=== PATIENT | male | born 1935 | race Caucasian/White ===

== ENCOUNTER 2017-06-02 09:39 | Day surgery (SDC) | payer MEDICARE, OTHER, SELFPAY ==
[2017-05-26 14:18] VITALS: BP 107/67; PULSE 54; RESP 16; TEMP 36.6; O2SAT 97; BMI 25.7
--- NOTE | 2017-05-26 14:25 | SDCEKG_ITS ---
Test Reason : Blood Pressure : / mmHG Vent. Rate : 051 BPM Atrial Rate : 051 BPM P-R Int : 192 ms QRS Dur : 106 ms QT Int : 448 ms P-R-T Axes : 042 -07 -01 degrees QTc Int : 412 ms Sinus bradycardia Low voltage QRS Inferior infarct , age undetermined Cannot rule out Anterior infarct , age undetermined Abnormal ECG Confirmed by RONNIE ROYAL, SULLY ([id number]), design editor JELLY LOZANO ([id number]) on 05/29/2017 2:22:52 PM Referred By: Sergio Lott Confirmed By:SULLY TRUJILLO MD
[2017-05-26 15:05] LABS: Anion Gap 3 (5-15); BUN 19 mg/dL (7-18); Calcium,Total 8.4 mg/dL (8.5-10.1); Chloride 106 mmol/L (98-107); Creatinine, Serum 0.91 mg/dL (0.70-1.30); EST Glomerular Filtration Rate 85 mL/min (>60); Est Glom Filt Rate - Afr Amer 103 mL/min (>60); Glucose 89 mg/dL (74-106); Potassium 4.3 mmol/L (3.5-5.1); Sodium Level 140 mmol/L (136-145)
[2017-06-02 10:00] VITALS: BP 140/86; PULSE 51; RESP 16; TEMP 36.1; O2SAT 100; BMI 25.7
--- NOTE | 2017-06-02 10:57 | MISC_PTH ---
PATIENT: RADHA CUELLAR LOC: [facility] [place] U#:[id number] AGE/SX: 82/M ROOM: RE06/02/[address]: Dr. Cedric Lott MD : [id number] BED: DIS: 06/02/2017 SPEC #: [id number] RECD: 06/02/17 13:39 STATUS: BELEN BRANDEN #: [id number] HA: 06/02/17 10:[address]: Cedric Lott DEPT: SURGICAL PATHOLOGY RECD BY: Nael Lock ENTERED: 06/02/17 13:51 SP TYPE: MISC OTHR DR: Dr. Cedric Donis MD Tissues: Supraglottic space Procedures: Surgery Specimen Level IV HEADER OPERATION: Direct laryngoscopy with biopsy PRE-OP DIAGNOSIS: Supraglottic mass TISSUE SUBMITTED: Supraglottic mass MICROSCOPIC DIAGNOSIS Supraglottic mass, biopsy: Changes suggestive of squamous papilloma. AM:nette 06/03/17 MICROSCOPIC DESCRIPTION Slides are reviewed. GROSS DESCRIPTION Received in fixative is one container labeled with the patient's name and designated supraglottic mass. The specimen consists of one irregular fragment of light srinivasan soft tissue that measures 1 cm in greatest dimension. The specimen is totally submitted in one cassette. / SJ:nette 06/02/17 TC:5 CPT: 69109
[2017-06-02] MEDS: Oxymetazoline 0.05% 1 SPRAY SPRAY.BTL 15 SPRAY (12:21)
[2017-06-02 12:41] VITALS: BP 140/86; BP 148/89; PULSE 62; RESP 16; TEMP 36; O2SAT 95
[2017-06-02 13:00] VITALS: BP 119/83; BP 140/86; PULSE 58; RESP 16; O2SAT 95
--- NOTE | 2017-06-02 13:04 | PCM.DC ---
You will use the following diet at home:: No restrictions Discharge Activity: Return to Normal Activity Call your doctor if your incision/area has: Increased Pain/ Swelling Allergies/Adverse Reactions: Allergies No Known Allergies Allergy (Verified 05/28/17 08:19) Medications to take at Discharge Atorvastatin Calcium [Lipitor] 80 mg PO QHS 03/07/15 Glucosamine/MSM/Chondroitin A [Glucosamine Chondroit MSM Tab] 1 each PO DAILY 03/07/15 Metoprolol Tartrate [Lopressor (beta phong)] 25 mg PO BID 03/07/15 proCHLORPERazine tablet [Compazine tablet] 10 mg PO Q6H PRN PRN 03/07/15 Aspirin E.C. [Ecotrin] 81 mg PO DAILY@0800 07/03/15 Phenylephrine HCl/Wilson Butter [Preparation H Suppository] 1 each RC UD PRN 07/03/15 Halaven 2 mg IV QMONTH 07/24/15 Multivit-Min/FA/Lycopen/Lutein [Centrum Silver Men Tablet] 1 each PO BID 07/29/16 tamsulosin 0.4 mg capsule 0.4 mg PO DAILY 60 Days #60 02/27/17 Naproxen Sodium [Aleve] 220 mg PO QODAY 04/15/17 Ondansetron [Zofran Odt] 4 mg PO Q8H PRN PRN #60 tab 04/15/17 Pantoprazole Sodium [Protonix] 40 mg PO DAILY #60 tablet 04/15/17 lisinopril 2.5 mg tablet 2.5 mg PO QDAY #30 tab 04/16/17 Primary Care Physician: Sergio Donis MD [Primary Care Provider] - Please Follow Up With: Sergio Lott MD When: 1 week
--- NOTE | 2017-06-02 13:05 | PCM.OPRPT ---
Problem List (1) Supraglottic mass Status: Acute Report of Operation Date of Procedure: 06/02/17 Pre-Operative Diagnosis: left supraglottic mass Post-Operative Diagnosis: left supraglottic mass Surgery/Procedure Performed:: diagnostic laryngoscopy with biopsy and use of operative telescope Type of Anesthesia:: General Estimated Blood Loss (mL): 0cc Description of Procedure: on the day of the procedure, after appropriate informed consent was obtained, the patient was brought to the operating room and placed in supine position on the operating table. he was placed under general endotracheal anesthesia by the anesthesiologist. the endotracheal tube was secured, the eyes were taped. the table was rotated 90 degrees toward the surgeon. a tooth guard was placed. a gretchen laryngoscope was inserted into the oral cavity with care not to damage the lips teeth or gums. once a glottic view was obtained, it was suspended from the thapa. a zero degree endoscope was inserted and the larynx was examined. a small left mid-false cord nodule was biopsied. the remainder of the glottis, supraglottis, oropharynx and hypopharynx was clear of masses or mucosal irregularities. hemostasis was achieved. the patient was transferred to the PACU in stable condition. - Admit VTE Documentation VTE Present on Admission: No VTE Mechan Device Prophylaxis: None VTE Pharm Prophylaxis ordered?: No Reason prophylaxis not ordered:: Treatment Not Indicated
[2017-06-02 13:10] VITALS: BP 113/76; BP 140/86; PULSE 55; RESP 16; TEMP 36.1; O2SAT 94
[2017-06-02 13:32] VITALS: BP 140/86
== END 2017-06-02 13:33 | disposition home or self-care (01) ==
LOC: SDC 09:39 → AC 09:41
PROVIDERS: Family Provider Family Medicine; PCP Family Medicine; Visit Provider Otolaryngology
PROC: 0CJS8ZZ Inspection of Larynx, Via Natural or Artificial Opening Endoscopic (ICD-10-PCS; CPT 31575; principal; 2017-06-02 11:25)
DX: D14.1 Benign neoplasm of larynx (principal); C48.0 Malignant neoplasm of retroperitoneum; I25.10 Atherosclerotic heart disease of native coronary artery without angina pectoris; I25.2 Old myocardial infarction; I42.9 Cardiomyopathy, unspecified; I35.0 Nonrheumatic aortic (valve) stenosis; E78.00 Pure hypercholesterolemia, unspecified; K21.9 Gastro-esophageal reflux disease without esophagitis; Z95.1 Presence of aortocoronary bypass graft; Z95.5 Presence of coronary angioplasty implant and graft; Z79.82 Long term (current) use of aspirin; Z79.899 Other long term (current) drug therapy
CPT/HCPCS: 31536; 80048; 88305; J7120; A4216; J2405

== ENCOUNTER → 2017-06-18 07:32 | Outpatient (CLI) | payer MEDICARE, BC, OTHER, SELFPAY ==
[2017-06-18 10:22] LABS: LDH 172 U/L (87-241); Magnesium 2.2 mg/dL (1.6-2.6)
[2017-06-18 10:26] LABS: Hemoglobin 11.7 g/dl (13.0-16.5); Mean Corpuscular Volume 94.3 fL (80-94); Red Blood Count 3.71 M/mm3 (4.6-6.2); White Blood Count 1.3 K/mm3 (4.4-11.0)
[2017-06-18 10:27] LABS: Absolute Lymphocyte Count 0.62 X10^3/ul (0.83-4.51); Absolute Neutrophil Count 0.4 X10^3/uL (2.0-7.7); Basophil# 0.07 X10^3/uL; Basophil% 5.5 % (0-1); Eosinophil# 0.05 X10^3/uL; Eosinophils% 3.9 % (0-5); Lymphocyte # 0.62 X10^3/ul (4.0); Lymphocyte % 48.4 % (19-41); Mean Corp Hgb Conc 33.4 g/gl (32-36); Mean Corpuscular Hgb 31.5 pg (27.0-32.0); Mean Platelet Vol. 9.3 fl (6.2-12.0); Monocyte# 0.14 X10^3/uL; Monocyte% 10.9 % (0-10); Neutrophil # 0.39 X10^3/uL (2.7-7.7); Neutrophil % 30.5 % (47-70); Platelet Count 241 K/mm3 (150-450); RBC Distribution Width SD 45.7 fl (35.1-43.9)
[2017-06-18 10:31] LABS: Differential Indicated SCAN CRITERIA MET; POSITIVE COUNT YES; POSITIVE DIFFERENTIAL YES; POSITIVE MORPHOLOGY NO
[2017-06-18 10:32] LABS: ALB/GLOB Ratio 1.3 RATIO (0.9-2.4); AST(SGOT) 21 U/L (15-37); Alanine Aminotransfer ALT/SGPT 23 U/L (16-61); Albumin, Serum 3.6 g/dL (3.2-5.0); Alkaline Phosphatase 91 U/L (45-117); Anion Gap 7 (5-15); BUN 17 mg/dL (7-18); Bilirubin, Direct 0.18 mg/dL (0.00-0.30); Calcium,Total 8.5 mg/dL (8.5-10.1); Chloride 104 mmol/L (98-107); Cholesterol 143 mg/dL (200); Creatinine, Serum 0.85 mg/dL (0.70-1.30); EST Glomerular Filtration Rate 91 mL/min (>60); Est Glom Filt Rate - Afr Amer 111 mL/min (>60); Globulin 2.8 g/dL (2.2-4.2); Glucose 89 mg/dL (74-106); High Density Lipoprotein 38 mg/dL; Potassium 3.9 mmol/L (3.5-5.1); Protein, Total 6.4 g/dL (6.4-8.2); Sodium Level 140 mmol/L (136-145); Triglycerides 86 mg/dL; Very Low Density Lipoprotein 17 mg/dL (5-40)
[2017-06-18 11:19] LABS: Platelet Estimate ADEQUATE (ADEQ)
[2017-06-18 11:20] LABS: Red Cell Morphology NORM C+C NORMAL (NORM C&C)
[2017-06-22 09:57] LABS: Pathologist Review Reviewed
== END ==
PROVIDERS: Internal Medicine Medical Oncology; Family Provider Family Medicine; PCP Family Medicine
DX: E78.5 Hyperlipidemia, unspecified (principal); C49.5 Malignant neoplasm of connective and soft tissue of pelvis; I25.10 Atherosclerotic heart disease of native coronary artery without angina pectoris; Z79.899 Other long term (current) drug therapy
CPT/HCPCS: 36415; 80053; 80061; 82248; 83615; 83735; 85025

== ENCOUNTER → 2018-03-24 07:42 | Outpatient (CLI) | payer MEDICARE, OTHER, SELFPAY ==
[2018-03-17 08:41] VITALS: BMI 25.4
--- NOTE | 2018-03-24 07:48 | EKG12_ITS ---
Test Reason : MED Blood Pressure : / mmHG Vent. Rate : 056 BPM Atrial Rate : 056 BPM P-R Int : 196 ms QRS Dur : 106 ms QT Int : 454 ms P-R-T Axes : 068 084 -11 degrees QTc Int : 438 ms Sinus bradycardia Possible Inferior infarct , age undetermined Cannot rule out Anterior infarct , age undetermined Abnormal ECG Confirmed by LON ROYAL, MCKAY ([id number]), editorial specialist JELLY LOZANO ([id number]) on 03/25/2018 4:01:20 PM Referred By: Сергей Medina Confirmed By:MCKAY FORREST MD
--- OUTSIDE RECORDS SUMMARY | 2018-05-28 22:33 | XMS RPT_ITS ---
:1935 Author Organization [place] Support Name Relationship Address Phone ALISAMARTIEN Unavailable [address] + [place] [address] JENN ESQUIVELE Unavailable [address] + [place] [address] S Unavailable Unavailable Unavailable BRADFORD ESQUIVEL Unavailable [address] + [place] [address] JENN ESQUIVELE Unavailable [address] + [place] [address] S Unavailable Unavailable Unavailable BRADFORD ESQUIVEL Unavailable [address] + [place] [address] JENN ESQUIVELE Unavailable [address] + [place] [address] S Unavailable Unavailable Unavailable BRADFORD ESQUIVEL Unavailable [address] + [place] [address] JENNIFER ESQUIVEL Unavailable [address] + [place] [address] S Unavailable Unavailable Unavailable BRADFORD ESQUIVEL Unavailable [address] + [place] [address] MARTI ESQUIVELEN Unavailable [address] + [place] [address] CAMILO ESQUIVEL Unavailable Unavailable Unavailable BRADFORD ESQUIVEL Unavailable [address] + [place] [address] BRADFORD ESQUIVEL Unavailable [address] + [place] [address] CAMILO ESQUIVEL Unavailable Unavailable Unavailable BRADFORD ESQUIVEL Unavailable [address] + [place] [address] BRADFORD ESQUIVEL Unavailable [address] + [place] [address] ESQUIVELCAMILO Anderson Unavailable Unavailable Unavailable ESQUIVEL, BRADFORD Unavailable [address] + [place] [address] ESQUIVEL BRADFORD Unavailable [address] + [place] [address] ESQUIVEL, CAMILO Unavailable Unavailable Unavailable ESQUIVEL BRADFORD Unavailable [address] + [place] [address] ESQUIVEL, JENNIFER Unavailable [address] + [place] [address] S Unavailable Unavailable Unavailable ESQUIVEL BRADFORD Unavailable [address] + [place] [address] ESQUIVEL, JENNIFER Unavailable [address] + [place] [address] S Unavailable Unavailable Unavailable ESQUIVEL BRADFORD Unavailable [address] + [place] [address] ESQUIVEL JENNIFER Unavailable [address] + [place] [address] S Unavailable Unavailable Unavailable ESQUIVELMARTIEN Unavailable [address] + [place] [address] ESQUIVEL JENNIFER Unavailable [address] + [place] [address] S Unavailable Unavailable Unavailable ESQUIVEL BRADFORD Unavailable [address] + [place] [address] ESQUIVEL JENNIFER Unavailable [address] + [place] [address] S Unavailable Unavailable Unavailable ESQUIVEL BRADFORD Unavailable [address] + [place] [address] ESQUIVEL BRADFORD Unavailable [address] + [place] [address] ALISA CAMILO Unavailable Unavailable Unavailable ESQUIVEL, BRADFORD Unavailable [address] + [place] [address] ESQUIVEL BRADFORD Unavailable [address] + [place] [address] CAMILO ESQUIVEL Unavailable Unavailable Unavailable ESQUIVEL, BRADFORD Unavailable [address] + [place] [address] ESQUIVEL, BRADFORD Unavailable [address] + [place] [address] ALISA CAMILO Unavailable Unavailable Unavailable ESQUIVEL, BRADFORD Unavailable [address] + [place] [address] ESQUIVEL, JENNIFER Unavailable [address] + [place] [address] S Unavailable Unavailable Unavailable ESQUIVEL, BRADFORD Unavailable [address] + [place] [address] ESQUIVEL, JENNIFER Unavailable [address] + [place] [address] S Unavailable Unavailable Unavailable ESQUIVEL, BRADFORD Unavailable [address] + [place] [address] ESQUIVEL JENNIFER Unavailable [address] + [place] [address] S Unavailable Unavailable Unavailable ESQUIVEL, BRADFORD Unavailable [address] + [place] [address] ESQUIVEL JENNIFER Unavailable [address] + [place] [address] S Unavailable Unavailable Unavailable ESQUIVEL, BRADFORD Unavailable [address] + [place] [address] ESQUIVEL, JENNIFER Unavailable [address] + [place] [address] S Unavailable Unavailable Unavailable ESQUIVEL, BRADFORD Unavailable [address] + [place] [address] ESQUIVEL, BRADFORD Unavailable [address] + [place] [address] ESQUIVEL, CAMILO Unavailable Unavailable Unavailable ESQUIVEL, BRADFORD Unavailable [address] + [place] [address] ESQUIVEL, BRADFORD Unavailable [address] + [place] [address] ESQUIVEL CAMILO Unavailable Unavailable Unavailable ESQUIVEL, BRADFORD Unavailable [address] + [place] [address] ALISA BRADFORD Unavailable [address] + [place] [address] ALISA CAMILO Unavailable Unavailable Unavailable ESQUIVEL, BRADFORD Unavailable [address] + [place] [address] ESQUIVELJENNE Un[address] + [facility] [place] [address] S Unavailable Unavailable Unavailable ESQUIVEL, BRADFORD Unavailable [address] + [place] [address] JENN ESQUIVELE Unavailable [address] + [place] [address] S Unavailable Unavailable Unavailable ESQUIVEL, BRADFORD Unavailable [address] + [place] [address] JENN ESQUIVELE Unavailable [address] + [place] [address] S Unavailable Unavailable Unavailable ESQUIVEL BRADFORD Unavailable [address] + [place] [address] ALISA BRADFORD Unavailable [address] + [place] [address] ALISA CAMILO Unavailable Unavailable Unavailable ESQUIVEL, BRADFORD Unavailable [address] + [place] [address] ALISA BRADFORD Unavailable [address] + [place] [address] ALISA CAMILO Unavailable Unavailable Unavailable ESQUIVEL BRADFORD Unavailable [address] + [place] [address] ESQUIVEL BRADFORD Unavailable [address] + [place] [address] ALISA CAMILO Unavailable Unavailable Unavailable ESQUIVEL, BRADFORD Unavailable [address] + [place] [address] ESQUIVEL JENNIFER Unavailable [address] + [place] [address] S Unavailable Unavailable Unavailable ESQUIVEL, BRADFORD Unavailable [address] + [place] [address] ESQUIVEL, JENNIFER Unavailable [address] + [place] [address] S Unavailable Unavailable Unavailable ESQUIVEL, BRADFORD Unavailable [address] + [place] [address] ESQUIVEL, JENNIFER Unavailable [address] + [place] [address] S Unavailable Unavailable Unavailable ESQUIVEL, BRADFORD Unavailable [address] + [place] [address] ESQUIVEL, JENNIFER Unavailable [address] + [place] [address] S Unavailable Unavailable Unavailable ESQUIVEL, BRADFORD Unavailable [address] + [place] [address] ESQUIVEL, JENNIFER Unavailable [address] + [place] [address] S Unavailable Unavailable Unavailable ESQUIVEL, BRADFORD Unavailable [address] + [place] [address] ESQUIVEL, JENNIFER Unavailable [address] + [place] [address] S Unavailable Unavailable Unavailable ESQUIVEL, BRADFORD Unavailable [address] + [place] [address] ESQUIVEL, JENNIFER Unavailable [address] + [place] [address] S Unavailable Unavailable Unavailable ESQUIVEL, BRADFORD Unavailable [address] + [place] [address] ESQUIVEL, JENNIFER Unavailable [address] + [place] [address] S Unavailable Unavailable Unavailable ESQUIVEL, BRADFORD Unavailable [address] + [place] [address] ESQUIVEL, JENNIFER Unavailable [address] + [place] [address] S Unavailable Unavailable Unavailable ESQUIVEL, BRADFORD Unavailable [address] + [place] [address] JENN ESQUIVELE Unavailable [address] + [place] [address] S Unavailable Unavailable Unavailable ESQUIVEL BRADFORD Unavailable [address] + [place] [address] JENN ESQUIVELE Unavailable [address] + [place] [address] S Unavailable Unavailable Unavailable ESQUIVEL BRADFORD Unavailable [address] + [place] [address] ESQUIVEL JENNIFER Unavailable [address] + [place] [address] S Unavailable Unavailable Unavailable ALISA BRADFORD Unavailable [address] + [place] [address] ALISA BRADFORD Unavailable [address] + [place] [address] CAMILO ESQUIVEL Unavailable Unavailable Unavailable ESQUIVEL BRADFORD Unavailable [address] + [place] [address] ESQUIVEL BRADFORD Unavailable [address] + [place] [address] CAMILO ESQUIVEL Unavailable Unavailable Unavailable ESQUIVEL BRADFORD Unavailable [address] + [place] [address] ALISA BRADFORD Unavailable [address] + [place] [address] CAMILO ESQUIVEL Unavailable Unavailable Unavailable Care Team Providers Name Role Phone AWILDA BURNS Attending Unavailable AWILDA BURNS Referring Unavailable NATHALIE DONIS Primary Care Unavailable AWILDA BURNS Attending Unavailable NATHALIE DONIS Referring Unavailable NATHALIE DONIS Primary Care Unavailable AWILDA BURNS Attending Unavailable AWILDA BURNS Referring Unavailable NATHALIE DONIS Primary Care Unavailable AWILDA BURNS Attending Unavailable AWILDA BURNS Referring Unavailable NATHALIE DONIS Primary Care Unavailable AWILDA BURNS Attending Unavailable NATHALIE DONIS Referring Unavailable NATHALIE DONIS Primary Care Unavailable AWILDA BURNS Attending Unavailable AWILDA BURNS Referring Unavailable RANNEY, CHRISTOPHER B Primary Care Unavailable AWILDA BURNS Attending Unavailable AWILDA BURNS Referring Unavailable RANNEY, CHRISTOPHER B Primary Care Unavailable AWILDA BURNS Attending Unavailable RANNEY, CHRISTOPHER B Referring Unavailable RANNEY, CHRISTOPHER B Primary Care Unavailable AWILDA BURNS Attending Unavailable AWILDA BURNS Referring Unavailable RANNEY, CHRISTOPHER B Primary Care Unavailable SUNNI SORTO Attending Unavailable AWILDA BURNS Referring Unavailable RANNEY, CHRISTOPHER B Primary Care Unavailable AWILDA BURNS Attending Unavailable RANNEY, CHRISTOPHER B Referring Unavailable RANNEY, CHRISTOPHER B Primary Care Unavailable AWILDA BURNS Attending Unavailable AWILDA BURNS Referring Unavailable RANNEY, CHRISTOPHER B Primary Care Unavailable AWILDA BURNS Attending Unavailable AWILDA BURNS Referring Unavailable RANNEY, CHRISTOPHER B Primary Care Unavailable AWILDA BURNS Attending Unavailable AWILDA BURNS Referring Unavailable RANNEY, CHRISTOPHER B Primary Care Unavailable AWILDA BURNS Attending Unavailable AWILDA BURNS Referring Unavailable RANNEY, CHRISTOPHER B Primary Care Unavailable AWILDA BURNS Attending Unavailable RANNEY, CHRISTOPHER B Referring Unavailable RANNEY, CHRISTOPHER B Primary Care Unavailable Сергей Medina Attending Unavailable Keith, Rodger Referring Unavailable Ranney, Christopher Primary Care Unavailable Сергей Medina Consulting Unavailable Leti Alexander Attending Unavailable Sagar, Rodger Referring Unavailable Ranney, Christopher Primary Care Unavailable Сергей Medina Consulting Unavailable Сергей Medina Attending Unavailable Ranney, Christopher Primary Care Unavailable Sagar, Rodger Referring Unavailable PraСергей valles Attending Unavailable Сергей Medina Referring Unavailable Ranney, Christopher Primary Care Unavailable Сергей Medina Attending Unavailable Sagar, Rodger Referring Unavailable Ranney, Christopher Primary Care Unavailable Сергей Medina Consulting Unavailable Garrett Kimball Attending Unavailable Ranney, Christopher Referring Unavailable Сергей Medina Attending Unavailable Сергей Medina Referring Unavailable Ranney, Christopher Primary Care Unavailable Сергей Medina Consulting Unavailable Сергей Medina Attending Unavailable Сергей Medina Referring Unavailable Ranney, Christopher Primary Care Unavailable Сергей Medina Consulting Unavailable Сергей Medina Attending Unavailable Ranney, Christopher Primary Care Unavailable Сергей Medina Consulting Unavailable Sergio Lott Attending Unavailable Warmuluann, Sergio Referring Unavailable Ranney, Christopher Primary Care Unavailable Сергей Medina Attending Unavailable Keith, Rodger Referring Unavailable Ranney, Christopher Primary Care Unavailable Сергей Medina Consulting Unavailable Prah, Сергей Attending Unavailable Keith, Rodger Referring Unavailable [facility] Primary Care Unavailable Prah, Сергей Consulting Unavailable Estuardo Santos Attending Unavailable [facility] Primary Care Unavailable Prah, Сергей Consulting Unavailable Benita Dove Attending Unavailable Prah, Сергей Attending Unavailable Keith, Rodger Referring Unavailable [facility] Unavailable Prah, Сергей Consulting Unavailable Suzanna Santos Attending Unavailable [facility] Referring Unavailable [facility] Primary Care Unavailable Prah, Сергей Attending Unavailable Keith, Rodger Referring Unavailable [facility] Unavailable Prah, Сергей Consulting Unavailable Jigar, Garrett Attending Unavailable [facility] Referring Unavailable Catherine, Leti Attending Unavailable Keith, Rodger Referring Unavailable [facility] Unavailable Prah, Сергей Consulting Unavailable Prah, Сергей Attending Unavailable Prah, Сергей Attending Unavailable Keith, Rodger Referring Unavailable [facility] Unavailable Prah, Сергей Consulting Unavailable Prah, Сергей Attending Unavailable Keith, Rodger Referring Unavailable [facility] Primary Care Unavailable Prah, Сергей Consulting Unavailable Prah, Сергей Attending Unavailable Keith, Rodger Referring Unavailable [facility] Primary Care Unavailable Prah, Сергей Consulting Unavailable Catherine, Leti Attending Unavailable [facility] Primary Care Unavailable Prah, Сергей Consulting Unavailable [facility] Referring Unavailable Prah, Сергей Attending Unavailable [facility] Unavailable Prah, Сергей Consulting Unavailable Ranney, Christopher Referring Unavailable Prah, Сергей Attending Unavailable Keith, Rodger Referring Unavailable [facility] Unavailable Prah, Сергей Consulting Unavailable Prah, Сергей Attending Unavailable Keith, Rodger Referring Unavailable [facility] Primary Care Unavailable Prah, Сергей Consulting Unavailable Prah, Сергей Attending Unavailable Keith, Rodger Referring Unavailable [facility] Unavailable Prah, Сергей Consulting Unavailable Prah, Сергей Attending Unavailable Keith, Rodger Referring Unavailable [facility] Primary Care Unavailable Prah, Сергей Consulting Unavailable PROBLEMS PROBLEMS DATE TYPE CONDITION / CODE ATTENDING STATUS SOURCE Unknown R42 - Dizziness and Jigar, [place] Active [place] [facility] giddiness / R42(ICD-10) [facility] Repository Unknown Z95.1 - Presence of Jigar, Garrett Active [facility] 9 aortocoronary bypass Community graft / Z95.1(ICD-10) Hospital Repository Unknown I42.0 - Dilated Jiagr, Garrett Active [facility] 9 cardiomyopathy / Community I42.0(ICD-10) Hospital Repository Unknown E78.00 - Pure Jigar, [place] Active [facility] 9 hypercholesterolemia, Community unspecified / Hospital E78.00(ICD-10) Repository Unknown Z51.11 - Encounter for Сергей Medina Active [place] 9 antineoplastic Community chemotherapy / Hospital Z51.11(ICD-10) Repository Unknown 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, Hospital unspecified / Repository C49.9(ICD-10) Admitting Follow-up / 145() AWILDA BURNS Active [facility] 9 diagnosis [facility] Repository Unknown Z79.899 - Other technician terminal and repeater Сергей Medina Active [facility] 8 (current) drug therapy / Community Z79.899(ICD-10) Hospital Repository Unknown C49.5 - 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 Hospital / C49.5(ICD-10) Repository Admitting Malignant neoplasm of AWILDA BURNS Active [facility] 8 diagnosis other specified University ill-defined sites / [facility] C76.8(ICD-10) Center Repository Admitting 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 soft University tissue, [facility] Center Repository 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 / University C48.0(ICD-10) [facility] Repository Unknown E78.0 - Pure Danielle, Active [facility] 8 hypercholesterolemia / Suzanna [facility] E78.0(ICD-10) Hospital Repository Unknown E78.5 - Hyperlipidemia, Danielle, Active [place] 8 unspecified / Estuardo [facility] E78.5(ICD-10) Hospital Repository Unknown I25.10 - Atherosclerotic Jigar, Garrett Active [place] 8 heart disease of campo Community coronary artery without Hospital angina pectoris / Repository I25.10(ICD-10) Unknown 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 / Community I25.2(ICD-10) Hospital Repository Unknown R94.31 - Abnormal Garrett Kimball Active [facility] 8 electrocardiogram [ECG] Community [EKG] / R94.31(ICD-10) Hospital Repository Admitting 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 soft University tissue, unspecified (HCC) [facility] / C49.9(ICD-10) Center Repository 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 [address] [place] [address] OFFICE VISIT Date of Service: 03/30/18 MR#: [id number] Acct: [id number] Name: CAMILO ESQUIVEL Rep #: [id number] : 1935 Provider: Garrett Kimball MD Age/Sex: 83/M Location: [facility] Status: Signed HPI HPI Chief Complaint: Follow up Details: CAMILO ESQUIVEL, is a 83 M who presents to the office today for a cardiovascular follow-up. 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 His posterior descending artery was not amenable to intervention. He had angioplasty and stenting of his LAD. He does have a history of cardiomyopathy,, hypertension and hyperlipidemia. From a cardiac standpoint, patient is doing well. He does not have any chest discomfort/heaviness/tightness. His exercise tolerance is stable for his age. He does not have any worsening symptoms of shortness of breath. He denies any PND. He does not have any orthopnea. He does not have any symptoms of congestive heart failure. He does not have any palpitations that he is aware of. He has been having occasional lightheadedness and he is not sure whether this is always positional. He thinks it may be related to his cancer care. he does not have any lower extremity edema. He does not have any symptoms of claudication. 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 [Ecotrin] 81 mg PO DAILY@0800 07/03/15 [History Confirmed 03/30/18] Halaven 2 mg IV QMONTH 07/24/15 [History Confirmed 03/30/18] Multivit-Min/FA/Lycopen/Lutein [Centrum Silver Men Tablet] 1 ea PO BID 07/29/16 [History Confirmed 03/30/18] tamsulosin 0.4 mg capsule 0.4 mg PO DAILY 60 Days #60 02/27/17 [History Confirmed 03/30/18] Naproxen Sodium [Aleve] 220 mg PO QODAY 04/15/17 [History Confirmed 03/30/18] Ondansetron [Zofran Odt] 4 mg PO Q8H PRN PRN #60 tab 04/15/17 [Rx Confirmed 03/30/18] Pantoprazole Sodium [Protonix] 40 mg PO DAILY #60 tab 04/15/17 [Rx Confirmed 03/30/18] metoprolol tartrate 25 mg tablet 25 mg PO BID #180 tab 09/07/17 [Rx Confirmed 03/30/18] lisinopril 2.5 mg tablet 2.5 mg PO QDAY #30 tab 11/04/17 [Rx Confirmed 03/30/18] atorvastatin 40 mg tablet 40 mg PO QHS #90 tab 11/13/17 [Rx Confirmed 03/30/18] [facility] Medical History GERD (gastroesophageal reflux disease) (Chronic) HLD (hyperlipidemia) (Chronic) Coronary artery disease (Chronic) Benign prostatic hypertrophy (Chronic) [place] of multiple sites (Acute) HLD (hyperlipidemia) (Chronic) Dizziness and giddiness (Chronic) BIOPSY OF THROAT (Acute) Chest congestion (Acute) Hernia (Acute) Arthritis (Chronic) Hypertension (Chronic) Surgical History Status post coronary artery bypass graft (Chronic) History of biopsy (Acute) Hx of tonsillectomy (Acute) History of PTCA (Chronic 2008) S/P CABG x 1 (Chronic 06/16/05) Family History Father Heart disease Myocardial infarction, Onset Age: 43 Mother COPD (chronic obstructive pulmonary disease) Sister Cancer Social History Smoking Status: Never smoker alcohol intake: never substance use type: does not use caffeine: Yes Type: coffee Number of servings: 3 what type of physical activity do you participate in: none seatbelt use: always do you feel safe at home: Yes ROS Const Const: Negative for fatigue, weakness, body ache, fever(s), headache(s), chills, frequent falls, night sweats, daytime sleepiness, difficulty sleeping, excessive sweating, weight gain, weight loss, increased appetite, poor appetite, anorexia or other Eyes Eyes: Negative for blind spots, loss of peripheral vision, transient loss of vision, blurry vision, change in vision, double vision, floaters, tunnel vision or other ENT ENT: Positive for dizziness; negative for headache(s) or balance problems Cardio Chest Pain: No Resp Respiratory: Negative for SOB with activity, SOB at rest, SOB orthopnea\SOB lying down, Cough, Coughing up blood/hemoptysis, chest congestion, pain on inspiration, snoring, stridor, wheezing, crackles, paroxysmal nocturnal dyspnea or other GI GI: Negative nausea, vomiting, heartburn, constipation, belching, bloating, cramping, vomiting blood/hematemesis, bright, red blood in stools, black,tarry stools, loose stools, Difficulty Swallowing or other : Negative for hematuria, frequent nighttime urination/ nocturia, erectile dysfunction or abnormal vaginal bleeding Musc Musc: Negative for muscle aches/ myalgia, muscle weakness, joint pain or balance problems Skin Skin: Negative redness, non-healing lesions, rash, unusual bruising, skin ulcer, wounds, jaundice or other Neuro Neuro: Positive for dizziness; negative for weakness, headache(s), frequent falls, blurry vision or double vision Endo Endo: Negative for fatigue or excessive sweating Allergy Allergy/Immunology: Negative for rash Cardiology Exam Const Appearance: cooperative, healthy appearing, well developed, well groomed and no acute distress Nutritional Appearance: well nourished and average body habitus Orientation: alert, awake and oriented x3 Head Head: normal to inspection, normocephalic and atraumatic Ears: hearing grossly normal bilaterally and external ears normal Nose: external nose normal, nasal mucous membranes and turbinates normal, nares normal, septum normal, no nasal discharge Face and Sinus: face symmetric Mouth: oral mucosae normal, tongue normal, oropharynx normal and moist mucous membranes Teeth and gingiva: dentition normal Throat: posterior oropharynx normal, tonsils normal and uvula midline Eyes General: appearance normal, both eyes and all related structures Eyelids: eyelids normal Conjunctivae: conjunctivae normal Pupils: PERRL, normal by confrontation and accommodation normal EOM: EOM intact bilaterally Neck Neck: normal visual inspection, trachea midline and no JVD JVD: +5 Carotids: normal carotid upstroke and bounding pulses Chest Chest inspection: normal inspection of the chest, symmetric chest movement and normal respiratory effort Auscultation: Bilateral: Clear to Auscultation Cardio Palpation: normal PMI Rate: regular rate Rhythm: regular rhythm Heart sounds: S1 normal, S2 normal and normal, physiologic split S2; negative rub, gallop or murmur GI GI: normal to inspection, soft, no hepatosplenomegaly and bowel sounds present Neuro General: alert, awake, oriented x3, no focal sensory deficit, gait normal and moves all extremities Skin Skin: no rashes or lesions noted Extremities Pulses: Normal: Right Femoral Pulse, Left Femoral Pulse, Right Dorsalis Pedis Pulse, Left Dorsalis Pedis Pulse, Right Posterior Tibial Pulse, Left Posterior Tibial Pulse, Right Radial Pulse, Left Radial Pulse Lower Extremity Edema: None: Bilateral Musculoskel Musculoskeletal: No joint tenderness Psych Psychological: normal affect Assessment AND Plan 1. Dizziness and giddiness R42 Plan He does have mild dizziness. The etiology of the above is not entirely clear however he has been running borderline low blood pressures and I would recommend that we discontinue his lisinopril at this time and see how he progresses. 2. Status post coronary artery bypass graft Z95.1 06/16/05, - ELIAS side to side to 2nd to Diagonal branch AND end to side to mid anterior descending as a patch angioplasty across the circumferential lesion in Mid LAD, SVG to CX AND SVG to PDA of RCA Plan He is status post coronary artery bypass graft surgery. He has not had any evidence of angina. His last stress test 2-1/2 years ago demonstrated evidence of previous extensive inferior septal, inferior apical, and inferior lateral infarct with minimal val-infarct ischemia with an excellent functional capacity. We will continue to follow him clinically. 3. Dilated cardiomyopathy I42.0 Plan His last ejection fraction was estimated at 45%. At this time there is no evidence of heart failure and I do not think there is a reason to repeat this. 4. Pure hypercholesterolemia E78.00 Plan He does have a history of hyperlipidemia with no recent lipid profiles. We will however continue to follow him closely. He is on high intensity statin. Thank you for allowing me to participate in the care of your patient. 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 Dilated cardiomyopathy I42.0 Pure hypercholesterolemia E78.00 Hyperlipidemia type: pure hypercholesterolemia Supplemental Info Supplemental Information Diagnostics Electrocardiogram 03/24/18 03/30/18 0921 <Electronically signed by Garrett Kimball MD> Date Garrett Kimball MD Cosigner Signature: Date (if applicable) CC: Nathalie Donis MD 12 LEAD ELECTROCARDIOGRAM Observed: 03/25/2018 Status: F Source: [place] 4:01 PM [facility] REPOSITORY [facility] Cardiovascular Services [address] [place] [address] 12 Lead EKG 03/24/18 0759 MR#: [id number] Acct: [id number] Name: CAMILO ESQUIVEL Rep #: [id number] : 1935 83 From: Justen Forrest MD Attending Dr: Сергей Medina MD Status: REG CLI Ordering Dr: Сергей Medina MD Date: 03/24/18 Location: [facility] Sex: M C Admitted: Test Reason : MED Blood Pressure : / mmHG Vent. Rate : 056 BPM Atrial Rate : 056 BPM P-R Int : 196 ms QRS Dur : 106 ms QT Int : 454 ms P-R-T Axes : 068 084 -11 degrees QTc Int : 438 ms Sinus bradycardia Possible Inferior infarct , age undetermined Cannot rule out Anterior infarct , age undetermined Abnormal ECG Confirmed by LON ROYAL, JUSTEN ([id number]), staff editor JELLY LOZANO ([id number]) on 03/25/2018 4:01:20 PM Referred By: Сергей Medina Confirmed By:JUSTEN FORREST MD 03/25/18 1601 Date Justen Forrest MD CC: Nathalie Donis MD; Сергей Medina MD Signed CT ABDOMEN/PELVIS WITH Observed: 03/24/2018 Status: F Source: [facility] [facility] 4:37 PM [facility] REPOSITORY EXAM: CT ABDOMEN/PELVIS WITH CONTRAST, 03/23/2018 10:24 AM COMPARISON: Prior CT dated August 26, 2016. 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 Coronal 2 mm reconstructions were also made. iohexol (OMNIPAQUE) 300 MG/ML vial 50 mL; Route of Administration: Oral; Dose: 50 mL.iohexol (OMNIPAQUE) 350 MG/ML injection 1-171 mL; Route of Administration: Intravenous; Dose: 90 mL. FINDINGS: Lung bases: Please see dedicated chest CT scan of the same date for full description of the intra-thoracic contents. Liver: Liver is smooth in contour and homogeneous in enhancement. Stable left hepatic dome lesion on image 11. Additional punctate hypodensity on image 39 is also unchanged. The portal vein is patent. Biliary/Gallbladder: The gallbladder is physiologically distended without evidence of stones. The biliary tree is nondilated. Spleen: Tiny hypodensity in the spleen on image 34 is nonspecific. Pancreas: There is no evidence of pancreatic mass or peripancreatic fluid. No ductal dilatation. Adrenals: Adrenal glands are unremarkable. Kidneys: The kidneys enhance symmetrically. Multiple low-attenuation lesions in the kidneys bilaterally likely cysts. Some are difficult to characterize accurately. No hydronephrosis. Gastrointestinal: The stomach is partially distended with enteric contrast and appears grossly unremarkable. The bowel loops are non-dilated. Soft tissue thickening adjacent the cecum is also unchanged on image 76- 75, and haziness of the fat overlying the right iliopsoas. Lymph nodes: No adenopathy is identified. Small right pelvic sidewall lymph node measuring 7 mm in the short axis unchanged. Vasculature: The aorta is normal in course and caliber. Few scattered atherosclerotic calcifications throughout the aorta and its branches. Peritoneum/retroperitoneum: No free air or free fluid. Bladder: Bladder base indentation by the median prostate hypertrophy with bladder wall thickening likely related to chronic outlet obstruction.. Pelvic structures: Prostamegaly. Soft tissues: Small left inguinal hernia containing a small short segment of small bowel. Postsurgical changes of the right inguinal ring with some stable soft tissue thickening deep.. Bony Structures: There is a remote compression deformity of L3 and some wedging of L2. This is unchanged IMPRESSION: Postsurgical changes in the right inguinal region, with stable soft tissue thickening and right lower quadrant haziness. No progressive adenopathy. LOGY VISIT REPORT Observed: 03/24/2018 Status: F Source: [place] 2[facility]07 PM [facility] [address] [place] [address] OFFICE VISIT Date of Service: 03/24/18 0958 MR#: [id number] Acct: [id number] Name: CAMILO ESQUIVEL Rep #: [id number] : 1935 From: Сергей Medina MD Age/Sex: 83/M Location: ONC Status: Signed Subjective - Date of Service Date of Service:: 03/24/18 - Chief Complaint F/u for pleomorphic sarcoma and chemotherapy - History of Present Illness Mr. Camilo Esquivel is a very pleasant 83-year-old man who presented with a right groin mass in November 2014. Cytology showed pleomorphic sarcoma. MRI of the pelvis on 01/03/2015 showed an enhancing mass in the right inguinal area measuring 2.9 cm. The patient was referred to [facility]. PET CT scan on 01/11/2015 showed a right inguinal soft tissue mass with right retroperitoneal mass. Biopsy of the right inguinal mass on 01/15/2015 positive for sarcoma. Biopsy of the retroperitoneal mass on 01/21/2015 also showed sarcoma. He was started on Gemzar/Taxotere every 21 days on 02/05/2015. He had progressive disease on PET CT scan done on 05/01/2015. Treatment was changed to Halaven every 21 days in May 2015. Halaven was then changed to every 28 days with cycle 16 and subsequent cycles. Evaluated by Dr. Burns 11/25/16 and underwent PET/CT scan which showed stable disease. He continues Halaven. Bx of L posterior neck node was negative on 11/25/2016. He feels well. Still has R shoulder pain from arthritis but better. He was seen by Dr. Burns at [facility], PET/CT showed mixed response on 04/14/2017 with new activity in supraglottic area so since he has tolerated chemotherapy without adverse effects, after discussion, therapy should be changed to every 21 days. 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 C32D1 Halaven delayed by one week d/t neutropenia. He was started on Neulasta after the C32 but refused it after C34. He was seen at [facility] on 11/30/17, imaging revealed no evidence of progressive disease. Comes in for C44D8 N[place]. Reports that review at [facility] shows stable disease. 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 Family History Paternal Past Medical History: Heart disease Maternal Past Medical History: COPD Social History Social History: No changes Smoking Status Never smoker Review of Systems Constitutional:: Denies: Fever, Sweats, Weight loss, Appetite change, Chills Cardiovascular:: Denies: Chest pain, Palpitations, Dyspnea on exertion, Orthopnea, PND, Shortness of breath Respiratory: Denies: Cough, Hemoptysis, Shortness of Breath, Wheezing Gastrointestinal:: Denies: Abdominal pain, Nausea, Vomiting, Diarrhea, Constipation, Hematochezia Genitourinary: Denies: Dysuria, Hematuria, 15, Flank pain Musculoskeletal:: Denies: Back pain, Myalgia, Arthralgia Skin: Denies: Rash, Skin Changes, Wounds Neurological:: Denies: Headache, Dizziness, Visual changes, Tinnitus, Hearing loss Psychiatric: Denies: Anxiety, Depression, Homicidal Ideations, Suicidal Ideations Vital Signs Height 5 ft 6 in Weight: 70.76 kg Weight in Pounds 156.0 lbs Pulse Ox 96 - Physical Exam General: Alert, Oriented x3, No apparent distress, - - Port R IC area. HEENT: Atraumatic, PERRLA, EOMI, Normocephalic Oropharynx:: Dry mucosa Neck:: Supple, Trachea midline. Negative for: JVD, bilateral Cardiac:: Regular rate, Regular rhythm, Normal S1, Normal S2. Negative for: Murmur Lungs: Clear to auscultation, Excusion symmetrical. Negative for: Rhonchi, Wheezes Abdomen:: Bowel sounds x 4, Soft, Non-tender, Non-distended. 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 Stable disease. Tolerating therapy. 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 Plan is to proceed with chemotherapy Halaven cycle 44 D8 the following week without Neulasta. Pt does not want Neulasta. Return to clinic 2 weeks with CBC, CMP, magnesium for Halaven cycle 45. Medications: Prescriptions This Visit Medication Instructions Recorded Primary Care Provider: Nathalie Donis Referring Provider: - Problem List (1) Sarcoma Status: Chronic (2) Chemotherapy management, encounter for Status: Acute Code Visit Office Visits / Consults: [id number] OV L5 Est 03/24/18 1407 <Electronically signed by Сергей Medina MD> Date Сергей Medina MD Cosigner Signature: Date (if applicable) CC: CBC W/DIFF, AUTOMATED Collected: 03/24/2018 Status: C Source: [place] 8:52 AM [facility] REPOSITORY TYPE CODE TESTS RESULT OUT OF RANGE REFERENCE UNITS LAB L100.1000 4.4-11.0 K/mm3 Normal WBC 4.5 LAB L100.1200 4.6-6.2 M/mm3 Low RBC 3.94 LAB L100.1300 13.0-16.5 g/dl Low HGB 12.4 LAB L100.1400 40-54 % Low HCT 37.8 LAB L100.1500 80-94 fL High MCV 95.9 LAB L100.1600 27.0-32.0 pg Normal MCH 31.5 LAB L100.1700 32-36 g/gl Normal MCHC 32.8 LAB L100.1810 11.6-14.6 % Normal RDW CV 13.7 LAB L100.1820 35.1-43.9 fl High RDW SD 47.9 LAB L100.1900 150-450 K/mm3 Low PLT 145 LAB L100.2000 6.2-12.0 fl Normal MPV 9.3 LAB L100.2100 47-70 % Normal NEUT% 70.0 LAB L100.2200 19-41 % Low LY% 17.5 LAB L100.2300 0-10 % Normal MONO% 4.5 LAB L100.2400 0-5 % Normal EO% 3.1 LAB L100.2500 0-1 % High BASO% 2.2 LAB L100.2550 0.0-0.9 % High IM GRAN % 2.700 Result Comment: IG% - Immature Granulocytes (promyelocytes, myelocytes and metamyelocytes) > 1% indicates that a LEFT SHIFT is Present. LAB L100.2620 2.0-7.7 X10 3/uL Normal Absolute Neut 3.1 LAB L100.2720 0.83-4.51 X10 3/ul Low Absolute Lymph 0.78 LAB L100.9900 Normal PATH REV Reviewed Result Comment: AMENDED REPORT 03/25/18 0920 PATH REV previously reported as: Torri mata Performed By: #### L100.0100 #### [facility] [address] [place], [address] COMPREHENSIVE METABOLIC Collected: 03/24/2018 Status: F Source: [facility] 8:52 AM [facility] REPOSITORY Order Comment: Reason for Laboratory Test Chemotherapy TYPE CODE TESTS RESULT OUT OF RANGE REFERENCE UNITS LAB L501.0100 74-106 mg/dL High GLU 127 Result Comment: Fasting Glucose result greater than or equal to 126 mg/dL suggests DIABETES MELLITUS per A.D.A. criteria. Please note revised GLUCOSE reference range effective 2017. LAB L501.1000 7-18 mg/dL High BUN 19 LAB L501.1100 0.70-1.30 mg/dL Normal CREAT,SERUM 0.94 Result Comment: The validity of the calculated GFR AND GFRAA in patients over 70 years has not been determined. Clinical correlation is essential. LAB L501.1110 >60 mL/min Normal EST GFR 81 Result Comment: Non- GFR Calc LAB L501.1115 >60 mL/min Normal EST GFR - AA 98 Result Comment: GFR Calc LAB L501.1255 ml/min Normal Estimated CRCL 52.79 LAB L501.1300 10-20 RATIO High BUN/CRE 20.1 LAB L501.1500 6.4-8. g/dL Normal 2 T PROT 6.6 LAB L501.1800 3.2-5. g/dL Normal 0 ALB 3.5 LAB L501.1950 2.2-4. g/dL Normal 2 GLOB 3.1 LAB L501.2000 0.9-2. RATIO Normal 4 A/G 1.1 LAB L501.2200 8.5-10 mg/dL Normal .1 CA 8.5 LAB L501.4100 15-37 U/L Normal AST 15 LAB L501.4305 45-117 U/L Normal ALK P 98 LAB L501.4405 16-61 U/L Normal ALT 19 LAB L501.4600 0.20-1 mg/dL High .00 T BILI 1.10 LAB L501.5300 136-14 mmol/L Normal 5 NA 137 LAB L501.5600 3.5-5. mmol/L Normal 1 K 3.9 LAB L501.5900 98-107 mmol/L Normal CL 103 LAB L501.6100 21.0-3 mmol/L Normal 2.0 CO2 28.0 LAB L501.6200 5-15 Normal GAP 6 Performed By: #### L500.4050, L501.5200 #### [facility] [address] [place], [address] MAGNESIUM Collected: 03/24/2018 Status: F Source: [place] 8:52 AM [facility] REPOSITORY Order Comment: Reason for Laboratory Test Chemotherapy TYPE CODE TESTS RESULT OUT OF RANGE REFERENCE UNITS LAB L501.5200 1.6-2.6 mg/dL Normal MG 2.1 Performed By: #### L500.4050, L501.5200 #### [facility] [address] [place], [address] CT CHEST WITH Observed: 03/23/2018 Status: F Source: [facility] 1:44 PM [facility] REPOSITORY EXAM: CT CHEST WITH CONTRAST, 03/23/2018 10:24 AM COMPARISON: August 26, 2016 CLINICAL INDICATIONS: Treatment response for patient receiving 2 additional cycles of treatment; RELEVANT CLINICAL HISTORY: 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 Coronal MIP images were also reconstructed. CONTRAST: iohexol (OMNIPAQUE) 300 MG/ML vial 50 mL; Route of Administration: Oral; Dose: 50 mL. iohexol (OMNIPAQUE) 350 MG/ML injection 1-171 mL; Route of Administration: Intravenous; Dose: 90 mL. FINDINGS: Lungs and Pleura: Mild bilateral apical scarring. Couple of stable subpleural nodular densities. Evidence of previous granulomatous disease. Some patchy multifocal groundglass density, peripheral, probably inflammatory. Couple of scattered small parenchymal nodules are stable. No pleural fluid. Tracheobronchial tree: No abnormality. Mediastinum/Vasyl: No mediastinal or hilar lymphadenopathy. Axilla and Supraclavicular Region: No axillary or supraclavicular adenopathy. Cardiovascular: The cardiac chambers and pericardium are within normal limits. Atherosclerosis including coronary calcification. Upper Abdomen: Please see the abdominal CT scan report from the same date for description of findings related to the upper abdomen. Bones and Soft Tissue: Status post sternotomy. No suspicious lesion. IMPRESSION: 1. No evidence for intrathoracic metastatic disease. 2. Atherosclerosis including coronary calcification. WITH DIFF AWILDA Collected: 03/23/2018 Status: F Source: [facility] 11:19 AM [facility] REPOSITORY TYPE CODE TESTS RESULT OUT OF REFERENCE UNITS RANGE LAB WBC 3.73-10.10 K/uL WBC Count 5.10 LAB RBC 4.38-5.83 M/uL RBC Count 4.00 Low LAB HGB 13.4-16.8 g/dL Hemoglobin 12.4 Low LAB HCT 39.6-48.8 % Hematocrit 38.1 Low LAB MCV 79.0-94.5 fL Mean Cell 95.3 High Volume LAB MCH 26.1-33.3 pg Mean Cell 31.0 Hgb LAB MCHC 31.9-36.5 g/dL Mean Cell 32.5 Hgb Conc LAB RDW 10.9-14.3 % RBC 13.3 Distribution LAB PLT 146-337 K/uL Platelet 162 Count LAB MPV 8.7-12.3 fL Mean 9.6 Platelet Volume LAB NRBC 0.0-0.2 /100 WBC NUCLEATED 0.6 High RBC LAB DTYPE Electronic DIFFERENTIAL TYPE Differential LAB IGRE % IMMATURE 0.6 GRANS % LAB SEGS % NEUTROPHIL 70.0 SEGMENTED LAB LYM % LYMPHOCYTE 20.0 % LAB MON % MONOCYTE % 5.7 LAB EOS % *EOSINOPHIL 2.5 % LAB BASO % BASOPHIL % 1.2 LAB IGABS 0.00-0.07 K/uL IMMATURE <0.04 GRANS ABSOLUTE LAB SBANS 1.57-6.19 K/uL SEGS + 3.57 Bands,Absolute LAB ALYM 0.83-3.57 K/uL Abs Lymph 1.02 LAB AMONO 0.24-0.93 K/uL Abs [place] 0.29 LAB AEOS 0.00-0.48 K/uL Abs Eos 0.13 LAB ABASO 0.00-0.09 K/uL Abs Baso 0.06 Performed By: #### CBCDFJ #### [facility], [facility] [address] [place], [place] [address] METABOLIC PANEL - CHRI Collected: 03/23/2018 Status: F Source: [facility] 11:19 AM [facility] REPOSITORY TYPE CODE TESTS RESULT OUT OF REFERENCE UNITS RANGE LAB NA 133-143 mmol/L Sodium 134 LAB K 3.5-5.0 mmol/L Potassium 4.0 LAB CL 98-108 mmol/L Chloride 98 LAB BUN 7-22 mg/dL BUN 18 LAB CREA 0.70-1.30 mg/dL Creatinine 0.82 LAB GLUC 70-99 mg/dL Glucose 99 LAB CA 8.6-10.5 mg/dL Calcium 8.9 LAB ALP 32-126 U/L Alkaline Phosphatase 81 LAB AST 14-40 U/L AST 17 LAB TP 6.4-8.3 g/dL Total Protein 6.5 LAB ALB 3.5-5.0 g/dL Albumin 3.8 LAB BILT <1.5 mg/dL Bilirubin Total 1.0 LAB CO2 22-30 mmol/L Carbon High Dioxide 31 LAB GAP 7-17 mmol/L Anion Gap 9 LAB ALT 10-52 U/L ALT 12 LAB GFR >60 mL/min/1.7 3sqM Est GFR,non >60 LAB GFRA >60 mL/min/1.7 3sqM Est GFR, >60 LAB OSMC 278-305 mOsm/kg Osmolality (Calc) 283 Performed By: #### CBCDFJ #### [facility], [facility] [address] [place], [place] [address] *CRE/GFR POC DEVICE Collected: 03/23/2018 Status: F Source: [facility] 9:27 AM [facility] REPOSITORY TYPE CODE TESTS RESULT OUT OF REFERENCE UNITS RANGE LAB CREPC 0.70-1.30 mg/dL Creatinine (poc 1.12 device) LAB GFRPC >60 mL/min/1.7 3 sq m est GFR, (poc device) >60 LAB PCSTYP *POC SAMPLE TYPE Venous ONCOLOGY VISIT REPORT Observed: 03/17/2018 Status: F Source: [place] 9:10 AM [facility] REPOSITORY [facility] [address] [place] [address] OFFICE VISIT Date of Service: 03/17/18 0820 MR#: [id number] Acct: [id number] Name: CAMILO ESQUIVEL Rep #: [id number] : 1935 From: Leti LEDESMA Age/Sex: 83/M Location: OMD Status: Signed Subjective - Date of Service Date of Service:: 03/17/18 - Chief Complaint F/u for pleomorphic sarcoma and chemotherapy - History of Present Illness Mr. Camilo Esquivel is a very pleasant 83-year-old man who presented with a right groin mass in November 2014. Cytology showed pleomorphic sarcoma. MRI of the pelvis on 01/03/2015 showed an enhancing mass in the right inguinal area measuring 2.9 cm. The patient was referred to [facility]. PET CT scan on 01/11/2015 showed a right inguinal soft tissue mass with right retroperitoneal mass. Biopsy of the right inguinal mass on 01/15/2015 positive for sarcoma. Biopsy of the retroperitoneal mass on 01/21/2015 also showed sarcoma. He was started on Gemzar/Taxotere every 21 days on 02/05/2015. He had progressive disease on PET CT scan done on 05/01/2015. Treatment was changed to Halaven every 21 days in May 2015. Halaven was then changed to every 28 days with cycle 16 and subsequent cycles. Evaluated by Dr. Burns 11/25/16 and underwent PET/CT scan which showed stable disease. He continues Halaven. Bx of L posterior neck node was negative on 11/25/2016. Comes in for C29D1 AND 8 Halaven. He feels well. Still has R shoulder pain from arthritis but better. He was seen by Dr. Burns at [facility], PET/CT showed mixed response on 04/14/2017 with new activity in supraglottic area so since he has tolerated chemotherapy without adverse effects, after discussion, therapy should be changed to every 21 days. 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 C32D1 Halaven delayed by one week d/t neutropenia. He was started on Neulasta after the C32 but refused it after C34. He was seen at [facility] on 11/30/17, imaging revealed no evidence of progressive disease. - Interval History The patient is presenting to clinic for an evaluation anticipating he will receive cycle 44 Halaven. Plans restaging studies by way of CT C/A/P and follow up with Dr. Burns on 03/23/18. Numbness involving feet bilat unchanged. Has tripped occasion but not experienced any falls. Numbness otherwise is not interfering with his ADLs or causing pain or sleep disturbance. Denies weight loss, CP, SOB, palpitations, N/V and swelling pain of his extremities. Appetite good, PO fluid intake likely adequate. 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 Family History Paternal Past Medical History: Heart disease Maternal Past Medical History: COPD Social History Social History: No changes Smoking Status Never smoker Review of Systems Constitutional:: Reports: Fatigue - mild not interferring with ADLS. Denies: Fever, Sweats, Weight loss, Appetite change, Chills Cardiovascular:: Denies: Chest pain, Palpitations, Dyspnea on exertion, Orthopnea, PND, Shortness of breath Respiratory: Denies: Cough, Hemoptysis, Shortness of Breath, Wheezing Gastrointestinal:: Denies: Abdominal pain, Nausea, Vomiting, Diarrhea, Constipation, Hematochezia Genitourinary: Denies: Dysuria, Hematuria, 15, Flank pain Musculoskeletal:: Denies: Back pain, Myalgia, Arthralgia Skin: Denies: Rash, Skin Changes, Wounds Neurological:: Reports: Numbness - see HPI. Denies: Headache, Dizziness, Tingling, Visual changes, Tinnitus, Hearing loss Psychiatric: Denies: Anxiety, Depression, Homicidal Ideations, Suicidal Ideations Vital Signs Height 5 ft 6 in Weight: 154 lb Weight in Pounds 154.0 lbs Pulse Ox 98 - Physical Exam General: Alert, Oriented x3, No apparent distress HEENT: Atraumatic, Normocephalic Oropharynx:: Negative for: Dry mucosa, Ulcerated lesions Neck:: Supple, Trachea midline. Negative for: JVD, bilateral Cardiac:: Regular rate, Regular rhythm, Normal S1, Normal S2. Negative for: Murmur Lungs: Clear to auscultation, Excusion symmetrical. Negative for: Rhonchi, Wheezes Abdomen:: Bowel sounds x 4, Soft, Non-tender, Non-distended. Negative for: Hepatosplenomegaly Extremities:: Negative for: Cyanosis, Edema Neurological: Neuro grossly intact Skin:: - - Port right upper chest access with gripper covered with DSD. Negative for: Lesions, Rash, Petechiae, Ecchymosis Psychiatric:: Appropriate affect, Euthymic Lymphatics:: Negative for: Cervical lymphadenopathy, Supraclavicular lymphadenopathy, Axillary lymphadenopathy Assessment and Plan 1. 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 Burns at [facility] on 03/23/2018.. CBC within acceptable parameters for treatment. He will not receive Neulasta day 9 per his request. Electrolytes within normal limits with the exception of calcium (although corrected calcium 8.7). Otherwise the patient is not endorsing any signs or symptoms contraindicating chemotherapy today and will proceed with planned cycle 44-day 1 Halaven Return to clinic 1 weeks with EKG, CBC, CMP, magnesium for Halaven cycle 44-day 8 therapy and to discuss the results of imaging at [facility] and Dr. Cole's recommendations. Patient was in agreement with aforementioned plan. 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 Status: Acute 03/17/18 0910 <Electronically signed by Leti Alexander SUPERINTENDENT GENERAL-C> Date Leti Alexander NP-C Cosigner Signature: Date (if applicable) CC: CBC W/DIFF, AUTOMATED Collected: 03/17/2018 Status: F Source: [place] 8:20 AM [facility] [place] REPOSITORY TYPE CODE TESTS RESULT OUT OF RANGE REFERENCE UNITS LAB L100.1000 4.4-11.0 K/mm3 Normal WBC 6.3 LAB L100.1200 4.6-6.2 M/mm3 Low RBC 4.00 LAB L100.1300 13.0-16.5 g/dl Low HGB 12.6 LAB L100.1400 40-54 % Low HCT 38.8 LAB L100.1500 80-94 fL High MCV 97.0 LAB L100.1600 27.0-32.0 pg Normal MCH 31.5 LAB L100.1700 32-36 g/gl Normal MCHC 32.5 LAB L100.1810 11.6-14.6 % Normal RDW CV 14.1 LAB L100.1820 35.1-43.9 fl High RDW SD 50.2 LAB L100.1900 150-450 K/mm3 Normal PLT 238 LAB L100.2000 6.2-12.0 fl Normal MPV 9.2 LAB L100.2100 47-70 % Normal NEUT% 68.6 LAB L100.2200 19-41 % Low LY% 15.7 LAB L100.2300 0-10 % High MONO% 12.8 LAB L100.2400 0-5 % Normal EO% 1.6 LAB L100.2500 0-1 % High BASO% 1.1 LAB L100.2550 0.0-0.9 % Normal IM GRAN % 0.200 Result Comment: IG% - Immature Granulocytes (promyelocytes, myelocytes and metamyelocytes) > 1% indicates that a LEFT SHIFT is Present. LAB L100.2620 2.0-7.7 X10 3/uL Normal Absolute Neut 4.3 LAB L100.2720 0.83-4.51 X10 3/ul Normal Absolute Lymph 0.98 Performed By: #### L100.0100 #### [facility] [address] [place], [address] COMPREHENSIVE METABOLIC Collected: 03/17/2018 Status: F Source: [facility] 8:20 AM [facility] REPOSITORY Order Comment: Reason for Laboratory Test Chemotherapy TYPE CODE TESTS RESULT OUT OF RANGE REFERENCE UNITS LAB L501.0100 74-106 mg/dL High GLU 111 Result Comment: Fasting Glucose result from 100 to 125 mg/dL suggests IMPAIRED HOMEOSTASIS per A.D.A. criteria. Please note revised GLUCOSE reference range effective 2017. LAB L501.1000 7-18 mg/dL High BUN 22 LAB L501.1100 0.70-1.30 mg/dL Normal CREAT,SERUM 1.01 Result Comment: The validity of the calculated GFR AND GFRAA in patients over 70 years has not been determined. Clinical correlation is essential. LAB L501.1110 >60 mL/min Normal EST GFR 75 Result Comment: Non- GFR Calc LAB L501.1115 >60 mL/min Normal EST GFR - AA 91 Result Comment: GFR Calc LAB L501.1255 ml/min Normal Estimated CRCL 49.13 LAB L501.1300 10-20 RATIO High BUN/CRE 21.8 LAB L501.1500 6.4-8. g/dL Low 2 T PROT 6.3 LAB L501.1800 3.2-5. g/dL Normal 0 ALB 3.5 LAB L501.1950 2.2-4. g/dL Normal 2 GLOB 2.8 LAB L501.2000 0.9-2. RATIO Normal 4 A/G 1.2 LAB L501.2200 8.5-10 mg/dL Low .1 CA 8.3 LAB L501.4100 15-37 U/L Normal AST 15 LAB L501.4305 45-117 U/L Normal ALK P 104 LAB L501.4405 16-61 U/L Normal ALT 19 LAB L501.4600 0.20-1 mg/dL Normal .00 T BILI 0.70 LAB L501.5300 136-14 mmol/L Normal 5 NA 140 LAB L501.5600 3.5-5. mmol/L Normal 1 K 3.9 LAB L501.5900 98-107 mmol/L Normal CL 106 LAB L501.6100 21.0-3 mmol/L Normal 2.0 CO2 26.0 LAB L501.6200 5-15 Normal GAP 8 Performed By: #### L500.4050, L501.5200 #### [facility] [address] [place], [address] MAGNESIUM Collected: 03/17/2018 Status: F Source: [place] 8:20 AM [facility] [place] REPOSITORY Order Comment: Reason for Laboratory Test Chemotherapy TYPE CODE TESTS RESULT OUT OF RANGE REFERENCE UNITS LAB L501.5200 1.6-2.6 mg/dL Normal MG 1.9 Performed By: #### L500.4050, L501.5200 #### [facility] [address] [place], [address] CBC W/DIFF, AUTOMATED Collected: 02/24/2018 Status: F Source: [place] 8:18 AM [facility] REPOSITORY TYPE CODE TESTS RESULT OUT OF RANGE REFERENCE UNITS LAB L100.1000 4.4-11.0 K/mm3 Normal WBC 6.1 LAB L100.1200 4.6-6.2 M/mm3 Low RBC 3.78 LAB L100.1300 13.0-16.5 g/dl Low HGB 11.9 LAB L100.1400 40-54 % Low HCT 36.3 LAB L100.1500 80-94 fL High MCV 96.0 LAB L100.1600 27.0-32.0 pg Normal MCH 31.5 LAB L100.1700 32-36 g/gl Normal MCHC 32.8 LAB L100.1810 11.6-14.6 % Normal RDW CV 14.6 LAB L100.1820 35.1-43.9 fl High RDW SD 51.8 LAB L100.1900 150-450 K/mm3 Normal PLT 222 LAB L100.2000 6.2-12.0 fl Normal MPV 9.1 LAB L100.2100 47-70 % Normal NEUT% 69.6 LAB L100.2200 19-41 % Low LY% 17.0 LAB L100.2300 0-10 % High MONO% 10.6 LAB L100.2400 0-5 % Normal EO% 1.8 LAB L100.2500 0-1 % Normal BASO% 0.8 LAB L100.2550 0.0-0.9 % Normal IM GRAN % 0.200 Result Comment: IG% - Immature Granulocytes (promyelocytes, myelocytes and metamyelocytes) > 1% indicates that a LEFT SHIFT is Present. LAB L100.2620 2.0-7.7 X10 3/uL Normal Absolute Neut 4.3 LAB L100.2720 0.83-4.51 X10 3/ul Normal Absolute Lymph 1.04 Performed By: #### L100.0100 #### [facility] [address] [place], [address] COMPREHENSIVE METABOLIC Collected: 02/24/2018 Status: F Source: [facility] 8:18 AM [facility] REPOSITORY Order Comment: Reason for Laboratory Test Chemotherapy TYPE CODE TESTS RESULT OUT OF RANGE REFERENCE UNITS LAB L501.0100 74-106 mg/dL Low GLU 67 Result Comment: Please note revised GLUCOSE reference range effective 2017. LAB L501.1000 7-18 mg/dL High BUN 25 LAB L501.1100 0.70-1.30 mg/dL Normal CREAT,SERUM 0.98 Result Comment: The validity of the calculated GFR AND GFRAA in patients over 70 years has not been determined. Clinical correlation is essential. LAB L501.1110 >60 mL/min Normal EST GFR 77 Result Comment: Non- GFR Calc LAB L501.1115 >60 mL/min Normal EST GFR - AA 93 Result Comment: GFR Calc LAB L501.1255 ml/min Normal Estimated CRCL 50.63 LAB L501.1300 10-20 RATIO High BUN/CRE 25.4 LAB L501.1500 6.4-8. g/dL Low 2 T PROT 6.2 LAB L501.1800 3.2-5. g/dL Normal 0 ALB 3.4 LAB L501.1950 2.2-4. g/dL Normal 2 GLOB 2.8 LAB L501.2000 0.9-2. RATIO Normal 4 A/G 1.2 LAB L501.2200 8.5-10 mg/dL Low .1 CA 8.2 LAB L501.4100 15-37 U/L Low AST 14 LAB L501.4305 45-117 U/L Normal ALK P 100 LAB L501.4405 16-61 U/L Normal ALT 18 LAB L501.4600 0.20-1 mg/dL Normal .00 T BILI 0.60 LAB L501.5300 136-14 mmol/L Normal 5 NA 140 LAB L501.5600 3.5-5. mmol/L Normal 1 K 4.4 LAB L501.5900 98-107 mmol/L Normal CL 105 LAB L501.6100 21.0-3 mmol/L Normal 2.0 CO2 26.0 LAB L501.6200 5-15 Normal GAP 9 Performed By: #### L500.4050, L501.5200 #### [facility] [address] [facility] [place], [address] MAGNESIUM Collected: 02/24/2018 Status: F Source: [place] 8:18 AM [facility] REPOSITORY Order Comment: Reason for Laboratory Test Chemotherapy TYPE CODE TESTS RESULT OUT OF RANGE REFERENCE UNITS LAB L501.5200 1.6-2.6 mg/dL Normal MG 1.9 Performed By: #### L500.4050, L501.5200 #### [facility] [address] [facility] [place], [address] ONCOLOGY VISIT REPORT Observed: 02/17/2018 Status: F Source: [place] 9:01 AM [facility] [place] REPOSITORY [facility] [address] [place] [id number] OFFICE VISIT Date of Service: 02/17/18 0855 MR#: [id number] Acct: [id number] Name: CAMILO ESQUIVEL Rep #: [id number] : 1935 From: Сергей Medina MD Age/Sex: 83/M Location: D Status: Signed Subjective - Date of Service Date of Service:: 02/17/18 - Chief Complaint F/u for pleomorphic sarcoma and chemotherapy - History of Present Illness Mr. Camilo Esquivel is a very pleasant 83-year-old man who presented with a right groin mass in November 2014. Cytology showed pleomorphic sarcoma. MRI of the pelvis on 01/03/2015 showed an enhancing mass in the right inguinal area measuring 2.9 cm. The patient was referred to [facility]. PET CT scan on 01/11/2015 showed a right inguinal soft tissue mass with right retroperitoneal mass. Biopsy of the right inguinal mass on 01/15/2015 positive for sarcoma. Biopsy of the retroperitoneal mass on 01/21/2015 also showed sarcoma. He was started on Gemzar/Taxotere every 21 days on 02/05/2015. He had progressive disease on PET CT scan done on 05/01/2015. Treatment was changed to Halaven every 21 days in May 2015. Halaven was then changed to every 28 days with cycle 16 and subsequent cycles. Evaluated by Dr. Burns 11/25/16 and underwent PET/CT scan which showed stable disease. He continues Halaven. Bx of L posterior neck node was negative on 11/25/2016. Comes in for C29D1 AND 8 Halaven. He feels well. Still has R shoulder pain from arthritis but better. He was seen by Dr. Burns at [facility], PET/CT showed mixed response on 04/14/2017 with new activity in supraglottic area so since he has tolerated chemotherapy without adverse effects, after discussion, therapy should be changed to every 21 days. 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 C32D1 Halaven delayed by one week d/t neutropenia. He was started on Neulasta after the C32 but refused it after C34. He was seen at [facility], had no evidence of progressive disease. He comes for C43 today. Feels well. Has Dental caries that need extraction. 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 Family History Paternal Past Medical History: Heart disease Maternal Past Medical History: COPD Social History Social History: No changes Smoking Status Never smoker Review of Systems Constitutional:: Denies: Fever, Sweats, Weight loss, Appetite change, Chills Cardiovascular:: Denies: Chest pain, Palpitations, Dyspnea on exertion, Orthopnea, PND, Shortness of breath Respiratory: Denies: Cough, Hemoptysis, Shortness of Breath, Wheezing Gastrointestinal:: Denies: Abdominal pain, Nausea, Vomiting, Diarrhea, Constipation, Hematochezia Genitourinary: Denies: Dysuria, Hematuria, 15, Flank pain Musculoskeletal:: Denies: Back pain, Myalgia, Arthralgia Skin: Denies: Rash, Skin Changes, Wounds Neurological:: Denies: Headache, Dizziness, Visual changes, Tinnitus, Hearing loss Psychiatric: Denies: Anxiety, Depression, Homicidal Ideations, Suicidal Ideations Vital Signs Height 5 ft 6 in Weight: 69.853 kg Weight in Pounds 154.0 lbs Pulse Ox 98 - Physical Exam General: Alert, Oriented x3, No apparent distress HEENT: Atraumatic, PERRLA, EOMI, Normocephalic Oropharynx:: Dry mucosa, - - + caries. Neck:: Supple, Trachea midline. Negative for: JVD, bilateral Cardiac:: Regular rate, Regular rhythm, Normal S1, Normal S2. Negative for: Murmur Lungs: Clear to auscultation, Excusion symmetrical. Negative for: Rhonchi, Wheezes Abdomen:: Bowel sounds x 4, Soft, Non-tender, Non-distended. 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 Stable disease. Tolerating therapy. 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 Needs Dental extractions tomorrow. Plan is to hold chemotherapy this week and proceed with chemotherapy Halaven cycle 43 D1 and D8 the following week without Neulasta. Pt does not want Neulasta. Return to clinic 4 weeks with CBC, CMP, magnesium for Halaven cycle 44 D1. Medications: Prescriptions This Visit Medication Instructions Recorded Primary Care Provider: Nathalie Donis Referring Provider: - Problem List (1) Sarcoma Status: Chronic (2) Chemotherapy management, encounter for Status: Acute Code Visit Office Visits / Consults: [id number] OV L5 Est 02/17/18 09 <Electronically signed by Сергей Medina MD> Date Сергей Medina MD Cosigner Signature: Date (if applicable) CC: CBC W/DIFF, AUTOMATED Collected: 02/17/2018 Status: F Source: [place] 8:00 AM [facility] REPOSITORY TYPE CODE TESTS RESULT OUT OF RANGE REFERENCE UNITS LAB L100.1000 4.4-11.0 K/mm3 Low WBC 3.3 LAB L100.1200 4.6-6.2 M/mm3 Low RBC 3.90 LAB L100.1300 13.0-16.5 g/dl Low HGB 12.3 LAB L100.1400 40-54 % Low HCT 37.6 LAB L100.1500 80-94 fL High MCV 96.4 LAB L100.1600 27.0-32.0 pg Normal MCH 31.5 LAB L100.1700 32-36 g/gl Normal MCHC 32.7 LAB L100.1810 11.6-14.6 % High RDW CV 14.8 LAB L100.1820 35.1-43.9 fl High RDW SD 51.5 LAB L100.1900 150-450 K/mm3 Normal PLT 250 LAB L100.2000 6.2-12.0 fl Normal MPV 8.9 LAB L100.2100 47-70 % Normal NEUT% 50.3 LAB L100.2200 19-41 % Normal LY% 28.2 LAB L100.2300 0-10 % High MONO% 17.9 LAB L100.2400 0-5 % Normal EO% 0.9 LAB L100.2500 0-1 % High BASO% 2.4 LAB L100.2550 0.0-0.9 % Normal IM GRAN % 0.300 Result Comment: IG% - Immature Granulocytes (promyelocytes, myelocytes and metamyelocytes) > 1% indicates that a LEFT SHIFT is Present. LAB L100.2620 2.0-7.7 X10 3/uL Low Absolute Neut 1.7 LAB L100.2720 0.83-4.51 X10 3/ul Normal Absolute Lymph 0.93 Performed By: #### L100.0100 #### [facility] [address] [place], [address] COMPREHENSIVE METABOLIC Collected: 02/17/2018 Status: F Source: [facility] 8:00 AM [facility] REPOSITORY Order Comment: Reason for Laboratory Test Chemotherapy TYPE CODE TESTS RESULT OUT OF RANGE REFERENCE UNITS LAB L501.0100 74-106 mg/dL High GLU 128 Result Comment: Fasting Glucose result greater than or equal to 126 mg/dL suggests DIABETES MELLITUS per A.D.A. criteria. Please note revised GLUCOSE reference range effective 2017. LAB L501.1000 7-18 mg/dL High BUN 21 LAB L501.1100 0.70-1.30 mg/dL Normal CREAT,SERUM 0.96 Result Comment: The validity of the calculated GFR AND GFRAA in patients over 70 years has not been determined. Clinical correlation is essential. LAB L501.1110 >60 mL/min Normal EST GFR 79 Result Comment: Non- GFR Calc LAB L501.1115 >60 mL/min Normal EST GFR - AA 96 Result Comment: GFR Calc LAB L501.1255 ml/min Normal Estimated CRCL 51.69 LAB L501.1300 10-20 RATIO High BUN/CRE 21.8 LAB L501.1500 6.4-8. g/dL Normal 2 T PROT 6.5 LAB L501.1800 3.2-5. g/dL Normal 0 ALB 3.5 LAB L501.1950 2.2-4. g/dL Normal 2 GLOB 3.0 LAB L501.2000 0.9-2. RATIO Normal 4 A/G 1.2 LAB L501.2200 8.5-10 mg/dL Normal .1 CA 8.5 LAB L501.4100 15-37 U/L Normal AST 16 LAB L501.4305 45-117 U/L Normal ALK P 95 LAB L501.4405 16-61 U/L Normal ALT 23 LAB L501.4600 0.20-1 mg/dL Normal .00 T BILI 0.60 LAB L501.5300 136-14 mmol/L Normal 5 NA 142 LAB L501.5600 3.5-5. mmol/L Normal 1 K 4.1 LAB L501.5900 98-107 mmol/L Normal CL 104 LAB L501.6100 21.0-3 mmol/L Normal 2.0 CO2 29.0 LAB L501.6200 5-15 Normal GAP 9 Performed By: #### L500.4050, L501.5200 #### [facility] [address] [facility] [place], [place], [address] MAGNESIUM Collected: 02/17/2018 Status: F Source: [place] 8:00 AM [facility] REPOSITORY Order Comment: Reason for Laboratory Test Chemotherapy TYPE CODE TESTS RESULT OUT OF RANGE REFERENCE UNITS LAB L501.5200 1.6-2.6 mg/dL Normal MG 2.1 Performed By: #### L500.4050, L501.5200 #### [facility] [address] [facility] [place], [address] CBC W/DIFF, AUTOMATED Collected: 02/03/2018 Status: C Source: [place] 8:07 AM [facility] REPOSITORY TYPE CODE TESTS RESULT OUT OF RANGE REFERENCE UNITS LAB L100.1000 4.4-11.0 K/mm3 Normal WBC 5.2 LAB L100.1200 4.6-6.2 M/mm3 Low RBC 3.77 LAB L100.1300 13.0-16.5 g/dl Low HGB 12.2 LAB L100.1400 40-54 % Low HCT 36.5 LAB L100.1500 80-94 fL High MCV 96.8 LAB L100.1600 27.0-32.0 pg High MCH 32.4 LAB L100.1700 32-36 g/gl Normal MCHC 33.4 LAB L100.1810 11.6-14.6 % Normal RDW CV 14.2 LAB L100.1820 35.1-43.9 fl High RDW SD 47.9 LAB L100.1900 150-450 K/mm3 Normal PLT 209 LAB L100.2000 6.2-12.0 fl Normal MPV 9.1 LAB L100.2100 47-70 % High NEUT% 73.0 LAB L100.2200 19-41 % Low LY% 16.5 LAB L100.2300 0-10 % Normal MONO% 4.5 LAB L100.2400 0-5 % Normal EO% 1.0 LAB L100.2500 0-1 % High BASO% 2.5 LAB L100.2550 0.0-0.9 % High IM GRAN % 2.500 Result Comment: IG% - Immature Granulocytes (promyelocytes, myelocytes and metamyelocytes) > 1% indicates that a LEFT SHIFT is Present. LAB L100.2620 2.0-7.7 X10 3/uL Normal Absolute Neut 3.8 LAB L100.2720 0.83-4.51 X10 3/ul Normal Absolute Lymph 0.85 LAB L100.9900 Normal PATH REV Reviewed Result Comment: AMENDED REPORT 02/03/18 1339 PATH REV previously reported as: July adolfo Performed By: #### L100.0100 #### [facility] [address] [place], [address] COMPREHENSIVE METABOLIC Collected: 02/03/2018 Status: F Source: [facility] 8:07 AM [facility] REPOSITORY Order Comment: Reason for Laboratory Test Chemotherapy TYPE CODE TESTS RESULT OUT OF RANGE REFERENCE UNITS LAB L501.0100 74-106 mg/dL High GLU 139 Result Comment: Fasting Glucose result greater than or equal to 126 mg/dL suggests DIABETES MELLITUS per A.D.A. criteria. Please note revised GLUCOSE reference range effective 2017. LAB L501.1000 7-18 mg/dL Normal BUN 18 LAB L501.1100 0.70-1.30 mg/dL Normal CREAT,SERUM 0.96 Result Comment: The validity of the calculated GFR AND GFRAA in patients over 70 years has not been determined. Clinical correlation is essential. LAB L501.1110 >60 mL/min Normal EST GFR 79 Result Comment: Non- GFR Calc LAB L501.1115 >60 mL/min Normal EST GFR - AA 96 Result Comment: GFR Calc LAB L501.1255 ml/min Normal Estimated CRCL 52.61 LAB L501.1300 10-20 RATIO Normal BUN/CRE 18.7 LAB L501.1500 6.4-8. g/dL Normal 2 T PROT 6.5 LAB L501.1800 3.2-5. g/dL Normal 0 ALB 3.5 LAB L501.1950 2.2-4. g/dL Normal 2 GLOB 3.0 LAB L501.2000 0.9-2. RATIO Normal 4 A/G 1.2 LAB L501.2200 8.5-10 mg/dL Normal .1 CA 8.6 LAB L501.4100 15-37 U/L Normal AST 21 LAB L501.4305 45-117 U/L Normal ALK P 95 LAB L501.4405 16-61 U/L Normal ALT 24 LAB L501.4600 0.20-1 mg/dL Normal .00 T BILI 0.90 LAB L501.5300 136-14 mmol/L Normal 5 NA 138 LAB L501.5600 3.5-5. mmol/L Normal 1 K 4.0 LAB L501.5900 98-107 mmol/L Normal CL 104 LAB L501.6100 21.0-3 mmol/L Normal 2.0 CO2 28.0 LAB L501.6200 5-15 Normal GAP 6 Performed By: #### L500.4050, L501.5200 #### [facility] [address] [place], [place], [address] MAGNESIUM Collected: 02/03/2018 Status: F Source: [place] 8:07 AM [facility] REPOSITORY Order Comment: Reason for Laboratory Test Chemotherapy TYPE CODE TESTS RESULT OUT OF RANGE REFERENCE UNITS LAB L501.5200 1.6-2.6 mg/dL Normal MG 2.1 Performed By: #### L500.4050, L501.5200 #### [facility] [address] [place], [address] ONCOLOGY VISIT REPORT Observed: 01/27/2018 Status: F Source: [place] 9:02 AM [facility] REPOSITORY [facility] [address] [place] [address] OFFICE VISIT Date of Service: 01/27/18 0859 MR#: [id number] Acct: [id number] Name: CAMILO ESQUIVEL Rep #: [id number] : 1935 From: Сергей Medina MD Age/Sex: 82/M Location: [facility] Status: Signed Subjective - Date of Service Date of Service:: 01/27/18 - Chief Complaint F/u for pleomorphic sarcoma and chemotherapy - History of Present Illness Mr. Camilo Esquivel is a very pleasant 82-year-old man who presented with a right groin mass in November 2014. Cytology showed pleomorphic sarcoma. MRI of the pelvis on 01/03/2015 showed an enhancing mass in the right inguinal area measuring 2.9 cm. The patient was referred to [facility]. PET CT scan on 01/11/2015 showed a right inguinal soft tissue mass with right retroperitoneal mass. Biopsy of the right inguinal mass on 01/15/2015 positive for sarcoma. Biopsy of the retroperitoneal mass on 01/21/2015 also showed sarcoma. He was started on Gemzar/Taxotere every 21 days on 02/05/2015. He had progressive disease on PET CT scan done on 05/01/2015. Treatment was changed to Halaven every 21 days in May 2015. Halaven was then changed to every 28 days with cycle 16 and subsequent cycles. Evaluated by Dr. Burns 11/25/16 and underwent PET/CT scan which showed stable disease. He continues Halaven. Bx of L posterior neck node was negative on 11/25/2016. Comes in for C29D1 AND 8 Halaven. He feels well. Still has R shoulder pain from arthritis but better. He was seen by Dr. Burns at [facility], PET/CT showed mixed response on 04/14/2017 with new activity in supraglottic area so since he has tolerated chemotherapy without adverse effects, after discussion, therapy should be changed to every 21 days. 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 C32D1 Halaven delayed by one week d/t neutropenia. He was started on Neulasta after the C32 but refused it after C34. He was seen at [facility], had no evidence of progressive disease. He comes for C42 today. Feels well. 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 Family History Paternal Past Medical History: Heart disease Maternal Past Medical History: COPD Social History Social History: No changes Smoking Status Never smoker Review of Systems Constitutional:: Denies: Fever, Sweats, Weight loss, Appetite change, Chills Cardiovascular:: Denies: Chest pain, Palpitations, Dyspnea on exertion, Orthopnea, PND, Shortness of breath Respiratory: Denies: Cough, Hemoptysis, Shortness of Breath, Wheezing Gastrointestinal:: Denies: Abdominal pain, Nausea, Vomiting, Diarrhea, Constipation, Hematochezia Genitourinary: Denies: Dysuria, Hematuria, 15, Flank pain Musculoskeletal:: Denies: Back pain, Myalgia, Arthralgia Skin: Denies: Rash, Skin Changes, Wounds Neurological:: Denies: Headache, Dizziness, Visual changes, Tinnitus, Hearing loss Psychiatric: Denies: Anxiety, Depression, Homicidal Ideations, Suicidal Ideations Vital Signs Height 5 ft 6 in Weight: 70.76 kg Weight in Pounds 156.0 lbs Pulse Ox 98 - Physical Exam General: Alert, Oriented x3, No apparent distress, - - Port R IC area. HEENT: Atraumatic, PERRLA, EOMI, Normocephalic Oropharynx:: Dry mucosa Neck:: Supple, Trachea midline. Negative for: JVD, bilateral Cardiac:: Regular rate, Regular rhythm, Normal S1, Normal S2. Negative for: Murmur Lungs: Clear to auscultation, Excusion symmetrical. Negative for: Rhonchi, Wheezes Abdomen:: Bowel sounds x 4, Soft, Non-tender, Non-distended. 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 Stable disease. Tolerating therapy. 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 Plan is to proceed with chemotherapy Halaven cycle 42 D1 today and D8 next week without Neulasta. Pt does not want Neulasta. Return to clinic 3 weeks with CBC, CMP, magnesium for Halaven cycle 43 D1. Medications: Prescriptions This Visit Medication Instructions Recorded Medications Added to Medication List This Visit Primary Care Provider: Nathalie Donis Referring Provider: - Problem List (1) Sarcoma Status: Chronic (2) Chemotherapy management, encounter for Status: Acute Code Visit Office Visits / Consults: 09005 OV L5 Est 01/27/18 09 <Electronically signed by Сергей Medina MD> Date Сергей Medina MD Cosigner Signature: Date (if applicable) CC: CBC W/DIFF, AUTOMATED Collected: 01/27/2018 Status: F Source: [place] 8:02 AM [facility] [place] REPOSITORY TYPE CODE TESTS RESULT OUT OF RANGE REFERENCE UNITS LAB L100.1000 4.4-11.0 K/mm3 Low WBC 3.4 LAB L100.1200 4.6-6.2 M/mm3 Low RBC 3.86 LAB L100.1300 13.0-16.5 g/dl Low HGB 12.3 LAB L100.1400 40-54 % Low HCT 37.8 LAB L100.1500 80-94 fL High MCV 97.9 LAB L100.1600 27.0-32.0 pg Normal MCH 31.9 LAB L100.1700 32-36 g/gl Normal MCHC 32.5 LAB L100.1810 11.6-14.6 % Normal RDW CV 14.6 LAB L100.1820 35.1-43.9 fl High RDW SD 50.2 LAB L100.1900 150-450 K/mm3 Normal PLT 283 LAB L100.2000 6.2-12.0 fl Normal MPV 9.2 LAB L100.2100 47-70 % Normal NEUT% 51.9 LAB L100.2200 19-41 % Normal LY% 23.7 LAB L100.2300 0-10 % High MONO% 20.2 LAB L100.2400 0-5 % Normal EO% 0.9 LAB L100.2500 0-1 % High BASO% 2.4 LAB L100.2550 0.0-0.9 % Normal IM GRAN % 0.900 Result Comment: IG% - Immature Granulocytes (promyelocytes, myelocytes and metamyelocytes) > 1% indicates that a LEFT SHIFT is Present. LAB L100.2620 2.0-7.7 X10 3/uL Low Absolute Neut 1.8 LAB L100.2720 0.83-4.51 X10 3/ul Low Absolute Lymph 0.80 Performed By: #### L100.0100 #### [facility] [address] [place], [place] [address]all justin. [place], [place], [address] COMPREHENSIVE METABOLIC Collected: 01/27/2018 Status: F Source: [facility] 8:02 AM [facility] REPOSITORY Order Comment: Reason for Laboratory Test Chemotherapy TYPE CODE TESTS RESULT OUT OF RANGE REFERENCE UNITS LAB L501.0100 74-106 mg/dL High GLU 109 Result Comment: Fasting Glucose result from 100 to 125 mg/dL suggests IMPAIRED HOMEOSTASIS per A.D.A. criteria. Please note revised GLUCOSE reference range effective 2017. LAB L501.1000 7-18 mg/dL Normal BUN 16 LAB L501.1100 0.70-1.30 mg/dL Normal CREAT,SERUM 0.95 Result Comment: The validity of the calculated GFR AND GFRAA in patients over 70 years has not been determined. Clinical correlation is essential. LAB L501.1110 >60 mL/min Normal EST GFR 80 Result Comment: Non- GFR Calc LAB L501.1115 >60 mL/min Normal EST GFR - AA 97 Result Comment: GFR Calc LAB L501.1255 ml/min Normal Estimated CRCL 53.17 LAB L501.1300 10-20 RATIO Normal BUN/CRE 16.8 LAB L501.1500 6.4-8. g/dL Normal 2 T PROT 6.4 LAB L501.1800 3.2-5. g/dL Normal 0 ALB 3.3 LAB L501.1950 2.2-4. g/dL Normal 2 GLOB 3.1 LAB L501.2000 0.9-2. RATIO Normal 4 A/G 1.1 LAB L501.2200 8.5-10 mg/dL Low .1 CA 8.3 LAB L501.4100 15-37 U/L Normal AST 15 LAB L501.4305 45-117 U/L Normal ALK P 107 LAB L501.4405 16-61 U/L Normal ALT 22 LAB L501.4600 0.20-1 mg/dL Normal .00 T BILI 0.70 LAB L501.5300 136-14 mmol/L Normal 5 NA 141 LAB L501.5600 3.5-5. mmol/L Normal 1 K 3.7 LAB L501.5900 98-107 mmol/L Normal CL 105 LAB L501.6100 21.0-3 mmol/L Normal 2.0 CO2 26.0 LAB L501.6200 5-15 Normal GAP 10 Performed By: #### L500.4050, L501.5200 #### [facility] [address] [facility] [address] [place], [place], [id number] MAGNESIUM Collected: 01/27/2018 Status: F Source: [place] 8:02 AM [facility] [place] REPOSITORY Order Comment: Reason for Laboratory Test Chemotherapy TYPE CODE TESTS RESULT OUT OF RANGE REFERENCE UNITS LAB L501.5200 1.6-2.6 mg/dL Normal MG 2.0 Performed By: #### L500.4050, L501.5200 #### [facility] [address] [place], [place], [address] CBC W/DIFF, AUTOMATED Collected: 01/13/2018 Status: F Source: [place] 8:03 AM [facility] REPOSITORY TYPE CODE TESTS RESULT OUT OF RANGE REFERENCE UNITS LAB L100.1000 4.4-11.0 K/mm3 Normal WBC 5.6 LAB L100.1200 4.6-6.2 M/mm3 Low RBC 3.85 LAB L100.1300 13.0-16.5 g/dl Low HGB 12.2 LAB L100.1400 40-54 % Low HCT 36.8 LAB L100.1500 80-94 fL High MCV 95.6 LAB L100.1600 27.0-32.0 pg Normal MCH 31.7 LAB L100.1700 32-36 g/gl Normal MCHC 33.2 LAB L100.1810 11.6-14.6 % Normal RDW CV 14.2 LAB L100.1820 35.1-43.9 fl High RDW SD 48.7 LAB L100.1900 150-450 K/mm3 Normal PLT 189 LAB L100.2000 6.2-12.0 fl Normal MPV 9.0 LAB L100.2100 47-70 % High NEUT% 74.6 LAB L100.2200 19-41 % Low LY% 15.8 LAB L100.2300 0-10 % Normal MONO% 4.3 LAB L100.2400 0-5 % Normal EO% 2.1 LAB L100.2500 0-1 % High BASO% 2.0 LAB L100.2550 0.0-0.9 % High IM GRAN % 1.200 Result Comment: IG% - Immature Granulocytes (promyelocytes, myelocytes and metamyelocytes) > 1% indicates that a LEFT SHIFT is Present. LAB L100.2620 2.0-7.7 X10 3/uL Normal Absolute Neut 4.2 LAB L100.2720 0.83-4.51 X10 3/ul Normal Absolute Lymph 0.89 Performed By: #### L100.0100 #### [facility] [address] [place], [address] COMPREHENSIVE METABOLIC Collected: 01/13/2018 Status: F Source: [facility] 8:03 AM [facility] [place] REPOSITORY Order Comment: Reason for Laboratory Test Chemotherapy TYPE CODE TESTS RESULT OUT OF RANGE REFERENCE UNITS LAB L501.0100 74-106 mg/dL High GLU 115 Result Comment: Fasting Glucose result from 100 to 125 mg/dL suggests IMPAIRED HOMEOSTASIS per A.D.A. criteria. Please note revised GLUCOSE reference range effective 2017. LAB L501.1000 7-18 mg/dL High BUN 20 LAB L501.1100 0.70-1.30 mg/dL Normal CREAT,SERUM 0.87 Result Comment: The validity of the calculated GFR AND GFRAA in patients over 70 years has not been determined. Clinical correlation is essential. LAB L501.1110 >60 mL/min Normal EST GFR 89 Result Comment: Non- GFR Calc LAB L501.1115 >60 mL/min Normal EST GFR - AA 107 Result Comment: GFR Calc LAB L501.1255 ml/min Normal Estimated CRCL 58.06 LAB L501.1300 10-20 RATIO High BUN/CRE 23.0 LAB L501.1500 6.4-8. g/dL Normal 2 T PROT 6.8 LAB L501.1800 3.2-5. g/dL Normal 0 ALB 3.4 LAB L501.1950 2.2-4. g/dL Normal 2 GLOB 3.4 LAB L501.2000 0.9-2. RATIO Normal 4 A/G 1.0 LAB L501.2200 8.5-10 mg/dL Normal .1 CA 8.5 LAB L501.4100 15-37 U/L Low AST 14 LAB L501.4305 45-117 U/L Normal ALK P 96 LAB L501.4405 16-61 U/L Normal ALT 20 LAB L501.4600 0.20-1 mg/dL Normal .00 T BILI 0.70 LAB L501.5300 136-14 mmol/L Normal 5 NA 140 LAB L501.5600 3.5-5. mmol/L Normal 1 K 4.1 LAB L501.5900 98-107 mmol/L Normal CL 102 LAB L501.6100 21.0-3 mmol/L Normal 2.0 CO2 30.0 LAB L501.6200 5-15 Normal GAP 8 Performed By: #### L500.4050, L501.5200 #### [facility] [address] [place], [address] MAGNESIUM Collected: 01/13/2018 Status: F Source: [place] 8:03 AM [facility] REPOSITORY Order Comment: Reason for Laboratory Test Chemotherapy TYPE CODE TESTS RESULT OUT OF RANGE REFERENCE UNITS LAB L501.5200 1.6-2.6 mg/dL Normal MG 2.1 Performed By: #### L500.4050, L501.5200 #### [facility] [address] [place], [address] ONCOLOGY VISIT REPORT Observed: 01/06/2018 Status: F Source: [place] 9:47 AM [facility] [place] REPOSITORY [facility] [address] [place] [address] OFFICE VISIT Date of Service: 01/06/18 0853 MR#: [id number] Acct: [id number] Name: CAMILO ESQUIVEL Rep #: [id number] : 1935 From: Сергей Medina MD Age/Sex: 82/M Location: ONC Status: Signed Subjective - Date of Service Date of Service:: 01/06/18 - Chief Complaint F/u for pleomorphic sarcoma and chemotherapy - History of Present Illness Mr. Camilo Esquivel is a very pleasant 82-year-old man who presented with a right groin mass in November 2014. Cytology showed pleomorphic sarcoma. MRI of the pelvis on 01/03/2015 showed an enhancing mass in the right inguinal area measuring 2.9 cm. The patient was referred to [facility]. PET CT scan on 01/11/2015 showed a right inguinal soft tissue mass with right retroperitoneal mass. Biopsy of the right inguinal mass on 01/15/2015 positive for sarcoma. Biopsy of the retroperitoneal mass on 01/21/2015 also showed sarcoma. He was started on Gemzar/Taxotere every 21 days on 02/05/2015. He had progressive disease on PET CT scan done on 05/01/2015. Treatment was changed to Halaven every 21 days in May 2015. Halaven was then changed to every 28 days with cycle 16 and subsequent cycles. Evaluated by Dr. Burns 11/25/16 and underwent PET/CT scan which showed stable disease. He continues Halaven. Bx of L posterior neck node was negative on 11/25/2016. Comes in for C29D1 AND 8 Halaven. He feels well. Still has R shoulder pain from arthritis but better. He was seen by Dr. Burns at [facility], PET/CT showed mixed response on 04/14/2017 with new activity in supraglottic area so since he has tolerated chemotherapy without adverse effects, after discussion, therapy should be changed to every 21 days. 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 C32D1 Halaven delayed by one week d/t neutropenia. He was started on Neulasta after the C32 but refused it after C34. He was seen at [facility], had no evidence of progressive disease. He comes for C41 today. Feels well. 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 Family History Paternal Past Medical History: Heart disease Maternal Past Medical History: COPD Social History Social History: No changes Smoking Status Never smoker Review of Systems Constitutional:: Denies: Fever, Sweats, Weight loss, Appetite change, Chills Cardiovascular:: Denies: Chest pain, Palpitations, Dyspnea on exertion, Orthopnea, PND, Shortness of breath Respiratory: Denies: Cough, Hemoptysis, Shortness of Breath, Wheezing Gastrointestinal:: Denies: Abdominal pain, Nausea, Vomiting, Diarrhea, Constipation, Hematochezia Genitourinary: Denies: Dysuria, Hematuria, 15, Flank pain Musculoskeletal:: Denies: Back pain, Myalgia, Arthralgia Skin: Denies: Rash, Skin Changes, Wounds Neurological:: Denies: Headache, Dizziness, Visual changes, Tinnitus, Hearing loss Psychiatric: Denies: Anxiety, Depression, Homicidal Ideations, Suicidal Ideations Vital Signs Height 5 ft 6 in Weight: 68.946 kg Weight in Pounds 152.0 lbs Pulse Ox 97 - Physical Exam General: - - Port R IC area. HEENT: Atraumatic, PERRLA, EOMI, Normocephalic Oropharynx:: Dry mucosa Neck:: Supple, Trachea midline. Negative for: JVD, bilateral Cardiac:: Regular rate, Regular rhythm, Normal S1, Normal S2. Negative for: Murmur Lungs: Clear to auscultation, Excusion symmetrical. Negative for: Rhonchi, Wheezes Abdomen:: Bowel sounds x 4, Soft, Non-tender, Non-distended. 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 Tolerating therapy. 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 Plan is to proceed with chemotherapy Halaven cycle 41 D1 today and D8 next week without Neulasta. Pt does not want Neulasta. Return to clinic 3 weeks with CBC, CMP, magnesium for Halaven cycle 42 D1. Medications: Prescriptions This Visit Medication Instructions Recorded Medications Added to Medication List This Visit Primary Care Provider: Nathalie Donis Referring Provider: - Problem List (1) Sarcoma Status: Chronic (2) Chemotherapy management, encounter for Status: Acute Code Visit Office Visits / Consults: 21329 OV L5 Est 01/06/18 0947 <Electronically signed by Сергей Medina MD> Date Сергей Medina MD Cosigner Signature: Date (if applicable) CC: CBC W/DIFF, AUTOMATED Collected: 01/06/2018 Status: F Source: [place] 8:04 AM [facility] [place] REPOSITORY TYPE CODE TESTS RESULT OUT OF RANGE REFERENCE UNITS LAB L100.1000 4.4-11.0 K/mm3 Low WBC 3.0 LAB L100.1200 4.6-6.2 M/mm3 Low RBC 3.72 LAB L100.1300 13.0-16.5 g/dl Low HGB 11.8 LAB L100.1400 40-54 % Low HCT 35.9 LAB L100.1500 80-94 fL High MCV 96.5 LAB L100.1600 27.0-32.0 pg Normal MCH 31.7 LAB L100.1700 32-36 g/gl Normal MCHC 32.9 LAB L100.1810 11.6-14.6 % Normal RDW CV 14.6 LAB L100.1820 35.1-43.9 fl High RDW SD 51.4 LAB L100.1900 150-450 K/mm3 Normal PLT 246 LAB L100.2000 6.2-12.0 fl Normal MPV 8.9 LAB L100.2100 47-70 % Low NEUT% 42.7 LAB L100.2200 19-41 % Normal LY% 29.5 LAB L100.2300 0-10 % High MONO% 24.8 LAB L100.2400 0-5 % Normal EO% 1.0 LAB L100.2500 0-1 % High BASO% 1.7 LAB L100.2550 0.0-0.9 % Normal IM GRAN % 0.300 Result Comment: IG% - Immature Granulocytes (promyelocytes, myelocytes and metamyelocytes) > 1% indicates that a LEFT SHIFT is Present. LAB L100.2620 2.0-7.7 X10 3/uL Low Absolute Neut 1.3 LAB L100.2720 0.83-4.51 X10 3/ul Normal Absolute Lymph 0.89 Performed By: #### L100.0100 #### [facility] [address] [place], [place], [id number] COMPREHENSIVE METABOLIC Collected: 01/06/2018 Status: F Source: [facility] 8:04 AM [facility] REPOSITORY Order Comment: Reason for Laboratory Test Chemotherapy TYPE CODE TESTS RESULT OUT OF RANGE REFERENCE UNITS LAB L501.0100 74-106 mg/dL Low GLU 69 Result Comment: Please note revised GLUCOSE reference range effective 2017. LAB L501.1000 7-18 mg/dL High BUN 22 LAB L501.1100 0.70-1.30 mg/dL Normal CREAT,SERUM 0.88 Result Comment: The validity of the calculated GFR AND GFRAA in patients over 70 years has not been determined. Clinical correlation is essential. LAB L501.1110 >60 mL/min Normal EST GFR 88 Result Comment: Non- GFR Calc LAB L501.1115 >60 mL/min Normal EST GFR - AA 106 Result Comment: GFR Calc LAB L501.1255 ml/min Normal Estimated CRCL 57.40 LAB L501.1300 10-20 RATIO High BUN/CRE 25.0 LAB L501.1500 6.4-8. g/dL Low 2 T PROT 6.2 LAB L501.1800 3.2-5. g/dL Normal 0 ALB 3.3 LAB L501.1950 2.2-4. g/dL Normal 2 GLOB 2.9 LAB L501.2000 0.9-2. RATIO Normal 4 A/G 1.1 LAB L501.2200 8.5-10 mg/dL Low .1 CA 8.4 LAB L501.4100 15-37 U/L Low AST 12 LAB L501.4305 45-117 U/L Normal ALK P 95 LAB L501.4405 16-61 U/L Normal ALT 16 LAB L501.4600 0.20-1 mg/dL Normal .00 T BILI 0.60 LAB L501.5300 136-14 mmol/L Normal 5 NA 141 LAB L501.5600 3.5-5. mmol/L Normal 1 K 4.3 LAB L501.5900 98-107 mmol/L Normal CL 106 LAB L501.6100 21.0-3 mmol/L Normal 2.0 CO2 29.0 LAB L501.6200 5-15 Normal GAP 6 Performed By: #### L500.4050, L501.5200 #### [facility] [address] [place], [address] MAGNESIUM Collected: 01/06/2018 Status: F Source: [place] 8:04 AM [facility] REPOSITORY Order Comment: Reason for Laboratory Test Chemotherapy TYPE CODE TESTS RESULT OUT OF RANGE REFERENCE UNITS LAB L501.5200 1.6-2.6 mg/dL Normal MG 2.0 Performed By: #### L500.4050, L501.5200 #### [facility] [address] [place], [address] CBC W/DIFF, AUTOMATED Collected: 12/23/2017 Status: C Source: [place] 8:21 AM [facility] REPOSITORY TYPE CODE TESTS RESULT OUT OF RANGE REFERENCE UNITS LAB L100.1000 4.4-11.0 K/mm3 Normal WBC 4.6 LAB L100.1200 4.6-6.2 M/mm3 Low RBC 3.71 LAB L100.1300 13.0-16.5 g/dl Low HGB 11.7 LAB L100.1400 40-54 % Low HCT 35.3 LAB L100.1500 80-94 fL High MCV 95.1 LAB L100.1600 27.0-32.0 pg Normal MCH 31.5 LAB L100.1700 32-36 g/gl Normal MCHC 33.1 LAB L100.1810 11.6-14.6 % Normal RDW CV 13.9 LAB L100.1820 35.1-43.9 fl High RDW SD 47.8 LAB L100.1900 150-450 K/mm3 Normal PLT 175 LAB L100.2000 6.2-12.0 fl Normal MPV 9.5 LAB L100.2100 47-70 % Normal NEUT% 69.4 LAB L100.2200 19-41 % Normal LY% 21.5 LAB L100.2300 0-10 % Normal MONO% 3.7 LAB L100.2400 0-5 % Normal EO% 1.1 LAB L100.2500 0-1 % High BASO% 1.5 LAB L100.2550 0.0-0.9 % High IM GRAN % 2.800 Result Comment: IG% - Immature Granulocytes (promyelocytes, myelocytes and metamyelocytes) > 1% indicates that a LEFT SHIFT is Present. LAB L100.2620 2.0-7.7 X10 3/uL Normal Absolute Neut 3.2 LAB L100.2720 0.83-4.51 X10 3/ul Normal Absolute Lymph 0.99 LAB L100.9900 Normal PATH REV Reviewed Result Comment: AMENDED REPORT 12/24/17 1340 PATH REV previously reported as: July adolfo Performed By: #### L100.0100 #### [facility] [place], [address] COMPREHENSIVE METABOLIC Collected: 12/23/2017 Status: F Source: [facility] 8:21 AM [facility] REPOSITORY Order Comment: Reason for Laboratory Test Chemotherapy TYPE CODE TESTS RESULT OUT OF RANGE REFERENCE UNITS LAB L501.0100 74-106 mg/dL High GLU 135 Result Comment: Fasting Glucose result greater than or equal to 126 mg/dL suggests DIABETES MELLITUS per A.D.A. criteria. Please note revised GLUCOSE reference range effective 2017. LAB L501.1000 7-18 mg/dL High BUN 21 LAB L501.1100 0.70-1.30 mg/dL Normal CREAT,SERUM 0.97 Result Comment: The validity of the calculated GFR AND GFRAA in patients over 70 years has not been determined. Clinical correlation is essential. LAB L501.1110 >60 mL/min Normal EST GFR 78 Result Comment: Non- GFR Calc LAB L501.1115 >60 mL/min Normal EST GFR - AA 95 Result Comment: GFR Calc LAB L501.1255 ml/min Normal Estimated CRCL 52.07 LAB L501.1300 10-20 RATIO High BUN/CRE 21.6 LAB L501.1500 6.4-8. g/dL Low 2 T PROT 6.2 LAB L501.1800 3.2-5. g/dL Normal 0 ALB 3.3 LAB L501.1950 2.2-4. g/dL Normal 2 GLOB 2.9 LAB L501.2000 0.9-2. RATIO Normal 4 A/G 1.1 LAB L501.2200 8.5-10 mg/dL Low .1 CA 8.4 LAB L501.4100 15-37 U/L Low AST 14 LAB L501.4305 45-117 U/L Normal ALK P 94 LAB L501.4405 16-61 U/L Normal ALT 16 LAB L501.4600 0.20-1 mg/dL Normal .00 T BILI 0.80 LAB L501.5300 136-14 mmol/L Normal 5 NA 139 LAB L501.5600 3.5-5. mmol/L Normal 1 K 3.9 LAB L501.5900 98-107 mmol/L Normal CL 103 LAB L501.6100 21.0-3 mmol/L Normal 2.0 CO2 29.0 LAB L501.6200 5-15 Normal GAP 7 Performed By: #### L500.4050, L501.5200 #### [facility] [address] [place], [address] MAGNESIUM Collected: 12/23/2017 Status: F Source: [place] 8:21 AM [facility] REPOSITORY Order Comment: Reason for Laboratory Test Chemotherapy TYPE CODE TESTS RESULT OUT OF RANGE REFERENCE UNITS LAB L501.5200 1.6-2.6 mg/dL Normal MG 1.8 Performed By: #### L500.4050, L501.5200 #### [facility] [address] [facility] [place], [address] ONCOLOGY VISIT REPORT Observed: 12/16/2017 Status: F Source: [place] 8:42 AM [facility] REPOSITORY [facility] [address] [facility] [facility] [place] [address] OFFICE VISIT Date of Service: 12/16/17 0838 MR#: [id number] Acct: [id number] Name: CAMILO ESQUIVEL Rep #: [id number] : 1935 From: Сергей Medina MD Age/Sex: 82/M Location: OMD Status: Signed Subjective - Date of Service Date of Service:: 12/16/17 - Chief Complaint F/u for pleomorphic sarcoma and chemotherapy - History of Present Illness Mr. Camilo Esquivel is a very pleasant 82-year-old man who presented with a right groin mass in November 2014. Cytology showed pleomorphic sarcoma. MRI of the pelvis on 01/03/2015 showed an enhancing mass in the right inguinal area measuring 2.9 cm. The patient was referred to [facility]. PET CT scan on 01/11/2015 showed a right inguinal soft tissue mass with right retroperitoneal mass. Biopsy of the right inguinal mass on 01/15/2015 positive for sarcoma. Biopsy of the retroperitoneal mass on 01/21/2015 also showed sarcoma. He was started on Gemzar/Taxotere every 21 days on 02/05/2015. He had progressive disease on PET CT scan done on 05/01/2015. Treatment was changed to Halaven every 21 days in May 2015. Halaven was then changed to every 28 days with cycle 16 and subsequent cycles. Evaluated by Dr. Burns 11/25/16 and underwent PET/CT scan which showed stable disease. He continues Halaven. Bx of L posterior neck node was negative on 11/25/2016. Comes in for C29D1 AND 8 Halaven. He feels well. Still has R shoulder pain from arthritis but better. He was seen by Dr. Burns at [facility], PET/CT showed mixed response on 04/14/2017 with new activity in supraglottic area so since he has tolerated chemotherapy without adverse effects, after discussion, therapy should be changed to every 21 days. 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 C32D1 Halaven delayed by one week d/t neutropenia. He was started on Neulasta after the C32 but refused it after C34. He comes for C40 today. Feels well, still has slight weakness in the thighs some times which makes it difficult for him to get up from sitting in a chair. 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 Denies: Fatigue, Fever, Sweats Cardiovascular:: Denies: Chest pain, Palpitations, Dyspnea on exertion, Orthopnea, PND, Shortness of breath Respiratory: Denies: Cough, Hemoptysis, Shortness of Breath, Wheezing Gastrointestinal:: Denies: Abdominal pain, Nausea, Vomiting, Diarrhea, Constipation, Hematochezia Genitourinary: Denies: Dysuria, Hematuria, 15, Flank pain Musculoskeletal:: Denies: Back pain, Myalgia, Arthralgia Skin: Denies: Rash, Skin Changes, Wounds Neurological:: Denies: Headache, Dizziness, Visual changes, Tinnitus, Hearing loss Psychiatric: Denies: Anxiety, Depression, Homicidal Ideations, Suicidal Ideations Vital Signs Height 5 ft 6 in Weight: 67.132 kg Weight in Pounds 148.0 lbs Pulse Ox 97 - Physical Exam General: - - Port R IC area. HEENT: Atraumatic, PERRLA, EOMI, Normocephalic Oropharynx:: Dry mucosa Neck:: Supple, Trachea midline. Negative for: JVD, bilateral Cardiac:: Regular rate, Regular rhythm, Normal S1, Normal S2. Negative for: Murmur Lungs: Clear to auscultation, Excusion symmetrical. Negative for: Rhonchi, Wheezes Abdomen:: Bowel sounds x 4, Soft, Non-tender, Non-distended. 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 Tolerating therapy. 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 Heaviness/weakness in legs is stable. Plan is to proceed with chemotherapy Halaven cycle 40 D1 today and D8 next week without Neulasta. Pt does not want Neulasta. Return to clinic 3 weeks with CBC, CMP, magnesium for Halaven cycle 41 D1. Medications: Prescriptions This Visit Medication Instructions Recorded Medications Added to Medication List This Visit Primary Care Provider: Nathalie Donis Referring Provider: - Problem List (1) Sarcoma Status: Chronic (2) Chemotherapy management, encounter for Status: Acute Code Visit Office Visits / Consults: [id number] OV L5 Est 12/16/17 0842 <Electronically signed by Сергей Prah MD> Date Сергей Medina MD Cosigner Signature: Date (if applicable) CC: CBC W/DIFF, AUTOMATED Collected: 12/16/2017 Status: F Source: [place] 8:00 AM [facility] REPOSITORY TYPE CODE TESTS RESULT OUT OF RANGE REFERENCE UNITS LAB L100.1000 4.4-11.0 K/mm3 Low WBC 2.7 LAB L100.1200 4.6-6.2 M/mm3 Low RBC 3.76 LAB L100.1300 13.0-16.5 g/dl Low HGB 11.8 LAB L100.1400 40-54 % Low HCT 35.9 LAB L100.1500 80-94 fL High MCV 95.5 LAB L100.1600 27.0-32.0 pg Normal MCH 31.4 LAB L100.1700 32-36 g/gl Normal MCHC 32.9 LAB L100.1810 11.6-14.6 % Normal RDW CV 14.3 LAB L100.1820 35.1-43.9 fl High RDW SD 48.8 LAB L100.1900 150-450 K/mm3 Normal PLT 231 LAB L100.2000 6.2-12.0 fl Normal MPV 8.8 LAB L100.2100 47-70 % Low NEUT% 44.8 LAB L100.2200 19-41 % Normal LY% 29.5 LAB L100.2300 0-10 % High MONO% 23.1 LAB L100.2400 0-5 % Normal EO% 0.4 LAB L100.2500 0-1 % High BASO% 2.2 LAB L100.2550 0.0-0.9 % Normal IM GRAN % 0.000 Result Comment: IG% - Immature Granulocytes (promyelocytes, myelocytes and metamyelocytes) > 1% indicates that a LEFT SHIFT is Present. LAB L100.2620 2.0-7.7 X10 3/uL Low Absolute Neut 1.2 LAB L100.2720 0.83-4.51 X10 3/ul Low Absolute Lymph 0.79 Performed By: #### L100.0100 #### [facility] [address] [place], [address] COMPREHENSIVE METABOLIC Collected: 12/16/2017 Status: F Source: [place] [facility] 8:00 AM [facility] REPOSITORY Order Comment: Reason for Laboratory Test Chemotherapy TYPE CODE TESTS RESULT OUT OF RANGE REFERENCE UNITS LAB L501.0100 74-106 mg/dL Normal GLU 82 Result Comment: Please note revised GLUCOSE reference range effective 2017. LAB L501.1000 7-18 mg/dL High BUN 19 LAB L501.1100 0.70-1.30 mg/dL Normal CREAT,SERUM 0.88 Result Comment: The validity of the calculated GFR AND GFRAA in patients over 70 years has not been determined. Clinical correlation is essential. LAB L501.1110 >60 mL/min Normal EST GFR 88 Result Comment: Non- GFR Calc LAB L501.1115 >60 mL/min Normal EST GFR - AA 106 Result Comment: GFR Calc LAB L501.1255 ml/min Normal Estimated CRCL 57.40 LAB L501.1300 10-20 RATIO High BUN/CRE 21.5 LAB L501.1500 6.4-8. g/dL Low 2 T PROT 6.2 LAB L501.1800 3.2-5. g/dL Normal 0 ALB 3.4 LAB L501.1950 2.2-4. g/dL Normal 2 GLOB 2.8 LAB L501.2000 0.9-2. RATIO Normal 4 A/G 1.2 LAB L501.2200 8.5-10 mg/dL Low .1 CA 8.2 LAB L501.4100 15-37 U/L Low AST 12 LAB L501.4305 45-117 U/L Normal ALK P 85 LAB L501.4405 16-61 U/L Normal ALT 17 LAB L501.4600 0.20-1 mg/dL Normal .00 T BILI 0.70 LAB L501.5300 136-14 mmol/L Normal 5 NA 139 LAB L501.5600 3.5-5. mmol/L Normal 1 K 4.2 LAB L501.5900 98-107 mmol/L Normal CL 104 LAB L501.6100 21.0-3 mmol/L Normal 2.0 CO2 29.0 LAB L501.6200 5-15 Normal GAP 6 Performed By: #### L500.4050, L501.5200 #### [facility] [address] [place], [address] MAGNESIUM Collected: 12/16/2017 Status: F Source: [place] 8:00 AM [facility] REPOSITORY Order Comment: Reason for Laboratory Test Chemotherapy TYPE CODE TESTS RESULT OUT OF RANGE REFERENCE UNITS LAB L501.5200 1.6-2.6 mg/dL Normal MG 2.0 Performed By: #### L500.4050, L501.5200 #### [facility] [address] [place], [address] CBC W/DIFF, AUTOMATED Collected: 12/02/2017 Status: C Source: [place] 8:01 [facility] REPOSITORY TYPE CODE TESTS RESULT OUT OF RANGE REFERENCE UNITS LAB L100.1000 4.4-11.0 K/mm3 Normal WBC 4.9 LAB L100.1200 4.6-6.2 M/mm3 Low RBC 3.85 LAB L100.1300 13.0-16.5 g/dl Low HGB 12.4 LAB L100.1400 40-54 % Low HCT 37.1 LAB L100.1500 80-94 fL High MCV 96.4 LAB L100.1600 27.0-32.0 pg High MCH 32.2 LAB L100.1700 32-36 g/gl Normal MCHC 33.4 LAB L100.1810 11.6-14.6 % Normal RDW CV 13.3 LAB L100.1820 35.1-43.9 fl High RDW SD 44.8 LAB L100.1900 150-450 K/mm3 Normal PLT 191 LAB L100.2000 6.2-12.0 fl Normal MPV 9.5 LAB L100.2620 2.0-7.7 X10 3/uL Normal Absolute Neut 3.9 Result Comment: AMENDED REPORT 12/02/17 0856 Absolute Neut previously reported as: 3.6 X10^3/uL LAB L100.2720 0.83-4.51 X10 3/ul Normal Absolute Lymph 0.94 Result Comment: AMENDED REPORT 12/02/17 0857 Absolute Lymph previously reported as: 0.86 X10^3/ul LAB L100.3100 MANUAL DIFF Normal CELLS COUNTED 100 LAB L100.3200 47-70 % High 77 SEGS LAB L100.3300 0-5 % 2 Normal BAND LAB L100.3400 0-1 % 1 Normal META LAB L100.3500 0-0 High 1 MYELO LAB L100.3800 19-41 % 19 Normal LYMPH LAB L100.5500 ADEQ Normal PLT EST ADEQUATE LAB L100.7000 NORM C AND NORMAL C Normal RED CELL NORM C+C MORPH Performed By: #### L100.0100 #### [facility] [address] [place], [address] COMPREHENSIVE METABOLIC Collected: 12/02/2017 Status: F Source: [facility] 8:01 AM [facility] REPOSITORY Order Comment: Reason for Laboratory Test Chemotherapy TYPE CODE TESTS RESULT OUT OF RANGE REFERENCE UNITS LAB L501.0100 74-106 mg/dL High GLU 143 Result Comment: Fasting Glucose result greater than or equal to 126 mg/dL suggests DIABETES MELLITUS per A.D.A. criteria. Please note revised GLUCOSE reference range effective 2017. LAB L501.1000 7-18 mg/dL High BUN 19 LAB L501.1100 0.70-1.30 mg/dL Normal CREAT,SERUM 0.96 Result Comment: The validity of the calculated GFR AND GFRAA in patients over 70 years has not been determined. Clinical correlation is essential. LAB L501.1110 >60 mL/min Normal EST GFR 79 Result Comment: Non- GFR Calc LAB L501.1115 >60 mL/min Normal EST GFR - AA 96 Result Comment: GFR Calc LAB L501.1255 ml/min Normal Estimated CRCL 52.61 LAB L501.1300 10-20 RATIO Normal BUN/CRE 19.8 LAB L501.1500 6.4-8. g/dL Normal 2 T PROT 6.6 LAB L501.1800 3.2-5. g/dL Normal 0 ALB 3.6 LAB L501.1950 2.2-4. g/dL Normal 2 GLOB 3.0 LAB L501.2000 0.9-2. RATIO Normal 4 A/G 1.2 LAB L501.2200 8.5-10 mg/dL Normal .1 CA 8.5 LAB L501.4100 15-37 U/L Normal AST 17 LAB L501.4305 45-117 U/L Normal ALK P 92 LAB L501.4405 16-61 U/L Normal ALT 21 LAB L501.4600 0.20-1 mg/dL Normal .00 T BILI 0.80 LAB L501.5300 136-14 mmol/L Normal 5 NA 140 LAB L501.5600 3.5-5. mmol/L Normal 1 K 3.9 LAB L501.5900 98-107 mmol/L Normal CL 102 LAB L501.6100 21.0-3 mmol/L Normal 2.0 CO2 31.0 LAB L501.6200 5-15 Normal GAP 7 Performed By: #### L500.4050, L501.5200 #### [facility] [address] [place], [address] MAGNESIUM Collected: 12/02/2017 Status: F Source: [place] 8:01 AM [facility] REPOSITORY Order Comment: Reason for Laboratory Test Chemotherapy TYPE CODE TESTS RESULT OUT OF RANGE REFERENCE UNITS LAB L501.5200 1.6-2.6 mg/dL Normal MG 2.1 Performed By: #### L500.4050, L501.5200 #### [facility] [address] [place], [address] NUC PET OTHER Observed: 11/30/2017 Status: F Source: [facility] 3:04 PM [facility] REPOSITORY EXAM: NUC PET OTHER, 11/30/2017 13:07 PM CLINICAL INDICATIONS: Malignant neoplasm of other connective and soft tissue; , COMPARISON: PET/CT dated 09/15/2017 CT DOSE: DLP: 624 mGy x cm kVp: 120 TECHNIQUE: The patient's fasting blood glucose was 81 mg/dl. Approximately 72 minutes following the injection of 10.825 mCi of F-18 FDG, the patient was positioned on the Siemens Stromedixgraph mCT TOF< PET/CT-64, [facility] imaging unit. A low resolution non-contrast CT was obtained from the top of the head through the toes for use in attenuation correction and anatomic correlation. PET emission scans of this anatomic region were acquired shortly thereafter. Axial, sagittal, coronal and maximal intensity projection reconstruction images were presented for interpretation. FINDINGS: Head/Neck: Physiologic FDG uptake is noted in the salivary glands and tonsillar tissue. There is no hypermetabolic cervical or supraclavicular lymphadenopathy. Normal, intense physiologic uptake is noted in the cerebral cortex sunshine matter and subcortical nuclei without gross hypermetabolic abnormality. Continued decrease in metabolic activity of soft tissue nodular thickening of the posterior left scalp at the level of the left mastoid tip, with a current maximum SUV of 2.6, previously 3.6. This was previously biopsied and shown to be a benign entity. Chest: There are no hypermetabolic pulmonary parenchymal lesions. Partially calcified lymph nodes within the mediastinum and bilateral vasyl appear similar to the prior exam. These demonstrate mild hypermetabolic activity, mildly decreased from the prior study. For example right hilar lymph nodes demonstrate a maximum SUV of 4.7, previously 5.8. There is no hypermetabolic axillary lymphadenopathy. Physiologic FDG uptake is seen in the myocardium. Right chest wall port. Abdomen/Pelvis: Physiologic FDG uptake is seen throughout the liver, spleen and bowel. Physiologic FDG excretion is seen in the kidneys, ureters, and bladder. There are no hypermetabolic lesions in the adrenal glands. There is no hypermetabolic retroperitoneal, paraaortic or portocaval lymphadenopathy. Hypermetabolic soft tissue thickening/nodularity at the right external iliac region, at site of prior surgery, with maximum SUV of 7.3, previously 7.5. No new hypermetabolic inguinal or pelvic lymphadenopathy. Prostate is severely enlarged with evidence of bladder outlet obstruction. Musculoskeletal: There is physiologic FDG uptake throughout the axial and proximal appendicular skeleton. No focal hypermetabolic osseous lesions are identified. IMPRESSION: No significant interval change from the prior PET/CT dated 09/15/2017, with no new suspicious foci of hypermetabolic activity. Redemonstration of hypermetabolic activity associated with of soft tissue thickening/nodularity at the right external iliac region, stable compared to prior study. Additional nonspecific sites of mild hypermetabolic activity at the mediastinum and bilateral vasyl are unchanged. I personally viewed and interpreted these images and I have reviewed and approved this report. WITH DIFF AWILDA Collected: 11/30/2017 Status: F Source: [facility] 1:08 PM [facility] REPOSITORY TYPE CODE TESTS RESULT OUT OF REFERENCE UNITS RANGE LAB WBC 4.23-9.07 K/uL WBC Count 4.58 LAB RBC 4.63-6.08 M/uL RBC Count 3.90 Low LAB HGB 13.7-17.5 g/dL Hemoglobin 12.6 Low LAB HCT 40.1-51.0 % Hematocrit 37.7 Low LAB MCV 79.0-92.2 fL Mean Cell 96.7 High Volume LAB MCH 25.7-32.2 pg Mean Cell 32.3 High Hgb LAB MCHC 32.3-36.5 g/dL Mean Cell 33.4 Hgb Conc LAB RDW 11.6-14.4 % RBC 13.5 Distribution LAB PLT 163-337 K/uL Platelet 162 Low Count LAB MPV 9.4-12.4 fL Mean 9.4 Platelet Volume LAB NRBC 0.0-0.2 /100 WBC NUCLEATED 0.0 RBC LAB DTYPE Electronic DIFFERENTIAL TYPE Differential LAB IGRE % IMMATURE 0.4 GRANS % LAB SEGS % NEUTROPHIL 68.9 SEGMENTED LAB LYM % LYMPHOCYTE 22.9 % LAB MON % MONOCYTE % 6.3 LAB EOS % EOSINOPHIL 0.2 % LAB BASO % BASOPHIL % 1.3 LAB IGABS <0.04 K/uL IMMATURE <0.04 GRANS ABSOLUTE LAB SBANS 1.78-5.38 K/uL SEGS + 3.15 Bands,Absolute LAB ALYM 1.32-3.57 K/uL Abs Lymph 1.05 Low LAB AMONO 0.30-0.82 K/uL Abs [place] 0.29 Low LAB AEOS <0.55 K/uL Abs Eos <0.04 LAB ABASO <0.09 K/uL Abs Baso 0.06 Performed By: #### CBCDFJ #### [facility], [facility] [address] [place], [place] [address] METABOLIC PANEL - CHRI Collected: 11/30/2017 Status: F Source: [facility] 1:08 PM [facility] REPOSITORY TYPE CODE TESTS RESULT OUT OF REFERENCE UNITS RANGE LAB NA 133-143 mmol/L Sodium 138 LAB K 3.5-5.0 mmol/L Potassium 3.9 LAB CL 98-108 mmol/L Chloride 102 LAB BUN 7-22 mg/dL BUN 18 LAB CREA 0.70-1.30 mg/dL Creatinine 0.75 LAB GLUC 70-99 mg/dL Glucose 93 LAB CA 8.6-10.5 mg/dL Calcium 9.1 LAB ALP 32-126 U/L Alkaline Phosphatase 70 LAB AST 14-40 U/L AST 18 LAB TP 6.4-8.3 g/dL Low Total Protein 5.9 LAB ALB 3.5-5.0 g/dL Albumin 3.7 LAB BILT <1.5 mg/dL Bilirubin Total 1.1 LAB CO2 22-30 mmol/L Carbon High Dioxide 32 LAB GAP 7-17 mmol/L Anion Gap 8 LAB ALT 10-52 U/L ALT 13 LAB GFR >60 mL/min/1.7 3sqM Est GFR,non >60 LAB GFRA >60 mL/min/1.7 3sqM Est GFR, >60 LAB OSMC 278-305 mOsm/kg Osmolality (Calc) 290 Performed By: #### CBCDFJ #### [facility], [facility] [address] [place] [address] *POC GLUCOSE BATTERY Collected: 11/30/2017 Status: F Source: [facility] 11:05 AM [facility] REPOSITORY TYPE CODE TESTS RESULT OUT OF REFERENCE UNITS RANGE LAB GLUP 70-99 mg/dL Glucose (poc 81 device) Result Comment: No BRAVE per RN: PATIENT TYPE LAB PCSTYP *POC Capillary SAMPLE TYPE Blood ONCOLOGY VISIT REPORT Observed: 11/25/2017 Status: F Source: [place] 9:05 AM [facility] REPOSITORY [facility] [address] [place] [address] OFFICE VISIT Date of Service: 11/25/17 0856 MR#: [id number] Acct: [id number] Name: CAMILO ESQUIVEL Rep #: [id number] : 1935 From: Сергей Medina MD Age/Sex: 82/M Location: [facility] Status: Signed Subjective - Date of Service Date of Service:: 11/25/17 - Chief Complaint F/u for pleomorphic sarcoma and chemotherapy - History of Present Illness Mr. Camilo Esquivel is a very pleasant 82-year-old man who presented with a right groin mass in November 2014. Cytology showed pleomorphic sarcoma. MRI of the pelvis on 01/03/2015 showed an enhancing mass in the right inguinal area measuring 2.9 cm. The patient was referred to [facility]. PET CT scan on 01/11/2015 showed a right inguinal soft tissue mass with right retroperitoneal mass. Biopsy of the right inguinal mass on 01/15/2015 positive for sarcoma. Biopsy of the retroperitoneal mass on 01/21/2015 also showed sarcoma. He was started on Gemzar/Taxotere every 21 days on 02/05/2015. He had progressive disease on PET CT scan done on 05/01/2015. Treatment was changed to Halaven every 21 days in May 2015. Halaven was then changed to every 28 days with cycle 16 and subsequent cycles. Evaluated by Dr. Burns 11/25/16 and underwent PET/CT scan which showed stable disease. He continues Halaven. Bx of L posterior neck node was negative on 11/25/2016. Comes in for C29D1 AND 8 Halaven. He feels well. Still has R shoulder pain from arthritis but better. He was seen by Dr. Burns at [facility], PET/CT showed mixed response on 04/14/2017 with new activity in supraglottic area so since he has tolerated chemotherapy without adverse effects, after discussion, therapy should be changed to every 21 days. 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 C32D1 Halaven delayed by one week d/t neutropenia. He was started on Neulasta after the C32 but refused it after C34. He comes for C39 today. Feels well, gets weakness in the thighs some times which makes it difficult for him to get up from sitting in a chair. 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 Denies: Fever, Sweats Cardiovascular:: Denies: Chest pain, Palpitations, Dyspnea on exertion, Orthopnea, PND, Shortness of breath Respiratory: Denies: Cough, Hemoptysis, Shortness of Breath, Wheezing Gastrointestinal:: Denies: Abdominal pain, Nausea, Vomiting, Diarrhea, Constipation, Hematochezia Genitourinary: Denies: Dysuria, Hematuria, 15, Flank pain Musculoskeletal:: Denies: Back pain, Myalgia, Arthralgia Skin: Denies: Rash, Skin Changes, Wounds Neurological:: Denies: Headache, Dizziness, Visual changes, Tinnitus, Hearing loss Psychiatric: Denies: Anxiety, Depression, Homicidal Ideations, Suicidal Ideations Vital Signs Height 5 ft 6 in Weight: 68.492 kg Weight in Pounds 151.0 lbs Pulse Ox 97 - Physical Exam General: Alert, Oriented x3, No apparent distress, - - Port R IC area. HEENT: Atraumatic, PERRLA, EOMI, Normocephalic Oropharynx:: Dry mucosa Neck:: Supple, Trachea midline. Negative for: JVD, bilateral Cardiac:: Regular rate, Regular rhythm, Normal S1, Normal S2. Negative for: Murmur Lungs: Clear to auscultation, Excusion symmetrical. Negative for: Rhonchi, Wheezes Abdomen:: Bowel sounds x 4, Soft, Non-tender, Non-distended. 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 Tolerating therapy with Mixed response on PET/CT done at [facility]. 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 Heaviness/weakness in legs, Pt does not want to stop chemotherapy for work up.. Plan is to proceed with chemotherapy Halaven cycle 39 D1 today and D8 next week without Neulasta. Pt does not want Neulasta. Return to clinic 3 weeks with CBC, CMP, magnesium for Halaven cycle 40D1. Medications: Prescriptions This Visit Medication Instructions Recorded Medications Added to Medication List This Visit Primary Care Provider: Nathalie Donis Referring Provider: - Problem List (1) Sarcoma Status: Chronic (2) Chemotherapy management, encounter for Status: Acute Code Visit Office Visits / Consults: 19659 OV L5 Est 11/25/17904 <Electronically signed by Сергей Medina MD> Date Сергей Medina MD Cosigner Signature: Date (if applicable) CC: CBC W/DIFF, AUTOMATED Collected: 11/25/2017 Status: F Source: [place] 7:58 AM [facility] REPOSITORY TYPE CODE TESTS RESULT OUT OF RANGE REFERENCE UNITS LAB L100.1000 4.4-11.0 K/mm3 Low WBC 2.8 LAB L100.1200 4.6-6.2 M/mm3 Low RBC 3.80 LAB L100.1300 13.0-16.5 g/dl Low HGB 12.3 LAB L100.1400 40-54 % Low HCT 36.9 LAB L100.1500 80-94 fL High MCV 97.1 LAB L100.1600 27.0-32.0 pg High MCH 32.4 LAB L100.1700 32-36 g/gl Normal MCHC 33.3 LAB L100.1810 11.6-14.6 % Normal RDW CV 13.8 LAB L100.1820 35.1-43.9 fl High RDW SD 47.2 LAB L100.1900 150-450 K/mm3 Normal PLT 253 LAB L100.2000 6.2-12.0 fl Normal MPV 9.0 LAB L100.2100 47-70 % Low NEUT% 38.9 LAB L100.2200 19-41 % Normal LY% 32.7 LAB L100.2300 0-10 % High MONO% 24.4 LAB L100.2400 0-5 % Normal EO% 0.7 LAB L100.2500 0-1 % High BASO% 2.9 LAB L100.2550 0.0-0.9 % Normal IM GRAN % 0.400 Result Comment: IG% - Immature Granulocytes (promyelocytes, myelocytes and metamyelocytes) > 1% indicates that a LEFT SHIFT is Present. LAB L100.2620 2.0-7.7 X10 3/uL Low Absolute Neut 1.1 LAB L100.2720 0.83-4.51 X10 3/ul Normal Absolute Lymph 0.90 Performed By: #### L100.0100 #### [facility] [address] [place], [address] COMPREHENSIVE METABOLIC Collected: 11/25/2017 Status: F Source: [facility] 7:57 AM [facility] REPOSITORY Order Comment: Reason for Laboratory Test Chemotherapy TYPE CODE TESTS RESULT OUT OF RANGE REFERENCE UNITS LAB L501.0100 74-106 mg/dL Normal GLU 96 Result Comment: Please note revised GLUCOSE reference range effective 2017. LAB L501.1000 7-18 mg/dL Normal BUN 18 LAB L501.1100 0.70-1.30 mg/dL Normal CREAT,SERUM 0.92 Result Comment: The validity of the calculated GFR AND GFRAA in patients over 70 years has not been determined. Clinical correlation is essential. LAB L501.1110 >60 mL/min Normal EST GFR 83 Result Comment: Non- GFR Calc LAB L501.1115 >60 mL/min Normal EST GFR - AA 101 Result Comment: GFR Calc LAB L501.1255 ml/min Normal Estimated CRCL 54.90 LAB L501.1300 10-20 RATIO Normal BUN/CRE 19.5 LAB L501.1500 6.4-8. g/dL Normal 2 T PROT 6.5 LAB L501.1800 3.2-5. g/dL Normal 0 ALB 3.5 LAB L501.1950 2.2-4. g/dL Normal 2 GLOB 3.0 LAB L501.2000 0.9-2. RATIO Normal 4 A/G 1.2 LAB L501.2200 8.5-10 mg/dL Normal .1 CA 8.5 LAB L501.4100 15-37 U/L Normal AST 15 LAB L501.4305 45-117 U/L Normal ALK P 87 LAB L501.4405 16-61 U/L Normal ALT 19 LAB L501.4600 0.20-1 mg/dL Normal .00 T BILI 0.60 LAB L501.5300 136-14 mmol/L Normal 5 NA 140 LAB L501.5600 3.5-5. mmol/L Normal 1 K 4.2 LAB L501.5900 98-107 mmol/L Normal CL 104 LAB L501.6100 21.0-3 mmol/L Normal 2.0 CO2 28.0 LAB L501.6200 5-15 Normal GAP 8 Performed By: #### L500.4050, L501.5200 #### [facility] [address] [place], [place], [id number] MAGNESIUM Collected: 11/25/2017 Status: F Source: [place] 7:57 AM [facility] REPOSITORY Order Comment: Reason for Laboratory Test Chemotherapy TYPE CODE TESTS RESULT OUT OF RANGE REFERENCE UNITS LAB L501.5200 1.6-2.6 mg/dL Normal MG 2.3 Performed By: #### L500.4050, L501.5200 #### [facility] [address] [place], [address] CPK TOTAL, CREATINE Collected: 11/25/2017 Status: F Source: [place] [facility] 7:57 AM [facility] REPOSITORY Order Comment: ADD ON BLOOD IN LAB Reason for Laboratory Test . TYPE CODE TESTS RESULT OUT OF RANGE REFERENCE UNITS LAB L501.3620 39-308 U/L Normal CPK TOTAL 94 Performed By: #### L501.3620, L504.2610 #### [facility] [address] [place], [place], [address] LDH Collected: 11/25/2017 Status: F Source: [place] 7:57 AM [facility] REPOSITORY Order Comment: ADD ON BLOOD IN LAB Reason for Laboratory Test . Serial Specimen #1, #2 or #3? 1 TYPE CODE TESTS RESULT OUT OF RANGE REFERENCE UNITS LAB L504.2610 87-241 U/L Normal LDH 185 Performed By: #### L501.3620, L504.2610 #### [facility] [address] [place], [address] CBC W/DIFF, AUTOMATED Collected: 11/11/2017 Status: F Source: [place] 7:55 AM [facility] REPOSITORY TYPE CODE TESTS RESULT OUT OF RANGE REFERENCE UNITS LAB L100.1000 4.4-11.0 K/mm3 Normal WBC 5.7 LAB L100.1200 4.6-6.2 M/mm3 Low RBC 3.78 LAB L100.1300 13.0-16.5 g/dl Low HGB 12.0 LAB L100.1400 40-54 % Low HCT 36.4 LAB L100.1500 80-94 fL High MCV 96.3 LAB L100.1600 27.0-32.0 pg Normal MCH 31.7 LAB L100.1700 32-36 g/gl Normal MCHC 33.0 LAB L100.1810 11.6-14.6 % Normal RDW CV 13.7 LAB L100.1820 35.1-43.9 fl High RDW SD 47.9 LAB L100.1900 150-450 K/mm3 Normal PLT 170 LAB L100.2000 6.2-12.0 fl Normal MPV 9.1 LAB L100.2100 47-70 % High NEUT% 74.7 LAB L100.2200 19-41 % Low LY% 18.3 LAB L100.2300 0-10 % Normal MONO% 2.8 LAB L100.2400 0-5 % Normal EO% 1.2 LAB L100.2500 0-1 % High BASO% 1.9 LAB L100.2550 0.0-0.9 % High IM GRAN % 1.100 Result Comment: IG% - Immature Granulocytes (promyelocytes, myelocytes and metamyelocytes) > 1% indicates that a LEFT SHIFT is Present. LAB L100.2620 2.0-7.7 X10 3/uL Normal Absolute Neut 4.2 LAB L100.2720 0.83-4.51 X10 3/ul Normal Absolute Lymph 1.04 Performed By: #### L100.0100 #### [facility] [address] [place], [address] COMPREHENSIVE METABOLIC Collected: 11/11/2017 Status: F Source: [place] 7:54 AM [facility] [place] REPOSITORY Order Comment: Reason for Laboratory Test Chemotherapy TYPE CODE TESTS RESULT OUT OF RANGE REFERENCE UNITS LAB L501.0100 74-106 mg/dL High GLU 118 Result Comment: Fasting Glucose result from 100 to 125 mg/dL suggests IMPAIRED HOMEOSTASIS per A.D.A. criteria. Please note revised GLUCOSE reference range effective 2017. LAB L501.1000 7-18 mg/dL High BUN 22 LAB L501.1100 0.70-1.30 mg/dL Normal CREAT,SERUM 0.93 Result Comment: The validity of the calculated GFR AND GFRAA in patients over 70 years has not been determined. Clinical correlation is essential. LAB L501.1110 >60 mL/min Normal EST GFR 82 Result Comment: Non- GFR Calc LAB L501.1115 >60 mL/min Normal EST GFR - AA 99 Result Comment: GFR Calc LAB L501.1255 ml/min Normal Estimated CRCL 54.31 LAB L501.1300 10-20 RATIO High BUN/CRE 23.6 LAB L501.1500 6.4-8. g/dL Normal 2 T PROT 6.4 LAB L501.1800 3.2-5. g/dL Normal 0 ALB 3.4 LAB L501.1950 2.2-4. g/dL Normal 2 GLOB 3.0 LAB L501.2000 0.9-2. RATIO Normal 4 A/G 1.1 LAB L501.2200 8.5-10 mg/dL Low .1 CA 8.2 LAB L501.4100 15-37 U/L Normal AST 17 LAB L501.4305 45-117 U/L Normal ALK P 97 LAB L501.4405 16-61 U/L Normal ALT 20 LAB L501.4600 0.20-1 mg/dL Normal .00 T BILI 0.80 LAB L501.5300 136-14 mmol/L Normal 5 NA 140 LAB L501.5600 3.5-5. mmol/L Normal 1 K 3.8 LAB L501.5900 98-107 mmol/L Normal CL 104 LAB L501.6100 21.0-3 mmol/L Normal 2.0 CO2 29.0 LAB L501.6200 5-15 Normal GAP 7 Performed By: #### L500.4050, L501.5200 #### [facility] [address] [place], [address] MAGNESIUM Collected: 11/11/2017 Status: F Source: [place] 7:54 AM [facility] [place] REPOSITORY Order Comment: Reason for Laboratory Test Chemotherapy TYPE CODE TESTS RESULT OUT OF RANGE REFERENCE UNITS LAB L501.5200 1.6-2.6 mg/dL Normal MG 2.0 Performed By: #### L500.4050, L501.5200 #### [facility] [address] [place], [address] ONCOLOGY VISIT REPORT Observed: 11/04/2017 Status: F Source: [place] 8:55 AM [facility] [place] REPOSITORY [facility] [address] [facility] [place] [address] OFFICE VISIT Date of Service: 11/04/17 0849 MR#: [id number] Acct: [id number] Name: CAMILO ESQUIVEL Rep #: [id number] : 1935 From: Сергей Medina MD Age/Sex: 82/M Location: OMD Status: Signed Subjective - Date of Service Date of Service:: 11/04/17 - Chief Complaint F/u for pleomorphic sarcoma and chemotherapy - History of Present Illness Mr. Camilo Esquivel is a very pleasant 82-year-old man who presented with a right groin mass in November 2014. Cytology showed pleomorphic sarcoma. MRI of the pelvis on 01/03/2015 showed an enhancing mass in the right inguinal area measuring 2.9 cm. The patient was referred to [facility]. PET CT scan on 01/11/2015 showed a right inguinal soft tissue mass with right retroperitoneal mass. Biopsy of the right inguinal mass on 01/15/2015 positive for sarcoma. Biopsy of the retroperitoneal mass on 01/21/2015 also showed sarcoma. He was started on Gemzar/Taxotere every 21 days on 02/05/2015. He had progressive disease on PET CT scan done on 05/01/2015. Treatment was changed to Halaven every 21 days in May 2015. Halaven was then changed to every 28 days with cycle 16 and subsequent cycles. Evaluated by Dr. Burns 11/25/16 and underwent PET/CT scan which showed stable disease. He continues Halaven. Bx of L posterior neck node was negative on 11/25/2016. Comes in for C29D1 AND 8 Halaven. He feels well. Still has R shoulder pain from arthritis but better. He was seen by Dr. Burns at [facility], PET/CT showed mixed response on 04/14/2017 with new activity in supraglottic area so since he has tolerated chemotherapy without adverse effects, after discussion, therapy should be changed to every 21 days. 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 C32D1 Halaven delayed by one week d/t neutropenia. He was started on Neulasta after the C32 but refused it after C34. He comes for C38 today. Feels well. 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 Family History Paternal Past Medical History: Heart disease Maternal Past Medical History: COPD Social History Social History: No changes Smoking Status Never smoker Review of Systems Constitutional:: Denies: Fever, Sweats, Weight loss, Appetite change, Chills Cardiovascular:: Denies: Chest pain, Palpitations, Dyspnea on exertion, Orthopnea, PND, Shortness of breath Respiratory: Denies: Cough, Hemoptysis, Shortness of Breath, Wheezing Gastrointestinal:: Denies: Abdominal pain, Nausea, Vomiting, Diarrhea, Constipation, Hematochezia Genitourinary: Denies: Dysuria, Hematuria, 15, Flank pain Musculoskeletal:: Denies: Back pain, Myalgia, Arthralgia Skin: Denies: Rash, Skin Changes, Wounds Neurological:: Denies: Headache, Dizziness, Visual changes, Tinnitus, Hearing loss Psychiatric: Denies: Anxiety, Depression, Homicidal Ideations, Suicidal Ideations Vital Signs Height 5 ft 6 in Weight: 67.676 kg Weight in Pounds 149.2 lbs Pulse Ox 96 - Physical Exam General: Alert, Oriented x3, No apparent distress, - - Port R IC area. HEENT: Atraumatic, PERRLA, EOMI, Normocephalic Oropharynx:: Dry mucosa Neck:: Supple, Trachea midline. Negative for: JVD, bilateral Cardiac:: Regular rate, Regular rhythm, Normal S1, Normal S2. Negative for: Murmur Lungs: Clear to auscultation, Excusion symmetrical. Negative for: Rhonchi, Wheezes Abdomen:: Bowel sounds x 4, Soft, Non-tender, Non-distended. 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 Tolerating therapy with Mixed response on PET/CT. Imaging studies done at [facility]. 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 Heaviness in legs resolved. Plan is to proceed with chemotherapy Halaven cycle 38 D1 today and D8 next week without Neulasta. Pt does not want Neulasta. Return to clinic 3 weeks with CBC, CMP, magnesium for Halaven cycle 39D1. Medications: Prescriptions This Visit Medication Instructions Recorded Multivit-Min/FA/Lycopen/Lutein 1 ea PO BID 07/29/16 [Centrum Silver Men Tablet] Naproxen Sodium [Aleve] 220 mg PO QODAY 04/15/17 Medications Added to Medication List This Visit Primary Care Provider: Nathalie Donis Referring Provider: - Problem List (1) Sarcoma Status: Chronic (2) Chemotherapy management, encounter for Status: Acute Code Visit Office Visits / Consults: [id number] OV L5 Est 11/04/17 0855 <Electronically signed by Сергей Medina MD> Date Сергей Medina MD Cosigner Signature: Date (if applicable) CC: CBC W/DIFF, AUTOMATED Collected: 11/04/2017 Status: F Source: [place] 7:55 AM [facility] [place] REPOSITORY TYPE CODE TESTS RESULT OUT OF RANGE REFERENCE UNITS LAB L100.1000 4.4-11.0 K/mm3 Low WBC 3.1 LAB L100.1200 4.6-6.2 M/mm3 Low RBC 3.85 LAB L100.1300 13.0-16.5 g/dl Low HGB 12.3 LAB L100.1400 40-54 % Low HCT 37.5 LAB L100.1500 80-94 fL High MCV 97.4 LAB L100.1600 27.0-32.0 pg Normal MCH 31.9 LAB L100.1700 32-36 g/gl Normal MCHC 32.8 LAB L100.1810 11.6-14.6 % Normal RDW CV 14.3 LAB L100.1820 35.1-43.9 fl High RDW SD 50.5 LAB L100.1900 150-450 K/mm3 Normal PLT 246 LAB L100.2000 6.2-12.0 fl Normal MPV 9.3 LAB L100.2100 47-70 % Low NEUT% 44.6 LAB L100.2200 19-41 % Normal LY% 27.6 LAB L100.2300 0-10 % High MONO% 24.0 LAB L100.2400 0-5 % Normal EO% 0.3 LAB L100.2500 0-1 % High BASO% 3.2 LAB L100.2550 0.0-0.9 % Normal IM GRAN % 0.300 Result Comment: IG% - Immature Granulocytes (promyelocytes, myelocytes and metamyelocytes) > 1% indicates that a LEFT SHIFT is Present. LAB L100.2620 2.0-7.7 X10 3/uL Low Absolute Neut 1.4 LAB L100.2720 0.83-4.51 X10 3/ul Normal Absolute Lymph 0.86 Performed By: #### L100.0100 #### [facility] [address] [place], [address] COMPREHENSIVE METABOLIC Collected: 11/04/2017 Status: F Source: [facility] 7:55 AM [facility] [place] REPOSITORY Order Comment: Reason for Laboratory Test Chemotherapy TYPE CODE TESTS RESULT OUT OF RANGE REFERENCE UNITS LAB L501.0100 74-106 mg/dL High GLU 107 Result Comment: Fasting Glucose result from 100 to 125 mg/dL suggests IMPAIRED HOMEOSTASIS per A.D.A. criteria. Please note revised GLUCOSE reference range effective 2017. LAB L501.1000 7-18 mg/dL Normal BUN 17 LAB L501.1100 0.70-1.30 mg/dL Normal CREAT,SERUM 0.88 Result Comment: The validity of the calculated GFR AND GFRAA in patients over 70 years has not been determined. Clinical correlation is essential. LAB L501.1110 >60 mL/min Normal EST GFR 88 Result Comment: Non- GFR Calc LAB L501.1115 >60 mL/min Normal EST GFR - AA 107 Result Comment: GFR Calc LAB L501.1255 ml/min Normal Estimated CRCL 57.40 LAB L501.1300 10-20 RATIO Normal BUN/CRE 19.4 LAB L501.1500 6.4-8. g/dL Normal 2 T PROT 6.4 LAB L501.1800 3.2-5. g/dL Normal 0 ALB 3.4 LAB L501.1950 2.2-4. g/dL Normal 2 GLOB 3.0 LAB L501.2000 0.9-2. RATIO Normal 4 A/G 1.1 LAB L501.2200 8.5-10 mg/dL Normal .1 CA 8.6 LAB L501.4100 15-37 U/L Normal AST 16 LAB L501.4305 45-117 U/L Normal ALK P 80 LAB L501.4405 16-61 U/L Normal ALT 23 LAB L501.4600 0.20-1 mg/dL Normal .00 T BILI 0.60 LAB L501.5300 136-14 mmol/L Normal 5 NA 142 LAB L501.5600 3.5-5. mmol/L Normal 1 K 4.0 LAB L501.5900 98-107 mmol/L Normal CL 105 LAB L501.6100 21.0-3 mmol/L Normal 2.0 CO2 29.0 LAB L501.6200 5-15 Normal GAP 8 Performed By: #### L500.4050, L501.5200 #### [facility] [address] [place], [address] MAGNESIUM Collected: 11/04/2017 Status: F Source: [place] 7:55 AM [facility] [place] REPOSITORY Order Comment: Reason for Laboratory Test Chemotherapy TYPE CODE TESTS RESULT OUT OF RANGE REFERENCE UNITS LAB L501.5200 1.6-2.6 mg/dL Normal MG 2.1 Performed By: #### L500.4050, L501.5200 #### [facility] [address] [place], [address] ONCOLOGY VISIT REPORT Observed: 10/22/2017 Status: F Source: [place] 4:20 PM [facility] [place] REPOSITORY [facility] [address] [place] [address]. [place] [address] OFFICE VISIT Date of Service: 10/21/17 0842 MR#: [id number] Acct: [id number] Name: CAMILO ESQUIVEL Rep #: [id number] : 1935 From: Leti LEDESMA Age/Sex: 82/M Location: ONC Status: Signed Subjective - Date of Service Date of Service:: 10/21/17 - Chief Complaint F/u for pleomorphic sarcoma and chemotherapy - History of Present Illness Mr. Camilo Esquivel is a very pleasant 82-year-old man who presented with a right groin mass in November 2014. Cytology showed pleomorphic sarcoma. MRI of the pelvis on 01/03/2015 showed an enhancing mass in the right inguinal area measuring 2.9 cm. The patient was referred to [facility]. PET CT scan on 01/11/2015 showed a right inguinal soft tissue mass with right retroperitoneal mass. Biopsy of the right inguinal mass on 01/15/2015 positive for sarcoma. Biopsy of the retroperitoneal mass on 01/21/2015 also showed sarcoma. He was started on Gemzar/Taxotere every 21 days on 02/05/2015. He had progressive disease on PET CT scan done on 05/01/2015. Treatment was changed to Halaven every 21 days in May 2015. Halaven was then changed to every 28 days with cycle 16 and subsequent cycles. Evaluated by Dr. Burns 11/25/16 and underwent PET/CT scan which showed stable disease. He continues Halaven. Bx of L posterior neck node was negative on 11/25/2016. Comes in for C29D1 AND 8 Halaven. He feels well. Still has R shoulder pain from arthritis but better. He was seen by Dr. Burns at [facility], PET/CT showed mixed response on 04/14/2017 with new activity in supraglottic area so since he has tolerated chemotherapy without adverse effects, after discussion, therapy should be changed to every 21 days. 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 C32D1 Halaven delayed by one week d/t neutropenia. He was started on Neulasta after the C32 but refused it after C34. - Interval History The patient is presenting to clinic for an evaluation anticipating he will receive cycle 37 day 8 Halaven. Last week shared concerns with Dr. Medina about worsening of heaviness in the lower legs and pain in the knees, bilaterally although he is still able to do all his ADL. He declined offer of MRI brain at that time. States knee pain has improved significantly, citing he was able [place] without pain. Taking glucosamine/chondroitin. Further denies weight loss, CP, palpitations, SOB, abd pain, swelling in his extremities. No nausea, has not required prn antiemetics for several weeks. 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 Denies: Fever, Sweats, Weight loss, Appetite change, Chills Cardiovascular:: Denies: Chest pain, Palpitations, Dyspnea on exertion, Orthopnea, PND, Shortness of breath Respiratory: Denies: Cough, Hemoptysis, Shortness of Breath, Wheezing Gastrointestinal:: Denies: Abdominal pain, Nausea, Vomiting, Diarrhea, Constipation, Hematochezia Genitourinary: Denies: Dysuria, Hematuria, 15, Flank pain Musculoskeletal:: Denies: Back pain, Myalgia, Arthralgia Skin: Denies: Rash, Skin Changes, Wounds Neurological:: Denies: Headache, Dizziness, Visual changes, Tinnitus, Hearing loss Psychiatric: Denies: Anxiety, Depression, Homicidal Ideations, Suicidal Ideations Vital Signs Height 5 ft 6 in Weight: 149 lb Weight in Pounds 149.0 lbs Pulse Ox 98 - Physical Exam General: Alert, Oriented x3, No apparent distress HEENT: Atraumatic, Normocephalic Oropharynx:: Negative for: Dry mucosa, Ulcerated lesions Neck:: Supple, Trachea midline. Negative for: JVD, bilateral Cardiac:: Regular rate, Regular rhythm, Normal S1, Normal S2. Negative for: Murmur Lungs: Clear to auscultation, Excusion symmetrical. Negative for: Rhonchi, Wheezes Abdomen:: Bowel sounds x 4, Soft, Non-tender, Non-distended. Negative for: Hepatosplenomegaly Extremities:: Negative for: Cyanosis, Edema Neurological: Neuro grossly intact Skin:: - - port right upper chest accessed with gripper covered with DSD. Negative for: Lesions, Rash, Petechiae, Ecchymosis Psychiatric:: Appropriate affect, Euthymic Lymphatics:: Negative for: Cervical lymphadenopathy, Supraclavicular lymphadenopathy, Axillary lymphadenopathy Laboratory Data: Laboratory Tests WBC 4.8 (4.4-11.0) K/mm3 RBC 3.66 L (4.6-6.2) M/mm3 Hgb 11.7 L (13.0-16.5) g/dl Assessment and Plan 1. 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 Mixed response on PET/CT. Patient has an appointment and PET/CT scheduled for with Dr. Burns at [facility]. CBC within acceptable parameters for treatment, ANC 3.7. We will not receive Neulasta day 9 (tomorrow). Electrolytes within normal limits with the exception of calcium discussed below. Notes bilateral knee and lower extremity pain improved significantly will hold on brain MRI per patient. Otherwise the patient is not endorsing any signs or symptoms contraindicating chemotherapy today and will proceed with planned cycle 37 day 8 Halaven. 2. Mild hypocalcemia-continues as evidenced by calcium level of 8.2. Patient is encouraged to continue calcium supplement, Tums twice daily Return to clinic 2 weeks with CBC, CMP, magnesium for Halaven cycle 38 day 1 therapy, sooner if issues arise. 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 Status: Acute (2) Chemotherapy management, encounter for Status: Acute (3) Hypocalcemia Status: Acute 10/22/17 1620 <Electronically signed by Leti Alexander NP-C> Date Leti LEDESMA Cosigner Signature: Date (if applicable) CC: CBC W/DIFF, AUTOMATED Collected: 10/21/2017 Status: F Source: [place] 8:06 AM [facility] REPOSITORY TYPE CODE TESTS RESULT OUT OF RANGE REFERENCE UNITS LAB L100.1000 4.4-11.0 K/mm3 Normal WBC 4.8 LAB L100.1200 4.6-6.2 M/mm3 Low RBC 3.66 LAB L100.1300 13.0-16.5 g/dl Low HGB 11.7 LAB L100.1400 40-54 % Low HCT 35.7 LAB L100.1500 80-94 fL High MCV 97.5 LAB L100.1600 27.0-32.0 pg Normal MCH 32.0 LAB L100.1700 32-36 g/gl Normal MCHC 32.8 LAB L100.1810 11.6-14.6 % Normal RDW CV 14.0 LAB L100.1820 35.1-43.9 fl High RDW SD 49.5 LAB L100.1900 150-450 K/mm3 Normal PLT 173 LAB L100.2000 6.2-12.0 fl Normal MPV 9.2 LAB L100.2100 47-70 % High NEUT% 77.8 LAB L100.2200 19-41 % Low LY% 17.4 LAB L100.2300 0-10 % Normal MONO% 1.0 LAB L100.2400 0-5 % Normal EO% 0.8 LAB L100.2500 0-1 % High BASO% 1.7 LAB L100.2550 0.0-0.9 % High IM GRAN % 1.300 Result Comment: IG% - Immature Granulocytes (promyelocytes, myelocytes and metamyelocytes) > 1% indicates that a LEFT SHIFT is Present. LAB L100.2620 2.0-7.7 X10 3/uL Normal Absolute Neut 3.7 LAB L100.2720 0.83-4.51 X10 3/ul Normal Absolute Lymph 0.83 Performed By: #### L100.0100 #### [facility] [address] [place], [place], [address] COMPREHENSIVE METABOLIC Collected: 10/21/2017 Status: F Source: [facility] 8:06 AM [facility] REPOSITORY Order Comment: Reason for Laboratory Test Chemotherapy TYPE CODE TESTS RESULT OUT OF RANGE REFERENCE UNITS LAB L501.0100 74-106 mg/dL Normal GLU 98 Result Comment: Please note revised GLUCOSE reference range effective 2017. LAB L501.1000 7-18 mg/dL High BUN 22 LAB L501.1100 0.70-1.30 mg/dL Normal CREAT,SERUM 0.94 Result Comment: The validity of the calculated GFR AND GFRAA in patients over 70 years has not been determined. Clinical correlation is essential. LAB L501.1110 >60 mL/min Normal EST GFR 81 Result Comment: Non- GFR Calc LAB L501.1115 >60 mL/min Normal EST GFR - AA 98 Result Comment: GFR Calc LAB L501.1255 ml/min Normal Estimated CRCL 53.73 LAB L501.1300 10-20 RATIO High BUN/CRE 23.3 LAB L501.1500 6.4-8. g/dL Low 2 T PROT 6.2 LAB L501.1800 3.2-5. g/dL Normal 0 ALB 3.3 LAB L501.1950 2.2-4. g/dL Normal 2 GLOB 2.9 LAB L501.2000 0.9-2. RATIO Normal 4 A/G 1.1 LAB L501.2200 8.5-10 mg/dL Low .1 CA 8.2 LAB L501.4100 15-37 U/L Normal AST 17 LAB L501.4305 45-117 U/L Normal ALK P 109 LAB L501.4405 16-61 U/L Normal ALT 21 LAB L501.4600 0.20-1 mg/dL Normal .00 T BILI 0.70 LAB L501.5300 136-14 mmol/L Normal 5 NA 139 LAB L501.5600 3.5-5. mmol/L Normal 1 K 3.9 LAB L501.5900 98-107 mmol/L Normal CL 106 LAB L501.6100 21.0-3 mmol/L Normal 2.0 CO2 27.0 LAB L501.6200 5-15 Normal GAP 6 Performed By: #### L500.4050, L501.5200 #### [facility] [address] [place], [place], [address] MAGNESIUM Collected: 10/21/2017 Status: F Source: [place] 8:06 AM [facility] REPOSITORY Order Comment: Reason for Laboratory Test Chemotherapy TYPE CODE TESTS RESULT OUT OF RANGE REFERENCE UNITS LAB L501.5200 1.6-2.6 mg/dL Normal MG 2.0 Performed By: #### L500.4050, L501.5200 #### [facility] [address] [place], [address] ONCOLOGY VISIT REPORT Observed: 10/14/2017 Status: F Source: [place] 9:40 AM [facility] REPOSITORY [facility] [place] [address] OFFICE VISIT Date of Service: 10/14/17927 MR#: [id number] Acct: [id number] Name: CAMILO ESQUIVEL Rep #: [id number] : 1935 From: Сергей Medina MD Age/Sex: 82/M Location: ONC Status: Signed Subjective - Date of Service Date of Service:: 10/14/17 - Chief Complaint F/u for pleomorphic sarcoma and chemotherapy - History of Present Illness Mr. Camilo Esquivel is a very pleasant 82-year-old man who presented with a right groin mass in November 2014. Cytology showed pleomorphic sarcoma. MRI of the pelvis on 01/03/2015 showed an enhancing mass in the right inguinal area measuring 2.9 cm. The patient was referred to [facility]. PET CT scan on 01/11/2015 showed a right inguinal soft tissue mass with right retroperitoneal mass. Biopsy of the right inguinal mass on 01/15/2015 positive for sarcoma. Biopsy of the retroperitoneal mass on 01/21/2015 also showed sarcoma. He was started on Gemzar/Taxotere every 21 days on 02/05/2015. He had progressive disease on PET CT scan done on 05/01/2015. Treatment was changed to Halaven every 21 days in May 2015. Halaven was then changed to every 28 days with cycle 16 and subsequent cycles. Evaluated by Dr. Burns 11/25/16 and underwent PET/CT scan which showed stable disease. He continues Halaven. Bx of L posterior neck node was negative on 11/25/2016. Comes in for C29D1 AND 8 Halaven. He feels well. Still has R shoulder pain from arthritis but better. He was seen by Dr. Burns at [facility], PET/CT showed mixed response on 04/14/2017 with new activity in supraglottic area so since he has tolerated chemotherapy without adverse effects, after discussion, therapy should be changed to every 21 days. 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 C32D1 Halaven delayed by one week d/t neutropenia. He was started on Neulasta after the C32 but refused it after C34. He comes in for C37 Halaven. Has heaviness in the lower legs, pain in the knees, still able to do all his ADL. 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 Cardiovascular:: Denies: Chest pain, Palpitations, Dyspnea on exertion, Orthopnea, PND, Shortness of breath Respiratory: Denies: Cough, Hemoptysis, Shortness of Breath, Wheezing Gastrointestinal:: Denies: Abdominal pain, Nausea, Vomiting, Diarrhea, Constipation, Hematochezia Genitourinary: Denies: Dysuria, Hematuria, 15, Flank pain Musculoskeletal:: Denies: Back pain, Myalgia, Arthralgia Skin: Denies: Rash, Skin Changes, Wounds Neurological:: Denies: Headache, Dizziness, Visual changes, Tinnitus, Hearing loss Psychiatric: Denies: Anxiety, Depression, Homicidal Ideations, Suicidal Ideations Vital Signs Height 5 ft 6 in Weight: 68.039 kg Weight in Pounds 150.0 lbs Pulse Ox 98 - Physical Exam General: Alert, Oriented x3, No apparent distress HEENT: Atraumatic, PERRLA, EOMI, Normocephalic Oropharynx:: Dry mucosa Neck:: Supple, Trachea midline. Negative for: JVD, bilateral Cardiac:: Regular rate, Regular rhythm, Normal S1, Normal S2. Negative for: Murmur Lungs: Clear to auscultation, Excusion symmetrical, - - sternal scar.. Negative for: Rhonchi, Wheezes Abdomen:: Bowel sounds x 4, Soft, Non-tender, Non-distended. 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 Tolerating therapy with Mixed response on PET/CT. Imaging studies done at [facility]. 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 Heaviness in legs, knee pain may be Halaven side effects-Peripheral neuropathy. Discussed holding therapy. Pt wants to continue and be reassess next week. Plan is to proceed with chemotherapy Halaven cycle 37 D1 today and D8 next week without Neulasta. Pt does not want Neulasta. Return to clinic 1 weeks with CBC, CMP, magnesium for Halaven cycle 37D8, reassess neuropathy. Medications: Prescriptions This Visit Medication Instructions Recorded Multivit-Min/FA/Lycopen/Lutein 1 ea PO BID 07/29/16 [Centrum Silver Men Tablet] Naproxen Sodium [Aleve] 220 mg PO QODAY 04/15/17 Primary Care Provider: Nathalie Donis Referring Provider: - Problem List (1) Sarcoma Status: Chronic (2) Chemotherapy management, encounter for Status: Acute (3) Peripheral neuropathy due to chemotherapy Status: Acute Code Visit Office Visits / Consults: 12832 OV L5 Est 10/14/17 0940 <Electronically signed by Сергей Medina MD> Date Сергей Hargrove Signature: Date (if applicable) CC: CBC W/DIFF, AUTOMATED Collected: 10/14/2017 Status: F Source: [place] 7:59 AM [facility] REPOSITORY TYPE CODE TESTS RESULT OUT OF RANGE REFERENCE UNITS LAB L100.1000 4.4-11.0 K/mm3 Low WBC 2.6 LAB L100.1200 4.6-6.2 M/mm3 Low RBC 3.73 LAB L100.1300 13.0-16.5 g/dl Low HGB 12.0 LAB L100.1400 40-54 % Low HCT 36.6 LAB L100.1500 80-94 fL High MCV 98.1 LAB L100.1600 27.0-32.0 pg High MCH 32.2 LAB L100.1700 32-36 g/gl Normal MCHC 32.8 LAB L100.1810 11.6-14.6 % High RDW CV 14.8 LAB L100.1820 35.1-43.9 fl High RDW SD 52.6 LAB L100.1900 150-450 K/mm3 Normal PLT 239 LAB L100.2000 6.2-12.0 fl Normal MPV 9.3 LAB L100.2100 47-70 % Normal NEUT% 49.3 LAB L100.2200 19-41 % Normal LY% 28.0 LAB L100.2300 0-10 % High MONO% 19.2 LAB L100.2400 0-5 % Normal EO% 0.4 LAB L100.2500 0-1 % High BASO% 2.3 LAB L100.2550 0.0-0.9 % Normal IM GRAN % 0.800 Result Comment: IG% - Immature Granulocytes (promyelocytes, myelocytes and metamyelocytes) > 1% indicates that a LEFT SHIFT is Present. LAB L100.2620 2.0-7.7 X10 3/uL Low Absolute Neut 1.3 LAB L100.2720 0.83-4.51 X10 3/ul Low Absolute Lymph 0.73 Performed By: #### L100.0100 #### [facility] [place], [address] COMPREHENSIVE METABOLIC Collected: 10/14/2017 Status: F Source: [place] 7:59 AM [facility] REPOSITORY Order Comment: Reason for Laboratory Test Chemotherapy TYPE CODE TESTS RESULT OUT OF RANGE REFERENCE UNITS LAB L501.0100 74-106 mg/dL High GLU 110 Result Comment: Fasting Glucose result from 100 to 125 mg/dL suggests IMPAIRED HOMEOSTASIS per A.D.A. criteria. Please note revised GLUCOSE reference range effective 2017. LAB L501.1000 7-18 mg/dL High BUN 21 LAB L501.1100 0.70-1.30 mg/dL Normal CREAT,SERUM 0.92 Result Comment: The validity of the calculated GFR AND GFRAA in patients over 70 years has not been determined. Clinical correlation is essential. LAB L501.1110 >60 mL/min Normal EST GFR 83 Result Comment: Non- GFR Calc LAB L501.1115 >60 mL/min Normal EST GFR - AA 100 Result Comment: GFR Calc LAB L501.1255 ml/min Normal Estimated CRCL 54.90 LAB L501.1300 10-20 RATIO High BUN/CRE 22.7 LAB L501.1500 6.4-8. g/dL Low 2 T PROT 6.3 LAB L501.1800 3.2-5. g/dL Normal 0 ALB 3.3 LAB L501.1950 2.2-4. g/dL Normal 2 GLOB 3.0 LAB L501.2000 0.9-2. RATIO Normal 4 A/G 1.1 LAB L501.2200 8.5-10 mg/dL Low .1 CA 8.2 LAB L501.4100 15-37 U/L Normal AST 15 LAB L501.4305 45-117 U/L Normal ALK P 95 LAB L501.4405 16-61 U/L Normal ALT 21 LAB L501.4600 0.20-1 mg/dL Normal .00 T BILI 0.50 LAB L501.5300 136-14 mmol/L Normal 5 NA 141 LAB L501.5600 3.5-5. mmol/L Normal 1 K 4.0 LAB L501.5900 98-107 mmol/L Normal CL 106 LAB L501.6100 21.0-3 mmol/L Normal 2.0 CO2 31.0 LAB L501.6200 5-15 Low GAP 4 Performed By: #### L500.4050, L501.5200 #### [facility] [address] [place], [address] MAGNESIUM Collected: 10/14/2017 Status: F Source: [place] 7:59 AM [facility] REPOSITORY Order Comment: Reason for Laboratory Test Chemotherapy TYPE CODE TESTS RESULT OUT OF RANGE REFERENCE UNITS LAB L501.5200 1.6-2.6 mg/dL Normal MG 2.0 Performed By: #### L500.4050, L501.5200 #### [facility] [address], [address] CBC W/DIFF, AUTOMATED Collected: 09/30/2017 Status: F Source: [place] 8:03 AM [facility] REPOSITORY TYPE CODE TESTS RESULT OUT OF RANGE REFERENCE UNITS LAB L100.1000 4.4-11.0 K/mm3 Low WBC 3.9 LAB L100.1200 4.6-6.2 M/mm3 Low RBC 3.64 LAB L100.1300 13.0-16.5 g/dl Low HGB 11.6 LAB L100.1400 40-54 % Low HCT 35.2 LAB L100.1500 80-94 fL High MCV 96.7 LAB L100.1600 27.0-32.0 pg Normal MCH 31.9 LAB L100.1700 32-36 g/gl Normal MCHC 33.0 LAB L100.1810 11.6-14.6 % Normal RDW CV 14.5 LAB L100.1820 35.1-43.9 fl High RDW SD 51.2 LAB L100.1900 150-450 K/mm3 Normal PLT 169 LAB L100.2000 6.2-12.0 fl Normal MPV 9.4 LAB L100.2100 47-70 % High NEUT% 71.5 LAB L100.2200 19-41 % Normal LY% 24.7 LAB L100.2300 0-10 % Normal MONO% 0.5 LAB L100.2400 0-5 % Normal EO% 0.5 LAB L100.2500 0-1 % High BASO% 1.5 LAB L100.2550 0.0-0.9 % High IM GRAN % 1.300 Result Comment: IG% - Immature Granulocytes (promyelocytes, myelocytes and metamyelocytes) > 1% indicates that a LEFT SHIFT is Present. LAB L100.2620 2.0-7.7 X10 3/uL Normal Absolute Neut 2.8 LAB L100.2720 0.83-4.51 X10 3/ul Normal Absolute Lymph 0.96 Performed By: #### L100.0100 #### [facility] [address] [place], [address] COMPREHENSIVE METABOLIC Collected: 09/30/2017 Status: F Source: [place] 8:03 AM [facility] REPOSITORY Order Comment: Reason for Laboratory Test Chemotherapy TYPE CODE TESTS RESULT OUT OF RANGE REFERENCE UNITS LAB L501.0100 74-106 mg/dL High GLU 148 Result Comment: Fasting Glucose result greater than or equal to 126 mg/dL suggests DIABETES MELLITUS per A.D.A. criteria. Please note revised GLUCOSE reference range effective 2017. LAB L501.1000 7-18 mg/dL High BUN 19 LAB L501.1100 0.70-1.30 mg/dL Normal CREAT,SERUM 1.02 Result Comment: The validity of the calculated GFR AND GFRAA in patients over 70 years has not been determined. Clinical correlation is essential. LAB L501.1110 >60 mL/min Normal EST GFR 74 Result Comment: Non- GFR Calc LAB L501.1115 >60 mL/min Normal EST GFR - AA 90 Result Comment: GFR Calc LAB L501.1255 ml/min Normal Estimated CRCL 49.52 LAB L501.1300 10-20 RATIO Normal BUN/CRE 18.6 LAB L501.1500 6.4-8. g/dL Low 2 T PROT 6.2 LAB L501.1800 3.2-5. g/dL Normal 0 ALB 3.4 LAB L501.1950 2.2-4. g/dL Normal 2 GLOB 2.8 LAB L501.2000 0.9-2. RATIO Normal 4 A/G 1.2 LAB L501.2200 8.5-10 mg/dL Low .1 CA 8.2 LAB L501.4100 15-37 U/L Normal AST 20 LAB L501.4305 45-117 U/L Normal ALK P 84 LAB L501.4405 16-61 U/L Normal ALT 24 LAB L501.4600 0.20-1 mg/dL Normal .00 T BILI 0.80 LAB L501.5300 136-14 mmol/L Normal 5 NA 141 LAB L501.5600 3.5-5. mmol/L Normal 1 K 3.7 LAB L501.5900 98-107 mmol/L Normal CL 105 LAB L501.6100 21.0-3 mmol/L Normal 2.0 CO2 28.0 LAB L501.6200 5-15 Normal GAP 8 Performed By: #### L500.4050, L501.5200 #### [facility] [address] [place], [address] MAGNESIUM Collected: 09/30/2017 Status: F Source: [place] 8:03 AM [facility] REPOSITORY Order Comment: Reason for Laboratory Test Chemotherapy TYPE CODE TESTS RESULT OUT OF RANGE REFERENCE UNITS LAB L501.5200 1.6-2.6 mg/dL Normal MG 2.0 Performed By: #### L500.4050, L501.5200 #### [facility] [address] [place], [address] ONCOLOGY VISIT REPORT Observed: 09/23/2017 Status: F Source: [place] 8:46 AM [facility] REPOSITORY [facility] [place] [address] OFFICE VISIT Date of Service: 09/23/17 0839 MR#: [id number] Acct: [id number] Name: CAMILO ESQUIVEL Rep #: [id number] : 1935 From: Сергей Medina MD Age/Sex: 82/M Location: [facility] Status: Signed Subjective - Date of Service Date of Service:: 09/23/17 - Chief Complaint F/u for pleomorphic sarcoma and chemotherapy - History of Present Illness Mr. Camilo Esquivel is a very pleasant 82-year-old man who presented with a right groin mass in November 2014. Cytology showed pleomorphic sarcoma. MRI of the pelvis on 01/03/2015 showed an enhancing mass in the right inguinal area measuring 2.9 cm. The patient was referred to [facility]. PET CT scan on 01/11/2015 showed a right inguinal soft tissue mass with right retroperitoneal mass. Biopsy of the right inguinal mass on 01/15/2015 positive for sarcoma. Biopsy of the retroperitoneal mass on 01/21/2015 also showed sarcoma. He was started on Gemzar/Taxotere every 21 days on 02/05/2015. He had progressive disease on PET CT scan done on 05/01/2015. Treatment was changed to Halaven every 21 days in May 2015. Halaven was then changed to every 28 days with cycle 16 and subsequent cycles. Evaluated by Dr. Burns 11/25/16 and underwent PET/CT scan which showed stable disease. He continues Halaven. Bx of L posterior neck node was negative on 11/25/2016. Comes in for C29D1 AND 8 Halaven. He feels well. Still has R shoulder pain from arthritis but better. He was seen by Dr. Burns at [facility], PET/CT showed mixed response on 04/14/2017 with new activity in supraglottic area so since he has tolerated chemotherapy without adverse effects, after discussion, therapy should be changed to every 21 days. 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 C32D1 Halaven delayed by one week d/t neutropenia. He was started on Neulasta after the C32 but refused it after C34. He comes in for C36 Halaven. Feels well. 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 Family History Paternal Past Medical History: Heart disease Maternal Past Medical History: COPD Social History Social History: No changes Smoking Status Never smoker Review of Systems Constitutional:: Denies: Fever, Sweats, Weight loss, Appetite change, Chills Cardiovascular:: Denies: Chest pain, Palpitations, Dyspnea on exertion, Orthopnea, PND, Shortness of breath Respiratory: Denies: Cough, Hemoptysis, Shortness of Breath, Wheezing Gastrointestinal:: Denies: Abdominal pain, Nausea, Vomiting, Diarrhea, Constipation, Hematochezia Genitourinary: Denies: Dysuria, Hematuria, 15, Flank pain Musculoskeletal:: Denies: Back pain, Myalgia, Arthralgia Skin: Denies: Rash, Skin Changes, Wounds Neurological:: Denies: Headache, Dizziness, Visual changes, Tinnitus, Hearing loss Psychiatric: Denies: Anxiety, Depression, Homicidal Ideations, Suicidal Ideations Vital Signs Height 5 ft 6 in Weight: 67.132 kg Weight in Pounds 148.0 lbs Pulse Ox 96 - Physical Exam General: Alert, Oriented x3, No apparent distress, - - [place] HEENT: Atraumatic, PERRLA, EOMI, Normocephalic Oropharynx:: Dry mucosa Neck:: Supple, Trachea midline. Negative for: JVD, bilateral Cardiac:: Regular rate, Regular rhythm, Normal S1, Normal S2. Negative for: Murmur Lungs: Clear to auscultation, Excusion symmetrical. Negative for: Rhonchi, Wheezes Abdomen:: Bowel sounds x 4, Soft, Non-tender, Non-distended. 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 Tolerating therapy with Mixed response on PET/CT. Imaging studies done at [facility]. 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 Plan is to proceed with chemotherapy Halaven cycle 36 D1 today and D8 next week without Neulasta. Return to clinic 3 weeks with CBC, CMP, magnesium for Halaven cycle 37 Medications: Prescriptions This Visit Medication Instructions Recorded Multivit-Min/FA/Lycopen/Lutein 1 ea PO BID 07/29/16 [Centrum Silver Men Tablet] Naproxen Sodium [Aleve] 220 mg PO QODAY 04/15/17 Medications Added to Medication List This Visit 0.9% Normal Saline 250 ml Med 09/23/17 00:00 Active IV 15 mls/hr 0.9% Saline Lock Med 09/23/17 00:00 Active Primary Care Provider: Nathalie Donis Referring Provider: - Problem List (1) Sarcoma Status: Chronic (2) Chemotherapy management, encounter for Status: Acute Code Visit Office Visits / Consults: [id number] OV L5 Est 09/23/17 0846 <Electronically signed by Сергей Medina MD> Date Сергей Medina MD Cosigner Signature: Date (if applicable) CC: CBC W/DIFF, AUTOMATED Collected: 09/23/2017 Status: F Source: [place] 7:58 AM [facility] REPOSITORY TYPE CODE TESTS RESULT OUT OF RANGE REFERENCE UNITS LAB L100.1000 4.4-11.0 K/mm3 Low WBC 2.7 LAB L100.1200 4.6-6.2 M/mm3 Low RBC 3.67 LAB L100.1300 13.0-16.5 g/dl Low HGB 11.7 LAB L100.1400 40-54 % Low HCT 35.6 LAB L100.1500 80-94 fL High MCV 97.0 LAB L100.1600 27.0-32.0 pg Normal MCH 31.9 LAB L100.1700 32-36 g/gl Normal MCHC 32.9 LAB L100.1810 11.6-14.6 % High RDW CV 15.1 LAB L100.1820 35.1-43.9 fl High RDW SD 53.5 LAB L100.1900 150-450 K/mm3 Normal PLT 224 LAB L100.2000 6.2-12.0 fl Normal MPV 8.7 LAB L100.2100 47-70 % Normal NEUT% 51.5 LAB L100.2200 19-41 % Normal LY% 25.7 LAB L100.2300 0-10 % High MONO% 19.1 LAB L100.2400 0-5 % Normal EO% 0.7 LAB L100.2500 0-1 % High BASO% 2.6 LAB L100.2550 0.0-0.9 % Normal IM GRAN % 0.400 Result Comment: IG% - Immature Granulocytes (promyelocytes, myelocytes and metamyelocytes) > 1% indicates that a LEFT SHIFT is Present. LAB L100.2620 2.0-7.7 X10 3/uL Low Absolute Neut 1.4 LAB L100.2720 0.83-4.51 X10 3/ul Low Absolute Lymph 0.70 Performed By: #### L100.0100 #### [facility] [address] [place], [address] COMPREHENSIVE METABOLIC Collected: 09/23/2017 Status: F Source: [place] 7:58 AM [facility] REPOSITORY Order Comment: Reason for Laboratory Test Chemotherapy TYPE CODE TESTS RESULT OUT OF RANGE REFERENCE UNITS LAB L501.0100 74-106 mg/dL Normal GLU 91 Result Comment: Please note revised GLUCOSE reference range effective 2017. LAB L501.1000 7-18 mg/dL High BUN 26 LAB L501.1100 0.70-1.30 mg/dL Normal CREAT,SERUM 0.91 Result Comment: The validity of the calculated GFR AND GFRAA in patients over 70 years has not been determined. Clinical correlation is essential. LAB L501.1110 >60 mL/min Normal EST GFR 84 Result Comment: Non- GFR Calc LAB L501.1115 >60 mL/min Normal EST GFR - AA 102 Result Comment: GFR Calc LAB L501.1255 ml/min Normal Estimated CRCL 55.50 LAB L501.1300 10-20 RATIO High BUN/CRE 28.5 LAB L501.1500 6.4-8. g/dL Low 2 T PROT 6.2 LAB L501.1800 3.2-5. g/dL Normal 0 ALB 3.5 LAB L501.1950 2.2-4. g/dL Normal 2 GLOB 2.7 LAB L501.2000 0.9-2. RATIO Normal 4 A/G 1.3 LAB L501.2200 8.5-10 mg/dL Normal .1 CA 8.6 LAB L501.4100 15-37 U/L Normal AST 18 LAB L501.4305 45-117 U/L Normal ALK P 98 LAB L501.4405 16-61 U/L Normal ALT 22 LAB L501.4600 0.20-1 mg/dL Normal .00 T BILI 0.60 LAB L501.5300 136-14 mmol/L Normal 5 NA 142 LAB L501.5600 3.5-5. mmol/L Normal 1 K 4.3 LAB L501.5900 98-107 mmol/L Normal CL 105 LAB L501.6100 21.0-3 mmol/L Normal 2.0 CO2 32.0 LAB L501.6200 5-15 Normal GAP 5 Performed By: #### L500.4050, L501.5200 #### [facility] [address] [place], [address] MAGNESIUM Collected: 09/23/2017 Status: F Source: [place] 7:58 AM [facility] REPOSITORY Order Comment: Reason for Laboratory Test Chemotherapy TYPE CODE TESTS RESULT OUT OF RANGE REFERENCE UNITS LAB L501.5200 1.6-2.6 mg/dL Normal MG 2.1 Performed By: #### L500.4050, L501.5200 #### [facility] [address] 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 Treatment response scan; , COMPARISON: Prior PET/CT 07/07/2017 CT DOSE: DLP: 623 mGy x cm kVp: 120 TECHNIQUE: The patient's fasting blood glucose was 88 mg/dl. Approximately 68 minutes following the injection of 13.99 mCi of F-18 FDG, the patient was positioned on the Siemens Biograph mCT TOF< PET/CT-64, [facility] imaging unit. A low resolution non-contrast CT was obtained from the top of the head through the toes for use in attenuation correction and anatomic correlation. PET emission scans of this anatomic region were acquired shortly thereafter. Axial, sagittal, coronal and maximal intensity projection reconstruction images were presented for interpretation. FINDINGS: Head/Neck: Physiologic FDG uptake is noted in the salivary glands and tonsillar tissue. There is no hypermetabolic cervical or supraclavicular lymphadenopathy. Normal, intense physiologic uptake is noted in the cerebral cortex sunshine matter and subcortical nuclei without gross hypermetabolic abnormality. Redemonstration of soft tissue nodule in the left posterior scalp with maximum SUV 3.6 (previously 5.2). Chest: There are no hypermetabolic pulmonary parenchymal lesions. Redemonstration of partially calcified lymph nodes in the mediastinal and the bilateral hilar regions with similar distribution and slightly reduced FDG avidity. For example right hilar lymph node has maximum SUV 5.8 (previously 7.9). Physiologic FDG uptake is seen in the myocardium. Abdomen/Pelvis: Physiologic FDG uptake is seen throughout the liver, spleen and bowel. Physiologic FDG excretion is seen in the kidneys, ureters, and bladder. There are no hypermetabolic lesions in the adrenal glands. Redemonstration of hypermetabolic soft tissue in the right external iliac region with maximum SUV 7.5 (previously 9.8). There is no new hypermetabolic inguinal, retroperitoneal, paraaortic or portocaval lymphadenopathy. Musculoskeletal: There is physiologic FDG uptake throughout the axial and proximal appendicular skeleton. No focal hypermetabolic osseous lesions are identified. IMPRESSION: Compared to prior study dated 07/07/2017, there are no new suspicious hypermetabolic foci or lymphadenopathy. Redemonstration of previously described left posterior scalp nodule, partially calcified lymph nodes in the mediastinal and bilateral hilar regions, and soft tissue in the right external iliac region, with interval reduced FDG avidity. WITH DIFF AWILDA Collected: 09/15/2017 Status: F Source: [facility] 9:35 AM [facility] REPOSITORY TYPE CODE TESTS RESULT OUT OF REFERENCE UNITS RANGE LAB WBC 4.23-9.07 K/uL WBC Count 2.25 Low LAB RBC 4.63-6.08 M/uL RBC Count 3.51 Low LAB HGB 13.7-17.5 g/dL Hemoglobin 11.5 Low LAB HCT 40.1-51.0 % Hematocrit 33.9 Low LAB MCV 79.0-92.2 fL Mean Cell 96.6 High Volume LAB MCH 25.7-32.2 pg Mean Cell 32.8 High Hgb LAB MCHC 32.3-36.5 g/dL Mean Cell 33.9 Hgb Conc LAB RDW 11.6-14.4 % RBC 14.6 High Distribution LAB PLT 163-337 K/uL Platelet 159 Low Count LAB MPV 9.4-12.4 fL Mean 9.4 Platelet Volume LAB NRBC 0.0-0.2 /100 WBC NUCLEATED 0.0 RBC LAB DTYPE Electronic DIFFERENTIAL TYPE Differential LAB IGRE % IMMATURE 0.0 GRANS % LAB SEGS % NEUTROPHIL 56.8 SEGMENTED LAB LYM % LYMPHOCYTE 31.1 % LAB MON % MONOCYTE % 7.6 LAB EOS % EOSINOPHIL 2.7 % LAB BASO % BASOPHIL % 1.8 LAB IGABS <0.04 K/uL IMMATURE <0.04 GRANS ABSOLUTE LAB SBANS 1.78-5.38 K/uL SEGS + 1.28 Low Bands,Absolute LAB ALYM 1.32-3.57 K/uL Abs Lymph 0.70 Low LAB AMONO 0.30-0.82 K/uL Abs [place] 0.17 Low LAB AEOS <0.55 K/uL Abs Eos 0.06 LAB ABASO <0.09 K/uL Abs Baso 0.04 Performed By: #### CBCDFJ #### [facility], [facility] [address] [place], [place] [address] METABOLIC PANEL - CHRI Collected: 09/15/2017 Status: F Source: [facility] 9:35 AM [facility] REPOSITORY TYPE CODE TESTS RESULT OUT OF REFERENCE UNITS RANGE LAB NA 133-143 mmol/L Sodium 136 LAB K 3.5-5.0 mmol/L Potassium 3.8 LAB CL 98-108 mmol/L Chloride 100 LAB BUN 7-22 mg/dL BUN 22 LAB CREA 0.70-1.30 mg/dL Creatinine 0.81 LAB GLUC 70-99 mg/dL Glucose 97 LAB CA 8.6-10.5 mg/dL Calcium 9.1 LAB ALP 32-126 U/L Alkaline Phosphatase 76 LAB AST 14-40 U/L AST 16 LAB TP 6.4-8.3 g/dL Low Total Protein 6.2 LAB ALB 3.5-5.0 g/dL Albumin 4.0 LAB BILT <1.5 mg/dL Bilirubin Total 1.2 LAB CO2 22-30 mmol/L Carbon High Dioxide 31 LAB GAP 7-17 mmol/L Anion Gap 9 LAB ALT 10-52 U/L ALT 13 LAB GFR >60 mL/min/1.7 3sqM Est GFR,non >60 LAB GFRA >60 mL/min/1.7 3sqM Est GFR, >60 LAB OSM[facility] 278-305 mOsm/kg Osmolality (Calc) 288 Performed By: #### CBCDFJ #### Awilda [facility], [facility] [address] [place], [place] [address] LD - CHRI Collected: 09/15/2017 Status: F Source: [facility] 9:35 AM [facility] REPOSITORY TYPE CODE TESTS RESULT OUT OF RANGE REFERENCE UNITS LAB LD 100-190 U/L LD Total 137 Performed By: #### CBCDFJ #### Awilda [facility], [facility] [address] [place], [place] [address] *POC GLUCOSE BATTERY Collected: 09/15/2017 Status: F Source: [facility] 7:49 AM [facility] REPOSITORY TYPE CODE TESTS RESULT OUT OF REFERENCE UNITS RANGE LAB GLUP 70-99 mg/dL Glucose (poc 88 device) Result Comment: No BRAVE per RN: PATIENT TYPE LAB PCSTYP *POC Capillary SAMPLE TYPE Blood CBC W/DIFF, AUTOMATED Collected: 09/10/2017 Status: C Source: [place] 8:03 AM [facility] REPOSITORY TYPE CODE TESTS RESULT OUT OF RANGE REFERENCE UNITS LAB L100.1000 4.4-11.0 K/mm3 Low WBC 4.0 LAB L100.1200 4.6-6.2 M/mm3 Low RBC 3.48 LAB L100.1300 13.0-16.5 g/dl Low HGB 11.4 LAB L100.1400 40-54 % Low HCT 33.9 LAB L100.1500 80-94 fL High MCV 97.4 LAB L100.1600 27.0-32.0 pg High MCH 32.8 LAB L100.1700 32-36 g/gl Normal MCHC 33.6 LAB L100.1810 11.6-14.6 % Normal RDW CV 14.5 LAB L100.1820 35.1-43.9 fl High RDW SD 49.0 LAB L100.1900 150-450 K/mm3 Normal PLT 166 LAB L100.2000 6.2-12.0 fl Normal MPV 8.8 LAB L100.3100 MANUAL DIFF Normal CELLS COUNTED 100 LAB L100.3200 47-70 % 70 Normal SEGS LAB L100.3800 19-41 % 26 Normal LYMPH LAB L100.3900 0-10 % 3 Normal MONOCYTE LAB L100.4100 0-1 % 1 Normal BASOPHIL LAB L100.5500 ADEQ Normal PLT EST ADEQUATE LAB L100.7000 NORM C AND C NORMAL Normal RED CELL MORPH NORM C+C LAB L100.2620 2.0-7.7 X10 3/uL Normal Absolute Neut 2.8 LAB L100.2720 0.83-4.51 X10 3/ul Normal Absolute Lymph 1.04 LAB L100.9900 Normal PATH REV Reviewed Result Comment: Macrocytic anemia. Clinical correlation suggested. Arnulfo Newman D.O. 09/11/17 AMENDED REPORT 09/11/17 1005 PATH REV previously reported as: July adolfo Performed By: #### L100.0100 #### [facility] [address] [place], [address] COMPREHENSIVE METABOLIC Collected: 09/10/2017 Status: F Source: [facility] 8:03 AM [facility] REPOSITORY Order Comment: Reason for Laboratory Test Chemotherapy TYPE CODE TESTS RESULT OUT OF RANGE REFERENCE UNITS LAB L501.0100 74-106 mg/dL Normal GLU 94 Result Comment: Please note revised GLUCOSE reference range effective 2017. LAB L501.1000 7-18 mg/dL High BUN 28 LAB L501.1100 0.70-1.30 mg/dL Normal CREAT,SERUM 0.95 Result Comment: The validity of the calculated GFR AND GFRAA in patients over 70 years has not been determined. Clinical correlation is essential. LAB L501.1110 >60 mL/min Normal EST GFR 80 Result Comment: Non- GFR Calc LAB L501.1115 >60 mL/min Normal EST GFR - AA 97 Result Comment: GFR Calc LAB L501.1255 ml/min Normal Estimated CRCL 53.17 LAB L501.1300 10-20 RATIO High BUN/CRE 29.4 LAB L501.1500 6.4-8. g/dL Low 2 T PROT 6.2 LAB L501.1800 3.2-5. g/dL Normal 0 ALB 3.4 LAB L501.1950 2.2-4. g/dL Normal 2 GLOB 2.8 LAB L501.2000 0.9-2. RATIO Normal 4 A/G 1.2 LAB L501.2200 8.5-10 mg/dL Low .1 CA 8.2 LAB L501.4100 15-37 U/L Normal AST 16 LAB L501.4305 45-117 U/L Normal ALK P 92 LAB L501.4405 16-61 U/L Normal ALT 21 LAB L501.4600 0.20-1 mg/dL Normal .00 T BILI 0.80 LAB L501.5300 136-14 mmol/L Normal 5 NA 138 LAB L501.5600 3.5-5. mmol/L Normal 1 K 4.2 LAB L501.5900 98-107 mmol/L Normal CL 105 LAB L501.6100 21.0-3 mmol/L Normal 2.0 CO2 29.0 LAB L501.6200 5-15 Low GAP 4 Performed By: #### L500.4050, L501.5200 #### [facility] [address] [facility] [place], [address] MAGNESIUM Collected: 09/10/2017 Status: F Source: [place] 8:03 AM [facility] REPOSITORY Order Comment: Reason for Laboratory Test Chemotherapy TYPE CODE TESTS RESULT OUT OF RANGE REFERENCE UNITS LAB L501.5200 1.6-2.6 mg/dL Normal MG 2.1 Performed By: #### L500.4050, L501.5200 #### [facility] [address] [facility] [place], [address] ONCOLOGY VISIT REPORT Observed: 09/02/2017 Status: F Source: [place] 12:54 PM [facility] REPOSITORY [facility] [address] [place] [id number] OFFICE VISIT Date of Service: 09/02/17 0854 MR#: [id number] Acct: [id number] Name: CAMILO ESQUIVEL Rep #: [id number] : 1935 From: Сергей Medina MD Age/Sex: 82/M Location: ONC Status: Signed Subjective - Date of Service Date of Service:: 09/02/17 - Chief Complaint F/u for pleomorphic sarcoma and chemotherapy - History of Present Illness Mr. Camilo Esquivel is a very pleasant 82-year-old man who presented with a right groin mass in November 2014. Cytology showed pleomorphic sarcoma. MRI of the pelvis on 01/03/2015 showed an enhancing mass in the right inguinal area measuring 2.9 cm. The patient was referred to [facility]. PET CT scan on 01/11/2015 showed a right inguinal soft tissue mass with right retroperitoneal mass. Biopsy of the right inguinal mass on 01/15/2015 positive for sarcoma. Biopsy of the retroperitoneal mass on 01/21/2015 also showed sarcoma. He was started on Gemzar/Taxotere every 21 days on 02/05/2015. He had progressive disease on PET CT scan done on 05/01/2015. Treatment was changed to Halaven every 21 days in May 2015. Halaven was then changed to every 28 days with cycle 16 and subsequent cycles. Evaluated by Dr. Burns 11/25/16 and underwent PET/CT scan which showed stable disease. He continues Halaven. Bx of L posterior neck node was negative on 11/25/2016. Comes in for C29D1 AND 8 Halaven. He feels well. Still has R shoulder pain from arthritis but better. He was seen by Dr. Burns at [facility], PET/CT showed mixed response on 04/14/2017 with new activity in supraglottic area so since he has tolerated chemotherapy without adverse effects, after discussion, therapy should be changed to every 21 days. 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 C32D1 Halaven delayed by one week d/t neutropenia. He was started on Neulasta after the C32 but refused it after C34. He comes in for C35 Halaven. Feels well. 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 Family History Paternal Past Medical History: Heart disease Maternal Past Medical History: COPD Social History Social History: No changes Smoking Status Never smoker Review of Systems Constitutional:: Denies: Fever, Sweats, Weight loss, Appetite change, Chills Cardiovascular:: Denies: Chest pain, Palpitations, Dyspnea on exertion, Orthopnea, PND, Shortness of breath Respiratory: Denies: Cough, Hemoptysis, Shortness of Breath, Wheezing Gastrointestinal:: Denies: Abdominal pain, Nausea, Vomiting, Diarrhea, Constipation, Hematochezia Genitourinary: Denies: Dysuria, Hematuria, 15, Flank pain Musculoskeletal:: Denies: Back pain, Myalgia, Arthralgia Skin: Denies: Rash, Skin Changes, Wounds Neurological:: Denies: Headache, Dizziness, Visual changes, Tinnitus, Hearing loss Psychiatric: Denies: Anxiety, Depression, Homicidal Ideations, Suicidal Ideations Vital Signs Height 5 ft 6 in Weight: 67.585 kg Weight in Pounds 149.0 lbs Pulse Ox 98 - Physical Exam General: Alert, Oriented x3, No apparent distress, - - Port [place]. HEENT: Atraumatic, PERRLA, EOMI, Normocephalic Oropharynx:: Dry mucosa Neck:: Supple, Trachea midline. Negative for: JVD, bilateral Cardiac:: Regular rate, Regular rhythm, Normal S1, Normal S2. Negative for: Murmur Lungs: Clear to auscultation, Excusion symmetrical. Negative for: Rhonchi, Wheezes Abdomen:: Bowel sounds x 4, Soft, Non-tender, Non-distended. 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 Tolerating therapy with Mixed response on PET/CT. Imaging studies done at [facility]. 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 Plan is to proceed with chemotherapy Halaven cycle 35 D1 today and D8 next week without Neulasta. Return to clinic 3 weeks with CBC, CMP, magnesium for Halaven cycle 36. Medications: Prescriptions This Visit Medication Instructions Recorded Multivit-Min/FA/Lycopen/Lutein 1 ea PO BID 07/29/16 [Centrum Silver Men Tablet] Naproxen Sodium [Aleve] 220 mg PO QODAY 04/15/17 Medications Added to Medication List This Visit 0.9% Normal Saline 250 ml Med 09/02/17 00:00 Active IV 15 mls/hr 0.9% Saline Lock Med 09/02/17 00:00 Active Primary Care Provider: Nathalie Donis Referring Provider: - Problem List (1) Sarcoma Status: Chronic (2) Chemotherapy management, encounter for Status: Acute Code Visit Office Visits / Consults: [id number] OV L5 Est 09/02/17 1254 <Electronically signed by Сергей Medina MD> Date Сергей Medina MD Cosigner Signature: Date (if applicable) CC: CBC W/DIFF, AUTOMATED Collected: 09/02/2017 Status: F Source: [place] 7:55 AM [facility] REPOSITORY TYPE CODE TESTS RESULT OUT OF RANGE REFERENCE UNITS LAB L100.1000 4.4-11.0 K/mm3 Low WBC 3.1 LAB L100.1200 4.6-6.2 M/mm3 Low RBC 3.72 LAB L100.1300 13.0-16.5 g/dl Low HGB 11.8 LAB L100.1400 40-54 % Low HCT 35.9 LAB L100.1500 80-94 fL High MCV 96.5 LAB L100.1600 27.0-32.0 pg Normal MCH 31.7 LAB L100.1700 32-36 g/gl Normal MCHC 32.9 LAB L100.1810 11.6-14.6 % High RDW CV 15.5 LAB L100.1820 35.1-43.9 fl High RDW SD 54.3 LAB L100.1900 150-450 K/mm3 Normal PLT 196 LAB L100.2000 6.2-12.0 fl Normal MPV 8.9 LAB L100.2100 47-70 % Normal NEUT% 51.9 LAB L100.2200 19-41 % Normal LY% 24.9 LAB L100.2300 0-10 % High MONO% 20.4 LAB L100.2400 0-5 % Normal EO% 0.3 LAB L100.2500 0-1 % High BASO% 2.2 LAB L100.2550 0.0-0.9 % Normal IM GRAN % 0.300 Result Comment: IG% - Immature Granulocytes (promyelocytes, myelocytes and metamyelocytes) > 1% indicates that a LEFT SHIFT is Present. LAB L100.2620 2.0-7.7 X10 3/uL Low Absolute Neut 1.6 LAB L100.2720 0.83-4.51 X10 3/ul Low Absolute Lymph 0.78 Performed By: #### L100.0100 #### [facility] [address] [place], [address] COMPREHENSIVE METABOLIC Collected: 09/02/2017 Status: F Source: [facility] 7:55 AM [facility] REPOSITORY Order Comment: Reason for Laboratory Test Chemotherapy TYPE CODE TESTS RESULT OUT OF RANGE REFERENCE UNITS LAB L501.0100 74-106 mg/dL Normal GLU 76 Result Comment: Please note revised GLUCOSE reference range effective 2017. LAB L501.1000 7-18 mg/dL High BUN 24 LAB L501.1100 0.70-1.30 mg/dL Normal CREAT,SERUM 0.94 Result Comment: The validity of the calculated GFR AND GFRAA in patients over 70 years has not been determined. Clinical correlation is essential. LAB L501.1110 >60 mL/min Normal EST GFR 81 Result Comment: Non- GFR Calc LAB L501.1115 >60 mL/min Normal EST GFR - AA 98 Result Comment: GFR Calc LAB L501.1255 ml/min Normal Estimated CRCL 53.73 LAB L501.1300 10-20 RATIO High BUN/CRE 25.4 LAB L501.1500 6.4-8. g/dL Low 2 T PROT 6.3 LAB L501.1800 3.2-5. g/dL Normal 0 ALB 3.5 LAB L501.1950 2.2-4. g/dL Normal 2 GLOB 2.8 LAB L501.2000 0.9-2. RATIO Normal 4 A/G 1.2 LAB L501.2200 8.5-10 mg/dL Low .1 CA 8.4 LAB L501.4100 15-37 U/L Normal AST 15 LAB L501.4305 45-117 U/L Normal ALK P 93 LAB L501.4405 16-61 U/L Normal ALT 18 LAB L501.4600 0.20-1 mg/dL Normal .00 T BILI 0.80 LAB L501.5300 136-14 mmol/L Normal 5 NA 139 LAB L501.5600 3.5-5. mmol/L Normal 1 K 4.2 LAB L501.5900 98-107 mmol/L Normal CL 104 LAB L501.6100 21.0-3 mmol/L Normal 2.0 CO2 29.0 LAB L501.6200 5-15 Normal GAP 6 Performed By: #### L500.4050, L501.5200 #### [facility] [address] [facility] [place], [address] MAGNESIUM Collected: 09/02/2017 Status: F Source: [place] 7:55 AM [facility] REPOSITORY Order Comment: Reason for Laboratory Test Chemotherapy TYPE CODE TESTS RESULT OUT OF RANGE REFERENCE UNITS LAB L501.5200 1.6-2.6 mg/dL Normal MG 2.0 Performed By: #### L500.4050, L501.5200 #### [facility] [address] [place], [address] COMPREHENSIVE METABOLIC Collected: 08/19/2017 Status: F Source: [facility] 7:52 AM [facility] REPOSITORY Order Comment: Reason for Laboratory Test Chemotherapy TYPE CODE TESTS RESULT OUT OF RANGE REFERENCE UNITS LAB L501.0100 74-106 mg/dL Normal GLU 77 Result Comment: Please note revised GLUCOSE reference range effective 2017. LAB L501.1000 7-18 mg/dL High BUN 19 LAB L501.1100 0.70-1.30 mg/dL Normal CREAT,SERUM 0.84 Result Comment: The validity of the calculated GFR AND GFRAA in patients over 70 years has not been determined. Clinical correlation is essential. LAB L501.1110 >60 mL/min Normal EST GFR 93 Result Comment: Non- GFR Calc LAB L501.1115 >60 mL/min Normal EST GFR - AA 112 Result Comment: GFR Calc LAB L501.1255 ml/min Normal Estimated CRCL 60.13 LAB L501.1300 10-20 RATIO High BUN/CRE 22.7 LAB L501.1500 6.4-8. g/dL Low 2 T PROT 6.0 LAB L501.1800 3.2-5. g/dL Normal 0 ALB 3.2 LAB L501.1950 2.2-4. g/dL Normal 2 GLOB 2.8 LAB L501.2000 0.9-2. RATIO Normal 4 A/G 1.1 LAB L501.2200 8.5-10 mg/dL Low .1 CA 8.1 LAB L501.4100 15-37 U/L Low AST 10 LAB L501.4305 45-117 U/L Normal ALK P 110 LAB L501.4405 16-61 U/L Normal ALT 17 LAB L501.4600 0.20-1 mg/dL Normal .00 T BILI 0.50 LAB L501.5300 136-14 mmol/L Normal 5 NA 139 LAB L501.5600 3.5-5. mmol/L Normal 1 K 4.2 LAB L501.5900 98-107 mmol/L Normal CL 104 LAB L501.6100 21.0-3 mmol/L Normal 2.0 CO2 29.0 LAB L501.6200 5-15 Normal GAP 6 Performed By: #### L500.4050, L501.5200 #### [facility] [address] [place], [place], [address] MAGNESIUM Collected: 08/19/2017 Status: F Source: [place] 7:52 AM [facility] REPOSITORY Order Comment: Reason for Laboratory Test Chemotherapy TYPE CODE TESTS RESULT OUT OF RANGE REFERENCE UNITS LAB L501.5200 1.6-2.6 mg/dL Normal MG 1.8 Performed By: #### L500.4050, L501.5200 #### [facility] [address] [place], [place], [address] CBC W/DIFF, AUTOMATED Collected: 08/19/2017 Status: C Source: [place] 7:52 AM [facility] REPOSITORY TYPE CODE TESTS RESULT OUT OF RANGE REFERENCE UNITS LAB L100.1000 4.4-11.0 K/mm3 Low WBC 4.3 LAB L100.1200 4.6-6.2 M/mm3 Low RBC 3.32 LAB L100.1300 13.0-16.5 g/dl Low HGB 10.8 LAB L100.1400 40-54 % Low HCT 32.5 LAB L100.1500 80-94 fL High MCV 97.9 LAB L100.1600 27.0-32.0 pg High MCH 32.5 LAB L100.1700 32-36 g/gl Normal MCHC 33.2 LAB L100.1810 11.6-14.6 % High RDW CV 15.1 LAB L100.1820 35.1-43.9 fl High RDW SD 51.3 LAB L100.1900 150-450 K/mm3 Normal PLT 237 LAB L100.2000 6.2-12.0 fl Normal MPV 9.5 LAB L100.3100 MANUAL DIFF Normal CELLS COUNTED 100 LAB L100.3200 47-70 % 70 Normal SEGS LAB L100.3300 0-5 % 5 Normal BAND LAB L100.3700 0-0 % High 1 alert BLAST LAB L100.3800 19-41 % 19 Normal LYMPH LAB L100.3900 0-10 % 4 Normal MONOCYTE LAB L100.4000 0-5 % 1 Normal EOS LAB L100.5500 ADEQ Normal PLT EST ADEQUATE LAB L100.7000 NORM C AND C NORMAL Normal RED CELL MORPH NORM C+C LAB L100.2620 2.0-7.7 X10 3/uL Normal Absolute Neut 3.2 LAB L100.2720 0.83-4.51 X10 3/ul Low Absolute Lymph 0.82 LAB L100.9900 Normal PATH REV Reviewed Result Comment: Macrocytic anemia. Blasts are not seen. Jaun Christianson M.D. 08/19/17 AMENDED REPORT 08/19/17 1683 PATH REV previously reported as: July foll Performed By: #### L100.0100 #### [facility] [address] [place], [address] COMPREHENSIVE METABOLIC Collected: 08/12/2017 Status: F Source: [place] 7:55 AM [facility] REPOSITORY Order Comment: RESULT(S) PREVIOUSLY REPORTED ON MANUAL REQUISITION DURING DOWNTIME. TYPE CODE TESTS RESULT OUT OF RANGE REFERENCE UNITS LAB L501.0100 74-106 mg/dL Normal GLU 82 Result Comment: Please note revised GLUCOSE reference range effective 2017. LAB L501.1000 7-18 mg/dL High BUN 21 LAB L501.1100 0.70-1.30 mg/dL Normal CREAT,SERUM 0.92 Result Comment: The validity of the calculated GFR AND GFRAA in patients over 70 years has not been determined. Clinical correlation is essential. LAB L501.1110 >60 mL/min EST GFR Normal 84 LAB L501.1115 >60 mL/min EST GFR Normal - AA 102 LAB L501.1255 ml/min Normal Estimated CRCL 54.90 LAB L501.1300 10-20 RATIO High BUN/CRE 22.8 LAB L501.1500 6.4-8.2 g/dL Low T PROT 6.2 LAB L501.1800 3.2-5.0 g/dL ALB Normal 3.4 LAB L501.1950 2.2-4.2 g/dL GLOB Normal 2.8 LAB L501.2000 0.9-2.4 RATIO A/G Normal 1.2 LAB L501.2200 8.5-10.1 mg/dL Low CA 8.2 LAB L501.4100 15-37 U/L Low AST 11 LAB L501.4305 45-117 U/L ALK P Normal 112 LAB L501.4405 16-61 U/L ALT Normal 19 LAB L501.4600 0.20-1.00 mg/dL T BILI Normal 0.70 LAB L501.5300 136-145 mmol/L NA Normal 141 LAB L501.5600 3.5-5.1 mmol/L K Normal 4.4 LAB L501.5900 98-107 mmol/L CL Normal 106 LAB L501.6100 21.0-32.0 mmol/L CO2 Normal 27.0 LAB L501.6200 5-15 GAP Normal 8 Performed By: #### L500.4050, L501.5200 #### [facility] [address] [facility] [place], [address] MAGNESIUM Collected: 08/12/2017 Status: F Source: [place] 7:55 AM [facility] REPOSITORY Order Comment: RESULT(S) PREVIOUSLY REPORTED ON MANUAL REQUISITION DURING DOWNTIME. TYPE CODE TESTS RESULT OUT OF RANGE REFERENCE UNITS LAB L501.5200 1.6-2.6 mg/dL Normal MG 2.2 Performed By: #### L500.4050, L501.5200 #### [facility] [address] [facility] [facility] [place], [address] CBC W/DIFF, AUTOMATED Collected: 08/12/2017 Status: F Source: [place] 12:00 AM [facility] REPOSITORY Order Comment: RESULT(S) PREVIOUSLY REPORTED ON MANUAL REQUISITION DURING DOWNTIME. TYPE CODE TESTS RESULT OUT OF RANGE REFERENCE UNITS LAB L100.1000 4.4-11.0 K/mm3 Normal WBC 8.4 LAB L100.1200 4.6-6.2 M/mm3 Low RBC 3.60 LAB L100.1300 13.0-16.5 g/dl Low HGB 11.6 LAB L100.1400 40-54 % Low HCT 35.4 LAB L100.1500 80-94 fL High MCV 98.3 LAB L100.1600 27.0-32.0 pg High MCH 32.2 LAB L100.1700 32-36 g/gl Normal MCHC 32.8 LAB L100.1810 11.6-14.6 % High RDW CV 15.4 LAB L100.1820 35.1-43.9 fl High RDW SD 52.6 LAB L100.1900 150-450 K/mm3 Normal PLT 255 LAB L100.2000 6.2-12.0 fl Normal MPV 9.8 LAB L100.2100 47-70 % High NEUT% 82.7 LAB L100.2200 19-41 % Low LY% 9.4 LAB L100.2300 0-10 % Normal MONO% 7.2 LAB L100.2400 0-5 % Normal EO% 0.0 LAB L100.2500 0-1 % Normal BASO% 0.5 LAB L100.2550 0.0-0.9 % Normal IM GRAN % 0.200 Result Comment: IG% - Immature Granulocytes (promyelocytes, myelocytes and metamyelocytes) > 1% indicates that a LEFT SHIFT is Present. LAB L100.2620 2.0-7.7 X10 3/uL Normal Absolute Neut 6.9 LAB L100.2720 0.83-4.51 X10 3/ul Low Absolute Lymph 0.79 Performed By: #### L100.0100 #### [facility] [address] [place], [address] CBC W/DIFF, AUTOMATED Collected: 07/29/2017 Status: F Source: [place] 8:03 AM [facility] REPOSITORY TYPE CODE TESTS RESULT OUT OF RANGE REFERENCE UNITS LAB L100.1000 4.4-11.0 K/mm3 Normal WBC 4.4 LAB L100.1200 4.6-6.2 M/mm3 Low RBC 3.67 LAB L100.1300 13.0-16.5 g/dl Low HGB 11.7 LAB L100.1400 40-54 % Low HCT 34.4 LAB L100.1500 80-94 fL Normal MCV 93.7 LAB L100.1600 27.0-32.0 pg Normal MCH 31.9 LAB L100.1700 32-36 g/gl Normal MCHC 34.0 LAB L100.1810 11.6-14.6 % Normal RDW CV 14.1 LAB L100.1820 35.1-43.9 fl High RDW SD 48.3 LAB L100.1900 150-450 K/mm3 Low PLT 145 LAB L100.2000 6.2-12.0 fl Normal MPV 9.2 LAB L100.2100 47-70 % High NEUT% 73.1 LAB L100.2200 19-41 % Normal LY% 20.4 LAB L100.2300 0-10 % Normal MONO% 2.9 LAB L100.2400 0-5 % Normal EO% 0.9 LAB L100.2500 0-1 % Normal BASO% 0.9 LAB L100.2550 0.0-0.9 % High IM GRAN % 1.800 Result Comment: IG% - Immature Granulocytes (promyelocytes, myelocytes and metamyelocytes) > 1% indicates that a LEFT SHIFT is Present. LAB L100.2620 2.0-7.7 X10 3/uL Normal Absolute Neut 3.2 LAB L100.2720 0.83-4.51 X10 3/ul Normal Absolute Lymph 0.90 Performed By: #### L100.0100 #### [facility] [address] [place], [address] COMPREHENSIVE METABOLIC Collected: 07/29/2017 Status: F Source: [place] 8:03 AM [facility] REPOSITORY Order Comment: Reason for Laboratory Test Chemotherapy TYPE CODE TESTS RESULT OUT OF RANGE REFERENCE UNITS LAB L501.0100 74-106 mg/dL High GLU 115 Result Comment: Fasting Glucose result from 100 to 125 mg/dL suggests IMPAIRED HOMEOSTASIS per A.D.A. criteria. Please note revised GLUCOSE reference range effective 2017. LAB L501.1000 7-18 mg/dL High BUN 20 LAB L501.1100 0.70-1.30 mg/dL Normal CREAT,SERUM 0.96 Result Comment: The validity of the calculated GFR AND GFRAA in patients over 70 years has not been determined. Clinical correlation is essential. LAB L501.1110 >60 mL/min Normal EST GFR 80 Result Comment: Non- GFR Calc LAB L501.1115 >60 mL/min Normal EST GFR - AA 96 Result Comment: GFR Calc LAB L501.1255 ml/min Normal Estimated CRCL 52.61 LAB L501.1300 10-20 RATIO High BUN/CRE 20.9 LAB L501.1500 6.4-8. g/dL Low 2 T PROT 6.3 LAB L501.1800 3.2-5. g/dL Normal 0 ALB 3.4 LAB L501.1950 2.2-4. g/dL Normal 2 GLOB 2.9 LAB L501.2000 0.9-2. RATIO Normal 4 A/G 1.2 LAB L501.2200 8.5-10 mg/dL Low .1 CA 8.4 LAB L501.4100 15-37 U/L Normal AST 16 LAB L501.4305 45-117 U/L Normal ALK P 85 LAB L501.4405 16-61 U/L Normal ALT 18 LAB L501.4600 0.20-1 mg/dL Normal .00 T BILI 1.00 LAB L501.5300 136-14 mmol/L Normal 5 NA 140 LAB L501.5600 3.5-5. mmol/L Normal 1 K 3.7 LAB L501.5900 98-107 mmol/L Normal CL 106 LAB L501.6100 21.0-3 mmol/L Normal 2.0 CO2 26.0 LAB L501.6200 5-15 Normal GAP 8 Performed By: #### L500.4050, L501.5200 #### [facility] [address] [place], [address] MAGNESIUM Collected: 07/29/2017 Status: F Source: [place] 8:03 AM [facility] REPOSITORY Order Comment: Reason for Laboratory Test Chemotherapy TYPE CODE TESTS RESULT OUT OF RANGE REFERENCE UNITS LAB L501.5200 1.6-2.6 mg/dL Normal MG 2.0 Performed By: #### L500.4050, L501.5200 #### [facility] [address] [facility] [place], [address] ONCOLOGY VISIT REPORT Observed: 07/22/2017 Status: F Source: [place] 10:37 AM [facility] REPOSITORY [facility] [address] [facility] [place] [address] OFFICE VISIT Date of Service: 07/22/17 0849 MR#: [id number] Acct: [id number] Name: CAMILO ESQUIVEL Rep #: [id number] : 1935 From: Leti LEDESMA Age/Sex: 82/M Location: ONC Status: Signed Subjective - Date of Service Date of Service:: 07/22/17 - Chief Complaint f/u pleomorphic sarcoma - History of Present Illness Mr. Camilo Esquivel is a very pleasant 82-year-old man who presented with a right groin mass in November 2014. Cytology showed pleomorphic sarcoma. MRI of the pelvis on 01/03/2015 showed an enhancing mass in the right inguinal area measuring 2.9 cm. The patient was referred to [facility]. PET CT scan on 01/11/2015 showed a right inguinal soft tissue mass with right retroperitoneal mass. Biopsy of the right inguinal mass on 01/15/2015 positive for sarcoma. Biopsy of the retroperitoneal mass on 01/21/2015 also showed sarcoma. He was started on Gemzar/Taxotere every 21 days on 02/05/2015. He had progressive disease on PET CT scan done on 05/01/2015. Treatment was changed to Halaven every 21 days in May 2015. Halaven was then changed to every 28 days with cycle 16 and subsequent cycles. Evaluated by Dr. Burns 11/25/16 and underwent PET/CT scan which showed stable disease. He continues Halaven. Bx of L posterior neck node was negative on 11/25/2016. Comes in for C29D1 AND 8 Halaven. He feels well. Still has R shoulder pain from arthritis but better. He was seen by Dr. Burns at [facility], PET/CT showed mixed response on 04/14/2017 with new activity in supraglottic area so since he has tolerated chemotherapy without adverse effects, after discussion, therapy should be changed to every 21 days. 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 C32D1 Halaven delayed by one week d/t neutropenia. - Interval History The patient is presenting to clinic for an evaluation anticipating he will receive c33 day 1 Halaven. Denies any outstanding complaints r/t today's visit. Reports mild fatigue continues. Denies presences of palpable masses within the groin, weight loss, CP, palpitations, cough shortness of breath, and swelling and pain of his extremities. Admits to mild intermittent nausea mainly on days 2 or 9 of treatment cycle, Zofran effective. Nausea has not resulted in any episodes of emesis. 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 Denies: Fever, Sweats, Weight loss, Appetite change, Chills Cardiovascular:: Denies: Chest pain, Palpitations, Dyspnea on exertion, Orthopnea, PND, Shortness of breath Respiratory: Denies: Cough, Hemoptysis, Shortness of Breath, Wheezing Gastrointestinal:: Reports: Nausea. Denies: Abdominal pain, Vomiting, Diarrhea, Constipation, Hematochezia Genitourinary: Denies: Dysuria, Hematuria, 15, Flank pain Musculoskeletal:: Denies: Back pain, Myalgia, Arthralgia Skin: Denies: Rash, Skin Changes, Wounds Neurological:: Denies: Headache, Dizziness, Numbness, Tingling, Visual changes, Tinnitus, Hearing loss Psychiatric: Denies: Anxiety, Depression, Homicidal Ideations, Suicidal Ideations Vital Signs Height 5 ft 6 in Weight: 151 lb 3.2 oz Weight in Pounds 151.2 lbs Pulse Ox 97 - Physical Exam General: Alert, Oriented x3, No apparent distress HEENT: Atraumatic, Normocephalic Oropharynx:: Negative for: Dry mucosa, Ulcerated lesions Neck:: Supple, Trachea midline. Negative for: JVD, bilateral Cardiac:: Regular rate, Regular rhythm, Normal S1, Normal S2. Negative for: Murmur Lungs: Clear to auscultation, Excusion symmetrical. Negative for: Rhonchi, Wheezes Abdomen:: Bowel sounds x 4, Soft, Non-tender, Non-distended. Negative for: Hepatosplenomegaly Extremities:: Negative for: Cyanosis, Edema, Calf tenderness Neurological: Neuro grossly intact Skin:: - - Port right upper chest access with gripper covered with DSD. Negative for: Lesions, Rash, Petechiae, Ecchymosis Psychiatric:: Appropriate affect, Euthymic Lymphatics:: Negative for: Cervical lymphadenopathy, Supraclavicular lymphadenopathy, Axillary lymphadenopathy, Inguinal lymphadenopathy Laboratory Data: Laboratory Tests WBC 3.1 L (4.4-11.0) K/mm3 RBC 3.83 L (4.6-6.2) M/mm3 Hgb 12.0 L (13.0-16.5) g/dl Hct 36.1 L (40-54) % MCV 94.3 H (80-94) fL Assessment and Plan 1. 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 Mixed response on PET/CT. Patient has an appointment and PET/CT scheduled for 09/08/[address] Burns at [facility]. CBC and CMP are reviewed and grossly within normal limits with the exception of neutropenia as evidenced by an ANC of 1.4. Neulasta to be added day 9 of this and subsequent cycles. Otherwise the patient is not endorsing any signs or symptoms contraindicating chemotherapy today and will proceed with planned cycle 33 day 1 Halaven. 2. Mild hypocalcemia-resolved as evidenced by calcium level of 8.5. Patient is encouraged to continue calcium supplement, Tums twice daily Patient will be evaluated in the infusion suite for consideration of cycle 33 day 8 Halaven in 1 week supported with Neulasta day 9. Return to clinic 3 weeks with CBC, CMP, magnesium for Halaven cycle 34 day 1 therapy, sooner if issues arise. This visit incident to the treatment plan previously established by Dr. 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 Status: Acute (2) Neutropenia Status: Resolved Qualifiers: Neutropenia type: secondary to cancer chemotherapy Qualified Code(s): D70.1 - Agranulocytosis secondary to cancer chemotherapy; T45.1X5A - Adverse effect of antineoplastic and immunosuppressive drugs, initial encounter (3) Chemotherapy management, encounter for Status: Acute 07/22/17 1037 <Electronically signed by Leti MURRAYC> Date Leti LEDESMA Cosigner Signature: Date (if applicable) CC: CBC W/DIFF, AUTOMATED Collected: 07/22/2017 Status: F Source: [place] 7:58 AM [facility] [place] REPOSITORY TYPE CODE TESTS RESULT OUT OF RANGE REFERENCE UNITS LAB L100.1000 4.4-11.0 K/mm3 Low WBC 3.1 LAB L100.1200 4.6-6.2 M/mm3 Low RBC 3.83 LAB L100.1300 13.0-16.5 g/dl Low HGB 12.0 LAB L100.1400 40-54 % Low HCT 36.1 LAB L100.1500 80-94 fL High MCV 94.3 LAB L100.1600 27.0-32.0 pg Normal MCH 31.3 LAB L100.1700 32-36 g/gl Normal MCHC 33.2 LAB L100.1810 11.6-14.6 % High RDW CV 14.7 LAB L100.1820 35.1-43.9 fl High RDW SD 49.8 LAB L100.1900 150-450 K/mm3 Normal PLT 261 LAB L100.2000 6.2-12.0 fl Normal MPV 8.7 LAB L100.2100 47-70 % Low NEUT% 45.2 LAB L100.2200 19-41 % Normal LY% 28.9 LAB L100.2300 0-10 % High MONO% 22.7 LAB L100.2400 0-5 % Normal EO% 0.6 LAB L100.2500 0-1 % High BASO% 2.3 LAB L100.2550 0.0-0.9 % Normal IM GRAN % 0.300 Result Comment: IG% - Immature Granulocytes (promyelocytes, myelocytes and metamyelocytes) > 1% indicates that a LEFT SHIFT is Present. LAB L100.2620 2.0-7.7 X10 3/uL Low Absolute Neut 1.4 LAB L100.2720 0.83-4.51 X10 3/ul Normal Absolute Lymph 0.89 Performed By: #### L100.0100 #### [facility] [address] [place], [place], [address] COMPREHENSIVE METABOLIC Collected: 07/22/2017 Status: F Source: [place] JV 7:58 AM [facility] REPOSITORY Order Comment: Reason for Laboratory Test Chemotherapy TYPE CODE TESTS RESULT OUT OF RANGE REFERENCE UNITS LAB L501.0100 74-106 mg/dL Low GLU 73 Result Comment: Please note revised GLUCOSE reference range effective 2017. LAB L501.1000 7-18 mg/dL Normal BUN 16 LAB L501.1100 0.70-1.30 mg/dL Normal CREAT,SERUM 1.05 Result Comment: The validity of the calculated GFR AND GFRAA in patients over 70 years has not been determined. Clinical correlation is essential. LAB L501.1110 >60 mL/min Normal EST GFR 72 Result Comment: Non- GFR Calc LAB L501.1115 >60 mL/min Normal EST GFR - AA 87 Result Comment: GFR Calc LAB L501.1255 ml/min Normal Estimated CRCL 48.10 LAB L501.1300 10-20 RATIO Normal BUN/CRE 15.2 LAB L501.1500 6.4-8. g/dL Low 2 T PROT 6.1 LAB L501.1800 3.2-5. g/dL Normal 0 ALB 3.4 LAB L501.1950 2.2-4. g/dL Normal 2 GLOB 2.7 LAB L501.2000 0.9-2. RATIO Normal 4 A/G 1.3 LAB L501.2200 8.5-10 mg/dL Normal .1 CA 8.5 LAB L501.4100 15-37 U/L Normal AST 17 LAB L501.4305 45-117 U/L Normal ALK P 80 LAB L501.4405 16-61 U/L Normal ALT 18 LAB L501.4600 0.20-1 mg/dL Normal .00 T BILI 0.70 LAB L501.5300 136-14 mmol/L Normal 5 NA 142 LAB L501.5600 3.5-5. mmol/L Normal 1 K 4.5 LAB L501.5900 98-107 mmol/L Normal CL 106 LAB L501.6100 21.0-3 mmol/L Normal 2.0 CO2 30.0 LAB L501.6200 5-15 Normal GAP 6 Performed By: #### L500.4050, L501.5200 #### [facility] [address] [place], [place], [address] MAGNESIUM Collected: 07/22/2017 Status: F Source: [place] 7:58 AM [facility] [place] REPOSITORY Order Comment: Reason for Laboratory Test Chemotherapy TYPE CODE TESTS RESULT OUT OF RANGE REFERENCE UNITS LAB L501.5200 1.6-2.6 mg/dL Normal MG 2.1 Performed By: #### L500.4050, L501.5200 #### [facility] [address] [place], [place], [id number] CBC W/DIFF, AUTOMATED Collected: 07/08/2017 Status: F Source: [place] 7:58 AM [facility] REPOSITORY TYPE CODE TESTS RESULT OUT OF RANGE REFERENCE UNITS LAB L100.1000 4.4-11.0 K/mm3 Low WBC 4.0 LAB L100.1200 4.6-6.2 M/mm3 Low RBC 3.97 LAB L100.1300 13.0-16.5 g/dl Low HGB 12.5 LAB L100.1400 40-54 % Low HCT 37.4 LAB L100.1500 80-94 fL High MCV 94.2 LAB L100.1600 27.0-32.0 pg Normal MCH 31.5 LAB L100.1700 32-36 g/gl Normal MCHC 33.4 LAB L100.1810 11.6-14.6 % Normal RDW CV 14.2 LAB L100.1820 35.1-43.9 fl High RDW SD 48.7 LAB L100.1900 150-450 K/mm3 Normal PLT 155 LAB L100.2000 6.2-12.0 fl Normal MPV 9.6 LAB L100.2100 47-70 % High NEUT% 70.6 LAB L100.2200 19-41 % Low LY% 18.0 LAB L100.2300 0-10 % Normal MONO% 3.0 LAB L100.2400 0-5 % High EO% 5.3 LAB L100.2500 0-1 % High BASO% 1.3 LAB L100.2550 0.0-0.9 % High IM GRAN % 1.800 Result Comment: IG% - Immature Granulocytes (promyelocytes, myelocytes and metamyelocytes) > 1% indicates that a LEFT SHIFT is Present. LAB L100.2620 2.0-7.7 X10 3/uL Normal Absolute Neut 2.8 LAB L100.2720 0.83-4.51 X10 3/ul Low Absolute Lymph 0.72 Performed By: #### L100.0100 #### [facility] [address] [place], [place], [address] COMPREHENSIVE METABOLIC Collected: 07/08/2017 Status: F Source: [place] CARIAS 7:57 AM [facility] [place] REPOSITORY Order Comment: Reason for Laboratory Test Chemotherapy TYPE CODE TESTS RESULT OUT OF RANGE REFERENCE UNITS LAB L501.0100 74-106 mg/dL High GLU 126 Result Comment: Fasting Glucose result greater than or equal to 126 mg/dL suggests DIABETES MELLITUS per A.D.A. criteria. Please note revised GLUCOSE reference range effective 2017. LAB L501.1000 7-18 mg/dL High BUN 21 LAB L501.1100 0.70-1.30 mg/dL Normal CREAT,SERUM 0.94 Result Comment: The validity of the calculated GFR AND GFRAA in patients over 70 years has not been determined. Clinical correlation is essential. LAB L501.1110 >60 mL/min Normal EST GFR 82 Result Comment: Non- GFR Calc LAB L501.1115 >60 mL/min Normal EST GFR - AA 99 Result Comment: GFR Calc LAB L501.1255 ml/min Normal Estimated CRCL 53.73 LAB L501.1300 10-20 RATIO High BUN/CRE 22.4 LAB L501.1500 6.4-8. g/dL Normal 2 T PROT 6.6 LAB L501.1800 3.2-5. g/dL Normal 0 ALB 3.5 LAB L501.1950 2.2-4. g/dL Normal 2 GLOB 3.1 LAB L501.2000 0.9-2. RATIO Normal 4 A/G 1.1 LAB L501.2200 8.5-10 mg/dL Normal .1 CA 8.5 LAB L501.4100 15-37 U/L Normal AST 16 LAB L501.4305 45-117 U/L Normal ALK P 96 LAB L501.4405 16-61 U/L Normal ALT 22 LAB L501.4600 0.20-1 mg/dL Normal .00 T BILI 0.80 LAB L501.5300 136-14 mmol/L Normal 5 NA 138 LAB L501.5600 3.5-5. mmol/L Normal 1 K 3.9 LAB L501.5900 98-107 mmol/L Normal CL 103 LAB L501.6100 21.0-3 mmol/L Normal 2.0 CO2 29.0 LAB L501.6200 5-15 Normal GAP 6 Performed By: #### L500.4050, L501.5200 #### [facility] [address] [place], [address] MAGNESIUM Collected: 07/08/2017 Status: F Source: [place] 7:57 AM [facility] REPOSITORY Order Comment: Reason for Laboratory Test Chemotherapy TYPE CODE TESTS RESULT OUT OF RANGE REFERENCE UNITS LAB L501.5200 1.6-2.6 mg/dL Normal MG 2.2 Performed By: #### L500.4050, L501.5200 #### [facility] [address] [place], [address] NUC PET OTHER Observed: 07/07/2017 Status: F Source: [facility] 1:02 PM [facility] REPOSITORY EXAM: NUC PET OTHER, 07/07/2017 12:26 PM CLINICAL INDICATIONS: patient with liposarcoma of the retroperitoneum. Currently on treatment. Please evaluate for treatment response; , COMPARISON: PET/CT April 14, 2017 CT DOSE: DLP: 687 mGy x cm kVp: 120 TECHNIQUE: The patient's fasting blood glucose was 91 mg/dl. Approximately 78 minutes following the injection of 13.0 mCi of F-18 FDG, the patient was positioned on the Siemens Biograph mCT TOF< PET/CT-64, [facility] imaging unit. A low resolution non-contrast CT was obtained from the top of the head through the mid-femurs for use in attenuation correction and anatomic correlation. PET emission scans of this anatomic region were acquired shortly thereafter. Axial, sagittal, coronal and maximal intensity projection reconstruction images were presented for interpretation. FINDINGS: Head/Neck: Soft tissue nodule noted within the left posterior occipital region with hypermetabolic activity and a maximum SUV of 5.2. This is stable since prior exam. Normal, intense physiologic uptake is noted in the cerebral cortex sunshine matter and subcortical nuclei without gross hypermetabolic abnormality. Chest: There are no hypermetabolic pulmonary parenchymal lesions. Multiple hypermetabolic calcified lymph nodes seen within the chest. These demonstrate hypermetabolic activity. Maximum SUV of right perihilar lymph node measures 7.9, previously 8.8, decreased in FDG avidity since prior exam. Physiologic FDG uptake is seen in the myocardium. Abdomen/Pelvis: Physiologic FDG uptake is seen throughout the liver, spleen and bowel. Physiologic FDG excretion is seen in the kidneys, ureters, and bladder. There are no hypermetabolic lesions in the adrenal glands. Hypermetabolic activity noted within the right external iliac region adjacent to surgical sutures. Maximum SUV measures 9.9. This has increased in FDG avidity since the prior exam. Musculoskeletal: There is physiologic FDG uptake throughout the axial and proximal appendicular skeleton. No focal hypermetabolic osseous lesions are identified. IMPRESSION: Redemonstration of hypermetabolic lymph nodes within the neck, chest, and pelvis. This demonstrates mixed response since prior exam. *POC GLUCOSE BATTERY Collected: 07/07/2017 Status: F Source: [facility] 10:16 AM [facility] REPOSITORY TYPE CODE TESTS RESULT OUT OF REFERENCE UNITS RANGE LAB GLUP 70-99 mg/dL Glucose (poc 91 device) Result Comment: No BRAVE per RN: PATIENT TYPE LAB PCSTYP *POC Capillary SAMPLE TYPE Blood CBC WITH DIFF AWILDA Collected: 07/07/2017 Status: F Source: [facility] 9:10 AM [facility] REPOSITORY TYPE CODE TESTS RESULT OUT OF REFERENCE UNITS RANGE LAB WBC 4.23-9.07 K/uL WBC Count 4.74 LAB RBC 4.63-6.08 M/uL RBC Count 4.00 Low LAB HGB 13.7-17.5 g/dL Hemoglobin 12.7 Low LAB HCT 40.1-51.0 % Hematocrit 38.4 Low LAB MCV 79.0-92.2 fL Mean Cell 96.0 High Volume LAB MCH 25.7-32.2 pg Mean Cell 31.8 Hgb LAB MCHC 32.3-36.5 g/dL Mean Cell 33.1 Hgb Conc LAB RDW 11.6-14.4 % RBC 14.1 Distribution LAB PLT 163-337 K/uL Platelet 141 Low Count LAB MPV 9.4-12.4 fL Mean 10.0 Platelet Volume LAB NRBC 0.0-0.2 /100 WBC NUCLEATED 0.0 RBC LAB DTYPE Electronic DIFFERENTIAL TYPE Differential LAB IGRE % IMMATURE 1.3 GRANS % LAB SEGS % NEUTROPHIL 63.2 SEGMENTED LAB LYM % LYMPHOCYTE 23.6 % LAB MON % MONOCYTE % 4.9 LAB EOS % EOSINOPHIL 5.5 % LAB BASO % BASOPHIL % 1.5 LAB IGABS 0.00-0.03 K/uL IMMATURE 0.06 High GRANS ABSOLUTE LAB SBANS 1.78-5.38 K/uL SEGS + 3.00 Bands,Absolute LAB ALYM 1.32-3.57 K/uL Abs Lymph 1.12 Low LAB AMONO 0.30-0.82 K/uL Abs [place] 0.23 Low LAB AEOS 0.04-0.54 K/uL Abs Eos 0.26 LAB ABASO 0.01-0.08 K/uL Abs Baso 0.07 Performed By: #### CBCDFJ #### [facility] [address] [place], [place] [address] METABOLIC PANEL - CHRI Collected: 07/07/2017 Status: F Source: [facility] 9:10 AM [facility] REPOSITORY TYPE CODE TESTS RESULT OUT OF REFERENCE UNITS RANGE LAB NA 133-143 mmol/L Sodium 141 LAB K 3.5-5.0 mmol/L Potassium 4.1 LAB CL 98-108 mmol/L Chloride 102 LAB BUN 7-22 mg/dL BUN 21 LAB CREA 0.70-1.30 mg/dL Creatinine 0.84 LAB GLUC 70-99 mg/dL Glucose 96 LAB CA 8.6-10.5 mg/dL Calcium 9.1 LAB ALP 32-126 U/L Alkaline Phosphatase 76 LAB AST 14-40 U/L AST 20 LAB TP 6.4-8.3 g/dL Low Total Protein 6.3 LAB ALB 3.5-5.0 g/dL Albumin 3.8 LAB BILT <1.5 mg/dL Bilirubin Total 1.0 LAB CO2 22-30 mmol/L Carbon High Dioxide 32 LAB GAP 7-17 mmol/L Anion Gap 11 LAB ALT 10-52 U/L ALT 14 LAB GFR >60 mL/min/1.7 3sqM Est GFR,non >60 LAB GFRA >60 mL/min/1.7 3sqM Est GFR, >60 LAB OSMC 278-305 mOsm/kg Osmolality (Calc) 298 Performed By: #### CBCDFJ #### [facility] [address] [place], [place] [address] ONCOLOGY VISIT REPORT Observed: 07/01/2017 Status: F Source: [place] 9:18 AM [facility] [place] [address] OFFICE VISIT Date of Service: 07/01/1715 MR#: [id number] Acct: [id number] Name: CAMILO ESQUIVEL Rep #: [id number] : 1935 From: Сергей Medina MD Age/Sex: 82/M Location: [facility] Status: Signed Subjective - Date of Service Date of Service:: 07/01/17 - Chief Complaint F/U for chemotherapy. - History of Present Illness Mr. Camilo Esquivel is a very pleasant 82-year-old man who presented with a right groin mass in November 2014. Cytology showed pleomorphic sarcoma. MRI of the pelvis on 01/03/2015 showed an enhancing mass in the right inguinal area measuring 2.9 cm. The patient was referred to [facility]. PET CT scan on 01/11/2015 showed a right inguinal soft tissue mass with right retroperitoneal mass. Biopsy of the right inguinal mass on 01/15/2015 positive for sarcoma. Biopsy of the retroperitoneal mass on 01/21/2015 also showed sarcoma. He was started on Gemzar/Taxotere every 21 days on 02/05/2015. He had progressive disease on PET CT scan done on 05/01/2015. Treatment was changed to Halaven every 21 days in May 2015. Halaven was then changed to every 28 days with cycle 16 and subsequent cycles. Evaluated by Dr. Burns 11/25/16 and underwent PET/CT scan which showed stable disease. He continues Halaven. Bx of L posterior neck node was negative on 11/25/2016. Comes in for C29D1 AND 8 Halaven. He feels well. Still has R shoulder pain from arthritis but better. He was seen by Dr. Burns at [facility], PET/CT showed mixed response on 04/14/2017 with new activity in supraglottic area so since he has tolerated chemotherapy without adverse effects, after discussion, therapy should be changed to every 21 days. 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 Comes in for C32D1 Halaven which was held last week because of neutropenia. 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 Family History Paternal Past Medical History: Heart disease Maternal Past Medical History: COPD Social History Social History: No changes Smoking Status Never smoker Review of Systems Constitutional:: Denies: Fever, Sweats, Weight loss, Appetite change, Chills Cardiovascular:: Denies: Chest pain, Palpitations, Dyspnea on exertion, Orthopnea, PND, Shortness of breath Respiratory: Denies: Cough, Hemoptysis, Shortness of Breath, Wheezing Gastrointestinal:: Denies: Abdominal pain, Nausea, Vomiting, Diarrhea, Constipation, Hematochezia Genitourinary: Denies: Dysuria, Hematuria, 15, Flank pain Musculoskeletal:: Denies: Back pain, Myalgia, Arthralgia Skin: Denies: Rash, Skin Changes, Wounds Neurological:: Denies: Headache, Dizziness, Visual changes, Tinnitus, Hearing loss Psychiatric: Denies: Anxiety, Depression, Homicidal Ideations, Suicidal Ideations Vital Signs Height 5 ft 6 in Weight: 71.305 kg Weight in Pounds 157.2 lbs Pulse Ox 95 - Physical Exam General: Alert, Oriented x3, No apparent distress, - - [place] HEENT: Atraumatic, PERRLA, EOMI, Normocephalic Oropharynx:: Dry mucosa Neck:: Supple, Trachea midline. Negative for: JVD, bilateral Cardiac:: Regular rate, Regular rhythm, Normal S1, Normal S2. Negative for: Murmur Lungs: Clear to auscultation, Excusion symmetrical. Negative for: Rhonchi, Wheezes Abdomen:: Bowel sounds x 4, Soft, Non-tender, Non-distended. 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 Tolerating therapy with Mixed response on PET/CT. Squamous Papilloma throat. Neutropenia resolved-ANC is 7.8 today. Mild hypocalcemia. Plan is to proceed with chemotherapy Halaven cycle 32 D1 today. Start Tums 1 tab bid. Return to clinic 3 weeks with CBC, CMP, magnesium for Halaven cycle 33 day 1 therapy. Medications: Prescriptions This Visit Medication Instructions Recorded Multivit-Min/FA/Lycopen/Lutein 1 ea PO BID 07/29/16 [Centrum Silver Men Tablet] Primary Care Provider: Nathalie Donis Referring Provider: - Problem List (1) Sarcoma Status: Chronic (2) Chemotherapy management, encounter for Status: Acute (3) Neutropenia Status: Resolved Qualifiers: Neutropenia type: secondary to cancer chemotherapy Qualified Code(s): D70.1 - Agranulocytosis secondary to cancer chemotherapy; T45.1X5A - Adverse effect of antineoplastic and immunosuppressive drugs, initial encounter Code Visit Office Visits / Consults: [id number] OV L5 Est 07/01/17 0918 <Electronically signed by Сергей Medina MD> Date Сергей Medina MD Cosign Signature: Date (if applicable) CC: CBC W/DIFF, AUTOMATED Collected: 07/01/2017 Status: F Source: [place] 7:53 AM [facility] REPOSITORY TYPE CODE TESTS RESULT OUT OF RANGE REFERENCE UNITS LAB L100.1000 4.4-11.0 K/mm3 Normal WBC 9.6 LAB L100.1200 4.6-6.2 M/mm3 Low RBC 3.92 LAB L100.1300 13.0-16.5 g/dl Low HGB 12.2 LAB L100.1400 40-54 % Low HCT 37.0 LAB L100.1500 80-94 fL High MCV 94.4 LAB L100.1600 27.0-32.0 pg Normal MCH 31.1 LAB L100.1700 32-36 g/gl Normal MCHC 33.0 LAB L100.1810 11.6-14.6 % High RDW CV 15.0 LAB L100.1820 35.1-43.9 fl High RDW SD 51.5 LAB L100.1900 150-450 K/mm3 Normal PLT 211 LAB L100.2000 6.2-12.0 fl Normal MPV 9.3 LAB L100.2100 47-70 % High NEUT% 80.8 LAB L100.2200 19-41 % Low LY% 8.7 LAB L100.2300 0-10 % Normal MONO% 9.5 LAB L100.2400 0-5 % Normal EO% 0.3 LAB L100.2500 0-1 % Normal BASO% 0.5 LAB L100.2550 0.0-0.9 % Normal IM GRAN % 0.200 Result Comment: IG% - Immature Granulocytes (promyelocytes, myelocytes and metamyelocytes) > 1% indicates that a LEFT SHIFT is Present. LAB L100.2620 2.0-7.7 X10 3/uL High Absolute Neut 7.8 LAB L100.2720 0.83-4.51 X10 3/ul Normal Absolute Lymph 0.83 Performed By: #### L100.0100 #### [facility] [address] [place], [address] COMPREHENSIVE METABOLIC Collected: 07/01/2017 Status: F Source: [place] JV 7:53 AM [facility] REPOSITORY Order Comment: Reason for Laboratory Test Chemotherapy TYPE CODE TESTS RESULT OUT OF RANGE REFERENCE UNITS LAB L501.0100 74-106 mg/dL Normal GLU 96 Result Comment: Please note revised GLUCOSE reference range effective 2017. LAB L501.1000 7-18 mg/dL Normal BUN 18 LAB L501.1100 0.70-1.30 mg/dL Normal CREAT,SERUM 0.84 Result Comment: The validity of the calculated GFR AND GFRAA in patients over 70 years has not been determined. Clinical correlation is essential. LAB L501.1110 >60 mL/min Normal EST GFR 93 Result Comment: Non- GFR Calc LAB L501.1115 >60 mL/min Normal EST GFR - AA 112 Result Comment: GFR Calc LAB L501.1255 ml/min Normal Estimated CRCL 60.13 LAB L501.1300 10-20 RATIO High BUN/CRE 21.5 LAB L501.1500 6.4-8. g/dL Low 2 T PROT 6.1 LAB L501.1800 3.2-5. g/dL Normal 0 ALB 3.4 LAB L501.1950 2.2-4. g/dL Normal 2 GLOB 2.7 LAB L501.2000 0.9-2. RATIO Normal 4 A/G 1.3 LAB L501.2200 8.5-10 mg/dL Low .1 CA 8.4 LAB L501.4100 15-37 U/L Normal AST 22 LAB L501.4305 45-117 U/L Normal ALK P 98 LAB L501.4405 16-61 U/L Normal ALT 20 LAB L501.4600 0.20-1 mg/dL Normal .00 T BILI 0.80 LAB L501.5300 136-14 mmol/L Normal 5 NA 142 LAB L501.5600 3.5-5. mmol/L Normal 1 K 4.1 LAB L501.5900 98-107 mmol/L Normal CL 107 LAB L501.6100 21.0-3 mmol/L Normal 2.0 CO2 27.0 LAB L501.6200 5-15 Normal GAP 8 Performed By: #### L500.4050, L501.5200 #### [facility] [address] [place], [address] MAGNESIUM Collected: 07/01/2017 Status: F Source: [place] 7:53 AM [facility] REPOSITORY Order Comment: Reason for Laboratory Test Chemotherapy TYPE CODE TESTS RESULT OUT OF RANGE REFERENCE UNITS LAB L501.5200 1.6-2.6 mg/dL Normal MG 2.0 Performed By: #### L500.4050, L501.5200 #### [facility] [address] [place], [address] CARDIOLOGY VISIT Observed: 06/26/2017 Status: F Source: [place] RE[place] 11:29 AM [facility] [facility] RE[facility] [address] [place] [address] OFFICE VISIT Date of Service: 06/26/17 MR#: [id number] Acct: [id number] Name: CAMILO ESQUIVEL Rep #: [id number] : 1935 Provider: Suzanna Santos Age/Sex: 82/M Location[place] [facility] [place] Status: Signed HPI HPI Details: CAMILO ESQUIVEL, is a 82 M who presents to the office today for a cardiovascular follow-up. 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 His posterior descending artery was not amenable to intervention. He had angioplasty and stenting of his LAD. He does have a history of cardiomyopathy,, hypertension and hyperlipidemia. From a cardiac standpoint, patient is doing well. He does not have any chest discomfort/heaviness/tightness. His exercise tolerance is stable for his age. He does not have any worsening symptoms of shortness of breath. He denies any PND. He does not have any orthopnea. He does not have any symptoms of congestive heart failure. He does not have any palpitations that he is aware of. He does not have any lightheadedness or dizziness. He does not have any near-syncope or syncope. He does not have any lower extremity edema. He does not have any symptoms of claudication. He recently had a biopsy for a supraglottis mass, this demonstrated changes suggestive of squamous papilloma. Intake Vital Signs06/26/17 Height 5 ft 6 in 06/26/17 Weight: 157 lb 06/26/17 Body Mass Index (BMI) 25.3 06/26/17 Blood Pressure 118/72 Intake Visit Reasons: 6 M FU (pt missed appt in Feb) Stage[employer] Professor Required: No Accompanied by: none Is patient in pain?: No Allergies colestipol [From Colestid] Adverse Reaction (Mild, Verified 06/26/17 09:58) Constipation Medications Glucosamine/MSM/Chondroitin A [Glucosamine Chondroit MSM Tab] 1 ea PO DAILY 03/07/15 [History Confirmed 06/26/17] Metoprolol Tartrate [Lopressor (beta phong)] 25 mg PO BID 03/07/15 [History Confirmed 06/26/17] proCHLORPERazine tablet [Compazine tablet] 10 mg PO Q6H PRN PRN 03/07/15 [History Confirmed 06/26/17] Aspirin E.C. [Ecotrin] 81 mg PO DAILY@0800 07/03/15 [History Confirmed 06/26/17] Phenylephrine HCl/[place] Butter [Preparation H Suppository] 1 ea RC UD PRN 07/03/15 [History Confirmed 06/26/17] Halaven 2 mg IV QMONTH 07/24/15 [History Confirmed 06/26/17] Multivit-Min/FA/Lycopen/Lutein [Centrum Silver Men Tablet] 1 ea PO BID 07/29/16 [History Confirmed 06/26/17] tamsulosin 0.4 mg capsule 0.4 mg PO DAILY 60 Days #60 02/27/17 [History Confirmed 06/26/17] Naproxen Sodium [Aleve] 220 mg PO QODAY 04/15/17 [History Confirmed 06/26/17] Ondansetron [Zofran Odt] 4 mg PO Q8H PRN PRN #60 tab 04/15/17 [Rx Confirmed 06/26/17] Pantoprazole Sodium [Protonix] 40 mg PO DAILY #60 tab 04/15/17 [Rx Confirmed 06/26/17] lisinopril 2.5 mg tablet 2.5 mg PO QDAY #30 tab 04/16/17 [Rx Confirmed 06/26/17] atorvastatin 80 mg tablet 40 mg PO QHS tab 06/26/17 [History Confirmed 06/26/17] Ejection fraction %: 45 to 49 PFSH Medical History GERD (gastroesophageal reflux disease) (Chronic) HLD (hyperlipidemia) (Chronic) Coronary artery disease (Chronic) Benign prostatic hypertrophy (Chronic) Sarcoma of multiple sites (Acute) HLD (hyperlipidemia) (Chronic) Dizziness and giddiness (Chronic) Chest congestion (Acute) Hernia (Acute) Arthritis (Chronic) Hypertension (Chronic) Surgical History History of biopsy (Acute) Hx of tonsillectomy (Acute) History of PTCA (Chronic 2008) S/P CABG x 1 (Chronic 06/16/05) Family History Father Heart disease Myocardial infarction, Onset Age: 43 Mother COPD (chronic obstructive pulmonary disease) Sister Cancer Social History Smoking Status: Never smoker alcohol intake: never substance use type: does not use caffeine: Yes Type: coffee Number of servings: 3 what type of physical activity do you participate in: none seatbelt use: always do you feel safe at home: Yes ROS Const Const: Negative for weakness, fatigue, fever(s) or headache(s) Eyes Eyes: Negative for blind spots, loss of peripheral vision or transient loss of vision ENT ENT: Negative for headache(s), dizziness, tinnitus or Nosebleed/epistaxis Cardio Chest Pain: No Palpitations: No Edema: None Muscle aches with walking: None Resp Respiratory: Negative for SOB with activity, SOB at rest, SOB orthopnea\SOB lying down or Cough GI GI: Negative nausea, vomiting, heartburn or vomiting blood/hematemesis : Negative for hematuria Musc Musc: Negative for muscle aches/ myalgia Neuro Neuro: Negative for weakness, headache(s), dizziness, near syncope, syncope, lightheadedness or orthostatic symptoms Cruz Hematologic/Lymphatic: Negative for easy bleeding Endo Endo: Negative for fatigue Cardiology Exam Const Appearance: cooperative, no acute distress and well developed Orientation: alert, awake and oriented x3 Head Head: normocephalic and atraumatic Mouth: moist mucous membranes Eyes General: appearance normal, both eyes and all related structures Conjunctivae: conjunctivae normal Pupils: PERRL EOM: EOM intact bilaterally Neck Neck: normal visual inspection, no lymphadenopathy and no JVD Carotids: Negative bruit Neck Mass: Negative Neck mass Chest Chest inspection: normal inspection of the chest, symmetric chest movement and midline sternotomy incision Auscultation: Bilateral: Clear to Auscultation Cardio Palpation: normal PMI Rate: regular rate Rhythm: regular rhythm Heart sounds: S1 normal and S2 normal; negative rub, gallop or murmur GI GI: normal to inspection, soft, no hepatosplenomegaly and bowel sounds present; negative tender Neuro General: alert, awake, oriented x3, CN's II-XI intact bilaterally and moves all extremities Extremities Pulses: Normal: Right Posterior Tibial Pulse, Left Posterior Tibial Pulse, Right Radial Pulse, Left Radial Pulse Lower Extremity Edema: None: Bilateral Psych Psychological: normal affect Supplemental Info Echocardiogram in 2017 demonstrates an ejection fraction of 45%. Moderately dilated RV. Mild tricuspid insufficiency. RVSP 30 mmHg. Mild aortic stenosis. Stress test in in 2016 demonstrated previous mild val-infarct ischemia, excellent functional capacity with previous extensive inferior septal, inferoapical and inferolateral infarct. Assessment AND Plan 1. Atherosclerosis of campo coronary artery of campo heart without angina pectoris I25.10 Plan - GILDA Ro Stable, from a cardiac standpoint patient does not have any symptoms of angina. We recommend that they continue with current aggressive medical management and risk factor modification. Orders Orders: 2. Pure hypercholesterolemia E78.00; E78.0 Plan - GILDA Ro Laboratory Tests Cholesterol 143 LDL Cholesterol 88 HDL Cholesterol 38 L Recent lipids are adequately controlled. Will not make any adjustments. Orders Orders: 3. Dilated cardiomyopathy I42.0 Plan - GILDA Ro Patient does not have any symptoms of congestive heart failure. We will continue to monitor by history, exam and echocardiograms as deemed appropriate. Plan Detail Additional Comments - GILDA Ro The above patient was discussed with Dr. Kimball, he agrees with plan of care. Thank you for allowing us to participate in patient's plan of care, if you have any questions please do not hesitate to call. This note was generated using a voice recognition system and there may be incorrect words, spelling or punctuation errors that were not noted when reviewing the office note prior to saving. 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 transplanted heart: campo heart Pure hypercholesterolemia E78.00; E78.0 Hyperlipidemia type: pure hypercholesterolemia Dilated cardiomyopathy I42.0 Coding Level of Care Code Off vis,est,level 3 Diagnoses Atherosclerosis of campo coronary artery of campo heart without angina pectoris I25.10 [place] vs. transplanted heart: campo heart Pure hypercholesterolemia E78.00; E78.0 Hyperlipidemia type: pure hypercholesterolemia Dilated cardiomyopathy I42.0 06/26/17 1121 <Electronically signed by Suzanna VO> Date Suzanna VO 06/26/17 1129<Electronically signed by Garrett Kimball MD> Cosigner Signature: Date (if applicable) Garrett Kimball MD CC: Nathalie Donis MD ONCOLOGY VISIT REPORT Observed: 06/24/2017 Status: F Source: [place] 9:40 AM [facility] [place] REPOSITORY [facility] [place] [address] OFFICE VISIT Date of Service: 06/24/17 0928 MR#: [id number] Acct: [id number] Name: CAMILO ESQUIVEL Rep #: [id number] : 1935 From: Сергей Medina MD Age/Sex: 82/M Location: [facility] Status: Signed Subjective - Date of Service Date of Service:: 06/24/17 - Chief Complaint F/U for chemotherapy. - History of Present Illness Mr. Camilo Esquivel is a very pleasant 82-year-old man who presented with a right groin mass in November 2014. Cytology showed pleomorphic sarcoma. MRI of the pelvis on 01/03/2015 showed an enhancing mass in the right inguinal area measuring 2.9 cm. The patient was referred to [facility]. PET CT scan on 01/11/2015 showed a right inguinal soft tissue mass with right retroperitoneal mass. Biopsy of the right inguinal mass on 01/15/2015 positive for sarcoma. Biopsy of the retroperitoneal mass on 01/21/2015 also showed sarcoma. He was started on Gemzar/Taxotere every 21 days on 02/05/2015. He had progressive disease on PET CT scan done on 05/01/2015. Treatment was changed to Halaven every 21 days in May 2015. Halaven was then changed to every 28 days with cycle 16 and subsequent cycles. Evaluated by Dr. Burns 11/25/16 and underwent PET/CT scan which showed stable disease. He continues Halaven. Bx of L posterior neck node was negative on 11/25/2016. Comes in for C29D1 AND 8 Halaven. He feels well. Still has R shoulder pain from arthritis but better. He was seen by Dr. Burns at [facility], PET/CT showed mixed response on 04/14/2017 with new activity in supraglottic area so since he has tolerated chemotherapy without adverse effects, after discussion, therapy should be changed to every 21 days. 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 Comes in for C32D1 [place]. 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 Family History Paternal Past Medical History: Heart disease Maternal Past Medical History: COPD Social History Social History: No changes Smoking Status Never smoker Review of Systems Constitutional:: Denies: Fever, Sweats, Weight loss, Appetite change, Chills Cardiovascular:: Denies: Chest pain, Palpitations, Dyspnea on exertion, Orthopnea, PND, Shortness of breath Respiratory: Denies: Cough, Hemoptysis, Shortness of Breath, Wheezing Gastrointestinal:: Denies: Abdominal pain, Nausea, Vomiting, Diarrhea, Constipation, Hematochezia Genitourinary: Denies: Dysuria, Hematuria, 15, Flank pain Musculoskeletal:: Denies: Back pain, Myalgia, Arthralgia Skin: Denies: Rash, Skin Changes, Wounds Neurological:: Denies: Headache, Dizziness, Visual changes, Tinnitus, Hearing loss Psychiatric: Denies: Anxiety, Depression, Homicidal Ideations, Suicidal Ideations Vital Signs Height 5 ft 6 in Weight: 71.395 kg Weight in Pounds 157.4 lbs Pulse Ox 97 - Physical Exam General: Alert, Oriented x3, Cooperative, No apparent distress, - - [place] HEENT: Atraumatic, PERRLA, EOMI, Normocephalic Oropharynx:: Dry mucosa Neck:: Supple, Trachea midline. Negative for: JVD, bilateral Cardiac:: Regular rate, Regular rhythm, Normal S1, Normal S2. Negative for: Murmur Lungs: Clear to auscultation, Excusion symmetrical. Negative for: Rhonchi, Wheezes Abdomen:: Bowel sounds x 4, Soft, Non-tender, Non-distended. 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 Tolerating therapy with Mixed response on PET/CT. Squamous Papilloma throat. Neutropenia today-ANC is 700. Plan is to hold chemotherapy Halaven cycle 32 D1 today. Return to clinic 1 week with CBC, CMP, magnesium for Halaven cycle 32 day 1 therapy. Medications: Prescriptions This Visit Medication Instructions Recorded Multivit-Min/FA/Lycopen/Lutein 1 each PO BID 07/29/16 [Centrum Silver Men Tablet] Primary Care Provider: Nathalie Donis Referring Provider: - Problem List (1) Sarcoma Status: Chronic (2) Chemotherapy management, encounter for Status: Acute (3) Neutropenia Status: Acute Qualifiers: Neutropenia type: secondary to cancer chemotherapy Qualified Code(s): D70.1 - Agranulocytosis secondary to cancer chemotherapy; T45.1X5A - Adverse effect of antineoplastic and immunosuppressive drugs, initial encounter Code Visit Office Visits / Consults: [id number] OV L5 Est 06/24/17 0940 <Electronically signed by Сергей Medina MD> Date Сергей Medina MD Cosigner Signature: Date (if applicable) CC: CBC W/DIFF, AUTOMATED Collected: 06/24/2017 Status: F Source: [place] 8:11 AM [facility] [place] REPOSITORY TYPE CODE TESTS RESULT OUT OF RANGE REFERENCE UNITS LAB L100.1000 4.4-11.0 K/mm3 Low WBC 2.3 LAB L100.1200 4.6-6.2 M/mm3 Low RBC 3.80 LAB L100.1300 13.0-16.5 g/dl Low HGB 11.9 LAB L100.1400 40-54 % Low HCT 36.1 LAB L100.1500 80-94 fL High MCV 95.0 LAB L100.1600 27.0-32.0 pg Normal MCH 31.3 LAB L100.1700 32-36 g/gl Normal MCHC 33.0 LAB L100.1810 11.6-14.6 % High RDW CV 14.7 LAB L100.1820 35.1-43.9 fl High RDW SD 50.4 LAB L100.1900 150-450 K/mm3 Normal PLT 270 LAB L100.2000 6.2-12.0 fl Normal MPV 8.5 LAB L100.2100 47-70 % Low NEUT% 32.2 LAB L100.2200 19-41 % Normal LY% 35.2 LAB L100.2300 0-10 % High MONO% 28.7 LAB L100.2400 0-5 % Normal EO% 0.4 LAB L100.2500 0-1 % High BASO% 3.5 LAB L100.2550 0.0-0.9 % Normal IM GRAN % 0.000 Result Comment: IG% - Immature Granulocytes (promyelocytes, myelocytes and metamyelocytes) > 1% indicates that a LEFT SHIFT is Present. LAB L100.2620 2.0-7.7 X10 3/uL Low Absolute Neut 0.7 LAB L100.2720 0.83-4.51 X10 3/ul Low Absolute Lymph 0.81 LAB L100.4500 Normal SMEAR COMMENT COMMENT Result Comment: SLIDE SCANNED - NEUTROPENIA NOTED. Performed By: #### L100.0100 #### [facility] [address] [place], [place] [address]all justin. [place], [place], [address] COMPREHENSIVE METABOLIC Collected: 06/24/2017 Status: F Source: [facility] 8:11 AM [facility] REPOSITORY Order Comment: Reason for Laboratory Test Chemotherapy TYPE CODE TESTS RESULT OUT OF RANGE REFERENCE UNITS LAB L501.0100 74-106 mg/dL Normal GLU 79 Result Comment: Please note revised GLUCOSE reference range effective 2017. LAB L501.1000 7-18 mg/dL High BUN 21 LAB L501.1100 0.70-1.30 mg/dL Normal CREAT,SERUM 1.01 Result Comment: The validity of the calculated GFR AND GFRAA in patients over 70 years has not been determined. Clinical correlation is essential. LAB L501.1110 >60 mL/min Normal EST GFR 75 Result Comment: Non- GFR Calc LAB L501.1115 >60 mL/min Normal EST GFR - AA 91 Result Comment: GFR Calc LAB L501.1255 ml/min Normal Estimated CRCL 50.01 LAB L501.1300 10-20 RATIO High BUN/CRE 20.8 LAB L501.1500 6.4-8. g/dL Low 2 T PROT 6.1 LAB L501.1800 3.2-5. g/dL Normal 0 ALB 3.5 LAB L501.1950 2.2-4. g/dL Normal 2 GLOB 2.6 LAB L501.2000 0.9-2. RATIO Normal 4 A/G 1.3 LAB L501.2200 8.5-10 mg/dL Low .1 CA 8.2 LAB L501.4100 15-37 U/L Normal AST 16 LAB L501.4305 45-117 U/L Normal ALK P 85 LAB L501.4405 16-61 U/L Normal ALT 18 LAB L501.4600 0.20-1 mg/dL Normal .00 T BILI 0.60 LAB L501.5300 136-14 mmol/L Normal 5 NA 140 LAB L501.5600 3.5-5. mmol/L Normal 1 K 4.5 LAB L501.5900 98-107 mmol/L Normal CL 106 LAB L501.6100 21.0-3 mmol/L Normal 2.0 CO2 30.0 LAB L501.6200 5-15 Low GAP 4 Performed By: #### L500.4050, L501.5200 #### [facility] [address] [place], [place], [address] MAGNESIUM Collected: 06/24/2017 Status: F Source: [place] 8:11 AM [facility] REPOSITORY Order Comment: Reason for Laboratory Test Chemotherapy TYPE CODE TESTS RESULT OUT OF RANGE REFERENCE UNITS LAB L501.5200 1.6-2.6 mg/dL Normal MG 2.2 Performed By: #### L500.4050, L501.5200 #### [facility] [address] [place], [place], [address] MAGNESIUM Collected: 06/18/2017 Status: F Source: [place] 7:42 AM [facility] REPOSITORY Order Comment: Reason for Laboratory Test . Reason for Laboratory Test CHEMO Serial Specimen #1, #2 or #3? 1 TYPE CODE TESTS RESULT OUT OF RANGE REFERENCE UNITS LAB L501.5200 1.6-2.6 mg/dL Normal MG 2.2 Result Comment: Please note revised Magnesium reference range effective 2017. Performed By: #### L501.5200, L504.2610 #### [facility] [address] [place], [place], [address] LDH Collected: 06/18/2017 Status: F Source: [place] 7:42 AM [facility] REPOSITORY Order Comment: Reason for Laboratory Test . Reason for Laboratory Test CHEMO Serial Specimen #1, #2 or #3? 1 TYPE CODE TESTS RESULT OUT OF RANGE REFERENCE UNITS LAB L504.2610 87-241 U/L Normal LDH 172 Performed By: #### L501.5200, L504.2610 #### [facility] [address] [place], [address] COMPREHENSIVE METABOLIC Collected: 06/18/2017 Status: F Source: [facility] 7:42 AM [facility] REPOSITORY Order Comment: Order Date: 01/22/17 Order Info: [id number] - CMP Order Info: [id number] - LIPID TYPE CODE TESTS RESULT OUT OF RANGE REFERENCE UNITS LAB L501.0100 74-106 mg/dL Normal GLU 89 Result Comment: Please note revised GLUCOSE reference range effective 2017. LAB L501.1000 7-18 mg/dL Normal BUN 17 LAB L501.1100 0.70-1.30 mg/dL Normal CREAT,SERUM 0.85 Result Comment: The validity of the calculated GFR AND GFRAA in patients over 70 years has not been determined. Clinical correlation is essential. LAB L501.1110 >60 mL/min Normal EST GFR 91 Result Comment: Non- GFR Calc LAB L501.1115 >60 mL/min Normal EST GFR - AA 111 Result Comment: GFR Calc LAB L501.1300 10-20 RATIO Normal BUN/CRE 20.0 LAB L501.1500 6.4-8.2 g/dL T Normal PROT 6.4 LAB L501.1800 3.2-5.0 g/dL Normal ALB 3.6 LAB L501.1950 2.2-4.2 g/dL Normal GLOB 2.8 LAB L501.2000 0.9-2.4 RATIO Normal A/G 1.3 LAB L501.2200 8.5-10.1 mg/dL CA Normal 8.5 LAB L501.4100 15-37 U/L Normal AST 21 LAB L501.4305 45-117 U/L Normal ALK P 91 LAB L501.4405 16-61 U/L Normal ALT 23 Result Comment: Please note revised ALT reference range effective 2017. LAB L501.4600 0.20-1.00 mg/dL Normal T BILI 0.70 LAB L501.5300 136-145 mmol/L Normal NA 140 LAB L501.5600 3.5-5.1 mmol/L Normal K 3.9 LAB L501.5900 98-107 mmol/L Normal CL 104 LAB L501.6100 21.0-32.0 mmol/L Normal CO2 29.0 LAB L501.6200 5-15 Normal GAP 7 Performed By: #### L500.4050 #### [facility] [address] [place], [address] LIPID PROFILE Collected: 06/18/2017 Status: F Source: [place] 7:42 AM [facility] REPOSITORY Order Comment: Order Date: 01/22/17 Order Info: [id number] - CMP Order Info: [id number] - LIPID TYPE CODE TESTS RESULT OUT OF RANGE REFERENCE UNITS LAB L501.4900 200 mg/dL Normal CHOL 143 Result Comment: <200 mg/dL Desirable 200-240 mg/dL Borderline >240 mg/dL High Risk LAB L501.5000 mg/dL Normal TRIG 86 Result Comment: The drugs N-Acetylcysteine and Metamizole may falsely depress this assay. Serum Triglycerides Reference Interval Normal <150 mg/dL Borderline high 150 - 199 mg/dL High 200 - 499 mg/dL Very High > or = 500 mg/dL LAB L501.6400 mg/dL Low HDL 38 Result Comment: The drugs N-Acetylcysteine and Metamizole may falsely depress this assay. Reference Range HDL <40 mg/dL Low HDL Cholesterol HDL >or= 60 mg/dL High HDL Cholesterol LAB L501.6500 0-130 mg/dL Normal LDL 88 LAB L501.6600 5-40 mg/dL Normal VLDL 17 Performed By: #### L500.4100 #### [facility] [address] [place], [address] BILIRUBIN, DIRECT Collected: 06/18/2017 Status: F Source: [place] 7:42 [facility] REPOSITORY Order Comment: Order Date: 01/22/17 Order Info: [id number] - CMP Order Info: [id number] - LIPID TYPE CODE TESTS RESULT OUT OF RANGE REFERENCE UNITS LAB L501.4700 0.00-0.30 mg/dL Normal D BILI 0.18 Performed By: #### L501.4700 #### [facility] [address] [place], [address] CBC W/DIFF, AUTOMATED Collected: 06/18/2017 Status: C Source: [place] 7:42 [facility] REPOSITORY Order Comment: Reason for Laboratory Test . CRITICAL VALUE VERIFIED. CALLED TO SOLIS 06/18/17 1053 Mary Beth Alcantar. RESULTS READ BACK BY SOLIS . TYPE CODE TESTS RESULT OUT OF RANGE REFERENCE UNITS LAB L100.1000 4.4-11.0 K/mm3 Low alert WBC 1.3 LAB L100.1200 4.6-6.2 M/mm3 Low RBC 3.71 LAB L100.1300 13.0-16.5 g/dl Low HGB 11.7 LAB L100.1400 40-54 % Low HCT 35.0 LAB L100.1500 80-94 fL High MCV 94.3 LAB L100.1600 27.0-32.0 pg Normal MCH 31.5 LAB L100.1700 32-36 g/gl Normal MCHC 33.4 LAB L100.1810 11.6-14.6 % Normal RDW CV 14.0 LAB L100.1820 35.1-43.9 fl High RDW SD 45.7 LAB L100.1900 150-450 K/mm3 Normal PLT 241 LAB L100.2000 6.2-12.0 fl Normal MPV 9.3 LAB L100.2100 47-70 % Low NEUT% 30.5 LAB L100.2200 19-41 % High LY% 48.4 LAB L100.2300 0-10 % High MONO% 10.9 LAB L100.2400 0-5 % Normal EO% 3.9 LAB L100.2500 0-1 % High BASO% 5.5 LAB L100.2550 0.0-0.9 % Normal IM GRAN % 0.800 Result Comment: IG% - Immature Granulocytes (promyelocytes, myelocytes and metamyelocytes) > 1% indicates that a LEFT SHIFT is Present. LAB L100.2620 2.0-7.7 X10 3/uL Low Absolute Neut 0.4 LAB L100.2720 0.83-4.51 X10 3/ul Low Absolute Lymph 0.62 LAB L100.5500 ADEQ Normal PLT EST ADEQUATE LAB L100.7000 NORM C AND C NORMAL Normal RED CELL MORPH NORM C+C LAB L100.9900 Normal PATH REV Reviewed Result Comment: Leukopenia and neutropenia. Clinical correlation necessary. Jaun Christianson M.D. 06/22/17 AMENDED REPORT 06/22/17 0956 PATH REV previously reported as: July Performed By: #### L100.0100 #### [facility] [place], [address] CBC W/DIFF, AUTOMATED Collected: 06/11/2017 Status: F Source: [place] 7:58 AM [facility] REPOSITORY TYPE CODE TESTS RESULT OUT OF RANGE REFERENCE UNITS LAB L100.1000 4.4-11.0 K/mm3 Low WBC 4.1 LAB L100.1200 4.6-6.2 M/mm3 Low RBC 3.72 LAB L100.1300 13.0-16.5 g/dl Low HGB 11.7 LAB L100.1400 40-54 % Low HCT 35.2 LAB L100.1500 80-94 fL High MCV 94.6 LAB L100.1600 27.0-32.0 pg Normal MCH 31.5 LAB L100.1700 32-36 g/gl Normal MCHC 33.2 LAB L100.1810 11.6-14.6 % Normal RDW CV 14.1 LAB L100.1820 35.1-43.9 fl High RDW SD 48.8 LAB L100.1900 150-450 K/mm3 Low PLT 144 LAB L100.2000 6.2-12.0 fl Normal MPV 9.5 LAB L100.2100 47-70 % Normal NEUT% 65.9 LAB L100.2200 19-41 % Normal LY% 20.9 LAB L100.2300 0-10 % Normal MONO% 3.7 LAB L100.2400 0-5 % High EO% 6.6 LAB L100.2500 0-1 % High BASO% 1.7 LAB L100.2550 0.0-0.9 % High IM GRAN % 1.200 Result Comment: IG% - Immature Granulocytes (promyelocytes, myelocytes and metamyelocytes) > 1% indicates that a LEFT SHIFT is Present. LAB L100.2620 2.0-7.7 X10 3/uL Normal Absolute Neut 2.7 LAB L100.2720 0.83-4.51 X10 3/ul Normal Absolute Lymph 0.85 Performed By: #### L100.0100 #### [facility] [address] [place], [address] COMPREHENSIVE METABOLIC Collected: 06/11/2017 Status: F Source: [facility] 7:58 AM [facility] REPOSITORY Order Comment: Reason for Laboratory Test Chemotherapy TYPE CODE TESTS RESULT OUT OF RANGE REFERENCE UNITS LAB L501.0100 74-106 mg/dL Normal GLU 77 Result Comment: Please note revised GLUCOSE reference range effective 2017. LAB L501.1000 7-18 mg/dL High BUN 20 LAB L501.1100 0.70-1.30 mg/dL Normal CREAT,SERUM 0.92 Result Comment: The validity of the calculated GFR AND GFRAA in patients over 70 years has not been determined. Clinical correlation is essential. LAB L501.1110 >60 mL/min Normal EST GFR 84 Result Comment: Non- GFR Calc LAB L501.1115 >60 mL/min Normal EST GFR - AA 102 Result Comment: GFR Calc LAB L501.1255 ml/min Normal Estimated CRCL 54.90 LAB L501.1300 10-20 RATIO High BUN/CRE 21.9 LAB L501.1500 6.4-8. g/dL Normal 2 T PROT 6.4 LAB L501.1800 3.2-5. g/dL Normal 0 ALB 3.4 LAB L501.1950 2.2-4. g/dL Normal 2 GLOB 3.0 LAB L501.2000 0.9-2. RATIO Normal 4 A/G 1.1 LAB L501.2200 8.5-10 mg/dL Low .1 CA 8.3 LAB L501.4100 15-37 U/L Normal AST 16 LAB L501.4305 45-117 U/L Normal ALK P 96 LAB L501.4405 16-61 U/L Normal ALT 17 Result Comment: Please note revised ALT reference range effective 2017. LAB L501.4600 0.20-1.00 mg/dL Normal T BILI 0.90 LAB L501.5300 136-145 mmol/L Normal NA 143 LAB L501.5600 3.5-5.1 mmol/L Normal K 4.2 LAB L501.5900 98-107 mmol/L Normal CL 106 LAB L501.6100 21.0-32.0 mmol/L Normal CO2 30.0 LAB L501.6200 5-15 Normal GAP 7 Performed By: #### L500.4050, L501.5200 #### [facility] [address] [facility] [place], [place], [address] MAGNESIUM Collected: 06/11/2017 Status: F Source: [place] 7:58 AM [facility] REPOSITORY Order Comment: Reason for Laboratory Test Chemotherapy TYPE CODE TESTS RESULT OUT OF RANGE REFERENCE UNITS LAB L501.5200 1.6-2.6 mg/dL Normal MG 2.2 Result Comment: Please note revised Magnesium reference range effective 2017. Performed By: #### L500.4050, L501.5200 #### [facility] [address] [place], [address] ONCOLOGY VISIT REPORT Observed: 06/04/2017 Status: F Source: [place] 11:57 AM [facility] REPOSITORY [facility] [address] [place] [address] OFFICE VISIT Date of Service: 06/04/17 0841 MR#: [id number] Acct: [id number] Name: CAMILO ESQUIVEL Rep #: [id number] : 1935 From: Сергей Medina MD Age/Sex: 82/M Location: [facility] Status: Signed Subjective - Date of Service Date of Service:: 06/04/17 - Chief Complaint F/U for chemotherapy. - History of Present Illness Mr. Camilo Esquivel is a very pleasant 82-year-old man who presented with a right groin mass in November 2014. Cytology showed pleomorphic sarcoma. MRI of the pelvis on 01/03/2015 showed an enhancing mass in the right inguinal area measuring 2.9 cm. The patient was referred to [facility]. PET CT scan on 01/11/2015 showed a right inguinal soft tissue mass with right retroperitoneal mass. Biopsy of the right inguinal mass on 01/15/2015 positive for sarcoma. Biopsy of the retroperitoneal mass on 01/21/2015 also showed sarcoma. He was started on Gemzar/Taxotere every 21 days on 02/05/2015. He had progressive disease on PET CT scan done on 05/01/2015. Treatment was changed to Halaven every 21 days in May 2015. Halaven was then changed to every 28 days with cycle 16 and subsequent cycles. Evaluated by Dr. Burns 11/25/16 and underwent PET/CT scan which showed stable disease. He continues Halaven. Bx of L posterior neck node was negative on 11/25/2016. Comes in for C29D1 AND 8 Halaven. He feels well. Still has R shoulder pain from arthritis but better. He was seen by Dr. Burns at [facility], PET/CT showed mixed response on 04/14/2017 with new activity in supraglottic area so since he has tolerated chemotherapy without adverse effects, after discussion, therapy should be changed to every 21 days. He was seen by ENT and throat biopsy was done on 06/02/2017. Comes in for C31D1 Halaven. 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 Family History Paternal Past Medical History: Heart disease Maternal Past Medical History: COPD Social History Social History: No changes Smoking Status Never smoker Review of Systems Constitutional:: Denies: Fever, Sweats, Weight loss, Appetite change, Chills Cardiovascular:: Denies: Chest pain, Palpitations, Dyspnea on exertion, Orthopnea, PND, Shortness of breath Respiratory: Denies: Cough, Hemoptysis, Shortness of Breath, Wheezing Gastrointestinal:: Denies: Abdominal pain, Nausea, Vomiting, Diarrhea, Constipation, Hematochezia Genitourinary: Denies: Dysuria, Hematuria, 15, Flank pain Musculoskeletal:: Denies: Back pain, Myalgia, Arthralgia Skin: Denies: Rash, Skin Changes, Wounds Neurological:: Denies: Headache, Dizziness, Visual changes, Tinnitus, Hearing loss Psychiatric: Denies: Anxiety, Depression, Homicidal Ideations, Suicidal Ideations Vital Signs Height 5 ft 6 in Weight: 71.214 kg Weight in Pounds 157.0 lbs Pulse Ox 96 - Physical Exam General: Alert, Oriented x3, No apparent distress, - - [place] HEENT: Atraumatic, PERRLA, EOMI, Normocephalic Oropharynx:: Dry mucosa Neck:: Supple, Trachea midline. Negative for: JVD, bilateral Cardiac:: Regular rate, Regular rhythm, Normal S1, Normal S2. Negative for: Murmur Lungs: Clear to auscultation, Excusion symmetrical. Negative for: Rhonchi, Wheezes Abdomen:: Bowel sounds x 4, Soft, Non-tender, Non-distended. 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 Tolerating therapy with Mixed response on PET/CT. New supraglottic lesion on PET/CT scan, throat biopsy done on 06/02/2017. Plan is to proceed with chemotherapy Halaven cycle 31 D1 today and D8 next week. Return to clinic 3 weeks with CBC, CMP, magnesium for Halaven cycle 32 day 1 therapy. Medications: Prescriptions This Visit Medication Instructions Recorded Multivit-Min/FA/Lycopen/Lutein 1 each PO BID 07/29/16 [Centrum Silver Men Tablet] Medications Added to Medication List This Visit Primary Care Provider: Nathalie Donis Referring Provider: - Problem List (1) Sarcoma Status: Chronic (2) Chemotherapy management, encounter for Status: Acute (3) Abnormal finding on imaging Status: Acute Code Visit Office Visits / Consults: [id number] OV L5 Est 06/04/17 1157 <Electronically signed by Сергей Medina MD> Date Сергей Medina MD Cosigner Signature: Date (if applicable) CC: CBC W/DIFF, AUTOMATED Collected: 06/04/2017 Status: F Source: [place] 8:04 AM [facility] REPOSITORY Order Comment: Reason for Laboratory Test . TYPE CODE TESTS RESULT OUT OF RANGE REFERENCE UNITS LAB L100.1000 4.4-11.0 K/mm3 Normal WBC 4.8 LAB L100.1200 4.6-6.2 M/mm3 Low RBC 3.73 LAB L100.1300 13.0-16.5 g/dl Low HGB 11.8 LAB L100.1400 40-54 % Low HCT 36.0 LAB L100.1500 80-94 fL High MCV 96.5 LAB L100.1600 27.0-32.0 pg Normal MCH 31.6 LAB L100.1700 32-36 g/gl Normal MCHC 32.8 LAB L100.1810 11.6-14.6 % Normal RDW CV 14.4 LAB L100.1820 35.1-43.9 fl High RDW SD 48.1 LAB L100.1900 150-450 K/mm3 Normal PLT 202 LAB L100.2000 6.2-12.0 fl Normal MPV 9.3 LAB L100.2100 47-70 % Normal NEUT% 65.2 LAB L100.2200 19-41 % Low LY% 18.9 LAB L100.2300 0-10 % High MONO% 11.6 LAB L100.2400 0-5 % Normal EO% 2.9 LAB L100.2500 0-1 % High BASO% 1.2 LAB L100.2550 0.0-0.9 % Normal IM GRAN % 0.200 Result Comment: IG% - Immature Granulocytes (promyelocytes, myelocytes and metamyelocytes) > 1% indicates that a LEFT SHIFT is Present. LAB L100.2620 2.0-7.7 X10 3/uL Normal Absolute Neut 3.1 LAB L100.2720 0.83-4.51 X10 3/ul Normal Absolute Lymph 0.91 Performed By: #### L100.0100 #### [facility] [address] [place], [address] COMPREHENSIVE METABOLIC Collected: 06/04/2017 Status: F Source: [facility] 8:04 AM [facility] REPOSITORY Order Comment: Reason for Laboratory Test . Reason for Laboratory Test CHEMO TYPE CODE TESTS RESULT OUT OF RANGE REFERENCE UNITS LAB L501.0100 74-106 mg/dL Normal GLU 90 Result Comment: Please note revised GLUCOSE reference range effective 2017. LAB L501.1000 7-18 mg/dL High BUN 19 LAB L501.1100 0.70-1.30 mg/dL Normal CREAT,SERUM 0.96 Result Comment: The validity of the calculated GFR AND GFRAA in patients over 70 years has not been determined. Clinical correlation is essential. LAB L501.1110 >60 mL/min Normal EST GFR 79 Result Comment: Non- GFR Calc LAB L501.1115 >60 mL/min Normal EST GFR - AA 96 Result Comment: GFR Calc LAB L501.1255 ml/min Normal Estimated CRCL 52.61 LAB L501.1300 10-20 RATIO Normal BUN/CRE 19.8 LAB L501.1500 6.4-8. g/dL Low 2 T PROT 6.0 LAB L501.1800 3.2-5. g/dL Normal 0 ALB 3.3 LAB L501.1950 2.2-4. g/dL Normal 2 GLOB 2.7 LAB L501.2000 0.9-2. RATIO Normal 4 A/G 1.2 LAB L501.2200 8.5-10 mg/dL Low .1 CA 8.1 LAB L501.4100 15-37 U/L Normal AST 15 LAB L501.4305 45-117 U/L Normal ALK P 84 LAB L501.4405 16-61 U/L Low ALT 15 Result Comment: Please note revised ALT reference range effective 2017. LAB L501.4600 0.20-1.00 mg/dL Normal T BILI 0.80 LAB L501.5300 136-145 mmol/L Normal NA 143 LAB L501.5600 3.5-5.1 mmol/L Normal K 4.0 LAB L501.5900 98-107 mmol/L Normal CL 106 LAB L501.6100 21.0-32.0 mmol/L Normal CO2 29.0 LAB L501.6200 5-15 Normal GAP 8 Performed By: #### L500.4050, L501.5200 #### [facility] [address] [facility] [facility] [place], [place], [address] MAGNESIUM Collected: 06/04/2017 Status: F Source: [place] 8:04 AM [facility] REPOSITORY Order Comment: Reason for Laboratory Test . Reason for Laboratory Test CHEMO TYPE CODE TESTS RESULT OUT OF RANGE REFERENCE UNITS LAB L501.5200 1.6-2.6 mg/dL Normal MG 2.1 Result Comment: Please note revised Magnesium reference range effective 2017. Performed By: #### L500.4050, L501.5200 #### [facility] [address] [facility] [address] [place], [place], [address] OPERATIVE REPORT Observed: 06/02/2017 Status: F Source: [place] 1:12 PM [facility] REPOSITORY [facility] Medical Records Department [address] [place] [address] Operative Report 06/02/17 1305 MR#: [id number] Acct: [id number] Name: CAMILO ESQUIVEL Rep #: [id number] : 1935 82 From: Sergio Lott MD PCP: Nathalie Donis MD Status: REG [facility] Y Location: [place] [address] Problem List (1) Supraglottic mass Status: Acute Report of Operation Date of Procedure: 06/02/17 Pre-Operative Diagnosis: left supraglottic mass Post-Operative Diagnosis: left supraglottic mass Surgery/Procedure Performed:: diagnostic laryngoscopy with biopsy and use of operative telescope Type of Anesthesia:: General Estimated Blood Loss (mL): 0cc Description of Procedure: on the day of the procedure, after appropriate informed consent was obtained, the patient was brought to the operating room and placed in supine position on the operating table. he was placed under general endotracheal anesthesia by the anesthesiologist. the endotracheal tube was secured, the eyes were taped. the table was rotated 90 degrees toward the surgeon. a tooth guard was placed. a gretchen laryngoscope was inserted into the oral cavity with care not to damage the lips teeth or gums. once a glottic view was obtained, it was suspended from the thapa. a zero degree endoscope was inserted and the larynx was examined. a small left mid-false cord nodule was biopsied. the remainder of the glottis, supraglottis, oropharynx and hypopharynx was clear of masses or mucosal irregularities. hemostasis was achieved. the patient was transferred to the PACU in stable condition. - Admit VTE Documentation VTE Present on Admission: No VTE Mechan Device Prophylaxis: None VTE Pharm Prophylaxis ordered?: No Reason prophylaxis not ordered:: Treatment Not Indicated 06/02/17 1312 <Electronically signed by Sergio Lott MD> Date Sergio Lott MD CC: Nathalie Donis MD; Nathalie Lott MD Signed DISCHARGE INSTRUCTION Observed: 06/02/2017 Status: F Source: [place] 1:05 PM [facility] REPOSITORY [facility] Medical Records Department [address] [place] [address] Instructions for Home/Discharge Instructions 06/02/17 1304 MR#: [id number] Acct: [id number] Name: CAMILO ESQUIVEL Rep #: [id number] : 1935 82 From: Sergio Lott MD PCP: Nathalie Donis MD Status: [facility] You will use the following diet at home:: No restrictions Discharge Activity: Return to Normal Activity Call your doctor if your incision/area has: Increased Pain/ Swelling Allergies/Adverse Reactions: Allergies No Known Allergies Allergy (Verified 05/28/17 08:19) Medications to take at Discharge Atorvastatin Calcium [Lipitor] 80 mg PO QHS 03/07/15 Glucosamine/MSM/Chondroitin A [Glucosamine Chondroit MSM Tab] 1 each PO DAILY 03/07/15 Metoprolol Tartrate [Lopressor (beta phong)] 25 mg PO BID 03/07/15 proCHLORPERazine tablet [Compazine tablet] 10 mg PO Q6H PRN PRN 03/07/15 Aspirin E.C. [Ecotrin] 81 mg PO DAILY@0800 07/03/15 Phenylephrine HCl/[place] Butter [Preparation H Suppository] 1 each RC UD PRN 07/03/15 Halaven 2 mg IV QMONTH 07/24/15 Multivit-Min/FA/Lycopen/Lutein [Centrum Silver Men Tablet] 1 each PO BID 07/29/16 tamsulosin 0.4 mg capsule 0.4 mg PO DAILY 60 Days #60 02/27/17 Naproxen Sodium [Aleve] 220 mg PO QODAY 04/15/17 Ondansetron [Zofran Odt] 4 mg PO Q8H PRN PRN #60 tab 04/15/17 Pantoprazole Sodium [Protonix] 40 mg PO DAILY #60 tablet 04/15/17 lisinopril 2.5 mg tablet 2.5 mg PO QDAY #30 tab 04/16/17 Primary Care Physician: Sergio Donis MD [Primary Care Provider] - Please Follow Up With: Sergio Lott MD When: 1 week 06/02/17 1305 <Electronically signed by Sergio Lott MD> Date Sergio Lott MD CC: Nathalie Donis MD MISCELLANEOUS SPECIMEN Observed: 06/02/2017 Status: F Source: [place] 10:57 AM [facility] REPOSITORY Patient: CAMILO ESQUIVEL : 1935 (82/M) Acct Num: [id number] Phys: Kaylie ROYAL,Nathalie Unit Num: [id number] Loc: [facility] Specimen: [id number] Received: 06/02/17 - 1339 Spec Type: MISC TISSUES TISSUES: Supraglottic space GROSS DESCRIPTION Received in fixative is one container labeled with the patient's name and designated supraglottic mass. The specimen consists of one irregular fragment of light srinivasan soft tissue that measures 1 cm in greatest dimension. The specimen is totally submitted in one cassette. / SJ:nette 06/02/17 TC:5 CPT: 71436 HEADER OPERATION: Direct laryngoscopy with biopsy PRE-OP DIAGNOSIS: Supraglottic mass TISSUE SUBMITTED: Supraglottic mass MICROSCOPIC DESCRIPTION Slides are reviewed. MICROSCOPIC DIAGNOSIS Supraglottic mass, biopsy: Changes suggestive of squamous papilloma. AM:nette 06/03/17 Signed Arnulfo Newman 06/03/17 <signature on file> Performed By: #### PMISC #### [facility] [address] [facility] [place], [place], [address] 12 LEAD ELECTROCARDIOGRAM Observed: 05/29/2017 Status: F Source: [place] 2:23 PM [facility] REPOSITORY [facility] Cardiovascular Services [address] [place] [address] EKG - [facility] 05/26/17 1326 MR#: [id number] Acct: [id number] Name: CAMILO ESQUIVEL Rep #: [id number] : 1935 82 From: Garrett Kimball MD Attending Dr: Nathalie Lott MD Status: PRE [facility] Ordering Dr: Sergio Lott MD Date: 05/26/17 Location: [facility] Sex: M C Admitted: Test Reason : Blood Pressure : / mmHG Vent. Rate : 051 BPM Atrial Rate : 051 BPM P-R Int : 192 ms QRS Dur : 106 ms QT Int : 448 ms P-R-T Axes : 042 -07 -01 degrees QTc Int : 412 ms Sinus bradycardia Low voltage QRS Inferior infarct , age undetermined Cannot rule out Anterior infarct , age undetermined Abnormal ECG Confirmed by JIGAR ROYAL, GARRETT ([id number]), staff editor JELLY LOZANO ([id number]) on 05/29/2017 2:22:52 PM Referred By: Sergio Lott Confirmed By:GARRETT KIMBALL MD 05/29/17 1422 Date Garrett Kimball MD CC: Nathalie Donis MD; Nathalie Lott MD Date Dictated: 05/26/17 1326 Date Transcribed: 05/26/17 1326 Exchange Trouble Shooter: Signed ONCOLOGY VISIT REPORT Observed: 05/28/2017 Status: F Source: [place] 9:10 AM [facility] REPOSITORY [facility] [address] [place] [address] OFFICE VISIT Date of Service: 05/28/17 09 MR#: [id number] Acct: [id number] Name: CAMILO ESQUIVEL Rep #: [id number] : 1935 From: Сергей Medina MD Age/Sex: 82/M Location: [facility] Status: Signed Subjective - Date of Service Date of Service:: 05/28/17 - Chief Complaint F/U for chemotherapy. - History of Present Illness Mr. Camilo Esquivel is a very pleasant 82-year-old man who presented with a right groin mass in November 2014. Cytology showed pleomorphic sarcoma. MRI of the pelvis on 01/03/2015 showed an enhancing mass in the right inguinal area measuring 2.9 cm. The patient was referred to [facility]. PET CT scan on 01/11/2015 showed a right inguinal soft tissue mass with right retroperitoneal mass. Biopsy of the right inguinal mass on 01/15/2015 positive for sarcoma. Biopsy of the retroperitoneal mass on 01/21/2015 also showed sarcoma. He was started on Gemzar/Taxotere every 21 days on 02/05/2015. He had progressive disease on PET CT scan done on 05/01/2015. Treatment was changed to Halaven every 21 days in May 2015. Halaven was then changed to every 28 days with cycle 16 and subsequent cycles. Evaluated by Dr. Burns 11/25/16 and underwent PET/CT scan which showed stable disease. He continues Halaven. Bx of L posterior neck node was negative on 11/25/2016. Comes in for C29D1 AND 8 Halaven. He feels well. Still has R shoulder pain from arthritis but better. He was seen by Dr. Burns at [facility], PET/CT showed mixed response on 04/14/2017 with new activity in supraglottic area so since he has tolerated chemotherapy without adverse effects, after discussion, therapy should be changed to every 21 days. Comes in for chemotherapy C31D1 Halaven. He was seen by ENT and is scheduled for throat biopsy on 06/02/2017. 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 Family History Paternal Past Medical History: Heart disease Maternal Past Medical History: COPD Social History Social History: No changes Smoking Status Never smoker Review of Systems Constitutional:: Denies: Fever, Sweats, Weight loss, Appetite change, Chills Cardiovascular:: Denies: Chest pain, Palpitations, Dyspnea on exertion, Orthopnea, PND, Shortness of breath Respiratory: Denies: Cough, Hemoptysis, Shortness of Breath, Wheezing Gastrointestinal:: Denies: Abdominal pain, Nausea, Vomiting, Diarrhea, Constipation, Hematochezia Genitourinary: Denies: Dysuria, Hematuria, 15, Flank pain Musculoskeletal:: Denies: Back pain, Myalgia, Arthralgia Skin: Denies: Rash, Skin Changes, Wounds Neurological:: Denies: Headache, Dizziness, Visual changes, Tinnitus, Hearing loss Psychiatric: Denies: Anxiety, Depression, Homicidal Ideations, Suicidal Ideations Vital Signs Height 5 ft 6 in Weight: 71.214 kg Weight in Pounds 157.0 lbs Pulse Ox 97 - Physical Exam General: Alert, Oriented x3, No apparent distress, - - [place] HEENT: Atraumatic, PERRLA, EOMI, Normocephalic Oropharynx:: Dry mucosa Neck:: Supple, Trachea midline. Negative for: JVD, bilateral Cardiac:: Regular rate, Regular rhythm, Normal S1, Normal S2. Negative for: Murmur Lungs: Clear to auscultation, Excusion symmetrical. Negative for: Rhonchi, Wheezes Abdomen:: Bowel sounds x 4, Soft, Non-tender, Non-distended. 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 Tolerating therapy with Mixed response on PET/CT. New supraglottic lesion on PET/CT scan, for biopsy next wk. Plan is to hold chemotherapy cycle 31 today. Return to clinic 1 week with CBC, CMP, magnesium for cycle 31 Halaven day 1 therapy. Medications: Prescriptions This Visit Medication Instructions Recorded Multivit-Min/FA/Lycopen/Lutein 1 each PO BID 07/29/16 [Centrum Silver Men Tablet] Primary Care Provider: Nathalie Donis Referring Provider: - Problem List (1) Sarcoma Status: Chronic (2) Chemotherapy management, encounter for Status: Acute (3) Abnormal finding on imaging Status: Acute Code Visit Office Visits / Consults: [id number] OV L4 Est 05/28/17 0910 <Electronically signed by Сергей Medina MD> Date Сергей Dodgeigner Signature: Date (if applicable) CC: CBC W/DIFF, AUTOMATED Collected: 05/28/2017 Status: F Source: [place] 7:57 AM [facility] REPOSITORY TYPE CODE TESTS RESULT OUT OF RANGE REFERENCE UNITS LAB L100.1000 4.4-11.0 K/mm3 Low WBC 2.7 LAB L100.1200 4.6-6.2 M/mm3 Low RBC 3.78 LAB L100.1300 13.0-16.5 g/dl Low HGB 11.8 LAB L100.1400 40-54 % Low HCT 36.4 LAB L100.1500 80-94 fL High MCV 96.3 LAB L100.1600 27.0-32.0 pg Normal MCH 31.2 LAB L100.1700 32-36 g/gl Normal MCHC 32.4 LAB L100.1810 11.6-14.6 % Normal RDW CV 14.5 LAB L100.1820 35.1-43.9 fl High RDW SD 51.0 LAB L100.1900 150-450 K/mm3 Normal PLT 258 LAB L100.2000 6.2-12.0 fl Normal MPV 9.3 LAB L100.2100 47-70 % Low NEUT% 41.7 LAB L100.2200 19-41 % Normal LY% 36.2 LAB L100.2300 0-10 % High MONO% 17.7 LAB L100.2400 0-5 % Normal EO% 0.7 LAB L100.2500 0-1 % High BASO% 3.3 LAB L100.2550 0.0-0.9 % Normal IM GRAN % 0.400 Result Comment: IG% - Immature Granulocytes (promyelocytes, myelocytes and metamyelocytes) > 1% indicates that a LEFT SHIFT is Present. LAB L100.2620 2.0-7.7 X10 3/uL Low Absolute Neut 1.1 LAB L100.2720 0.83-4.51 X10 3/ul Normal Absolute Lymph 0.98 Performed By: #### L100.0100 #### [facility] [address] [place], [address] COMPREHENSIVE METABOLIC Collected: 05/28/2017 Status: F Source: [place] [facility] 7:57 AM [facility] REPOSITORY Order Comment: Reason for Laboratory Test Chemotherapy TYPE CODE TESTS RESULT OUT OF RANGE REFERENCE UNITS LAB L501.0100 74-106 mg/dL Low GLU 71 Result Comment: Please note revised GLUCOSE reference range effective 2017. LAB L501.1000 7-18 mg/dL High BUN 22 LAB L501.1100 0.70-1.30 mg/dL Normal CREAT,SERUM 0.89 Result Comment: The validity of the calculated GFR AND GFRAA in patients over 70 years has not been determined. Clinical correlation is essential. LAB L501.1110 >60 mL/min Normal EST GFR 87 Result Comment: Non- GFR Calc LAB L501.1115 >60 mL/min Normal EST GFR - AA 105 Result Comment: GFR Calc LAB L501.1255 ml/min Normal Estimated CRCL 56.75 LAB L501.1300 10-20 RATIO High BUN/CRE 24.7 LAB L501.1500 6.4-8. g/dL Low 2 T PROT 6.1 LAB L501.1800 3.2-5. g/dL Normal 0 ALB 3.4 LAB L501.1950 2.2-4. g/dL Normal 2 GLOB 2.7 LAB L501.2000 0.9-2. RATIO Normal 4 A/G 1.3 LAB L501.2200 8.5-10 mg/dL Low .1 CA 7.9 LAB L501.4100 15-37 U/L Low AST 12 LAB L501.4305 45-117 U/L Normal ALK P 89 LAB L501.4405 16-61 U/L Normal ALT 16 Result Comment: Please note revised ALT reference range effective 2017. LAB L501.4600 0.20-1.00 mg/dL Normal T BILI 0.60 LAB L501.5300 136-145 mmol/L Normal NA 142 LAB L501.5600 3.5-5.1 mmol/L Normal K 4.3 LAB L501.5900 98-107 mmol/L Normal CL 106 LAB L501.6100 21.0-32.0 mmol/L Normal CO2 29.0 LAB L501.6200 5-15 Normal GAP 7 Performed By: #### L500.4050, L501.5200 #### [facility] [address] [place], [address] MAGNESIUM Collected: 05/28/2017 Status: F Source: [place] 7:57 AM [facility] REPOSITORY Order Comment: Reason for Laboratory Test Chemotherapy TYPE CODE TESTS RESULT OUT OF RANGE REFERENCE UNITS LAB L501.5200 1.6-2.6 mg/dL Normal MG 2.2 Result Comment: Please note revised Magnesium reference range effective 2017. Performed By: #### L500.4050, L501.5200 #### [facility] [address] [place], [place], [address] BASIC METABOLIC Collected: 05/26/2017 Status: F Source: [place] PROFILE (BMP) 2:40 PM [facility] REPOSITORY TYPE CODE TESTS RESULT OUT OF RANGE REFERENCE UNITS LAB L501.0100 74-106 mg/dL Normal GLU 89 Result Comment: Please note revised GLUCOSE reference range effective 2017. LAB L501.1000 7-18 mg/dL High BUN 19 LAB L501.1100 0.70-1.30 mg/dL Normal CREAT,SERUM 0.91 Result Comment: The validity of the calculated GFR AND GFRAA in patients over 70 years has not been determined. Clinical correlation is essential. LAB L501.1110 >60 mL/min Normal EST GFR 85 Result Comment: Non- GFR Calc LAB L501.1115 >60 mL/min Normal EST GFR - AA 103 Result Comment: GFR Calc LAB L501.1255 ml/min Normal Estimated CRCL 55.50 LAB L501.1300 10-20 RATIO High BUN/CRE 21.0 LAB L501.2200 8.5-10 mg/dL Low .1 CA 8.4 LAB L501.5300 136-14 mmol/L Normal 5 NA 140 LAB L501.5600 3.5-5. mmol/L Normal 1 K 4.3 LAB L501.5900 98-107 mmol/L Normal CL 106 LAB L501.6100 21.0-3 mmol/L Normal 2.0 CO2 31.0 LAB L501.6200 5-15 Low GAP 3 Performed By: #### L500.2500 #### [facility] [address] [place], [place], [id number] CBC W/DIFF, AUTOMATED Collected: 05/14/2017 Status: F Source: [place] 7:58 AM [facility] REPOSITORY TYPE CODE TESTS RESULT OUT OF RANGE REFERENCE UNITS LAB L100.1000 4.4-11.0 K/mm3 Low WBC 4.1 LAB L100.1200 4.6-6.2 M/mm3 Low RBC 3.69 LAB L100.1300 13.0-16.5 g/dl Low HGB 11.5 LAB L100.1400 40-54 % Low HCT 35.0 LAB L100.1500 80-94 fL High MCV 94.9 LAB L100.1600 27.0-32.0 pg Normal MCH 31.2 LAB L100.1700 32-36 g/gl Normal MCHC 32.9 LAB L100.1810 11.6-14.6 % Normal RDW CV 13.8 LAB L100.1820 35.1-43.9 fl High RDW SD 47.8 LAB L100.1900 150-450 K/mm3 Normal PLT 163 LAB L100.2000 6.2-12.0 fl Normal MPV 9.9 LAB L100.2100 47-70 % High NEUT% 72.7 LAB L100.2200 19-41 % Low LY% 18.7 LAB L100.2300 0-10 % Normal MONO% 4.4 LAB L100.2400 0-5 % Normal EO% 2.2 LAB L100.2500 0-1 % Normal BASO% 1.0 LAB L100.2550 0.0-0.9 % High IM GRAN % 1.000 Result Comment: IG% - Immature Granulocytes (promyelocytes, myelocytes and metamyelocytes) > 1% indicates that a LEFT SHIFT is Present. LAB L100.2620 2.0-7.7 X10 3/uL Normal Absolute Neut 3.0 LAB L100.2720 0.83-4.51 X10 3/ul Low Absolute Lymph 0.76 Performed By: #### L100.0100 #### [facility] [address] [place], [place], [address] COMPREHENSIVE METABOLIC Collected: 05/14/2017 Status: F Source: MARIANGEL CARIAS 7:58 AM [facility] REPOSITORY Order Comment: Reason for Laboratory Test Chemotherapy TYPE CODE TESTS RESULT OUT OF RANGE REFERENCE UNITS LAB L501.0100 74-106 mg/dL Normal GLU 81 Result Comment: Please note revised GLUCOSE reference range effective 2017. LAB L501.1000 7-18 mg/dL High BUN 22 LAB L501.1100 0.70-1.30 mg/dL Normal CREAT,SERUM 0.88 Result Comment: The validity of the calculated GFR AND GFRAA in patients over 70 years has not been determined. Clinical correlation is essential. LAB L501.1110 >60 mL/min Normal EST GFR 88 Result Comment: Non- GFR Calc LAB L501.1115 >60 mL/min Normal EST GFR - AA 106 Result Comment: GFR Calc LAB L501.1255 ml/min Normal Estimated CRCL 57.40 LAB L501.1300 10-20 RATIO High BUN/CRE 24.9 LAB L501.1500 6.4-8. g/dL Low 2 T PROT 6.3 LAB L501.1800 3.2-5. g/dL Normal 0 ALB 3.4 LAB L501.1950 2.2-4. g/dL Normal 2 GLOB 2.9 LAB L501.2000 0.9-2. RATIO Normal 4 A/G 1.2 LAB L501.2200 8.5-10 mg/dL Low .1 CA 8.4 LAB L501.4100 15-37 U/L Normal AST 20 LAB L501.4305 45-117 U/L Normal ALK P 90 LAB L501.4405 16-61 U/L Normal ALT 21 Result Comment: Please note revised ALT reference range effective 2017. LAB L501.4600 0.20-1.00 mg/dL Normal T BILI 0.80 LAB L501.5300 136-145 mmol/L Normal NA 141 LAB L501.5600 3.5-5.1 mmol/L Normal K 4.2 LAB L501.5900 98-107 mmol/L Normal CL 105 LAB L501.6100 21.0-32.0 mmol/L Normal CO2 28.0 LAB L501.6200 5-15 Normal GAP 8 Performed By: #### L500.4050, L501.5200 #### [facility] [address] [place], [place], [address] MAGNESIUM Collected: 05/14/2017 Status: F Source: [place] 7:58 AM [facility] REPOSITORY Order Comment: Reason for Laboratory Test Chemotherapy TYPE CODE TESTS RESULT OUT OF RANGE REFERENCE UNITS LAB L501.5200 1.6-2.6 mg/dL Normal MG 2.1 Result Comment: Please note revised Magnesium reference range effective 2017. Performed By: #### L500.4050, L501.5200 #### [facility] [address] [place], [place], [address] CBC W/DIFF, AUTOMATED Collected: 05/07/2017 Status: F Source: [place] 7:59 AM [facility] REPOSITORY TYPE CODE TESTS RESULT OUT OF RANGE REFERENCE UNITS LAB L100.1000 4.4-11.0 K/mm3 Low WBC 3.1 LAB L100.1200 4.6-6.2 M/mm3 Low RBC 3.56 LAB L100.1300 13.0-16.5 g/dl Low HGB 11.5 LAB L100.1400 40-54 % Low HCT 34.2 LAB L100.1500 80-94 fL High MCV 96.1 LAB L100.1600 27.0-32.0 pg High MCH 32.3 LAB L100.1700 32-36 g/gl Normal MCHC 33.6 LAB L100.1810 11.6-14.6 % Normal RDW CV 14.0 LAB L100.1820 35.1-43.9 fl High RDW SD 46.5 LAB L100.1900 150-450 K/mm3 Normal PLT 250 LAB L100.2000 6.2-12.0 fl Normal MPV 9.3 LAB L100.2100 47-70 % Normal NEUT% 49.7 LAB L100.2200 19-41 % Normal LY% 28.1 LAB L100.2300 0-10 % High MONO% 19.4 LAB L100.2400 0-5 % Normal EO% 0.6 LAB L100.2500 0-1 % High BASO% 1.9 LAB L100.2550 0.0-0.9 % Normal IM GRAN % 0.300 Result Comment: IG% - Immature Granulocytes (promyelocytes, myelocytes and metamyelocytes) > 1% indicates that a LEFT SHIFT is Present. LAB L100.2620 2.0-7.7 X10 3/uL Low Absolute Neut 1.5 LAB L100.2720 0.83-4.51 X10 3/ul Normal Absolute Lymph 0.87 Performed By: #### L100.0100 #### [facility] [address] [place], [address] COMPREHENSIVE METABOLIC Collected: 05/07/2017 Status: F [facility] REPOSITORY Order Comment: Reason for Laboratory Test Chemotherapy TYPE CODE TESTS RESULT OUT OF RANGE REFERENCE UNITS LAB L501.0100 74-106 mg/dL Normal GLU 80 Result Comment: Please note revised GLUCOSE reference range effective 2017. LAB L501.1000 7-18 mg/dL High BUN 27 LAB L501.1100 0.70-1.30 mg/dL Normal CREAT,SERUM 0.96 Result Comment: The validity of the calculated GFR AND GFRAA in patients over 70 years has not been determined. Clinical correlation is essential. LAB L501.1110 >60 mL/min Normal EST GFR 79 Result Comment: Non- GFR Calc LAB L501.1115 >60 mL/min Normal EST GFR - AA 96 Result Comment: GFR Calc LAB L501.1255 ml/min Normal Estimated CRCL 52.61 LAB L501.1300 10-20 RATIO High BUN/CRE 28.0 LAB L501.1500 6.4-8. g/dL Low 2 T PROT 6.0 LAB L501.1800 3.2-5. g/dL Normal 0 ALB 3.2 LAB L501.1950 2.2-4. g/dL Normal 2 GLOB 2.8 LAB L501.2000 0.9-2. RATIO Normal 4 A/G 1.1 LAB L501.2200 8.5-10 mg/dL Low .1 CA 8.0 LAB L501.4100 15-37 U/L Normal AST 21 LAB L501.4305 45-117 U/L Normal ALK P 98 LAB L501.4405 16-61 U/L Normal ALT 22 Result Comment: Please note revised ALT reference range effective 2017. LAB L501.4600 0.20-1.00 mg/dL Normal T BILI 0.60 LAB L501.5300 136-145 mmol/L Normal NA 142 LAB L501.5600 3.5-5.1 mmol/L Normal K 4.2 LAB L501.5900 98-107 mmol/L High CL 108 LAB L501.6100 21.0-32.0 mmol/L Normal CO2 25.0 LAB L501.6200 5-15 Normal GAP 9 Performed By: #### L500.4050, L501.5200 #### [facility] [address] [facility] [address] [place], [place], [address] MAGNESIUM Collected: 05/07/2017 Status: F Source: [place] 7:59 AM [facility] REPOSITORY Order Comment: Reason for Laboratory Test Chemotherapy TYPE CODE TESTS RESULT OUT OF RANGE REFERENCE UNITS LAB L501.5200 1.6-2.6 mg/dL Normal MG 2.2 Result Comment: Please note revised Magnesium reference range effective 2017. Performed By: #### L500.4050, L501.5200 #### [facility] [address] [facility] [place], [place], [address] CBC W/DIFF, AUTOMATED Collected: 04/22/2017 Status: F Source: [place] 7:57 AM [facility] REPOSITORY TYPE CODE TESTS RESULT OUT OF RANGE REFERENCE UNITS LAB L100.1000 4.4-11.0 K/mm3 Normal WBC 4.6 LAB L100.1200 4.6-6.2 M/mm3 Low RBC 3.67 LAB L100.1300 13.0-16.5 g/dl Low HGB 11.5 LAB L100.1400 40-54 % Low HCT 35.2 LAB L100.1500 80-94 fL High MCV 95.9 LAB L100.1600 27.0-32.0 pg Normal MCH 31.3 LAB L100.1700 32-36 g/gl Normal MCHC 32.7 LAB L100.1810 11.6-14.6 % Normal RDW CV 13.8 LAB L100.1820 35.1-43.9 fl High RDW SD 48.5 LAB L100.1900 150-450 K/mm3 Normal PLT 168 LAB L100.2000 6.2-12.0 fl Normal MPV 9.7 LAB L100.2100 47-70 % High NEUT% 72.6 LAB L100.2200 19-41 % Low LY% 18.3 LAB L100.2300 0-10 % Normal MONO% 3.3 LAB L100.2400 0-5 % Normal EO% 4.4 LAB L100.2500 0-1 % Normal BASO% 0.7 LAB L100.2550 0.0-0.9 % Normal IM GRAN % 0.700 Result Comment: IG% - Immature Granulocytes (promyelocytes, myelocytes and metamyelocytes) > 1% indicates that a LEFT SHIFT is Present. LAB L100.2620 2.0-7.7 X10 3/uL Normal Absolute Neut 3.3 LAB L100.2720 0.83-4.51 X10 3/ul Normal Absolute Lymph 0.84 Performed By: #### L100.0100 #### [facility] [address] [place], [place] [address]justin. [place], [place], [address] COMPREHENSIVE METABOLIC Collected: 04/22/2017 Status: F Source: [place] CARIAS 7:56 AM [facility] REPOSITORY Order Comment: Reason for Laboratory Test Chemotherapy TYPE CODE TESTS RESULT OUT OF RANGE REFERENCE UNITS LAB L501.0100 74-106 mg/dL Normal GLU 96 Result Comment: Please note revised GLUCOSE reference range effective 2017. LAB L501.1000 7-18 mg/dL High BUN 22 LAB L501.1100 0.70-1.30 mg/dL Normal CREAT,SERUM 0.92 Result Comment: The validity of the calculated GFR AND GFRAA in patients over 70 years has not been determined. Clinical correlation is essential. LAB L501.1110 >60 mL/min Normal EST GFR 84 Result Comment: Non- GFR Calc LAB L501.1115 >60 mL/min Normal EST GFR - AA 102 Result Comment: GFR Calc LAB L501.1255 ml/min Normal Estimated CRCL 54.90 LAB L501.1300 10-20 RATIO High BUN/CRE 24.0 LAB L501.1500 6.4-8. g/dL Low 2 T PROT 6.1 LAB L501.1800 3.2-5. g/dL Normal 0 ALB 3.3 LAB L501.1950 2.2-4. g/dL Normal 2 GLOB 2.8 LAB L501.2000 0.9-2. RATIO Normal 4 A/G 1.2 LAB L501.2200 8.5-10 mg/dL Low .1 CA 8.3 LAB L501.4100 15-37 U/L Low AST 13 LAB L501.4305 45-117 U/L Normal ALK P 96 LAB L501.4405 16-61 U/L Normal ALT 22 Result Comment: Please note revised ALT reference range effective 2017. LAB L501.4600 0.20-1.00 mg/dL Normal T BILI 0.80 LAB L501.5300 136-145 mmol/L Normal NA 139 LAB L501.5600 3.5-5.1 mmol/L Normal K 4.0 LAB L501.5900 98-107 mmol/L Normal CL 105 LAB L501.6100 21.0-32.0 mmol/L Normal CO2 29.0 LAB L501.6200 5-15 Normal GAP 5 Performed By: #### L500.4050, L501.5200 #### [facility] [address] [facility] [place], [address] MAGNESIUM Collected: 04/22/2017 Status: F Source: [place] 7:56 AM [facility] REPOSITORY Order Comment: Reason for Laboratory Test Chemotherapy TYPE CODE TESTS RESULT OUT OF RANGE REFERENCE UNITS LAB L501.5200 1.6-2.6 mg/dL Normal MG 2.1 Result Comment: Please note revised Magnesium reference range effective 2017. Performed By: #### L500.4050, L501.5200 #### [facility] [address] [place], [address] ONCOLOGY PROGRESS Observed: 04/15/2017 Status: F Source: [place] NOTE 11:29 AM [facility] REPOSITORY [facility] Medical Records Department [address] [place] [address] Progress Note 04/15/17 0855 MR#: [id number] Acct: [id number] Name: CAMILO ESQUIVEL Rep #: [id number] : 1935 82 From: Сергей Medina MD PCP: Nathalie Donis MD Status: REG RCR Y Location: ONC Subjective - Date of Service Date of Service:: 04/15/17 - Chief Complaint F/U for chemotherapy. - History of Present Illness Mr. Camilo Esquivel is a very pleasant 82-year-old man who presented with a right groin mass in November 2014. Cytology showed pleomorphic sarcoma. MRI of the pelvis on 01/03/2015 showed an enhancing mass in the right inguinal area measuring 2.9 cm. The patient was referred to [facility]. PET CT scan on 01/11/2015 showed a right inguinal soft tissue mass with right retroperitoneal mass. Biopsy of the right inguinal mass on 01/15/2015 positive for sarcoma. Biopsy of the retroperitoneal mass on 01/21/2015 also showed sarcoma. He was started on Gemzar/Taxotere every 21 days on 02/05/2015. He had progressive disease on PET CT scan done on 05/01/2015. Treatment was changed to Halaven every 21 days in May 2015. Halaven was then changed to every 28 days with cycle 16 and subsequent cycles. Evaluated by Dr. Burns 11/25/16 and underwent PET/CT scan which showed stable disease. He continues Halaven. Bx of L posterior neck node was negative on 11/25/2016. Comes in for C29D1 AND 8 Halaven. He feels well. Still has R shoulder pain from arthritis but better. He was seen by Dr. Burns at [facility], PET/CT showed mixed response on 04/14/2017 so since he has tolerated chemotherapy without adverse effects, therapy should be changed to every 21 days. 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 Family History Paternal Past Medical History: Heart disease Maternal Past Medical History: COPD Social History Social History: No changes Smoking Status Never smoker Review of Systems Constitutional:: Denies: Fever, Sweats, Weight loss, Appetite change, Chills Cardiovascular:: Denies: Chest pain, Palpitations, Dyspnea on exertion, Orthopnea, PND, Shortness of breath Respiratory: Denies: Cough, Hemoptysis, Shortness of Breath, Wheezing Gastrointestinal:: Denies: Abdominal pain, Nausea, Vomiting, Diarrhea, Constipation, Hematochezia Genitourinary: Denies: Dysuria, Hematuria, 15, Flank pain Musculoskeletal:: Denies: Back pain, Myalgia, Arthralgia Skin: Denies: Rash, Skin Changes, Wounds Neurological:: Denies: Headache, Dizziness, Visual changes, Tinnitus, Hearing loss Psychiatric: Denies: Anxiety, Depression, Homicidal Ideations, Suicidal Ideations Vital Signs Height 5 ft 6 in Weight: 70.76 kg Weight in Pounds 156.0 lbs Pulse Ox 95 - Physical Exam General: Alert, Oriented x3, No apparent distress HEENT: Atraumatic, PERRLA, EOMI, Normocephalic Oropharynx:: Dry mucosa Neck:: Supple, Trachea midline. Negative for: JVD, bilateral Cardiac:: Regular rate, Regular rhythm, Normal S1, Normal S2. Negative for: Murmur Lungs: Clear to auscultation, Excusion symmetrical. Negative for: Rhonchi, Wheezes Abdomen:: Bowel sounds x 4, Soft, Non-tender, Non-distended. Negative for: Hepatosplenomegaly Extremities:: - - + diminished ROM R shoulder.. 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 Tolerating therapy with Mixed response on PET/CT, counts are okay to proceed. Plan is to proceed with cycle 29 day 1 this week and day 8 next week. Renew Zofran for nausea/vomiting post chemotherapy. Return to clinic 1 week with CBC, CMP, magnesium for cycle 29 Halaven day 8 therapy. Medications: Prescriptions This Visit Medication Instructions Recorded Multivit-Min/FA/Lycopen/Lutein 1 each PO DAILY 07/29/16 [Centrum Silver Men Tablet] Naproxen Sodium [Aleve] 220 mg PO PRN 04/15/17 Medications Added to Medication List This Visit - Problem List (1) Sarcoma Status: Chronic (2) Chemotherapy management, encounter for Status: Acute Code Visit Office Visits / Consults: 40523 OV L5 Est 04/15/17 1122 <Electronically signed by Сергей Medina MD> Date Сергей Medina MD CC: Signed COMPREHENSIVE METABOLIC Collected: 04/15/2017 Status: F Source: [place] JV 8:10 AM [facility] REPOSITORY Order Comment: Reason for Laboratory Test Chemotherapy TYPE CODE TESTS RESULT OUT OF RANGE REFERENCE UNITS LAB L501.0100 74-106 mg/dL High GLU 147 Result Comment: Fasting Glucose result greater than or equal to 126 mg/dL suggests DIABETES MELLITUS per A.D.A. criteria. LAB L501.1000 7-18 mg/dL High BUN 29 LAB L501.1100 0.70-1.30 mg/dL Normal CREAT,SERUM 1.02 Result Comment: The validity of the calculated GFR AND GFRAA in patients over 70 years has not been determined. Clinical correlation is essential. LAB L501.1110 >60 mL/min Normal EST GFR 74 Result Comment: Non- GFR Calc LAB L501.1115 >60 mL/min Normal EST GFR - AA 90 Result Comment: GFR Calc LAB L501.1255 ml/min Normal Estimated CRCL 49.52 LAB L501.1300 10-20 RATIO High BUN/CRE 28.4 LAB L501.1500 6.4-8. g/dL Normal 2 T PROT 6.7 LAB L501.1800 3.2-5. g/dL Normal 0 ALB 3.6 LAB L501.1950 2.2-4. g/dL Normal 2 GLOB 3.1 LAB L501.2000 0.9-2. RATIO Normal 4 A/G 1.2 LAB L501.2200 8.5-10 mg/dL Normal .1 CA 8.5 LAB L501.4100 15-37 U/L Low AST 12 LAB L501.4305 45-117 U/L Normal ALK P 87 LAB L501.4405 16-61 U/L Normal ALT 20 Result Comment: Please note revised ALT reference range effective 2017. LAB L501.4600 0.20-1.00 mg/dL Normal T BILI 0.70 LAB L501.5300 136-145 mmol/L Normal NA 140 LAB L501.5600 3.5-5.1 mmol/L Normal K 4.2 LAB L501.5900 98-107 mmol/L Normal CL 104 LAB L501.6100 21.0-32.0 mmol/L Normal CO2 27.0 LAB L501.6200 5-15 Normal GAP 9 Performed By: #### L500.4050, L501.5200 #### [facility] [address] [facility] [place], [place], [address] MAGNESIUM Collected: 04/15/2017 Status: F Source: [place] 8:10 AM [facility] REPOSITORY Order Comment: Reason for Laboratory Test Chemotherapy TYPE CODE TESTS RESULT OUT OF RANGE REFERENCE UNITS LAB L501.5200 1.6-2.6 mg/dL Normal MG 2.2 Result Comment: Please note revised Magnesium reference range effective 2017. Performed By: #### L500.4050, L501.5200 #### [facility] [address] [facility] [place], [address] CBC W/DIFF, AUTOMATED Collected: 04/15/2017 Status: F Source: [place] 8:10 AM [facility] REPOSITORY TYPE CODE TESTS RESULT OUT OF RANGE REFERENCE UNITS LAB L100.1000 4.4-11.0 K/mm3 Normal WBC 5.7 LAB L100.1200 4.6-6.2 M/mm3 Low RBC 4.06 LAB L100.1300 13.0-16.5 g/dl Normal HGB 13.0 LAB L100.1400 40-54 % Low HCT 39.2 LAB L100.1500 80-94 fL High MCV 96.6 LAB L100.1600 27.0-32.0 pg Normal MCH 32.0 LAB L100.1700 32-36 g/gl Normal MCHC 33.2 LAB L100.1810 11.6-14.6 % Normal RDW CV 13.8 LAB L100.1820 35.1-43.9 fl High RDW SD 47.2 LAB L100.1900 150-450 K/mm3 Normal PLT 220 LAB L100.2000 6.2-12.0 fl Normal MPV 9.5 LAB L100.2100 47-70 % Normal NEUT% 68.7 LAB L100.2200 19-41 % Low LY% 18.1 LAB L100.2300 0-10 % Normal MONO% 8.9 LAB L100.2400 0-5 % Normal EO% 2.8 LAB L100.2500 0-1 % High BASO% 1.1 LAB L100.2550 0.0-0.9 % Normal IM GRAN % 0.400 Result Comment: IG% - Immature Granulocytes (promyelocytes, myelocytes and metamyelocytes) > 1% indicates that a LEFT SHIFT is Present. LAB L100.2620 2.0-7.7 X10 3/uL Normal Absolute Neut 3.9 LAB L100.2720 0.83-4.51 X10 3/ul Normal Absolute Lymph 1.03 Performed By: #### L100.0100 #### [facility] [address] [place], [address] NUC PET OTHER Observed: 04/14/2017 Status: F Source: [facility] 12:33 PM [facility] REPOSITORY EXAM: NUC PET OTHER, 04/14/2017 11:59 AM CLINICAL INDICATIONS: De-differentiated liposarcoma; , COMPARISON: PET/CT February 03, 2017 CT DOSE: DLP: 785 mGy x cm kVp: 120 TECHNIQUE: The patient's fasting blood glucose was 81 mg/dl. Approximately 87 minutes following the injection of 12.4 mCi of F-18 FDG, the patient was positioned on the Siemens Biograph mCT TOF< PET/CT-64, [facility] imaging unit. A low resolution non-contrast CT was obtained from the top of the head through the toes for use in attenuation correction and anatomic correlation. PET emission scans of this anatomic region were acquired shortly thereafter. Axial, sagittal, coronal and maximal intensity projection reconstruction images were presented for interpretation. FINDINGS: Head/Neck: Left posterior cervical soft tissue nodule noted with maximum SUV of 5.1. This has decreased in intensity since the prior exam. Heterogeneous uptake also seen within the supraglottic region extending into the larynx,. This appears more prominent than on the prior exam with maximum SUV in the supraglottic region measuring 9.8. Direct visualization is recommended. Normal, intense physiologic uptake is noted in the cerebral cortex sunshine matter and subcortical nuclei without gross hypermetabolic abnormality. Chest: There are no hypermetabolic pulmonary parenchymal lesions. Small anterior mediastinal lymph nodes seen with hypermetabolic activity. Multiple other hypermetabolic lymph nodes seen throughout the mediastinum and bilateral hilar region. A maximum SUV of right hilar adenopathy measures 8.8, increased in FDG avidity since the prior exam. Maximum SUV of precarinal lymph node measures 8.0, also increased in FDG avidity since the prior exam. Physiologic FDG uptake is seen in the myocardium. Abdomen/Pelvis: Physiologic FDG uptake is seen throughout the liver, spleen and bowel. Physiologic FDG excretion is seen in the kidneys, ureters, and bladder. There are no hypermetabolic lesions in the adrenal glands. Increased activity noted adjacent to high density material/surgical clips within the right external iliac region. This has increased in FDG avidity since the prior exam.. Musculoskeletal: There is physiologic FDG uptake throughout the axial and proximal appendicular skeleton. No focal hypermetabolic osseous lesions are identified. IMPRESSION: 1. Interval mixed response since the prior exam. Although there has been interval decrease in intensity within soft tissue nodularity within the left posterior cervical region, there is interval increased activity within lymph nodes in the chest and within the right external iliac region. 2. Heterogeneous uptake within the right supraglottic region appears relatively new since prior exam. Direct visualization may be useful. *POC GLUCOSE BATTERY Collected: 04/14/2017 Status: F Source: [facility] 9:56 AM [facility] REPOSITORY TYPE CODE TESTS RESULT OUT OF REFERENCE UNITS RANGE LAB GLUP 70-99 mg/dL Glucose (poc 81 device) Result Comment: No BRAVE per RN: PATIENT TYPE LAB PCSTYP *POC Capillary SAMPLE TYPE Blood CBC WITH DIFF AWILDA Collected: 04/14/2017 Status: F Source: [facility] [facility] 9:24 AM [facility] REPOSITORY TYPE CODE TESTS RESULT OUT OF REFERENCE UNITS RANGE LAB WBC 4.23-9.07 K/uL WBC Count 6.65 LAB RBC 4.63-6.08 M/uL RBC Count 4.12 Low LAB HGB 13.7-17.5 g/dL Hemoglobin 13.0 Low LAB HCT 40.1-51.0 % Hematocrit 39.1 Low LAB MCV 79.0-92.2 fL Mean Cell 94.9 High Volume LAB MCH 25.7-32.2 pg Mean Cell 31.6 Hgb LAB MCHC 32.3-36.5 g/dL Mean Cell 33.2 Hgb Conc LAB RDW 11.6-14.4 % RBC 13.7 Distribution LAB PLT 163-337 K/uL Platelet 215 Count LAB MPV 9.4-12.4 fL Mean 9.2 Low Platelet Volume LAB NRBC 0.0-0.2 /100 WBC NUCLEATED 0.0 RBC LAB DTYPE Electronic DIFFERENTIAL TYPE Differential LAB IGRE % IMMATURE 0.5 GRANS % LAB SEGS % NEUTROPHIL 66.7 SEGMENTED LAB LYM % LYMPHOCYTE 20.0 % LAB MON % MONOCYTE % 9.9 LAB EOS % EOSINOPHIL 1.7 % LAB BASO % BASOPHIL % 1.2 LAB IGABS 0.00-0.03 K/uL IMMATURE 0.03 GRANS ABSOLUTE LAB SBANS 1.78-5.38 K/uL SEGS + 4.44 Bands,Absolute LAB ALYM 1.32-3.57 K/uL Abs Lymph 1.33 LAB AMONO 0.30-0.82 K/uL Abs [place] 0.66 LAB AEOS 0.04-0.54 K/uL Abs Eos 0.11 LAB ABASO 0.01-0.08 K/uL Abs Baso 0.08 Performed By: #### CBCDFJ #### Awilda [facility], [facility] [address] [place], [place] [address] METABOLIC PANEL - CHRI Collected: 04/14/2017 Status: F Source: [facility] 9:24 AM [facility] REPOSITORY TYPE CODE TESTS RESULT OUT OF REFERENCE UNITS RANGE LAB NA 133-143 mmol/L Sodium 140 LAB K 3.5-5.0 mmol/L Potassium 4.2 LAB CL 98-108 mmol/L Chloride 103 LAB BUN 7-22 mg/dL BUN High 28 LAB CREA 0.70-1.30 mg/dL Creatinine 0.93 LAB GLUC 70-99 mg/dL Glucose 90 LAB CA 8.6-10.5 mg/dL Calcium 9.2 LAB ALP 32-126 U/L Alkaline Phosphatase 81 LAB AST 14-40 U/L AST 14 LAB TP 6.4-8.3 g/dL Low Total Protein 6.3 LAB ALB 3.5-5.0 g/dL Albumin 3.9 LAB BILT <1.5 mg/dL Bilirubin Total 0.7 LAB CO2 22-30 mmol/L Carbon High Dioxide 31 LAB GAP 7-17 mmol/L Anion Gap 10 LAB ALT 10-52 U/L ALT 13 LAB GFR >60 mL/min/1.7 3sqM Est GFR,non >60 LAB GFRA >60 mL/min/1.7 3sqM Est GFR, >60 LAB OSMC 278-305 mOsm/kg Osmolality (Calc) 298 Performed By: #### CBCDFJ #### Awilda CCCT, [facility] [address] [place] [address] ALLERGIES ALLERGIES DATE TYPE / CODE NAME / CODE REACTION SEVERITY SOURCE 03/30/2018 Drug colestipol/F CONSTIPATION DC [facility] Allergy/416 [id number](RX Hospital 901340(SNOM NORM) Repository ED CT) 06/04/2017 Drug No Known Unknown [facility] Allergy/416 Allergies/F0 Hospital 276170(SNOM 10356764(RXN Repository ED CT) ORM) ENCOUNTERS ENCOUNTERS ADMIT/DISCHARGE ACCOUNT NUMBER ADMITTING ENCOUNTER LOCATION SOURCE CLASS 03/30/2018/03/30/19 [id number] Ambulatory BMSBuilding: [place] 19 BMS.[facility] Repository 03/24/2018 [id number] Ambulatory BMSBuilding: [place] BMS.CF.O Repository 03/24/2018 [id number] Ambulatory [facility] ding:ONC Repository 03/24/2018 [id number] Ambulatory [facility] ding:CVS Repository 03/23/2018 [id number] Ambulatory Building:CT5 [facility] Repository 03/23/2018 [id number] Ambulatory Building:CT5 [facility] Repository 03/23/2018 [id number] Ambulatory Building:[facility] Repository 03/23/2018 [id number] Ambulatory Building:[facility] Repository 03/17/2018 [id number] Ambulatory BMSBuilding: [place] [facility] Repository 02/17/2018 [id number] Ambulatory BMSBuilding: [place] BMS.CF.[facility] Repository 01/27/2018 [id number] Ambulatory BMSBuilding: [place] BMS.[facility] Repository 01/06/2018 [id number] Ambulatory BMSBuilding: [place] BMS.CF[facility] Repository 12/16/2017 [id number] Ambulatory BMSBuilding: [place] BMS.[facility] Repository 11/30/2017 [id number] Ambulatory Building:CT1 [facility] Repository 11/30/2017 [id number] Ambulatory Building:CT5 [facility] Repository 11/30/2017 [id number] Ambulatory Building:CT5 [facility] Repository 11/25/2017 [id number] Ambulatory BMSBuilding: [place] BMS.[facility] Repository 11/04/2017 [id number] Ambulatory BMSBuilding: [place] BMS.[facility] Repository 10/21/2017 [id number] Ambulatory BMSBuilding: [place] BMS.[facility] Repository 10/14/2017 [id number] Ambulatory BMSBuilding: [place] BMS.[facility] Repository 09/23/2017 [id number] Ambulatory BMSBuilding: [place] BMS.[facility] Repository 09/15/2017 [id number] Ambulatory Building:CT5 [facility] Repository 09/15/2017 [id number] Ambulatory Building:CT5 [facility] Repository 09/15/2017 [id number] Ambulatory Building:CT1 [facility] Repository 09/02/2017 [id number] Ambulatory BMSBuilding: [place] BMS.[facility] Repository 08/12/2017 [id number] Ambulatory BMSBuilding: [place] [facility] Repository 07/22/2017 [id number] Ambulatory BMSBuilding: [place] [facility] Repository 07/07/2017 [id number] Ambulatory Building:CT1 [facility] Repository 07/07/2017 [id number] Ambulatory Building:CT5 [facility] Repository 07/07/2017 [id number] Ambulatory Building:CT5 [facility] Repository 07/01/2017 [id number] Ambulatory BMSBuilding: [place] BMS.CF[facility] Repository 06/26/2017/06/27/19 [id number] Ambulatory BMSBuilding: [place] 18 BMS.[facility] Repository 06/24/2017 [id number] Ambulatory BMSBuilding: [place] BMS.CF[facility] Repository 06/23/2017 [id number] Ambulatory BMS [facility] Repository 06/18/2017 [id number] Ambulatory [facility] ding:MTLAB Repository 06/04/2017 [id number] Ambulatory BMSBuilding: [place] BMS.[facility] Repository 06/02/2017/06/03/19 [id number] Ambulatory [address] ding:SDC Repository 06/02/2017 [id number] Ambulatory BMSBuilding: [place] [facility] Repository 05/28/2017 [id number] Ambulatory BMSBuilding: [place] BMS.CF[facility] Repository 05/07/2017 [id number] Ambulatory BMSBuilding: [place] [facility] Repository 04/22/2017 [id number] Ambulatory BMSBuilding: [place] [facility] Repository 04/15/2017 [id number] Ambulatory BMSBuilding: [place] [facility] Repository 04/14/2017 [id number] Ambulatory Building:CT1 [facility] Repository 04/14/2017 [id number] Ambulatory Building:CT5 [facility] Repository 04/14/2017 [id number] Ambulatory Building:CT5 [facility] Repository PAYERS PAYERS ENCOUNTER GUARANTOR PAYER SUBSCRIBER SOURCE 03/30/2018 CAMILO [id number] [place] Insurance:ANTHEM MCKEEDOB: [place] PPOPolicy [id number] [address]Cmx: (330) Number: Repository [phone] () [id number] Date:8891-13-37Yh [address] [place] [address] 97734BU: 03/30/2018 Secondary NOT GIVENUNK [place] Insurance:SELF PAY [facility] Number: Effective Repository Date:2018-03-29 03/24/2018 CAMILO T Primary CAMILO August [id number] [place] Insurance:ANTHEM MCKEEDOB: [place] PPOPolicy [id number] [address]Tel: (330) Number: Repository [phone] () [id number] Date:5794-42-56Qr [address] [place] [address] 23511NK: 03/24/2018 Secondary NOT GIVENUNK [place] Insurance:SELF PAY [facility] Number: Effective Repository Date:2018-03-24 03/24/2018 CAMILO T Primary CAMILO August [id number] [place] Insurance:ANTHEM MCKEEDOB: [place] PPOPolicy [id number] [address]Tel: (330) Number: Repository [phone] () [id number] Date:9253-02-52Qt [address] [place] [address] 30191WO: 03/24/2018 Secondary CAMILO T [place] Insurance:CHEMO MCKEEDOB: [facility] [id number] Number: Repository [id number] Date:2016-04-15 03/24/2018 Tertiary NOT GIVENUNK [place] Insurance:SELF PAY [facility] Number: Effective Repository Date:2016-06-10 03/24/2018 CAMILO T Primary CAMILO August [id number] [place] Insurance:ANTHEM MCKEEDOB: [place] PPOPolicy [id number] [address]Unr: (330) Number: Repository [phone] () [id number] Date:7548-39-40Wl [address]a, [place] [address]PS: 03/24/2018 Secondary CAMILO Phuc [place] Insurance:CHEMO MCKEEDOB: [facility] [id number] [facility] Number: Repository [id number] Date:2018-03-24 03/24/2018 Tertiary NOT GIVENUNK [place] Insurance:SELF PAY [facility] Number: Effective Repository Date:2018-03-24 03/23/2018 CAMILO T Primary CAMILO Friend [facility] MCKEEDOB: Insurance:MEDICARE MCKEEDOB: [place] [facility] [place] [id number] [facility] JOI, [place] Number: 3 [facility] [address]Qjr: [id number] [place], [place] Repository Date:4226-45-67Jlkf 10120Gqa: (330) () Name:CARE [phone] () 03/23/2018 CAMILO T Primary CAMILO Friend [facility] MCKEEDOB: Insurance:MEDICARE MCKEEDOB: United [id number] [facility] [place] [id number] [facility] JOI, [place] Number: 3 [facility] [address]Byn: [id number] [place], [place] Repository Date:2821-92-64Gnqg 789[address]Ypq: (330) () Name:CARE [phone] () 03/23/2018 CAMILO T Primary CAMILO Friend [facility] MCKEEDOB: Insurance:MEDICARE MCKEEDOB: United [id number] [facility] [place] [id number] [facility] JOI, [place] Number: 3 [facility] [address]Tqd: [id number] [place], [place] Repository Date:6517-27-79Wviu 390[address]Jsh: (330) () Name:CARE [phone] () 03/23/2018 CAMILO Friend Primary CAMILO Friend [facility] MCKEEDOB: Insurance:MEDICARE MCKEEDOB: [facility] [place] [id number] [facility] Number: 3 [facility] [address]Plm: [id number] [place], [place] Repository Date:2747-78-81Gcxr 085[address]Qml: (888) () Name:[facility] [phone] () 03/17/2018 CAMILO Friend Primary CAMILO August [id number] [place] Insurance:ANTHEM MCKEEDOB: [place] PPOPolicy [id number] Hospital [address]Hhx: (330) Number: Repository [phone] () [id number] Date:8337-87-56Nf[address] [address]JE: 03/17/2018 Secondary NOT GIVENUNK [place] Insurance:SELF PAY [facility] Number: Effective Repository Date:2018-03-17 02/17/2018 CAMILO T Primary CAMILO August [id number] [place] Insurance:ANTHEM [facility]: [place] PPOPolicy [id number] Hospital [address]Ibd: (330) Number: Repository [phone] () [id number] Date:8101-24-37Uv[address] [address]ID: 02/17/2018 Secondary NOT GIVENUNK [place] Insurance:SELF PAY [facility] Number: Effective Repository Date:2018-02-17 01/27/2018 CAMILO Friend Primary CAMILO August [id number] [place] Insurance:ANTHEM KEEDOB: [place] PPOPolicy [id number] Hospital [address]Yty: (330) Number: Repository [phone] () [id number] Date:2350-79-77No [address] [place] [address] 44995VB: 01/27/2018 Secondary NOT GIVENUNK [place] Insurance:SELF PAY [facility] Number: Effective Repository Date:2018-01-27 01/06/2018 CAMILO Friend Primary CAMILO August [id number] [place] Insurance:[facility]: [place] PPOPolicy [id number] Hospital [address]Peo: 330) Number: Repository [phone] () [id number] Date:4112-85-25Hb [address] [place] [address] 716[address]MX: 01/06/2018 Secondary NOT GIVENUNK [place] Insurance:SELF PAY [facility] Number: Effective Repository Date:2018-01-06 12/16/2017 CAMILO Friend Primary CAMILO August [id number] [place] Insurance:[facility]: [place] PPOPolicy [id number] Hospital 14[address]Vhn: (330) Number: Repository [phone] () [id number] Date:5321-75-87Jx[address] [address]SY: 12/16/2017 Secondary NOT GIVENUNK [place] Insurance:SELF PAY [facility] Number: Effective Repository Date:2017-12-16 11/30/2017 CAMILO Friend Primary CAMILO Friend [facility] MCKEEDOB: Insurance:MEDICARE MCKEEDOB: United [id number] [facility] [place] [id number] [facility] Number: 3 [facility] [address]Vtb: [id number] [place], [place] Repository Date:6413-25-82Duyt 87[address]Rrs: (721) () Name:[facility] [phone] () 11/30/2017 CAMILO Friend Primary CAMILO Friend [facility] MCKEEDOB: Insurance:MEDICARE MCKEEDOB: United [id number] [facility] [place] [id number] [facility] JOSEE, PPOPolicy Number: 3 [facility] [address]Ozj: [id number] [place] Repository Date:8964-32-85Xcqm 678[address]Cxi: (392) () Name:CARE [phone] () 11/30/2017 CAMILO T Primary CAMILO Friend [facility] Insurance:MEDICARE MCKEEDOB: United [id number] [facility] [place] [id number] [facility] JOI, PPOPolicy Number: 3 [facility] [address]Wks: [id number] [facility] [place] Repository Date:7834-41-42Wvgq 365[address]Qff: (330) () Name:CARE [phone] () 11/25/2017 CAMILO T Primary CAMILO August [id number] [place] Insurance:[facility]: [place]ICARE [facility] [id number] Hospital 985[address]Xgn: (330) Number: Repository [phone] () [id number] Date:1974-40-81Za [address]Ngugdbd, [place] [address]ZB: 11/25/2017 Secondary NOT GIVENUNK [place] Insurance:SELF PAY [facility] Number: Effective Repository Date:2017-11-25 11/04/2017 CAMILO T Primary CAMILO August [id number] [place] Insurance:[facility]ITAL[facility]OB: [place] PPOPolicy [id number] Hospital 827[address]Kqo: (330) Number: Repository [phone] () [id number] Date:3932-03-43Er [address]Vwykjpr, [place] [address]TV: 11/04/2017 Secondary NOT GIVENUNK [place] Insurance:SELF PAY [facility] Number: Effective Repository Date:2017-11-04 10/21/2017 CAMILO Friend Primary CAMILO August [id number] [place] Insurance:ANTHEM MCKEEDOB: [place] PPOPolicy [id number] Hospital [address]Bvu: (330) Number: Repository [phone] () [id number] Date:8975-60-30Lm [address]Wjebonj, [place] [address]RD: 10/21/2017 Secondary CAMILO Phuc [place] Insurance:CHEMO MCKEEDOB: [facility] [id number] Hospital Number: Repository [id number] Date:2016-04-15 10/21/2017 Tertiary NOT GIVENUNK [place] Insurance:SELF PAY [facility] Number: Effective Repository Date:2017-10-21 10/14/2017 CAMILO Friend Primary CAMILO August [id number] [place] Insurance:ANTHEM MCKEEDOB: [place] PPOPolicy [id number] Hospital 564[address]Upm: (330) Number: Repository [phone] () [id number] Date:5733-26-70Gt [address]Qgiiaue, [place] [address]IE: 10/14/2017 Secondary NOT GIVENUNK [place] Insurance:SELF PAY [facility] Number: Effective Repository Date:2017-10-14 09/23/2017 CAMILO T Primary CAMILO August [id number] [place] Insurance:ANTHEM MCKEEDOB: [place] PPOPolicy [id number] Hospital 024[address]Dgl: (330) Number: Repository [phone] () [id number] Date:3950-75-54Ug [address]Yzkwgdo, [place] [address]UC: 09/23/2017 Secondary NOT GIVENUNK [place] Insurance:SELF PAY [facility] Number: Effective Repository Date:2017-09-23 09/15/2017 CAMILO Phuc Primary CAMILO Friend [facility] MCKEEDOB: Insurance:MEDICARE MCKEEDOB: United [id number] [facility] [place] [id number] [facility] [place], PPOPolicy Number: 3 [facility] [address]Zgg: [id number] [place], [place] Repository Date:8149-22-42Ymhl 115[address]Mwy: (838) () Name:CARE [phone] () 09/15/2017 CAMILO T Primary CAMILO Friend [facility] MCKEEDOB: Insurance:MEDICARE MCKEEDOB: United [id number] [facility] [place] [id number] [facility] [place], PPOPolicy Number: 3 [facility] [address]Ami: [id number] [facility] [place] Repository Date:6429-49-69Bjkm [address]Rlv: (330) () Name:CARE [phone] () 09/15/2017 CAMILO T Primary CAMILO Friend [facility]: Insurance:MEDICARE MCEDOB: United [id number] [facility] [place] [id number] [facility] [place], PPOPolicy Number: 3 [facility] [address]Yxt: [id number] [facility] [place] Repository Date:0813-08-21Mpcf 728[address]Dbe: (330) () Name:CARE [facility]3166 () 09/02/2017 CAMILO T Primary CAMILO August [id number] [place] Insurance:[facility]: [facility] [place] MED[place]ARE PPOPoly [id number] [facility] [address]Klh: (330) Number: Repository [phone] () [id number] Date:1329-68-94Gg [address]Iqaudvd, [place] [address]BG: 09/02/2017 Secondary NOT GIVENUNK [place] Insurance:SELF PAY [facility] Number: Effective Repository Date:2017-09-02 08/12/2017 CAMILO T Primary CAMILO August [id number] [place] Insurance:ANTHEM MCKEEDOB: [place] PPOPolicy [id number] Hospital 294[address]Kfz: 330) Number: Repository [phone] () [id number] Date:1367-97-73Rr [address] [place] [address] 556[address]WW: 08/12/2017 Secondary NOT GIVENUNK [place] Insurance:SELF PAY [facility] Number: Effective Repository Date:2017-08-12 07/22/2017 CAMILO T Primary CAMILO August [id number] [place] Insurance:ANTHEM MCKEEDOB: [place] PPOPolicy [id number] Hospital 39[address]Tag: Number: Repository [phone] [id number] 0-4 () Date:7344-66-17Fp [address] [place] [address] 657[address]RX: 07/22/2017 Secondary CAMILO T [place] Insurance:CHEMO MCKEEDOB: [facility] [id number] Hospital Number: Repository [id number] Date:2016-04-15 07/22/2017 Tertiary CAMILO Phuc [place] Insurance:ANTHEMPolicy MCKEEDOB: [facility] Number: [id number] Hospital [id number] Repository Date:2135-65-82Yp [address]Crzqyef, [place] [address]PM: 07/22/2017 Tertiary NOT GIVENUNK [place] Insurance:SELF PAY [facility] Number: Effective Repository Date:2017-07-22 07/07/2017 CAMILO T Primary CAMILO Friend [facility] MCKEEDOB: Insurance:MEDICARE MCKEEDOB: United [id number] [facility] [place] [id number] Wally [facility]an[facility]BI, Alisa Number: 3 [facility] [address]Efr: [id number] [facility] [place] Repository Date:9956-75-78Uyzz 714[address]Ftk: (330) (HP) Name:CARE [phone] () 07/07/2017 CAMILO Friend Primary CAMILO Friend [facility]: Insurance:MEDICARE MCKEEDOB: United [id number] [facility] [place] [id number] [facility] Number: 3 [facility] [address]Kik: [id number] [place] Repository Date:4948-25-97Fbbx 116[address]Dio: (330) (HP) Name:[phone] () 07/07/2017 CAMILO Friend Primary CAMILO Friend [facility]KE[facility]: Insurance:MEDICARE MCEDOB: United [id number] [facility] [place] [id number] [facility], [facility] Number: 3 [facility] [address]Lax: [id number] [place] Repository Date:5561-50-74Eitg 025[address]Zds: (330) () Name:[place] [phone] () 07/01/2017 CAMILO Friend Primary CAMILO August [id number] [place] Insurance:[facility]: [place] PPOPolicy [id number] [address]Mub: Number: Repository [phone] [id number] 0-4 () Date:4541-91-47Da[address] [address]AM: 07/01/2017 Secondary NOT GIVENUNK [place] Insurance:SELF PAY [facility] Number: Effective Repository Date:2017-07-01 06/26/2017 CAMILO Friend Primary CAMILO August [id number] [place] Insurance:ANTHEM MCKEEDOB: [place] PPOPolicy [id number] [place] [address] 407[address]Cpm: Number: Repository [phone] [id number] 0-4 (HP) Date:0015-11-12Qn [address]Qllhttt, [place] [address]FR: 06/26/2017 Secondary CAMILO Phuc [place] Insurance:CHEMO MCKEEDOB: [place] [id number] Number: Repository [id number] Date:2017-05-14 06/26/2017 Tertiary NOT GIVENUNK [place] Insurance:SELF PAY [facility] Number: Effective Repository Date:2017-06-26 06/24/2017 CAMILO T Primary CAMILO August [id number] [place] Insurance:ANTHEM MCKEEDOB: [place] PPOPolicy [id number] Hospital 140[address]Brw: Number: Repository [phone] [id number] 0-4 (HP) Date:1769-81-86Yn [address]Otxfmkd, [place] [address]ZC: 06/24/2017 Secondary NOT GIVENUNK [place] Insurance:SELF PAY [facility] Number: Effective Repository Date:2017-06-24 06/23/2017 Camilo T Primary Camilo August [id number] [place] Insurance:ANTHEM MckeeDOB: [place] PPOPolicy [id number] Hospital [address]Dan: Number: Repository [phone] [id number] 0-4 (HP) Date:6395-45-16Sm [address] [place] [address] 426[address]UV: 06/23/2017 Secondary Camilo T [place] Insurance:ANTHEMPolicy MckeeDOB: [facility] Number: [id number] Hospital [id number] Repository Date:8959-02-44Rz [address] [place] [address] 666[address]FX: 06/23/2017 Tertiary Camilo T [place] Insurance:CHEMO MckeeDOB: [facility] [id number] Number: Repository [id number] Date:2017-06-23 06/23/2017 Tertiary NOT GIVENUNK [place] Insurance:SELF PAY [facility] Number: Effective Repository Date:2017-06-23 06/18/2017 Camilo T Primary Camilo August [id number] [place] Insurance:ANTHEM MckeeDOB: [place] PPOPolicy [id number] [address]Qhb: Number: Repository [phone] [id number] 0-4 (HP) Date:6786-70-96Lf[address] [address]JK: 06/18/2017 Secondary Camilo Phuc [place] Insurance:ANTHEMPolicy MckeeDOB: Community Number: [id number] Hospital [id number] Repository Date:7366-23-13Td [address] [address]DX: 06/18/2017 Tertiary Camilo T [place] Insurance:CHEMO MckeeDOB: [facility] [id number] [place] [address] Number: Repository [id number] Date:2017-06-18 06/18/2017 Tertiary NOT GIVENKASEY [place] Insurance:SELF PAY [facility] Number: Effective Repository Date:2017-06-18 06/04/2017 Camilo T Primary Camilo August [id number] [address] Insurance:ANTHEM MckeeDOB: [place] PPOPolicy [id number] [address]Zfd: Number: Repository [phone] [id number] (HP) Date:[id number] [place] [id number]: 06/04/2017 Secondary Camilo Phuc [place] Insurance:CHEMO MckeeDOB: [facility] [id number] [place] [address] Number: Repository [id number] Date:2016-04-15 06/04/2017 Tertiary Camilo T [place] Insurance:ANTHEMPolicy MckeeDOB: Community Number: [id number] Repository Date:[id number] [address] [place] [id number]: 06/04/2017 Tertiary NOT GIVENUNK [place] Insurance:SELF PAY [facility] Number: Effective Repository Date:2017-06-04 06/02/2017 Camilo Friend Primary Camilo August [id number] [place] Insurance:ANTHEM MckeeDOB: [place] MED[place] [facility] [id number] [address]Srg: Number: Repository [phone] [id number] 0-4 (HP) Date:0632-66-44Yd[address] [address]KM: 06/02/2017 Secondary Camilo Phuc August Insurance:CHEMO MckeeDOB: [facility] [id number] Hospital Number: Repository [id number] Date:2017-05-08 06/02/2017 Tertiary NOT GIVENUNK [place] Insurance:SELF PAY [facility] Number: Effective Repository Date:2017-05-08 06/02/2017 CAMILO T Primary CAMILO August [id number] [place] Insurance:ANTHEM MCKEEDOB: [place] [facility] [id number] [address]Lwt: Number: Repository [phone] [id number] 0-4 (HP) Date:6059-25-73Ha [address]wnlsp, [place] [address]VE: 06/02/2017 Secondary CAMILO Phuc August Insurance:CHEMO MCKEEDOB: [facility] [id number] Hospital Number: Repository [id number] Date:2017-05-08 06/02/2017 Tertiary NOT GIVENUNK [place] Insurance:SELF PAY [facility] Number: Effective Repository Date:2017-06-02 05/28/2017 Camilo Friend Primary Camilo August [id number] [place] Insurance:ANTHEM MckeeDOB: [place] [facility] [id number] [address]Pvt: Number: Repository [phone] [id number] 0-4 (HP) Date:8473-71-36Qu [address] [id number] [place] [address]QT: 05/28/2017 Secondary NOT GIVENUNK [place] Insurance:SELF PAY [facility] Number: Effective Repository Date:2017-05-28 05/07/2017 Camilo Friend Primary Camilo August [id number] [place] Insurance:ANTHSHAUNA MckeeDOB: [place] [id number] [address]Qvf: Number: Repository [phone] [id number] 0-4 (HP) Date:2520-68-18Vv [address] [address]Tivbjch [place] [address]RI: 05/07/2017 Secondary NOT GIVENUNK [place] Insurance:SELF PAY [facility] Number: Effective Repository Date:2017-05-07 04/22/2017 Camilo Friend Primary Camilo Auguts [id number] [place] Insurance:CHANDAN LaueDOB: [place] [facility] [id number] Hospital [address]Bnq: Number: Repository [phone] [id number] 0-4 (HP) Date:1455-27-70Ej [address]Tjzdlhr, [place] [address]IY: 04/22/2017 Secondary NOT GIVENUNK [place] Insurance:SELF PAY [facility] Number: Effective Repository Date:2017-04-22 04/15/2017 Camilo T Primary Camilo August [id number] [place] Insurance:ANTHSHAUNA McjoeeDOB: [place] [id number] Hospital [address]Fbt: Number: Repository [phone] [id number] 0-4 (HP) Date:5404-23-88Br [address]Xklbcra, [place] [address]ZQ: 04/15/2017 Secondary NOT GIVENUNK [place] Insurance:SELF PAY [facility] Number: Effective Repository Date:2017-04-15 04/14/2017 CAMILO T Primary CAMILO Friend [place] [employer] MCKEEDOB: Insurance:MEDICARE MCKEEDOB: [employer] [id number] [facility] [place] [place] [id number] [facility] HILARIO TAMEZ, JULIOOPolicy Number: 3 [facility] [address]Dtc: [id number] [place], [place] Repository Date:7876-15-57Yarn [address]Wub: (330) (HP) Name:CARE [id number] () 04/14/2017 CAMILO Friend Primary CAMILO Friend [facility] MCKEEDOB: Insurance:MEDICARE MCKEEDOB: United [id number] [facility] [place] [id number] [facility] HILARIO TAMEZ, JULIOOPolicy Number: 3 [facility] [address]Cjn: [id number] [place], [place] Repository Date:0127-84-21Blaf [address]Jsl: (330) () Name:CARE [facility]3164 () 04/14/2017 CAMILO Friend Primary CAMILO Friend [facility] MCKEEDOB: Insurance:MEDICARE MCKEEDOB: United [id number] [facility] [place] [id number] [facility] HILARIO TAMZE, JULIOOPolicy Number: 3 [facility] [address]Iwn: [id number] [place], [place] Repository Date:5034-38-25Beeq [address]Vce: (330) () Name:CARE [id number] ()
== END ==
PROVIDERS: Family Provider Family Medicine; PCP Family Medicine; Referring Provider Internal Medicine Medical Oncology; Visit Provider Internal Medicine Medical Oncology
DX: Z79.810 Long term (current) use of selective estrogen receptor modulators (SERMs) (principal); C49.9 Malignant neoplasm of connective and soft tissue, unspecified
CPT/HCPCS: 36591; 80053; 83735; 85025; 93005; 96375; 96409; J7050; A4216; J2405; J9179

== ENCOUNTER → 2018-10-15 07:25 | Outpatient (CLI) | payer MEDICARE, SELFPAY ==
[2018-10-13 08:15] VITALS: BMI 24.2
--- NOTE | 2018-10-15 09:53 | EKG12_ITS ---
Test Reason : Blood Pressure : / mmHG Vent. Rate : 055 BPM Atrial Rate : 055 BPM P-R Int : 198 ms QRS Dur : 110 ms QT Int : 458 ms P-R-T Axes : 047 -06 -02 degrees QTc Int : 438 ms Sinus bradycardia Low voltage QRS Inferior infarct (cited on or before 18-DEC-2015), age undetermined Cannot rule out Anterior infarct (cited on or before 18-DEC-2015), age undetermined Abnormal ECG Confirmed by LONNIE DAVILA ([id number]), supervising film or videotape editor EDDI WARD ([id number]) on 10/18/2018 1:11:48 PM Referred By: Сергей Medina Confirmed By:LONNIE DAVILA
== END ==
PROVIDERS: Family Provider Family Medicine; PCP Family Medicine; Referring Provider Internal Medicine Medical Oncology; Visit Provider Internal Medicine Medical Oncology
DX: Z79.810 Long term (current) use of selective estrogen receptor modulators (SERMs) (principal)
CPT/HCPCS: 93005

== ENCOUNTER → 2019-07-18 10:05 | Outpatient (CLI) | payer MEDICARE, SELFPAY ==
[2019-07-13 08:26] VITALS: BMI 25.4
--- NOTE | 2019-07-18 10:07 | MRI_ITS ---
STUDY: MRI BRAIN WITH AND WITHOUT CONTRAST REASON FOR EXAM: Male, 84 years old. dizziness, lower extremity weakness -- dx sarcoma abd/groin 4 years ago, on chemo now, off balance, extremity weakness/ numbness, rt eye vision change TECHNIQUE: Standardized multiplanar fat and water weighted pulse sequences were obtained. dotarem 14ml IV was administered for the contrast portion of the examination. COMPARISON: None. FINDINGS: There is mild cerebral atrophy with widening of the extra-axial spaces and ventricular dilatation. There are a limited number of small white matter hyperintensities, distributed throughout the deep white matter tracts of the cerebral hemispheres, consistent with mild chronic white matter ischemic changes. There is no evidence for recent intracranial ischemia or other cause of cytotoxic edema on diffusion weighted imaging (DWI). Normal T2* images of the brain without demonstrated susceptibility artifact. There is no demonstrated hemosiderin stain. Normal bilateral basal ganglia. Normal thalami. There is no extra-axial fluid accumulation. Normal flow voids within the major intracranial circulation suggesting patency by spin echo criteria. Normal venous enhancement. There is no enhancing intra-axial or extra-axial abnormality. Normal sella turcica, pituitary gland, infundibular stalk, optic chiasm and hypothalamus. Normal tectal plate and pineal gland. Normal midbrain, nery and medulla. Normal cerebellum. Normal basal cisterns. Normal bilateral temporal bones. Normal bilateral internal auditory canals. There are bilateral ocular lens implants with otherwise normal intraorbital contents. Normal visualized paranasal sinuses. Normal calvarium and skull base. Normal visualized soft tissue structures. Normal visualized upper cervical spine. MRI/Brain W/WO Contrast IMPRESSION: Involutional changes of the brain, as described above. Electronically Signed: Nael Vazquez MD at 12:08 EDT Tel , Service support ,
[2019-07-18] MEDS: 0.9% Saline Lock 10 ML Syringe IV (11:22)
== END ==
PROVIDERS: PCP Family Medicine; Referring Provider Internal Medicine Medical Oncology; Visit Provider Internal Medicine Medical Oncology
DX: R42 Dizziness and giddiness (principal); R29.898 Other symptoms and signs involving the musculoskeletal system; C49.9 Malignant neoplasm of connective and soft tissue, unspecified
CPT/HCPCS: 70553; A9575; A4216

== ENCOUNTER → 2019-08-15 07:09 | Outpatient (CLI) | payer MEDICARE, SELFPAY ==
[2019-08-10 08:24] VITALS: BMI 24.9
--- NOTE | 2019-08-15 07:11 | CT_ITS ---
STUDY: CT SOFT TISSUE NECK WITH CONTRAST REASON FOR EXAM: Male, 84 years old. 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 RADIATION DOSAGE (If Supplied By Facility): CTDIvol = ( 15.73 ) mGy, DLP = ( 530.56 ) mGycm TECHNIQUE: The patient was scanned in a multi-detector CT scanner. High resolution transaxial imaging was performed following intravenous administration of IV 75mL Isovue-300. Sagittal and coronal images were reconstructed. Individualized dose optimization techniques were used for this CT. COMPARISON: None. FINDINGS: Minimal dilatation of the ascending thoracic aorta with a transverse dimension of 4.2 cm. The patient is status post CABG. Normal bilateral parotid glands. Normal bilateral active directory specialist spaces. Normal bilateral parapharyngeal spaces. Normal bilateral carotid spaces. Normal bilateral sublingual and submandibular glands and spaces. Normal visualized nasopharynx. Normal retropharyngeal space. Normal perivertebral space. Normal visualized bilateral faucial tonsils. The visualized tongue, tongue base and oropharynx are normal. The visualized cervical lymph nodes (levels I-) are within normal size limits, and maintain normal morphology. There is a 1.6 cm x 1.3 cm x 1.8 cm well-defined rounded hypodense nodule in the subcutaneous tissues underlying the left mid/lower posterior lateral cervical region correspond to the palpable abnormality. This appears to be a cystic structure. There is no abnormal contrast enhancement. Normal epiglottis, bilateral vallecula and hypopharynx. The pre-epiglottic and paraglottic adipose spaces are normal. Normal visualized bilateral piriform sinuses, aryepiglottic folds, vocal cords, and arytenoid-cricoid articulations. Normal subglottic trachea. Normal bilateral lobes of the thyroid gland. Normal visualized pulmonary apices. Normal visualized paranasal sinuses. There is degenerative changes of the cervical spine. CT/Soft Tissue Neck WITH Contrast IMPRESSION: The probable abnormality corresponds to a 1.6 cm x 1.3 cm x 1.8 cm well-defined rounded hypodense nodule in the subcutaneous tissues underlying the left mid/lower posterior lateral cervical region. Electronically Signed: Jeff Mejia, at 8:36 EDT , Service support ,
--- NOTE | 2019-08-15 07:47 | EKG12_ITS ---
Test Reason : CHEMO Blood Pressure : / mmHG Vent. Rate : 060 BPM Atrial Rate : 060 BPM P-R Int : 190 ms QRS Dur : 112 ms QT Int : 440 ms P-R-T Axes : 051 027 -06 degrees QTc Int : 440 ms Normal sinus rhythm Low voltage QRS Inferior infarct , age undetermined Abnormal ECG Confirmed by RONNIE ROYAL, SULLY ([id number]), news assignment editor JELLY LOZANO ([id number]) on 08/16/2019 10:12:46 AM Referred By: Leti Alexander Confirmed By:SULLY TRUJILLO MD
[2019-08-15] MEDS: 0.9% Saline Lock 10 ML Syringe IV (07:50)
== END ==
PROVIDERS: PCP Family Medicine; Referring Provider Nurse Practitioner Family; Visit Provider Nurse Practitioner Family
DX: C49.9 Malignant neoplasm of connective and soft tissue, unspecified (principal); R22.1 Localized swelling, mass and lump, neck
CPT/HCPCS: 70491; 93005; Q9967; A4216

== ENCOUNTER → 2020-01-13 | Outpatient (CLI) | payer MEDICARE, SELFPAY ==
[2019-11-30 08:29] VITALS: BMI 23.9
== END | disposition home or self-care (01) ==
LOC: LABSPEC 15:02
PROVIDERS: PCP Family Medicine; Referring Provider Family Medicine; Visit Provider Family Medicine
DX: U07.1 COVID-19 (principal)
CPT/HCPCS: 87635; U0003

== ENCOUNTER → 2020-04-06 07:41 | Outpatient (CLI) | payer MEDICARE, SELFPAY ==
[2020-03-29 08:54] VITALS: BMI 24.4
--- NOTE | 2020-04-06 07:47 | ECHOD_ITS ---
Reason For Study: S/P CABG Procedure This was a 2D Doppler, Color Flow transthoracic echocardiogram. The study was technically difficult. Exam performed in department. Left Ventricle Normal LV size. The estimated ejection fraction is 50 %. Stage 1 diastolic dysfunction. Mild segmental systolic dysfunction (see wall motion). Mid-Inferior: Hypokinetic. Infero-Basal: Akinetic. Mid-Posterior: Hypokinetic. The rest of the wall segments are normal. Right Ventricle Normal RV size. Normal systolic function. Atria Normal left atrium. Normal right atrium. Mitral Valve Normal mitral valve. Mild (1+) eccentric mitral valve insufficiency. Tricuspid Valve Normal tricuspid valve. Mild tricuspid valve insufficiency. Pulmonary artery systolic pressure is 22 mmHg. Aortic Valve Trisinus/trileaflet aortic valve. Mild focal aortic valve calcification. Peak aortic valve gradient 22 mmHg. Mean aortic valve gradient 13 mmHg. Mild aortic stenosis. Trivial aortic valve insufficiency. Pulmonic Valve Normal pulmonic valve. Great Vessels Normal aortic root. The pulmonary artery is normal size. Normal inferior vena cava. Pericardium/Pleural No pericardial effusion. MMode/2D Measurements & Calculations LVIDd: 5.4 cm IVSd: 1.3 cm LVOT diam: 2.2 cm LVIDs: 3.6 cm LVPWd: 0.84 cm LVOT area: 3.9 cm2 RVDd: 4.1 cm FS: 33.8 % Ao root diam: 4.2 cm LAV(MOD-sp4): 45.9 ml LA A4 area: 17.0 cm2 LA dimension: 3.4 cm RA A4 area: 14.0 cm2 Time Measurements MV dec time: 0.35 sec Doppler Measurements & Calculations MV E max dewayne: 32.1 cm/sec Lat Peak E' Dewayne: 6.3 cm/sec Med Peak E' Dewayne: 4.7 cm/sec MV A max dewayne: 81.2 cm/sec E/E' lat: 5.1 E/E' med: 6.8 MV E/A: 0.40 MV V2 max: 78.9 cm/sec MV P1/2t max dewayne: 46.6 cm/sec Ao V2 max: 236.4 cm/sec MV max P.5 mmHg MV P1/2t: 121.0 msec Ao max P.4 mmHg MV V2 mean: 40.9 cm/sec Ao V2 mean: 167.5 cm/sec MV mean P.80 mmHg MV dec slope: 112.8 cm/sec2 Ao mean P.9 mmHg MV V2 VTI: 23.9 cm MVA(P1/2t): 1.8 cm2 Ao V2 VTI: 59.7 cm MVA(VTI): 3.3 cm2 OLY(I,D): 1.3 cm2 OLY(V,D): 1.4 cm2 AI max dewayne: 269.6 cm/sec LV V1 max: 85.1 cm/sec SV(LVOT): 79.8 ml AI max P.1 mmHg LV V1 max P.9 mmHg AI dec slope: 89.0 cm/sec2 LV V1 mean P.5 mmHg AI P1/2t: 887.3 msec LV V1 mean: 56.0 cm/sec LV V1 VTI: 20.5 cm PA V2 max: 63.8 cm/sec TR max dewayne: 220.0 cm/sec TR max P.4 mmHg Interpretation Summary Normal LV size. The estimated ejection fraction is 50 %. Stage 1 diastolic dysfunction. Mild segmental systolic dysfunction (see wall motion). Mild aortic stenosis. Ordering Physician: Garrett Kimball Referring Physician: Cedric Donis Performed By: Lex Cuello RCS
== END ==
PROVIDERS: PCP Family Medicine; Referring Provider Internal Medicine Cardiovascular Disease; Visit Provider Internal Medicine Cardiovascular Disease
DX: I25.10 Atherosclerotic heart disease of native coronary artery without angina pectoris (principal); Z95.1 Presence of aortocoronary bypass graft
CPT/HCPCS: 93306

== ENCOUNTER 2020-08-16 07:29 | Day surgery (SDC) | payer MEDICARE, SELFPAY ==
[2020-08-10 10:27] VITALS: BMI 24.3
[2020-08-16] VITALS (18 sets, daily range): BP systolic 113–161; BP diastolic 67–99; PULSE 47–69; RESP 16–18; TEMP 35.9–37; O2SAT 94–100; BMI 24.1
--- NOTE | 2020-08-16 08:12 | PCM.HP.BLA ---
History and Physical Date of Admission: 08/16/20 Date of Service: 08/10/20 MR#:[id number] Acct:[id number] Name: RADHA CUELLAR :1935 Age/Sex: 85/M Rep #:[id number] Provider:Dr. Pam Becerra MD Location:[facility] Status:Signed Intake Vital Signs 08/10/20 10:06 08/10/20 10:27 Height 5 ft 6 in Weight: 151 lb 2 oz BMI 24.5 24.3 BP 111/73 Blood Pressure Location Rt brachial Position Sitting Respiration 16 Pulse 58 L Pulse Source Monitor Temp 97.5 F L Temp Source Temporal Pulse Oximetry (%) 98 Oxygen Delivery Method room air Intake Visit Reasons: Hernia Chief Complaint: Left groin pain Business Services Administrator Required: No Is patient in pain?: No Allergies colestipol [From Colestid] Adverse Reaction (Mild, Verified 08/14/20 14:19) Constipation Medications glucosamine SSz-vhj-daiqqgfksr 1 ea PO DAILY 03/07/15 [History Confirmed 08/14/20] aspirin 81 mg PO DAILY@0800 07/03/15 [History Confirmed 08/14/20] esookget-gvy-ZF-lycopen-lutein 1 ea PO BID 07/29/16 [History Confirmed 08/14/20] tamsulosin 0.4 mg capsule 0.4 mg PO QHS 60 Days #60 02/27/17 [History Confirmed 08/14/20] pantoprazole 40 mg PO DAILY #60 tab 04/15/17 [Rx Confirmed 08/14/20] naproxen sodium 220 mg PO DAILY 08/31/19 [History Confirmed 08/14/20] metoprolol tartrate 25 mg tablet 25 mg PO BID #180 tab 10/27/19 [Rx Confirmed 08/14/20] atorvastatin 40 mg tablet 40 mg PO QHS #90 tab 11/07/19 [Rx Confirmed 08/14/20] [facility] Medical History (Updated 08/14/20 @ 14:42 by Aleena Hinkle) Arthritis Atherosclerosis of coronary artery bypass graft without angina pectoris Atherosclerotic heart disease of [place] coronary artery without angina pectoris Benign prostatic hypertrophy BIOPSY OF THROAT Bradycardia Cancer Cardiology follow-up encounter Cataract Chemotherapy management, encounter for Chest congestion COVID-19 virus detected (01/13/20) Dizziness Dizziness and giddiness Encounter for chemotherapy management Encounter for education Essential (primary) hypertension Fecal occult blood test positive GERD (gastroesophageal reflux disease) Hernia High cholesterol History of heart attack History of pain when walking History of stress test HLD (hyperlipidemia) Hx of echocardiogram Hx of peripheral neuropathy Imbalance Ischemic cardiomyopathy 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 Neck mass Non-smoker Old inferior wall myocardial infarction Paroxysmal ventricular tachycardia Peripheral neuropathic gait 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 Tinea corporis Weakness of lower extremity Surgical History (Updated 08/14/20 @ 14:42 by Aleena Hinkle) H/O coronary artery bypass surgery (06/16/05) History of biopsy History of cardiac catheterization History of coronary artery stent placement (07/2008) History of electrophysiologic study (09/2008) History of vascular access device Hx of cataract surgery Hx of tonsillectomy Family History Father Heart disease Myocardial infarction, Onset Age: 43 Mother COPD (chronic obstructive pulmonary disease) Sister Cancer Social History Smoking Status: Never smoker alcohol intake: never substance use type: does not use caffeine: Yes Type: coffee Number of servings: 3 what type of physical activity do you participate in: none seatbelt use: always do you feel safe at home: Yes HPI HPI HPI: RADHA CUELLAR, is a 85 M who presents to the office today for left inguinal hernia. Patient states previously he had bilateral inguinal hernias done years ago with no mesh. Patient states he is had pain for the last 2 weeks in the left groin. 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 Per last CAT scan patient has no residual disease. ROS General General: No weight change, appetite, fatigue, colon cancer or breast cancer HEENT HEENT: No difficulty swallowing, eye injury, eye surgery, swollen glands or hoarseness Endo Endocrine: No thyroid disease, diabetes mellitus, thyroid cancer, Hair loss, heat intolerance or cold intolerance Skin Skin: No rash or changing moles Musc Musculoskeletal: Yes arthritis; No back problems, rheumatoid arthritis, gout or joint pain Cardio Cardiovascular: Yes heart disease, heart attack and heart stent; No murmur, pacemaker, atrial fibrillation, high blood pressure, palpitations, shortness of breat with exertion or chest pain Psych Psychiatric: No depression, anxiety or hearing voices Resp Respiratory: No shortness of breath, No sleep apnea, No cough, No COPD, No asthma, No emphysema and No wheezing Gastro Gastrointestinal: No abdominal pain, No nausea or vomiting, No diarrhea, No constipation, No blood in stool, No acid reflux, No hemorrhoids, No ulcers, No gallbladder problem and No black,tarry stools [place] Hematologic: No blood thinners, No blood disorders, No bleeding, No anemia and No blood clots Exam Const General: cooperative, healthy appearing, comfortable and no acute distress Neck Neck: normal visual inspection Resp Effort & Inspection: normal respiratory effort Cardio Rate: regular rate GI Inspection: non-distended Palpation: soft, no guarding and nontender Other: Left inguinal hernia appreciated on exam, easily reducible, no inguinal hernia on the right. Previous incisions in both the right and left groins. Skin General: no rashes or lesions noted Neuro General: patient oriented x3 Psych Affect: normal affect COVID (Procedure Consent) Procedure Criteria Procedure Criteria: Yes Elective The surgeon/proceduralist and patient have discussed in detail the risk of exposure to and/or potential harm posed by the COVID-19 virus with having a surgery/procedure at this time versus the risk of delaying the surgery/procedure. It is not possible to know either the risk of delaying the surgery or procedure or chance of getting an infection with perfect accuracy, but a joint decision was made between the patient and the surgeon/proceduralist to proceed at this time with the scheduled surgery/procedure as indicated on the consent form. Assessment and Plan Assessment and Plan (1) Hernia: (2) Recurrent left inguinal hernia: Status: Acute Plan - Dr. Pam Becerra MD: Plan to do a left inguinal herniorrhaphy with mesh. Reviewed the procedure with the patient including the risks, including but not limited to infection, bleeding, paresthesia, chronic back pain, injury to small bowel or contents of the spermatic cord, and recurrence. All questions were answered. Pam Becerra M.D. Pager: [phone] [facility] [address] [place] [address], [address] [place] [address] Office: [phone] Coding Level of Care Code Off vis,new,level 3 Diagnoses Hernia K46.9 Recurrent left inguinal hernia K40.91 08/15/20 1312<Electronically signed by Pam Becerra MD>Date Pam Becerra MD
[2020-08-16] MEDS: Lactated Ringers 1,000 ML 100 ML IV ×2 (08:52→13:24)
--- NOTE | 2020-08-16 09:30 | HERN_PTH ---
PATIENT: RADHA CUELLAR LOC: [facility] [place] U#:[id number] AGE/SX: 85/M ROOM: RE08/16/[address]: Dr. Pam Becerra MD : 1935 BED: DIS: 08/16/2020 SPEC #: [id number] RECD: 08/16/20 11:50 STATUS: BELEN REAmanda #: [id number] HA: 08/16/20 09:[address]: Pam Becerra DEPT: SURGICAL PATHOLOGY RECD BY: Liliana Purvis ENTERED: 08/16/20 12:51 SP TYPE: Hernia OTHR DR: Dr. Cedric Donis MD Tissues: HERNIA Procedures: Surgery Specimen Level II HEADER OPERATION: Recurrent inguinal hernia with mesh PRE-OP DIAGNOSIS: Recurrent left inguinal hernia TISSUE SUBMITTED: Hernia sac MICROSCOPIC DIAGNOSIS Left inguinal hernia, herniorrhaphy: Fibrofatty tissue with mild chronic inflammation. AM:nette 08/17/2020 MICROSCOPIC DESCRIPTION Slides are reviewed. GROSS DESCRIPTION Received in fixative is one container labeled with the patient's name and designated hernia sac. The specimen consists of an irregular fragment of yellow fatty tissue measuring 2.7 x 1 x 1 cm. Serial sections do not reveal mass lesions. The specimen is sectioned and totally submitted in one cassette. / AM:nette 08/16/20 TC:3 CPT: 16400
[2020-08-16] MEDS: Cefazolin 2 GM in 0.9% Normal Saline 100 ML IV (10:40)
[2020-08-16] MEDS: Lidocaine 1% /Epi 1:100 (20ml) 20 ML Vial (10:55)
--- NOTE | 2020-08-16 11:50 | OP.PCM_ITS ---
Report of Operation Date of Procedure: 08/16/20 Pre-Operative Diagnosis: Recurrent left inguinal hernia Post-Operative Diagnosis: Recurrent left inguinal hernia?indirect Surgery/Procedure Performed:: Left inguinal hernia repair with mesh Surgeon: Pam Becerra Anesthesiologist: Ehsan Simpson Special Medications: Ancef 2 g IV x1 Specimen's removed: Hernia sac Estimated Blood Loss (mL): < 10 cc Fluids Replaced: Per anesthesia Description of Procedure: Indications: This is a 85-year-old male who developed left recurrent inguinal hernia. Patient's previous repair did not use any mesh. Left inguinal hernia repair with mesh was elected. Description procedure: The patient was taken to the operating room. A timeout was completed verifying correct patient, procedure, site, positioning, and special equipment prior to beginning procedure. MAC anesthesia was induced. The left groin was prepped and draped in usual sterile fashion. An incision was marked in the natural skin crease and planned in the near the pubic tubercle. A field block was produced by raising skin wheals along the proposed incision in a skin wound was raised about 1 cm medial to the anterior superior iliac spine using 0.5% Marcaine for a total of 10 mL. Skin incision was made with the knife and deepened through the Kenzie and Camper's fascia with electrocautery until the aponeurosis of the external oblique was a identified. This was cleaned and the external ring exposed. Hemostasis was achieved in the wound. An incision was made in the midpoint of the external oblique aponeurosis in the direction of its fibers. The ilioinguinal nerve was unable to be identified possibly due to previous surgery. Flaps of the external oblique were developed cephalad and inferiorly. The cord was identified. It was gently dissected free at the pubic tubercle and encircled with a [place] drain. Attention was directed to the anterior medial aspect of the cord where an indirect hernia sac was identified. The sac was carefully dissected free from the cord down to the level of the internal ring. The vas on the testicular vessels were identified and protected from harm. The sac was opened and contents reduced. A finger was passed into the peritoneal cavity and the floor of the inguinal canal was assessed and found to be adequate. The femoral canal was palpated and no hernia identified. The sac was twisted and suture ligated with a 2-0 silk. Redundant sac was excised and submitted to pathology. The stump of the sac was checked for hemostasis and allowed to retract into the abdomen. Attention then turned to the floor of the canal which appeared to be weakened without a well-defined defect or sac. A Bard keyhole mesh was cut to the appropriate size. Beginning at the pubic tubercle, the mesh was sutured to the inguinal ligament inferiorly and the conjoined tendon superiorly using 2 c ontinuous running sutures of 2-0 PDS sutures. Care was taken to assure the mesh was placed in the last fashion to avoid excess tension and no neurovascular structures were caught in the repair. Laterally the tails of mesh were crossed and the internal ring recreated, allowing for passage of the surgeon's 5th fingertip. Hemostasis was again checked. The [place] drain was removed. Area was irri gated with saline. External oblique aponeurosis was closed running suture of 3- 0 Vicryl, taking care not to catch the ilioinguinal nerve in the suture line. Kenzie's fascia was closed with interrupted sutures of 3-0 Vicryl. Skin was closed running subcuticular suture of 4-0 Monocryl with Steri-Strips gauze and Tegaderm. The testes was gently pulled down to the anatomical position the scrotum. Patient tolerated the procedure well and sent to the postanesthesia care in stable condition. Grafts/Implants Used: Bard mesh preshaped Lot [id number] ref [id number] Complications none
--- NOTE | 2020-08-16 11:54 | EX.PCM.DISCH ---
Discharge Instructions Diet Discharge Diet: Light diet - advance as tolerated Activity Discharge Activity: May Not Drive (while taking narcotic pain medications.) May shower in (days): 1 Lifting Restrictions: no lifting >20 lbs x 2 wks, no strenuous exercise for 4 wks Additional Activity Instructions:: Scrotal support/jockstrap first couple days, and then for comfort only Dressing / Incision Call your doctor if your incision/area has: Continuous Slow Oozing, Sudden Increased Bleeding, Increased Pain/ Swelling, Increased Redness, Foul Smelling Discharge and Swelling at the incision site Call your doctor if you observe: Fever of 101 or Higher Remove Dressing in: 2 days Cleanse incision/area with: Soap & Water Additional Dressing/Incision Instructions:: Steri-Strips will fall off in 7 to 10 days, if they do not fall off okay to remove after 10 days. Follow Up Care Please Follow Up With: Pam Becerra MD When: Call the office for a follow-up appointment 2 weeks; after 5 PM and on the weekends call [phone] with any concerns. Test Results: Test results from this visit will be discussed in further detail at your follow-up appointment, if applicable. Discharge Plan Admission Attending Provider: Pam Becerra Primary Care Provider: Sergio Donis Discharge Orders/Prescriptions Prescriptions: New oxycodone-acetaminophen [Endocet] 5-325 mg tablet 0.5 - 1 tab PO Q6H PRN (Reason: pain) 3 Days Qty: 10 RF: 0 Continued tamsulosin 0.4 MG capsule,extended release 24hr 0.4 mg PO QHS 60 Days Qty: 60 RF: 0 glucosamine ZYv-wls-wwwttbsocc 1 EACH tablet 1 ea PO DAILY RF: 0 xszebcaj-tye-ZM-lycopen-lutein 1 EACH tablet 1 ea PO BID RF: 0 pantoprazole 40 MG tablet 40 mg PO DAILY Qty: 60 RF: 2 naproxen sodium 220 MG tablet 220 mg PO DAILY RF: 0 metoprolol tartrate 25 mg tablet 25 mg PO BID Qty: 180 RF: 3 Hold Instructions: /lightheadedness 09/28/2018 atorvastatin 40 mg tablet 40 mg PO QHS Qty: 90 RF: 3 Held aspirin 81 MG tablet 81 mg PO DAILY@0800 RF: 0 Hold Instructions: Resume on 08/17/20. Referrals / Follow Up: Sergio Donis MD [Primary Care Provider] - Disposition Disposition (needs filled in before D/C Order can be placed): Home, self care
--- NOTE | 2020-08-16 12:17 | EKG12_ITS ---
Test Reason : POST OPP Blood Pressure : / mmHG Vent. Rate : 055 BPM Atrial Rate : 055 BPM P-R Int : 180 ms QRS Dur : 120 ms QT Int : 484 ms P-R-T Axes : 024 -07 -20 degrees QTc Int : 463 ms Sinus bradycardia Inferior infarct (cited on or before 18-DEC-2015) Abnormal ECG When compared with ECG of 15-AUG-2019 07:59, No significant change was found Confirmed by RONNIE ROYAL, SULLY ([id number]), business editor EDDI WARD ([id number]) on 08/21/2020 9:18:02 AM Referred By: Pam Becerra Confirmed By:SULLY TRUJILLO MD
[2020-08-16] MEDS: oxyCODONE 5 MG Tablet PO (14:17)
== END 2020-08-16 17:08 | disposition home or self-care (01) ==
LOC: SDC 07:30 → AC 07:31
PROVIDERS: Anesthesiology; PCP Family Medicine; Referring Provider Surgery; Visit Provider Surgery
PROC: (CPT 49521; principal; 2020-08-16 09:15)
DX: K40.91 Unilateral inguinal hernia, without obstruction or gangrene, recurrent (principal); K21.9 Gastro-esophageal reflux disease without esophagitis; M19.90 Unspecified osteoarthritis, unspecified site; N40.0 Benign prostatic hyperplasia without lower urinary tract symptoms; I25.10 Atherosclerotic heart disease of native coronary artery without angina pectoris; I25.2 Old myocardial infarction; E78.5 Hyperlipidemia, unspecified; Z79.899 Other long term (current) drug therapy; Z79.82 Long term (current) use of aspirin; Z86.16 Personal history of COVID-19; Z95.1 Presence of aortocoronary bypass graft
CPT/HCPCS: 00830; 49521; 84484; 88302; 93005; J7120; A4216; C1781; J2405

== ENCOUNTER → 2020-09-11 06:33 | Outpatient (CLI) | payer MEDICARE, SELFPAY ==
[2020-06-13 08:31] VITALS: BMI 24.5
[2020-08-16 08:44] VITALS: BMI 24.1
--- NOTE | 2020-09-11 06:41 | CT_ITS ---
STUDY: CT CHEST, ABDOMEN T PELVIS WITH CONTRAST REASON FOR EXAM: Male, 85 years old. RESTAGING. Patient has a history of a sarcoma. RADIATION DOSAGE (If Supplied By Facility): CTDIvol = ( 16.60 ) mGy, DLP = ( 1261.31 ) mGycm TECHNIQUE: Transaxial imaging was performed following intravenous administration of Oral and amp; IV Readi-CAT and amp; 100mL Isovue-300. Individualized dose optimization techniques were used for this CT. COMPARISON: Comparison is made with prior CT scan of the abdomen dated 03/07/2015. FINDINGS: CHEST A right-sided portacatheter is seen with the tip in the superior vena cava. Hyperinflation. Scarring at the lung apices likely more prominent on the right side. Calcified granuloma in the anterior medial aspect of the left upper lobe. There is no demonstrated pleural abnormality. Sternal cerclage wires and vascular clips are present from a prior sternotomy and coronary artery bypass graft procedure (CABG). There are calcifications of the coronary arteries. There are multiple small lymph nodes within the mediastinum, which are normal in size and morphology most compatible with reactive lymph hyperplasia. Normal hilar regions. Normal unenhanced pulmonary arteries. The root of the ascending thoracic aorta measures upper limits of normal. There is demineralization of the thoracic spine. ABDOMEN Prior CABG. Coronary artery calcification. Stable mildly dilated intrahepatic biliary ducts. There is a 1.3 cm x 2.2 cm hypodensity in the medial aspect of the left lobe of the liver adjacent to the cardiac border. Correlation with ultrasound is recommended. Normal gallbladder and extrahepatic biliary system. There is a 1.2 cm cyst in the central portion of the spleen. This was not well visualized on prior examination. Normal pancreas. Normal bilateral adrenal glands. Stable right renal cysts. The largest cyst measures 5.4 cm x 5.4 cm and is located along the medial aspect of the kidney. Stable left renal cysts. There is a small hiatal hernia. Normal small intestine. Normal colon. The appendix is visualized and appears normal. There is diffuse atherosclerotic calcification of the abdominal aorta, without a demonstrated aneurysm. Normal inferior vena cava. Normal retroperitoneum. Once again, surgical clips are seen in the right anterior hemipelvis. The previously seen enhancing rounded mass in the right inguinal region has decreased in size. It presently measures 1.6 cm x 0.9 cm. The previously seen soft tissue mass anterior to the right ileal psoas muscle at the level of the right iliac bone has decreased in size as well. It presently measures 0.8 cm. There are diffuse degenerative changes of the visualized lumbar spine. PELVIS Distended urinary bladder. Marked degree of prostatic enlargement measuring 7.3 cm x 6 cm. This causes indentation at the bladder base. There is diffuse atherosclerotic calcification of the pelvic arteries. There are diffuse degenerative changes of the visualized lumbar spine. Stable almost complete collapse of the L3 vertebrae. CT/CT Chest, Abd, Pel w/Contrast IMPRESSION: Interval decrease in size of the right inguinal mass as well as in the soft tissue mass seen anterior to the right iliac bone at the level of the iliopsoas muscle. Marked enlargement of the prostate with indentation at the bladder base. Electronically Signed: Jeff Mejia MD at 10:11 EDT , Service support ,
[2020-09-11 07:06] LABS: CREATININE FINGERSTICK 0.9 mg/dL (0.70-1.30); EGFR FINGERSTICK > 60.0000 mL/min (>60)
[2020-09-11] MEDS: 0.9% Saline Lock 10 ML Syringe IV (07:20)
== END ==
PROVIDERS: PCP Family Medicine; Referring Provider Internal Medicine Medical Oncology; Visit Provider Internal Medicine Medical Oncology
DX: C48.0 Malignant neoplasm of retroperitoneum (principal)
CPT/HCPCS: 71260; 74177; Q9967; A4216

== ENCOUNTER → 2020-10-02 | Outpatient (CLI) | payer MEDICARE, SELFPAY ==
--- NOTE | 2020-10-02 | IMM_PTH ---
PATIENT: RADHA CUELLAR LOC: [facility] U#:[id number] AGE/SX: 85/M ROOM: RE10/02/[address]: Dr. Pam Becerra MD : 1935 BED: DIS: 10/02/2020 SPEC #: [id number] RECD: 10/03/20 12:38 STATUS: BELEN REQ #: [id number] HA: 10/02/20 00:[address]: Pam Becerra DEPT: IMMUNOHISTOCHEMISTRY RECD BY: Ethel Sadler ENTERED: 10/03/20 12:41 SP TYPE: IMMUNO OTHR DR: Dr. Cedric Donis MD Tissues: Inguinal lymph node, NOS Procedures: SMA (add) CALPONIN-1 (add) CD31 (add) CD34 (add) DESMIN (add) KI-67 (add) P53 (add) Vimentin (add) 34BE12 (add) SMM (add) FACTOR VIII (add) Pankeratin (initial) S-100 (add) PHYSICIAN & [address] [address] SPECIMEN INFORMATION: Tissue Source: Right groin mass Clinical Info: Right groin mass, history of sarcoma Specimen Number: [id number] CPT code: 24414, 94196 x12 METHODOLOGY: Deparaffinized sections of prefer/formalin-fixed tissue or PAP/DQ stained slides are incubated with monoclonal/polyclonal antibodies/oligonucleotide probes. Localization is made via biotin free immunoperoxidase method. Appropriate controls are performed and reacted as expected. Results on target cell population are indicated in the following table: RESULTS: ANTIBODY / CLONE RESULT AE1-3 (AE1/AE3/PCK26) negative Vimentin (V9) positive 34BE12 (34BE12) negative Calponin-1 (YK371K) negative CD31 (LUCIANO/70A) negative Factor VIII (R Ag) negative CD34 (QBEnd-10) negative Actin (1A4) negative Myosin (simms1) negative Desmin (CE-R-11) negative S-100 (4C4.9) negative P53 (DO-7) positive, 25% Ki-67 (30-9) positive, 2% These tests were developed and their performance characteristics determined by [facility]. They may not have been cleared or approved by the U.S. Food and Drug Administration. The FDA has determined that such clearance or approval is not necessary. The above immunohistochemical/dualISH markers are ordered and reviewed by the Pathologist. INTERPRETATION: Right groin mass, biopsy: Consistent with metastatic sarcoma. See comment. 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 Case has been reviewed in consultation with Dr. Christianson who concurs with the above diagnosis. IDC:SJ
[2020-10-02 08:55] VITALS: BMI 24.5
--- NOTE | 2020-10-02 09:00 | LYMN_PTH ---
PATIENT: RADHA CUELLAR LOC: [facility] U#:[id number] AGE/SX: 85/M ROOM: RE10/02/[address]: Dr. Pam Becerra MD : 1935 BED: DIS: 10/02/2020 SPEC #: [id number] RECD: 10/02/20 11:29 STATUS: BELEN REAmanda #: [id number] HA: 10/02/20 09:[address]: Pam Becerra DEPT: SURGICAL PATHOLOGY RECD BY: Liliana Purvis ENTERED: 10/02/20 13:00 SP TYPE: LYMPH NODE OTHR DR: Dr. Cedric Donis MD Tissues: LYMPH NODE BIOPSY Procedures: Surgery Specimen Level IV HEADER OPERATION: Right groin biopsy PRE-OP DIAGNOSIS: Right groin mass, history of sarcoma TISSUE SUBMITTED: Right groin mass MICROSCOPIC DIAGNOSIS Right groin mass, core biopsy: High-grade sarcoma. See comment. AM:nette 10/08/2020 COMMENT Immunohistochemistry ([id number]) supports the above diagnosis. Case is reviewed with Dr. Garcia of [facility] who concurs with the diagnosis. 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 Case has been reviewed in consultation with Dr. Christianson who concurs with the above diagnosis. RICO:WAGNER MICROSCOPIC DESCRIPTION Slides are reviewed. GROSS DESCRIPTION Received in fixative is one container labeled with the patient's name and designated right groin lymph node. The specimen consists of two elongated pieces of srinivasan soft tissue that in aggregate measure 2 x 0.2 x 0.1 cm. The specimen is totally submitted in one cassette. / WAGNER:nette 10/02/20 TC:0 CPT: 22861
== END | disposition home or self-care (01) ==
LOC: LABSPEC 11:34
PROVIDERS: PCP Family Medicine; Visit Provider Surgery
DX: R19.09 Other intra-abdominal and pelvic swelling, mass and lump (principal)
CPT/HCPCS: 88305; 88341; 88342

== ENCOUNTER 2021-04-15 07:06 | Outpatient (CLI) | payer MEDICARE, SELFPAY ==
[2021-04-15] MEDS: 0.9 % NaCl (Sterile) Posiflush 10 mL IV (09:50)
[2021-04-15 09:55] LABS: CREATININE FINGERSTICK 0.8 mg/dL (0.70-1.30); EGFR FINGERSTICK > 60.0000 mL/min (>60)
--- NOTE | 2021-04-15 10:00 | CT_ITS ---
STUDY: CT CHEST, ABDOMEN T PELVIS WITH CONTRAST REASON FOR EXAM: Male, 86 years old. NEW BASELINE IMAGING S/P SURGERY. Patient has a history of sarcoma. RADIATION DOSAGE (If Supplied By Facility): CTDIvol = ( 20.78 ) mGy, DLP = ( 2056.50 ) mGycm TECHNIQUE: Transaxial imaging was performed following intravenous administration of Oral and amp; IV Gastrografin and amp; 100mL Isovue-300. Individualized dose optimization techniques were used for this CT. COMPARISON: No prior studies are available for comparison at this time. The 09/11/2020 CT scan reports are available. FINDINGS: CHEST A right-sided portacatheter is seen with the tip in the superior vena cava. There are small bilateral supraclavicular lymph nodes. Hyperinflation. Emphysematous changes. Stable scarring at the lung apices. There is no demonstrated pleural abnormality. Sternal cerclage wires and vascular clips are present from a prior sternotomy and coronary artery bypass graft procedure (CABG). Coronary artery calcification. Calcified granuloma in the anterior aspect of the left upper lobe. Prominence of the azygos vein. There are multiple small lymph nodes within the mediastinum, which are normal in size and morphology most compatible with reactive lymph hyperplasia. Normal hilar regions. Normal unenhanced pulmonary arteries. Normal aorta arch and descending thoracic aorta. There are degenerative changes of the thoracic spine. ABDOMEN There is a 5 mm cyst in the inferior lateral aspect of the right lobe of the liver. Stable 1.3 cm x 2.2 cm hypodensity in the medial aspect of the left lobe of the liver adjacent to the right cardiac border. Normal gallbladder and extrahepatic biliary system. 1.3 cm cyst in the central portion of the spleen. Normal pancreas. Normal bilateral adrenal glands. There is a 6 cm x 6 cm cyst in the medial upper midportion of the right kidney. There is a 3.4 cm x 3.7 m cyst in the lateral midportion of the left kidney as well as a 2.3 cm x 2.3 cm cyst in the medial portion of the left kidney. There is a small hiatal hernia. Normal small intestine. Normal colon. The appendix is visualized and appears normal. There is diffuse atherosclerotic calcification of the abdominal aorta and its major visceral branches, without a demonstrated aneurysm. Normal inferior vena cava. Normal retroperitoneum. Surgical clips are seen overlying the right groin. Postoperative changes are seen. No definite mass lesion is present. There are diffuse degenerative changes of the visualized lumbar spine. PELVIS Distention of the urinary bladder. Marked degree of enlargement of the prostate measuring 6.8 size by 6.6 cm. This causes indentation at the bladder base. CT/CT Chest, Abd, Pel w/Contrast IMPRESSION: Emphysematous changes with scarring at the lung apices. Bilateral renal cysts. 1.3 cm x 2.2 sonographic density in the medial aspect of the left lobe of liver adjacent to the right cardiac border. 1.3 cm cyst in the central portion of the spleen. Postoperative changes are seen in the right groin. No localized mass lesion is seen at this time. Electronically Signed: Jeff Mejia MD at 10:12 EST ,
[2021-04-15] MEDS: 0.9% Saline Lock 10 ML Syringe IV (10:06)
== END 2021-04-15 23:59 | disposition home or self-care (01) ==
PROVIDERS: PCP Family Medicine
DX: C49.9 Malignant neoplasm of connective and soft tissue, unspecified (principal)
CPT/HCPCS: 71260; 74177; Q9967; A4216

== ENCOUNTER → 2021-09-30 | Outpatient (CLI) | payer MEDICARE, SELFPAY ==
--- NOTE | 2021-09-30 07:50 | CT_ITS ---
STUDY: CT CHEST, ABDOMEN T PELVIS WITH CONTRAST REASON FOR EXAM: Male, 86 years old. 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 Multiplanar coronal and sagittal images were reformatted. Individualized dose optimization techniques were used for this CT. COMPARISON: Comparison is made with prior study dated 04/15/2021. FINDINGS: CHEST A right-sided zayra catheter seen with the tip in the superior vena cava. Hyperinflation. Emphysematous changes worse in the upper lobes. Stable 4 mm calcified granuloma in the anterior medial aspect of the left upper lobe. There is no demonstrated pleural abnormality. Sternal cerclage wires and vascular clips are present from a prior sternotomy and coronary artery bypass graft procedure (CABG). There are calcifications of the coronary arteries. There are multiple small lymph nodes within the mediastinum, which are normal in size and morphology most compatible with reactive lymph hyperplasia. Normal hilar regions. Normal unenhanced pulmonary arteries. Atherosclerotic calcific plaques of the aortic arch. There is demineralization of the thoracic spine. ABDOMEN There is a 1.5 cm cyst in the anterior peripheral aspect of the left lobe of the liver. Stable 5 mm cyst in the inferior lateral aspect of the right lobe of liver. These are unchanged. Normal gallbladder and extrahepatic biliary system. Stable 1.3 cm cyst in the central aspect of the spleen. Normal pancreas. Normal bilateral adrenal glands. Stable 6 x 6 cm cyst in the medial upper midportion of the right kidney. Stable left renal cysts. Normal left kidney. There is a small hiatal hernia. Normal small intestine. Normal colon. The appendix is visualized and appears normal. There is diffuse atherosclerotic calcification of the abdominal aorta, without a demonstrated aneurysm. Normal inferior vena cava. Normal retroperitoneum. Surgical clips are once again seen in the region of the right groin. Postoperative changes are seen. Stable dilatation of the right external iliac vein. PELVIS Mildly distended urinary bladder. The prostate is enlarged measuring 6.5 cm x 6.2 cm. This causes indentation at the bladder base. There is no pelvic fluid. There is no pelvic lymphadenopathy or mass lesion. There is diffuse atherosclerotic calcification of the pelvic arteries. Normal abdominal wall. There are diffuse degenerative changes of the visualized lumbar spine. Stable collapse of the L3 vertebrae. CT/CT Chest, Abd, Pel w/Contrast IMPRESSION: Stable examination. Electronically Signed: Jeff Mejia MD at 9:55 EDT ,
[2021-09-30] MEDS: 0.9 % NaCl (Sterile) Posiflush 10 mL IV (08:10)
[2021-09-30] MEDS: 0.9% Saline Lock 10 ML Syringe IV (08:15)
[2021-09-30 08:21] LABS: CREATININE FINGERSTICK < 0.9 mg/dL (0.70-1.30); EGFR FINGERSTICK > 60.0000 mL/min (>60)
== END | disposition home or self-care (01) ==
PROVIDERS: PCP Family Medicine; Referring Provider Internal Medicine Medical Oncology; Visit Provider Internal Medicine Medical Oncology
DX: C48.0 Malignant neoplasm of retroperitoneum (principal)
CPT/HCPCS: 71260; 74177; Q9967; A4216

== ENCOUNTER 2021-10-28 08:59 | Outpatient (CLI) | payer MEDICARE, SELFPAY ==
--- NOTE | 2021-10-28 09:04 | RAD_ITS ---
STUDY: X-RAY - LUMBOSACRAL SPINE REASON FOR EXAM: Male, 86 years old. Radiating leg pain and weakness TECHNIQUE: 7 view(s) of the lumbosacral spine were obtained. COMPARISON: Previous CT scan from 04/15/2021 FINDINGS: There is straightening of the normal lumbar lordosis. There is no substantial scoliosis. There is normal alignment of the vertebrae. There is diffuse demineralization with multi-level endplate spondylosis. There is multi-level degenerative disc disease with multi-level disc space narrowing. No acute fracture, there is a chronic compression fracture affecting the superior endplate of L3 unchanged from the previous CT scan from April. No evidence of instability on flexion or extension views, range of motion is limited. 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 There is atherosclerotic calcification of the abdominal aorta without a demonstrated aneurysm. RAD/L/S Spine w Bend Min 6 Vw IMPRESSION: Degenerative changes of the spine, as detailed above. No acute fracture, chronic compression fracture affecting the superior endplate of L3 unchanged from CT scan from April No evidence of instability on flexion or extension views Electronically Signed: Tejas Maldonado MD at 10:00 EDT ,
[2021-10-28 12:12] LABS: Absolute Lymphocyte Count 1.34 X10^3/uL (0.83-4.51); Absolute Neutrophil Count 5.2 X10^3/uL (2.0-7.7); Basophil# 0.04 X10^3/uL; Basophil% 0.5 % (0-1); Eosinophil# 0.28 X10^3/uL; Eosinophils% 3.7 % (0-5); Hematocrit 44.5 % (40-54); Hemoglobin 14.7 g/dL (13.0-16.5); Lymphocyte # 1.34 X10^3/ul (0.83-4.51); Lymphocyte % 17.7 % (19-41); Mean Corpuscular Hgb 31.9 pg (27.0-32.0); Mean Corpuscular Volume 96.5 fL (80-94); Mean Platelet Vol. 10.1 fl (6.2-12.0); Monocyte# 0.67 X10^3/uL; Monocyte% 8.8 % (0-10); NRBC Flagged by Analyzer 0 % (0-5); Neutrophil # 5.23 X10^3/uL (2.7-7.7); Neutrophil % 68.9 % (47-70); Platelet Count 203 K/mm3 (150-450); RBC Distribution Width SD 46.4 fl (35.1-43.9); Red Blood Count 4.61 M/mm3 (4.6-6.2); White Blood Count 7.6 K/mm3 (4.4-11.0)
[2021-10-28 12:49] LABS: Cholesterol 179 mg/dL (200); High Density Lipoprotein 48 mg/dL; Iron 107 ug/dL (65-175); Thyroid Stim Hormone (TSH) 1.46 uIU/mL (0.358-3.74); Triglycerides 195 mg/dL; Very Low Density Lipoprotein 39 mg/dL (5-40)
[2021-10-28 13:43] LABS: Vitamin B12 501 pg/mL (211-911); Vitamin D,25 Hydroxy 35.5 ng/mL
== END 2021-10-28 23:59 | disposition home or self-care (01) ==
LOC: MTLAB 09:01
PROVIDERS: PCP Family Medicine; Referring Provider Family Medicine; Visit Provider Family Medicine
DX: R20.0 Anesthesia of skin (principal); M62.81 Muscle weakness (generalized); E78.00 Pure hypercholesterolemia, unspecified
CPT/HCPCS: 72114; 80061; 82306; 82607; 83540; 84443; 85025

== ENCOUNTER → 2022-03-11 | Outpatient (CLI) | payer MEDICARE, SELFPAY ==
--- NOTE | 2022-03-11 14:40 | CT_ITS ---
STUDY: CT CHEST, ABDOMEN T PELVIS WITH CONTRAST REASON FOR EXAM: Male, 87 years old. 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 Individualized dose optimization techniques were used for this CT. COMPARISON: October 04, 2021. FINDINGS: CHEST The lungs are hyperinflated but clear. Tiny granulomatous calcifications in left upper lobe measuring 3 to 4 mm There is no demonstrated pleural abnormality. Heart size is normal. There is multivessel coronary artery calcification. Small subcentimeter nodes likely benign. Normal hilar regions. Normal unenhanced pulmonary arteries. Atherosclerotic changes of the aorta without evidence for aneurysm. Postop change status post median sternotomy and CABG. Dorsal spine demonstrates degenerative change. Moderate size hiatal hernia is demonstrated No significant change since prior study. ABDOMEN Liver is mildly fatty infiltrated. There is a small hypoattenuated nodule in the left lobe of the liver measuring approximately 1.5 cm and a tiny nodule in the right measuring approximately 4 to 5 mm stable since previous study. Contracted thick-walled gallbladder without calcified stones possibly physiologic. If concern for gallbladder disease ultrasound recommended.. Spleen is normal size. There is a 6 cm hypodense nodule most likely representing hemangioma stable since previous study.. Normal pancreas. Normal bilateral adrenal glands. No evidence for renal obstruction. There are multiple simple cysts bilaterally which will not require additional imaging. . Normal visualized stomach. Normal small intestine. Diffuse fecal retention noted in the colon.. No evidence for acute appendicitis. Mild atherosclerotic changes of the aorta without evidence for aneurysm.. Normal inferior vena cava. Normal retroperitoneum. Normal abdominal wall. Lumbar spine demonstrates degenerative change. Old compression fracture of L3.. PELVIS Bladder is incompletely distended and demonstrates diffuse thickening of the lainez association with nonspecific enlargement of the prostate There is asymmetric thickening of the right iliac is muscle when compared with the left stable since previous study.. Normal visualized small intestine. Normal visualized colon. There is no pelvic fluid. There are surgical clips in the right groin. There is an enhancing nodule in the right groin within the inguinal canal measuring approximately 2.05 x 2.15 cm. which is a new finding since prior exam and suspicious for recurrent neoplasm. Normal visualized pelvic arteries. CT/CT Chest, Abd, Pel w/Contrast IMPRESSION: Mild hyperinflation old granulomatous disease in the chest. No evidence no evidence for pulmonary metastasis hilar or mediastinal adenopathy. Findings suspicious for recurrent tumor in the right groin which is new finding since prior study. No definitive evidence for adenopathy or other significant change since previous study. Electronically Signed: Phan Joy MD at 16:04 EST ,
[2022-03-11] MEDS: 0.9% Saline Lock 10 ML Syringe IV (15:15)
[2022-03-11 15:30] LABS: EGFR FINGERSTICK > 60.0000 mL/min (>60)
== END | disposition home or self-care (01) ==
PROVIDERS: PCP Family Medicine; Referring Provider Internal Medicine Medical Oncology; Visit Provider Internal Medicine Medical Oncology
DX: C49.9 Malignant neoplasm of connective and soft tissue, unspecified (principal)
CPT/HCPCS: 71260; 74177; Q9967; A4216

== ENCOUNTER 2022-10-01 16:07 | Outpatient (CLI) | payer MEDICARE, SELFPAY ==
[2022-10-01 18:08] LABS: Hemoglobin 13.5 g/dL (13.0-16.5); Mean Corp Hgb Conc 32.9 g/dL (32-36); Mean Corpuscular Hgb 32.1 pg (27.0-32.0); Mean Corpuscular Volume 97.6 fL (80-94); Mean Platelet Vol. 10.3 fl (6.2-12.0); Platelet Count 195 K/mm3 (150-450); RBC Distribution Width CV 12.4 % (11.6-14.6); RBC Distribution Width SD 44.2 fl (35.1-43.9); White Blood Count 5.4 K/mm3 (4.4-11.0)
[2022-10-01 18:12] LABS: Erythrocyte Sedimentation Rate < 1 mm/hr (0-20)
[2022-10-01 18:29] LABS: Vitamin B12 589 pg/mL (211-911); Vitamin D,25 Hydroxy 34.6 ng/mL
[2022-10-01 19:55] LABS: ALB/GLOB Ratio 1.3 RATIO (0.9-2.4); AST(SGOT) 15 U/L (15-37); Alanine Aminotransfer ALT/SGPT 20 U/L (16-61); Albumin, Serum 3.6 g/dL (3.2-5.0); Alkaline Phosphatase 82 U/L (45-117); Anion Gap 6 (5-15); BUN 26 mg/dL (7-18); Calcium,Total 8.7 mg/dL (8.5-10.1); Chloride 106 mmol/L (98-107); Cholesterol 154 mg/dL (200); Creatinine, Serum 1.18 mg/dL (0.70-1.30); EST Glomerular Filtration Rate 62 mL/min (>60); Est Glom Filt Rate - Afr Amer 75 mL/min (>60); Globulin 2.8 g/dL (2.2-4.2); Glucose 97 mg/dL (74-106); High Density Lipoprotein 50 mg/dL; Magnesium 2.2 mg/dL (1.6-2.6); Potassium 3.7 mmol/L (3.5-5.1); Protein, Total 6.4 g/dL (6.4-8.2); Sodium Level 141 mmol/L (136-145); Thyroid Stim Hormone (TSH) 1.57 uIU/mL (0.358-3.74); Triglycerides 153 mg/dL; Very Low Density Lipoprotein 31 mg/dL (5-40)
[2022-10-03 12:09] LABS: ANTINUCLEAR ANTIBODIES DIRECT Negative (Negative)
[2022-10-03 13:08] LABS: PROEL- A/G Ratio 1.6 (0.7-1.7); PROEL- Albumin 3.7 g/dL (2.9-4.4); PROEL- Alpha-1 Globulin 0.2 g/dL (0.0-0.4); PROEL- Alpha-2 Globulin 0.6 g/dL (0.4-1.0); PROEL- Beta Globulin 0.8 g/dL (0.7-1.3); PROEL- Gamma Globulin 0.7 g/dL (0.4-1.8); PROEL- Globulin, Total 2.3 g/dL (2.2-3.9)
== END 2022-10-01 23:59 | disposition home or self-care (01) ==
PROVIDERS: PCP Family Medicine; Referring Provider Family Medicine; Visit Provider Family Medicine
DX: R53.83 Other fatigue (principal); G62.9 Polyneuropathy, unspecified; E78.00 Pure hypercholesterolemia, unspecified
CPT/HCPCS: 80053; 80061; 82306; 82607; 83735; 84165; 84443; 85027; 85652; 86038

== ENCOUNTER → 2022-11-05 | Outpatient (CLI) | payer MEDICARE, SELFPAY ==
--- NOTE | 2022-11-05 10:57 | MRI_ITS ---
STUDY: MRI BRAIN WITH AND WITHOUT CONTRAST REASON FOR EXAM: Male, 87 years old patient with dizziness. TECHNIQUE: Standardized multiplanar fat and water weighted pulse sequences were obtained. 13 ml of IV Clariscan was administered for the contrast portion of the examination. COMPARISON: MRI of the brain dated July 18, 2019. FINDINGS: There is mild cerebral atrophy with widening of the extra-axial spaces and ventricular dilatation. There are multiple white matter hyperintensities, distributed throughout the deep white matter tracts of the cerebral hemispheres, consistent with moderate chronic white matter ischemic changes. There is confluent periventricular hyperintensity cloaking the lateral ventricles, consistent with periventricular leukoaraiosis. There is no evidence for recent intracranial ischemia or other cause of cytotoxic edema on diffusion weighted imaging (DWI). Normal T2* images of the brain without demonstrated susceptibility artifact. There is no demonstrated hemosiderin stain. There are prominent perivascular spaces (PVS) involving the basal ganglia. Normal thalami. There is no extra-axial fluid accumulation. Normal flow voids within the major intracranial circulation suggesting patency by spin echo criteria. Normal venous enhancement. There is no enhancing intra-axial or extra-axial abnormality. Normal sella turcica, pituitary gland, infundibular stalk, optic chiasm and hypothalamus. Normal tectal plate and pineal gland. Normal midbrain, nery and medulla. Normal cerebellum. There are large basal cisterns. Normal bilateral temporal bones. Normal bilateral internal auditory canals. There are bilateral ocular lens implants with otherwise normal intraorbital contents. Normal visualized paranasal sinuses. Normal calvarium and skull base. Normal visualized soft tissue structures. Normal visualized upper cervical spine. MRI/Brain W/WO Contrast IMPRESSION: 1. Involutional changes of the brain, as described above. 2. No MR evidence for mass or acute infarct. Electronically Signed: Dorene Gonzalez MD at 18:58 EDT ,
== END | disposition home or self-care (01) ==
LOC: MRI 10:37
PROVIDERS: PCP Family Medicine; Referring Provider Family Medicine; Visit Provider Family Medicine
DX: R42 Dizziness and giddiness (principal)
CPT/HCPCS: 70553; A9575

== ENCOUNTER → 2022-12-10 | Outpatient (CLI) | payer MEDICARE, SELFPAY ==
--- NOTE | 2022-12-10 15:24 | NEURO_ITS ---
[facility] and/or [facility]G Patient Report Ordering Doctor: Sergio Donis DATE OF SERVICE: 12/10/22 Camilo presents for electrodiagnostic testing of the lower limbs. He reports numbness and tingling with intermittent swelling. He has a history of chemotherapy for several years. He states he only wishes to get the right leg tested today. Electrodiagnostic findings: Right peroneal motor response was not obtainable. Right tibial motor nerve demonstrates normal distal latency with reduced amplitude and conduction velocity. Sensory responses are not obtainable. Prolonged H reflex noted bilaterally. The right tibialis anterior demonstrated motor unit action potentials of decreased amplitude and duration with a d ecreased recruitment pattern. Electrodiagnostic impression: This is an abnormal study. 1. Electrodiagnostic findings show absent sensory responses in the right lower limb, absent right peroneal motor response and decreased tibial motor amplitude and conduction velocity. 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 However an accurate assessment cannot be made regarding this without testing of the opposing limb. 2. No electrodiagnostic evidence is noted for lumbosacral radiculopathy. Multi Select Codes Neurology Neurology Interp Codes: 91578-71 Musc test done w/n test comp (interp) and 19032-95 Nrv cndj test 7-8 studies (interp)
== END | disposition home or self-care (01) ==
PROVIDERS: PCP Family Medicine; Referring Provider Family Medicine; Visit Provider Family Medicine
DX: R20.0 Anesthesia of skin (principal)
CPT/HCPCS: 95886; 95910

== ENCOUNTER → 2023-03-25 | Outpatient (CLI) | payer MEDICARE, SELFPAY ==
--- NOTE | 2023-03-25 12:45 | CT_ITS ---
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 Individualized dose optimization techniques were used for this CT. COMPARISON: 08/19/2022 FINDINGS: CHEST Small nodules are seen along the lesser fissure measuring approximately 4 mm each are stable when compared to the previous study from 08/19/2022. There is no demonstrated pleural abnormality. Normal heart and pericardium. Borderline mediastinal lymph nodes are noted that are stable in size when compared to the previous study. Normal hilar regions. Normal unenhanced pulmonary arteries. Normal aorta arch and descending thoracic aorta. Advanced degenerative changes are noted in the thoracic spine and in the shoulders. There is no demonstrated abnormality of the visualized upper abdomen. ABDOMEN The visualized lung bases are unremarkable. The visualized portions of the heart are within normal limits. Liver cysts, the largest measures 1.5 cm are stable since the previous study. . Normal gallbladder and extrahepatic biliary system. Splenic cysts, the largest measures 1.9 cm are stable. Normal pancreas. Normal bilateral adrenal glands. Bilateral renal cysts, the largest measures 7.2 cm is in the right kidney. Normal visualized stomach. Normal small intestine. Normal colon. There is diffuse atherosclerotic calcification of the abdominal aorta, without a demonstrated aneurysm. Normal inferior vena cava. Normal retroperitoneum. Normal abdominal wall. Normal osseous structures. PELVIS Normal urinary bladder. Normal visualized small intestine. Normal visualized colon. There is no pelvic fluid. There is no pelvic lymphadenopathy or mass lesion. There is enlargement of the prostate gland. There is diffuse atherosclerotic calcification of the pelvic arteries. Normal abdominal wall. There are diffuse degenerative changes of the visualized lumbar spine. Old compression fracture at L3. CT/CT Chest, Abd, Pel w/Contrast IMPRESSION: There is no evidence of new metastatic lesions in the chest abdomen or pelvis. Electronically Signed: Amandeep Ball MD at 13:22 EST ,
--- OUTSIDE RECORDS SUMMARY | 2023-03-25 12:46 | XMS RPT_ITS | CCD ---
Author Name Unknown Address [address] [place] [address] Organization [facility] Care Team Providers Care B2B Sales Manager Name Role Phone Jigar ROYAL, Garrett Garcia Unavailable Nathalie Donis MD Primary Care Provider Justen Betancur MD Unavailable Cheryl Balderrama RN Unavailable Unavailable Adam PATTERSON/Сергей CORDOVA Unavailable Awilda Burns MD Unavailable AWILDA BURNS Attending Unavailable СЕРГЕЙ VALLECILLO Referring Unavailable NATHALIE DONIS Primary Care Unavailabl e Medications Current Medications Medication Drug Class(es) Dates Sig (Normalized) Sig (Original) acetaminophen 325 mg / oxyCODONE hydrochloride 5 mg oral tablet (1 source) Opioid Agonist Start: 02-22-2021 take 1 tablet by mouth every six hours as needed oxyCODONE-acetamin ophen (Percocet) 5-325 MG per tablet Indications: Liposarcoma Take 1 tablet by mouth every 6 hours as needed for up to 5 days. 12 tablet 0 02/22/2021 Active aspirin 81 mg chewable tablet (5 sources) Platelet Aggregation Inhibitor, Nonsteroidal Anti-inflammatory Drug aspirin 81 MG Chew Tab chewable tablet Chew 1 tablet every evening at 6 PM. 0 Active atorvastatin 40 mg oral tablet (5 sources) HMG-CoA Reductase Inhibitor take 2 tablets by mouth at bedtime atorvastatin 40 MG Tab Take 2 tablets by mouth at bedtime. 0 Active Calcium Carbonate Antacid (TUMS PO) (5 sources) take 1 tablet by mouth twice daily Calcium Carbonate Antacid (TUMS PO) Take 1 tablet by mouth 2 times daily. Reported on 05/27/2016 0 Active Problems Active Problems Problem Classification Problem Date Documented Da te Episodic/Chronic Acute myocardial infarction (5 sources) Myocardial infarction; Translations: [Acute myocardial infarction, unspecified] Onset: 04-09-2008 09-15-2008 Chronic Cancer of bone and connective tissue (10 sources) Liposarcoma; Translations: [Malignant neoplasm of connective and soft tissue, unspecified] Onset: 01-04-2016 Chronic Cardiac dysrhythmias (5 sources) Ventricular tachycardia; Translations: [Ventricular tachycardia] 09-15-2008 Chronic Coronary atherosclerosis and other heart disease (5 sources) Coronary arteriosclerosis; Translations: [Atherosclerotic heart disease of creek coronary artery without angina pectoris] 09-15-2008 Chronic Disorders of lipid metabolism (5 sources) Pure hypercholesterolemia ; Translations: [Pure hypercholesterolemia , unspecified] Onset: 06-18-2017 03-24-2018 Chronic Essential hypertension (5 sources) Hypertensive disorder; Translations: [Essential (primary) hypertension] 09-15-2008 Chronic Osteoarthritis (5 sources) Localized, primary osteoarthritis of the shoulder region; Translations: [Primary osteoarthritis, unspecified shoulder] Onset: 02-18-2010 02-18-2010 Chronic Other gastrointestinal disorders (2 sources) Groin mass; Translations: [Other intra-abdominal and pelvic swelling, mass and lump] Onset: 01-23-2021 Episodic Other gastrointestinal disorders (2 sources) Other intra-abdominal and pelvic swelling, mass and lump; Translations: [Other intra-abdominal and pelvic swelling, mass and lump] Onset: 01-23-2021 Episodic Other nervous system disorders (1 source) Polyneuropathy due to drug; Translations: [Drug-induced polyneuropathy] Onset: 01-23-2021 01-23-2021 Chronic Past or Other Problems Problem Classification Problem Date Documented Da te Episodic/Chronic Cancer of other GI organs; peritoneum (5 sources) Liposarcoma of retroperitoneum; Translations: [Malignant neoplasm of retroperitoneum] Onset: 01-24-2015 Resolved: 04-27-2019 04-27-2019 Chronic Coronary atherosclerosis and other heart disease (5 sources) Aortocoronary bypass graft present; Translations: [Presence of aortocoronary bypass graft] Onset: 07-15-2017 06-01-2018 Episodic Malaise and fatigue (5 sources) Fatigue; Translations: [Other fatigue] Resolved: 03-24-2018 03-24-2018 Episodic Mood disorders (1 source) Mood disorders Onset: 03-31-2022 03-31-2022 Nonspecific chest pain (5 sources) Chest pain; Translations: [Chest pain, unspecified] Resolved: 03-24-2018 03-24-2018 Episodic Other nervous system disorders (1 source) Impairment of balance; Translations: [Other abnormalities of gait and mobility] Onset: 01-23-2021 01-23-2021 Episodic Results Test Name Value Interpretation Reference Range Facil ity Vital Signs Date Time Vital Sign Value Performing Clinician Faci lity 03-31-2022 16:52-0500 Diastolic blood pressure 76 mm[Hg] Awilda Burns MD Work Phone: [facility] 03-31-2022 16:52-0500 Heart rate 60 /min Awilda Burns MD Work Phone: [facility] 03-31-2022 16:52-0500 Systolic blood pressure 135 mm[Hg] Awilda Burns MD Work Phone: [facility] 03-31-2022 14:50-0500 Body mass index (BMI) [Ratio] 24.36 kg/m2 Awilda Burns MD Work Phone: [facility] 03-31-2022 14:50-0500 Body temperature 98.8 [degF] Awilda Burns MD Work Phone: [facility] 03-31-2022 14:50-0500 Body weight 68.45 kg Awilda Burns MD Work Phone: [facility] 03-31-2022 14:50-0500 Respiratory rate 20 /min Awilda Burns MD Work Phone: [facility] 03-31-2022 14:50-0500 SaO2% (BldA) [Mass fraction] 98 % Awilda Burns MD Work Phone: [facility] Encounters Encounter Date Encounter Type Care Provider Facility Start: 03-31-2022 ambulatory AWILDA BURNS Facility:[facility] Start: 03-31-2022 End: 04-06-2022 Office outpatient visit 40 minutes Awilda Burns MD Work Phone: Division of Medical Oncology Procedures Date Procedure Procedure Detail Performing Clinician Start: 03-31-2022 Cytp eval fine needl e aspirate interp & report Awilda Burns MD Work Phone: Start: 10-23-2020 CBC AND ELECTRONIC DIFF Awilda Burns MD Work Phone: Start: 10-23-2020 Complete blood count with white cell differential, automated Awilda Burns MD Work Phone: Start: 10-23-2020 Comprehensive metabo lic panel Awilda Burns MD Work Phone: Plan of Treatment Date Care Activity Detail Author Start: 06-30-2022 End: 06-30-2022 Patient encounter procedure 06/30/2022 Office Visit Oncology Awilda Burns MD [address] [place] [address] Division of Medical Oncology Start: 03-17-2022 COVID-19 VACCINE (3 - Booster for Pfizer series) COVID-19 VACCINE (3 - Booster for Pfizer series) [facility] Start: 12-07-2021 Tetanus vaccination TETANUS [facility] Start: 01-08-2021 End: 01-08-2021 Patient encounter procedure 01/08/2021 Office Visit Oncology Awilda Burns MD [address] [place] [address] Division of Medical Oncology Start: 11-07-2020 Influenza vaccination INFLUENZA VACC INE (#1) [facility] Start: 08-23-2015 Pneumococcal vaccination [facility] Start: 02-14-1984 Zoster vaccine hzv l ana for subcutaneous use ZOSTER (SHINGLES) VACCINE (1 of 2) [facility] Start: 1979 Colonoscopy COLORECTAL CAN CER SCREENING DISCUSSION [facility] Start: 1979 Screening for malign ant neoplasm of colon COLORECTAL CANCER SCREENING DISCUSSION [facility] Immunizations Immunization Date Immunization Notes Care Provider Fa cility 11-22-2019 Influenza, High-dose Seasonal, Quadrivalent, Preservative Free Mily Tatianna [place] [facility] 11-22-2019 influenza virus vacc ine, unspecified formulation [facility] 01-07-2019 influenza, high dose seasonal, preservative-free Mliy Tatianna RN [facility] 01-26-2018 influenza, injectabl e, quadrivalent, preservative free Mily Tatianna RN [facility] 01-23-2017 influenza, injectabl e, quadrivalent, contains preservative Mily Tatianna RN [facility] 12-17-2015 influenza, seasonal, injectable Mily Tatianna RN [facility] 01-03-2015 Influenza Vaccine Preservative Free Milyper Campuzano RN [facility] 08-22-2014 pneumococcal conjuga te vaccine, 13 valent Milyper Campuzano RN [facility] 11-25-2012 influenza, seasonal, injectable Mily Tatianna RN [facility] 12-08-2011 influenza, seasonal, injectable Mily Tatianna RN [facility] 12-08-2011 tetanus toxoid, redu alfredo diphtheria toxoid, and acellular pertussis vaccine, adsorbed Mily Tatianna RN [facility] Payers Date Payer Category Payer Medicare MEDICARE ANTHEM HMO OR PPO MEDICARE ANTHEM HMO OR PPO [id number] 2014-Present [address] [place] [address] [id number] 2014 Medicare MEDICARE ANTHEM HMO OR PPO MEDICARE ANTHEM HMO OR PPO [id number] 2014-Present [address] [place] [address] [id number] 2014 Medicare [id number] 1935 Unknown [id number] Social History Date Type Detail Facility [facility] Start: 10-23-2020 End: 03-31-2022 Alcohol intake Current non-drinker of alcohol (finding) [facility] Start: 1935 Sex Assigned At Not on file [facility] Exposure to SARS-CoV -2 (event) Not sure [facility] Start: 03-31-2022 Tobacco smoking stat [facility] Never smoked tobacco [facility] Start: 03-31-2022 Tobacco use and exposure Smokeless tobacco non-user [facility] Start: 03-21-2022 End: 03-31-2022 Exposure to SARS-CoV-2 (event) Unable to assess [facility] Medical Equipment Procedure Code Equipment Code Equipment Origin al Text Equipment Identifier Dates [employer] Promus Cardiac Stent 3t 2w/[id number] Start: 08-04-2008 History and physical note 03-31-2022 Jair Felix MD - 03/31/2022 3:30 PM EST Note Date & Type Note Facility 03-31-2022 History and physical note .hpfna [facility] History and physical note 03-31-2022 Jair Felix MD - 03/31/2022 3:30 PM EST Note Date & Type Note Facility 03-31-2022 History and physical note .hpfna documented in this encounter [facility] History of Present illness Narrative 03-31-2022 Jair Felix MD - 03/31/2022 3:30 PM Devang Burns MD - 03/31/2022 3:30 PM EST Note Date & Type Note Facility 03-31-2022 History of Present illness Narrative Summary: FNA right groin mass FINE NEEDLE ASPIRATION PROCEDURE PERFORMED BY: Jair Felix MD ATTENDING: Jair Felix MD PROCEDURE DATE: 03/31/22 PROCEDURE START TIME: 4:40PM INDICATIONS FOR PROCEDURE: CONSENT: Informed consent was obtained prior to the procedure after discussion of the risks, benefits, and alternatives and expected outcomes were discussed with the patient; consent placed in chart. Medical risks were discussed with the patient and the patient agrees with plan to proceed with Fine Needle Aspiration. DOES THIS PROCEDURE REQUIRE A UNIVERSAL PROTOCOL? Yes, [place] Protocol required, completed, and documented in flowsheet. ANESTHESIA: None LOCATION: Right groin mass PROCEDURE DETAILS: After cleansing the area with an alcohol swab, a 25g needle was placed into the mass/lesion and excursions were made into the mass. A total of 3 passes were made into the mass/lesion. Each pass lasted between 5-10 seconds. Cytologic material was expelled onto glass slides, smears were made, and the needle was rinsed in RPMI solution after each separate pass. SPECIMEN(S) REMOVED: Cellular material DISPOSITION OF SPECIMEN(S): Pathology ESTIMATED FLUIDS: No fluids given ESTIMATED BLOOD LOSS: None FINDINGS: See pathology or cytology report. CONDITION: Patient tolerated procedure well. COMPLICATIONS: The patient tolerated the procedure well without apparent complications. PLAN: 1. Routine instructions were provided. 2. Continue plan per primary care team. Images from the original note were not included. FOLLOW-UP VISIT Chief Complaint Patient presents with Follow-up Dedifferentiated Liposarcoma History of Present Illness Camilo Cobian is a 87 y.o. male who was referred to Dr. Sarabjit Gee for evaluation of a right groin mass that appeared in late November 2014. He had been in his usual state, following urology for an enlarged prostate, when he noticed a progressively enlarging lesion in his right-groin (initially pea-sized). Due to progressive growth, he was referred to a local surgeon. 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 MRI of the pelvis 01/03/15 demonstrated a homogeneous enhancing mass in the right inguinal region measuring 2.3 x 2.6 x 2.9 cm and an additional mass in the right pelvis measuring 2.5 x 1.9 x 2.5 cm. He was referred to Dr. Gee for further evaluation of this mass and surgical management. Treatment History [place]/Tax 02/06/16-05/01/15 Received ~5 cycles locally, discontinued due to progression Eribulin 05/2015 Began treatment locally, Eribulin 1.2 mg/m2 on D1, D8 of 21 day cycle 03/04/16 Changed to infusion every 28 days for better QoL 04/14/17 Per patient, Eribulin days 1 and 8 of 35 day cycle 07/07/17 Eribulin 28d cycle 09/15/17 Continues on Eribulin, now on 21 d cycle 08/22/19 Stop eribulin (neuropathy, long-term use) Palbociclib 10/11-11/01/20 Starte palbociclib, discontinued per patient preference/cost concerns Eribulin 11/19/20 C1D1 (resumed locally with Dr. Vallecillo) 12/10/20 C2D1 12/31/20 C3D1 Surgical Resection 01/22/21 Recurrent disease Interval History Camilo Cobian is seen today with his son and . He tells me that the right groin area has a growing mass that is bothering him. Denies n/v/f/c/sob. Has some gait difficulty but does not want PT He denies excessive fatigue, fever, chills, headache, visual changes. No nausea or vomiting. No recent weight change, change in appetite, or mouth sores. No change in bowel or bladder habits. No chest pain, shortness of breath, cough. Denies focal weakness. ROS is otherwise unremarkable. 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 coronary and graft not amenable to intervention CORONARY STENT PLACEMENT 2008 CORONARY ARTERY BYPASS GRAFT 4/06 x4 EXTRACTION EXTRACAPSULAR CATARACT W/ IMPLANT (ECCE IOL) HERNIA REPAIR Social History: He reports that he has never smoked. He has never used smokeless tobacco. He reports that he does not drink alcohol and does not use drugs. Family History Problem Relation Age of Onset Other - Specify Mother COPD, age 84 Coronary Artery Disease Father age 43 Cancer Sister htn No Known Allergies Current Medications: Current Outpatient Medications Medication Sig aspirin 81 MG Chew Tab chewable tablet Chew 1 tablet every evening at 6 PM. atorvastatin 40 MG Tab Take 2 tablets by mouth at bedtime. Calcium Carbonate Antacid (TUMS PO) Take 1 tablet by mouth 2 times daily. Reported on 05/27/2016 Glucosamine 500 MG Cap Take 3 capsules by mouth daily every morning. metoprolol tartrate 25 MG PO TABS Take 1 tablet by mouth 2 times daily. Multiple Vitamins-Minerals (ONE-A-DAY 50 PLUS PO) Take 1 tablet by mouth every evening at 6 PM. pantoprazole [address] Take 1 tablet by mouth daily every morning. tamsulosin 0.4 MG Cap SR 24HR Take 1 capsule by mouth at bedtime. oxyCODONE-acetaminophen (Percocet) 5-325 MG per tablet Take 1 tablet by mouth every 6 hours as needed for up to 5 days. (Patient not taking: Reported on 04/01/2021) Review of Systems A complete ROS was performed and all the pertinent findings were mentioned in HPI/Interval History. The rest of ROS was otherwise negative. Physical Examination (not performed) Prior exam for reference below BP 135/76 Pulse 60 Temp 98.8 F (37.1 C) (Oral) Resp 20 Wt 68.4 kg (150 lb 14.4 oz) SpO2 98% Comment: room air BMI 24.36 kg/m Smoking Status Never ECO Constitutional: Appropriately dressed, well-nourished elderly male in no apparent distress. Cooperative and appropriate throughout exam. HEENT: Head normocephalic, atraumatic. Pupils equal, round, reactive to light. No scleral icterus. Mucous membranes moist, no lesions. Torus palatinus. Anisicoria with right pupil > left. Hard of hearing. Neck: Supple, no lymphadenopathy or thyromegaly. Respiratory: Lungs clear to auscultation bilaterally; expansion symmetrical with normal effort; no wheezes, rales, or rhonchi. Cardiovascular: regular rate and rhythm, normal S1/S2. No gallops or rubs. G2 systolic murmur. Gl: Abdomen soft, non-tender, non-distended. Bowel sounds active and audible. Well-healed surgical incisions. Extremities: No cyanosis, clubbing or edema. Extremities are atraumatic. Egg-sized mass in right groin, slightly mobile, non-tender, no overlying skin changes - enlarging -- larger than prior Neurological: CN 2-12 grossly intact. Speech is clear and appropriate. Gait and coordination mildly impaired (age). Lymph: No cervical or supraclavicular adenopathy Musculoskeletal: No joint inflammation or swelling. Walks slightly ataxically; unable to button shirt Psych: No sign of agitation. Affect pleasant, appropriate to clinical situation. Skin: No rashes, excessive bruising, petechiae. Lipoma on left forearm LABS: Lab Results Component Value Date WBC 5.67 02/15/2021 HGB 12.3 (L) 02/15/2021 HCT 37.3 (L) 02/15/2021 PLATELET 225 02/15/2021 MCV 96.9 (H) 02/15/2021 Lab Results Component Value Date SODIUM 140 02/15/2021 POTASSIUM 4.1 02/15/2021 CHLORIDE 106 02/15/2021 CO2 27 02/15/2021 BUN 22 02/15/2021 CREATSERUM 0.93 02/15/2021 GLUCOSE 116 (H) 02/22/2021 Lab Results Component Value Date ALT 9 (L) 10/23/2020 AST 14 10/23/2020 ALKPHOS 74 10/23/2020 BILITOTAL 1.1 10/23/2020 BILIDIRECT 0.2 03/27/2015 Pathology Peritoneum, right, nodule, biopsy 01/15/2015 - At least intermediate-grade sarcoma, see Note. Note: The patient's complicated history is noted, including the history of a rapidly 2.9 cm enlarging inguinal mass, imaging studies showing a separate 2.5 cm enhancing mass in the right pelvis, and SUVs of 9.1 and 4.6. The biopsy shows at least an intermediate-grade sarcoma with spindled and pleomorphic cells. An MDM-2 shows patchy reactivity, raising the possibility of a dedifferentiated liposarcoma. An MDM-2 FISH study is pending, please see separate report. This case was reviewed in conjunction with [id number], 01/11/2015 and shows similar features. Additional immunostains performed at [facility] demonstrate the following immunophenotype: Reactive: Vimentin, MDM-2 (patchy) Non-reactive: AE1/3, MNF-116, NKX-3.1, p63, CK5/6, S-100, Desmin, SMA, CD34, MUC-4 A CDK-4 shows high background in the control cells (non-contributory). A CD45 highlights lymphocytes; a CD3 and CD20 have a mixed population of T-and B-lymphocytes. 10/02/20 Imaging PET scan, 01/15/21 ([facility]) Assessment/Plan: Camilo Cobian is a 87 y.o. male with dedifferentiated liposarcoma of the right groin. He was on eribulin for approximately 4 years with MITUL. He came off eribulin around August 2019 due to severe neuropathy in BLE and MITUL. Unfortunately, he now has a recurrent mass in his right groin which is biopsy-confirmed sarcoma which has continued to grow on eribulin now s/p resection with clinically increasing Rt groin mass. Family had concerns it was a different cancer. 1. Dedifferentiated Liposarcoma - Treatment history as above, s/p 4 years of eribulin which he discontinued August 2019 - September 2020 patient palpated mass in right groin which has since been proven to be recurrent liposarcoma. - s/p resection - FNA of the lesion today c/w HG-sarcoma - Recommend, given advanced age, RT to the area. He is to get this locally. 2. 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 Follow-up - consider local surveillance with Dr. Vallecillo -- will reach out to confirm plan - RTC 3mths (placeholder) or PRN Awilda Burns MD Orders Placed This Encounter CYTOLOGY, NON-VP STRATEGIC PARTNERSHIPS - FNA ONLY documented in this encounter [facility] Instructions 03-31-2022 Patient Instructions Note Date & Type Note Facility 01-23-2023 Instructions Sweta Werner RN - 03/31/2022 3:[address] Burns will call you with the results of the FNA [facility] Dr. Joni Perez, Dr. Awilda Burns, Dr. Isaac Mckeon, and Dr. Xochitl Dc PA-C, Catie Breen RN and Jordana Werner RN [address] [place] [address]. [address] [place] [address] Street Commissioner: Giana OCONNOR [phone] Please allow 10-14 business days for the completion of FMLA/Disability paperwork. Please send refill requests through your MyChart or call the office at least 48 hours prior to needing the refill. If the medication needs a prior authorization it may take longer than expected for the prescription to be available at the pharmacy. When you need a refill of your chemotherapy pills, please call the pharmacy for the refill. If a new prescription is needed, it may take a couple of days longer since it has to be written by the oncologist that is treating you. Please do not send urgent requests through your MyChart since these messages are not monitored as frequently throughout the day as phone calls. Results of imaging and pathology will be discussed at your follow up office visit with your provider. Our office does not give imaging or pathology results over the phone. If you have questions regarding the approval of imaging that is scheduled, please call [facility] pre-certification line at [phone] to obtain that information. documented in this encounter [facility] History of Present illness Narrative 10-23-2020 Awilda Burns MD - 10/23/2020 1:30 PM Heidi Ajay SHASTA Alarcon-NORMAN - 10/23/2020 1:30 PM EDT Note Date & Type Note Facility 10-23-2020 History of Present illness Narrative Attending Note: I agree with the advanced practicioner's note as documented above. The HPI, review of systems, medications, laboratory values are as documented. The patient was seen and evaluated independently by myself. All decision making was made with the advanced practicioner in conjunction with myself. In addition, the note has been edited to reflect my beliefs. In summary, Camilo Cobian is a 85 y.o. patient with dedifferentiated liposarcoma who presents for treatment discussion and new finding of local recurrence. He says that he recently underwent a hernia repair and about one week later felt a lump in his right groin which has been increasing in size. The area was biopsied 10/02/20 and read as high-grade sarcoma. He started on palbociclib on 10/11/20 but did not tolerate it well after and became cost-prohibitive as well. Dr. Vallecillo recommended going back on eribulin and recommended second opinion with us. He is doing fairly well. Neuropathy continues to be stable, G2. ECOG PS 1, RRR, ns1s2 cta b/l, abd benign, skin without rash, LE without edema, affect appropriate, no icterus. 3 cm right-sided inguinal mass -- firm, nontender, no exudate or fluctuance I am in agreement with the recommendation to go back on eribulin given his very prolonged disease control on it. His neuropathy continues to be stable, but this can be closely monitored. Based on exam, I believe that his local recurrence could be considered resectable. I will discuss his case in tumor board to evaluate this. He is in support of the plan. His case was reviewed in sarcoma tumor board and it was agreed that surgical resection would be reasonable. Will have Dr. Dangelo see the patient. Would hold eribulin post surgery. No clear role for radiation at this time. RTC in 11 weeks Documented by Joe Faustin, for Dr. Burns on 10/23/2020 at 2:28 PM All medical record entries made by the Scribe were at my direction and personally dictated by me, Dr. Awilda Burns. I have reviewed the chart and agree that the record accurately reflects my personal performance of the history, physical exam, assessment and plan. I have also personally directed, reviewed, and agree with the discharge instructions. Awilda Burns MD Medical Oncology Images from the original note were not included. FOLLOW-UP VISIT Chief Complaint Patient presents with Follow-up Dedifferentiated Liposarcoma History of Present Illness Camilo Cobian is a 85 y.o. male who was referred to Dr. Sarabjit Gee for evaluation of a right groin mass that appeared in late November 2014. He had been in his usual state, following urology for an enlarged prostate, when he noticed a progressively enlarging lesion in his right-groin (initially pea-sized). Due to progressive growth, he was referred to a local surgeon. 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 MRI of the pelvis 01/03/15 demonstrated a homogeneous enhancing mass in the right inguinal region measuring 2.3 x 2.6 x 2.9 cm and an additional mass in the right pelvis measuring 2.5 x 1.9 x 2.5 cm. He was referred to Dr. Gee for further evaluation of this mass and surgical management. Treatment History 1.[place]/Tax 02/06/16-05/01/15 Received ~5 cycles locally, discontinued due to progression 2. Eribulin 05/2015 Began treatment locally, Eribulin 1.2 mg/m2 on D1, D8 of 21 day cycle 03/04/16 Changed to infusion every 28 days for better QoL 04/14/17 Per patient, Eribulin days 1 and 8 of 35 day cycle 07/07/17 Eribulin 28d cycle 09/15/17 Continues on Eribulin, now on 21 d cycle 08/22/19 Stop eribulin (neuropathy, long-term use) 3. Palbociclib 10/11-11/01/20 Starte palbociclib, discontinued per patient preference/cost Interval History Camilo Cobian is seen today to discuss plan of care recommendations in light of recent recurrent disease. He was last seen in our office in May of 2020 at which time he opted for local follow-up only. He says that her recently underwent a hernia repair and about one week later felt a lump in his right groin which has been increasing in size. The area was biopsied 10/02/20 and read as high-grade sarcoma. He had a PET 10/16/20 locally in [place]. He says groin mass in non-painful but enlarging over time. He continues to experience stable neuropathy in his legs and is wobbly with ambulation. He says he toddles around and sometimes trips and stumbles outdoors like all old folks do . He is scheduled to resume eribulin next week with his local oncologist Dr. Vallecillo but wants to see our office to ensure we are all synced. He does endorse blurry vision in the right eye for which he will be seeing an internet marketing specialist in the next week. He denies excessive fatigue, fever, chills, headache. No nausea or vomiting. No recent weight change, change in appetite, or mouth sores. No change in bowel or bladder habits. No chest pain, shortness of breath, cough. Denies numbness, tingling, focal weakness. ROS is otherwise unremarkable. 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 coronary and graft not amenable to intervention CORONARY STENT PLACEMENT 2008 CORONARY ARTERY BYPASS GRAFT 06/12 x4 EXTRACTION EXTRACAPSULAR CATARACT W/ IMPLANT (ECCE IOL) HERNIA REPAIR Social History: He reports that he has never smoked. He has never used smokeless tobacco. He reports that he does not drink alcohol and does not use drugs. Family History Problem Relation Age of Onset Other - Specify Mother COPD, age 84 Coronary Artery Disease Father age 43 Cancer Sister htn No Known Allergies Current Medications: Current Outpatient Medications Medication Sig aspirin 81 MG Chew Tab chewable tablet Chew 81 mg daily. atorvastatin 40 MG Tab take 80 mg by mouth daily. Calcium Carbonate Antacid (TUMS PO) Take by mouth 2 times daily. Reported on 05/27/2016 Glucosamine 500 MG Cap take 500 mg by mouth daily. lisinopril 5 MG PO TABS take 2.5 mg by mouth Daily (with lunch).. Menthol, Topical Analgesic, (BIOFREEZE EX) by Apply externally route as needed. metoprolol tartrate 25 MG PO TABS take by mouth 2 times daily. Misc Natural Products (GLUCOSAMINE CHOND DOUBLE STR PO) Take by mouth daily. Multiple Vitamins-Minerals (ONE-A-DAY 50 PLUS PO) take 1 tablet by mouth daily.. pantoprazole [address] take 40 mg by mouth daily. tamsulosin (FLOMAX) 0.4 MG PO CP24 take by mouth Daily. Vitamin D3 2000 units Cap Take 2,000 Units by mouth daily. Review of Systems A complete ROS was performed and all the pertinent findings were mentioned in HPI/Interval History. The rest of ROS was otherwise negative. Physical Examination BP 118/68 (BP Location: Left arm, BP Position: Sitting) Pulse 70 Temp 97.5 F (36.4 C) (Temporal) Resp 16 Wt 68.5 kg (151 lb) SpO2 100% BMI 24.37 kg/m Smoking Status Never Smoker ECO Constitutional: Appropriately dressed, well-nourished elderly male in no apparent distress. Cooperative and appropriate throughout exam. HEENT: Head normocephalic, atraumatic. Pupils equal, round, reactive to light. No scleral icterus. Mucous membranes moist, no lesions. Torus palatinus. Anisicoria with right pupil > left. Hard of hearing. Neck: Supple, no lymphadenopathy or thyromegaly. Respiratory: Lungs clear to auscultation bilaterally; expansion symmetrical with normal effort; no wheezes, rales, or rhonchi. Cardiovascular: regular rate and rhythm, normal S1/S2. No gallops or rubs. G2 systolic murmur. Gl: Abdomen soft, non-tender, non-distended. Bowel sounds active and audible. Well-healed surgical incisions. Extremities: No cyanosis, clubbing or edema. Extremities are atraumatic. Neurological: CN 2-12 grossly intact. Speech is clear and appropriate. Gait and coordination mildly impaired (age). Lymph: No cervical or supraclavicular adenopathy Musculoskeletal: No joint inflammation or swelling. Walks slightly ataxically; unable to button shirt Psych: No sign of agitation. Affect pleasant, appropriate to clinical situation. Skin: No rashes, excessive bruising, petechiae. Lipoma on left forearm LABS: Lab Results Component Value Date WBC 5.39 10/23/2020 HGB 14.3 10/23/2020 HCT 42.0 10/23/2020 PLATELET 174 10/23/2020 MCV 96.3 (H) 10/23/2020 Lab Results Component Value Date SODIUM 139 10/23/2020 POTASSIUM 3.9 10/23/2020 CHLORIDE 105 10/23/2020 CO2 31 (H) 10/23/2020 BUN 21 10/23/2020 CREATSERUM 0.79 10/23/2020 GLUCOSE 89 10/23/2020 Lab Results Component Value Date ALT 9 (L) 10/23/2020 AST 14 10/23/2020 ALKPHOS 74 10/23/2020 BILITOTAL 1.1 10/23/2020 BILIDIRECT 0.2 03/27/2015 Pathology Peritoneum, right, nodule, biopsy 01/15/2015 - At least intermediate-grade sarcoma, see Note. Note: The patient's complicated history is noted, including the history of a rapidly 2.9 cm enlarging inguinal mass, imaging studies showing a separate 2.5 cm enhancing mass in the right pelvis, and SUVs of 9.1 and 4.6. The biopsy shows at least an intermediate-grade sarcoma with spindled and pleomorphic cells. An MDM-2 shows patchy reactivity, raising the possibility of a dedifferentiated liposarcoma. An MDM-2 FISH study is pending, please see separate report. This case was reviewed in conjunction with [id number], 01/11/2015 and shows similar features. Additional immunostains performed at [facility] demonstrate the following immunophenotype: Reactive: Vimentin, MDM-2 (patchy) Non-reactive: AE1/3, MNF-116, NKX-3.1, p63, CK5/6, S-100, Desmin, SMA, CD34, MUC-4 A CDK-4 shows high background in the control cells (non-contributory). A CD45 highlights lymphocytes; a CD3 and CD20 have a mixed population of T-and B-lymphocytes. 10/02/20 Imaging PET scan, 10/16/20 Assessment/Plan: Camilo Cobian is a 85 y.o. male with dedifferentiated liposarcoma of the right groin. He was on eribulin for approximately 4 years with MITUL. He came off eribulin around August 2019 due to severe neuropathy in BLE and MITUL. Unfortunately, he now has a recurrent mass in his right groin which is biopsy-confirmed sarcoma. He presents to discuss treatment options. 1. Dedifferentiated Liposarcoma - Treatment history as above, s/p 4 years of eribulin which he discontinued August 2019 - September 2020 patient palpated mass in right groin which has since been proven to be recurrent liposarcoma. - Reviewed outside PET from 10/16/20 - no clear evidence of metastatic disease and groin nodule is fairly superficial - Patient set up to resume eribulin next Thursday with local provider. However, we plan to review his case in tumor board to discuss management strategies. Given long disease-free interval, age, and localized disease, surgical resection followed by ongoing surveillance may be the most reasonable option - Following Dr. Vallecillo locally 2. 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 Follow-up - RTC in 11 weeks for follow-up - Case to be reviewed in tumor board, Dr. Vallecillo to be updated Patient was subsequently seen by and discussed with Dr. Burns. Plan of care developed jointly. INESSA Blair No orders of the defined types were placed in this encounter. documented in this encounter [facility] Instructions 10-23-2020 Patient Instructions Note Date & Type Note Facility 10-23-2020 Instructions Cheryl Balderrama RN - 10/23/2020 1:30 PM EDT Please schedule telephone consult with Florecita Mendoza, thank you. documented in this encounter [facility] Evaluation note Note Date & Type Note Facility documented in this encounter [facility] Evaluation note Note Date & Type Note Facility documented in this encounter [facility] Evaluation note Note Date & Type Note Facility documented in this encounter [facility] Reason for referral (narrative) Consultation (Routine) - New Request Note Date & Type Note Facility Referral ID Status Reason Start Date Expiration Date V isits Requested Visits Authorized [id number] New Request 10/28/2020 11/22/2021 1 1 [facility] Summary Purpose Family History No Family History Records Found Advance Directives No Advanced Directives Records Found Additional Source Comments Reason for Visit (unrecogniz ed section and content) Reason Comments Follow-up Specialty Diagnoses / Procedures Referred By Abdirashid elias Referred To Contact Computerized Tomography Scan Diagnoses ok [email or web address] Procedures CT CHEST Awilda Burns MD [address] [place] [address] Ct Scan [place] [address] [place] [address] [address] Referral ID Status Reason Start Date Expiration Date Visits Requested Visits Authorized [id number] Authorized - Awilda 11/17/2021 1 1 Specialty Diagnoses / Procedures Referred By Abdirashid elias Referred To Contact Computerized Tomography Scan Diagnoses ok [email or web address] Procedures CT ABDOMEN/PELVIS Awilda Burns MD [address] [place] [address] Ct Scan [place] [address] [place] [address] [place] [id number] Referral ID Status Reason Start Date Expiration Date Visits Requested Visits Authorized [id number] Authorized - Awilda 11/17/2021 1 1 Reason Comments Follow-up Care Teams (unrecognized sec tion and content) B2B Sales Manager Relationship Specialty Start Date End Date Nathalie Donis MD [address] [place] [address] PCP - General Family Medicine 01/11/15 Garrett Kimball MD [address] [facility] [place] [address] Cardiovascular Medicine 01/11/15 Justen Betancur MD [address] [facility] [address] [place] [address] Urology 01/11/15 Cheryl Balderrama, RN Registered Nurse Medical Oncology 04/08/17 Сергей Vallecillo MB/CHB [address] [place] [address] Oncologist Hematology 07/07/17 Awilda Burns MD [address] [place] [address] Oncologist Medical Oncology 04/08/17 B2B Sales Manager Relationship Specialty Start Date End Date Nathalie Donis MD [address] [facility] [place] [address] PCP - General Family Medicine 01/11/15 Garrett Kimball MD [address] [facility] [place] [address] Cardiovascular Medicine 01/11/15 Justen Betancur MD [address] [facility] [address] [place] [address] Urology 01/11/15 Cheryl Balderrama, JOAQUIN Registered Nurse Medical Oncology 04/08/17 Сергей Vallecillo MB/CHB [address] [place] [address] Oncologist Hematology 07/07/17 Awilda Burns MD [address] [place] [address] Oncologist Medical Oncology 04/08/17 B2B Sales Manager Relationship Specialty Start Date End Date Nathalie Donis MD [address] [place], [place] [phone] PCP - General Family Medicine 01/11/15 Garrett Kimball MD [address] [place] [address] Cardiovascular Disease 01/11/15 Justen Betancur MD [address] [place], [place] [id number] Urology 01/11/15 Cheryl Balderrama, RN Registered Nurse Medical Oncology 04/08/17 Сергей Vallecillo MB/TASHA [address], [place] [address] Oncologist Hematology 07/07/17 Awilda Burns MD [address] [place] [address] Oncologist Medical Oncology 04/08/17 (unrecognized sect ion and content) No Status Records Found INFORMATION SOURCE (unrecogn ized section and content) FOR RECORDS PERTAINING TO PATIENTS WHO ARE OR HAVE BEEN ENROLLED IN A CHEMICAL DEPENDENCY/SUBSTANCEABUSE PROGRAM, SOME INFORMATION MAY BE OMITTED. This clinical summary was aggregated from multiple sources. Caution should be exercised in using it in the provision of clinical care. This summary normalizes information from multiple sources, and as a consequence, information in this document may materially change the coding, format and clinical context of patient data. In addition, data may be omitted in some cases. CLINICAL DECISIONS SHOULD BE BASED ON THE PRIMARY CLINICAL RECORDS. [email or web address] provides no warranty or guarantee of the accuracy or completeness of information in this document.
[2023-03-25] MEDS: 0.9% Saline Lock 10 ML Syringe IV (13:29)
[2023-03-25 13:32] LABS: CREATININE FINGERSTICK 1.1 mg/dL (0.70-1.30); EGFR FINGERSTICK > 60.0000 mL/min (>60)
== END | disposition home or self-care (01) ==
LOC: CT 12:44
PROVIDERS: PCP Family Medicine; Referring Provider Internal Medicine Medical Oncology; Visit Provider Internal Medicine Medical Oncology
DX: C49.9 Malignant neoplasm of connective and soft tissue, unspecified (principal)
CPT/HCPCS: 71260; 74177; Q9967; A4216

== ENCOUNTER 2023-12-25 10:19 | Emergency (ER) | payer MEDICARE, SELFPAY ==
[2023-12-25 10:20] VITALS: BP 124/70; PULSE 100; RESP 18; TEMP 36.4; O2SAT 100; BMI 23.3
--- NOTE | 2023-12-25 10:56 | CT_ITS ---
STUDY: CT ABDOMEN AND PELVIS WITH CONTRAST - URINARY TRACT REASON FOR EXAM: Male, 88 years old. Urinary retention, constipation RADIATION DOSAGE (If Supplied By Facility): CTDIvol = ( 12.21 ) mGy, DLP = ( 1288.83 ) mGycm TECHNIQUE: IV 100mL Isovue-300 was administered. Transaxial images were obtained from the dome of the diaphragm to the symphysis pubis in the arterial, nephrographic and excretory phases. Multiplanar coronal and sagittal images were reformatted. The protocol utilizes one or more of the following dose reduction techniques: automated exposure control, adjustment of mA and/or kV according to patient size,and/or use of iterative reconstruction technique. COMPARISON: March 25, [address] dated August 25, 2023 FINDINGS: There is minimal atelectasis and/or scarring within the lower lobes.. There are coronary artery calcifications. There is a stable too small to characterize low-attenuation focus within the right hepatic lobe which may reflect a cyst or hemangioma. Normal gallbladder and extrahepatic biliary system. There is a stable low-attenuation round focus within the spleen which may reflect a cyst or hemangioma. Normal pancreas. Normal bilateral adrenal glands. Normal visualized stomach. Normal small intestine. There are multiple colonic diverticula consistent with diverticulosis. There is non-visualization of the appendix. There is diffuse atherosclerotic calcification of the abdominal aorta, without a demonstrated aneurysm. No retroperitoneal adenopathy. There are bilateral renal cysts. The prostate gland is enlarged and protrudes into the posterior urinary bladder. There is bladder wall thickening. There is a King catheter within the urinary bladder. There are postsurgical changes within the right inguinal region. There is a stable L3 superior endplate deformity. CT/Abdomen/Pelvis W IV Cont ONLY IMPRESSION: Bladder wall thickening, may be secondary to cystitis. Enlarged prostate gland intruding into the posterior urinary bladder, cannot exclude an occult bladder lesion. Atherosclerosis. Electronically Signed: Madeleine Gross MD at 12:29 EDT ,
--- NOTE | 2023-12-25 11:07 | EDS_ITS ---
HPI History of Present Illness Chief Complaint: Complaint Narrative Narrative: Chief complaint and HPI: Urinary retention. 88-year-old male with history of BPH on Flomax, HTN, HLD, history of cardiac bypass presents for evaluation of urinary retention. Patient states that he had history of urinary retention in the past but is currently on Flomax. He states he has not had any trouble with his prostate in years. Patient states for the past week he has had intermittent constipation. He follow-up with his physician for this. He states he is passing some small bowel movements. Patient states the past 2 days he has had a weak urinary stream. He states that he has been unable to urinate since yesterday evening. He denies any fever, chills, shortness of breath, chest pain, nausea, vomiting, hematuria. He states he has some mild suprapubic pain. Has been eating and drinking well. Review of systems: See HPI Medications: As listed on the chart Allergies: As listed on the chart PFSH: Per chart Vital signs: As listed on the chart. Reviewed. Physical exam: Gen: A&O x3, NAD Head: Normocephalic, atraumatic Eyes: No sclera icterus, conjunctiva clear ENT: Moist mucous membranes Neck: Trachea midline, No JVD CV: RRR, no murmurs, no peripheral edema Resp: Lungs CTA BL, no w/r/c GI: Abd soft, non-distended, mild tenderness to palpation in the suprapubic region, no r/r/g Rectal: Normal external examination. No evidence of hemorrhoids or fissures. Normal tone and sensation. No masses, fluctuance, or tenderness. No pain out of proportion. No stool in the rectal vault. Prostate enlarged. : Circumcised penis. No penile tenderness or discharge. No penile or umm ticular swelling. Normal lie and position of the testicles. No testicular tenderness, masses, or skin changes. No rashes. No palpable hernias. 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 Hx of peripheral neuropathy Cancer High cholesterol Cardiology follow-up encounter Non-smoker History of pain when walking Hx of echocardiogram History of stress test History of heart attack COVID-19 virus detected (01/13/20) Encounter for education Peripheral neuropathic gait Imbalance Tinea corporis Weakness of lower extremity Dizziness Fecal occult blood test positive Encounter for chemotherapy management Essential (primary) hypertension Ischemic cardiomyopathy Old inferior wall myocardial infarction Cataract Peripheral neuropathy due to chemotherapy BIOPSY OF THROAT Chest congestion Supraglottic mass Chemotherapy management, encounter for Atherosclerotic heart disease of [place] coronary artery without angina pectoris Paroxysmal ventricular tachycardia Dizziness and giddiness Atherosclerosis of coronary artery bypass graft without angina pectoris Bradycardia Hernia Arthritis 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 Benign prostatic hypertrophy HLD (hyperlipidemia) GERD (gastroesophageal reflux disease) Home Medications ?Medication ?Instructions ?Recorded ?Last Taken ?Type glucosamine HCl 500 mg-msm 83 1 ea PO DAILY 03/07/15 04/20/15 History mg-chondroitin 400 mg tablet aspirin 81 mg tablet,delayed 81 mg PO DAILY@0800 07/03/15 08/10/20 History release [id number]-pl-[id number] 300 mcg-K 60 1 ea PO BID 07/29/16 Unknown History mcg-lycop 600 mcg-lutein 300 mcg tablet tamsulosin 0.4 mg capsule 0.4 mg PO QHS 60 days ##60 02/27/17 Unknown History diphenhydramine 25 1 tab PO QHS PRN 03/30/23 Unknown History mg-acetaminophen 500 mg tablet (Tylenol PM Extra Strength) metoprolol tartrate 25 mg tablet 25 mg PO DAILY #90 tabs 04/24/23 Unknown Rx atorvastatin 40 mg tablet 40 mg PO QHS #90 tabs 11/13/23 Unknown Rx Allergy/AdvReac Type Severity Reaction Status Date / Time colestipol (From Colestid) AdvReac Mild Constipatio Verified 12/25/23 10:20 n Family History Father Heart disease Myocardial infarction, Onset Age: 43 Mother COPD (chronic obstructive pulmonary disease) Sister Cancer Surgical History Status post left inguinal hernia repair History of vascular access device History of cardiac catheterization History of electrophysiologic study (09/2008) History of coronary artery stent placement (07/2008) H/O coronary artery bypass surgery (06/16/05) Hx of cataract surgery History of biopsy Hx of tonsillectomy Social History Smoking Status: Never smoker alcohol intake: never substance use type: does not use caffeine: Yes Type: coffee Number of servings: 3 what type of physical activity do you participate in: none seatbelt use: always do you feel safe at home: Yes EXAM Physical Exam Const Vital Signs: 12/25/23 10:20 12/25/23 12:19 12/25/23 13:41 Temperature 97.6 F L 97.8 F Temperature Source Oral Pulse Rate 100 61 78 Respiratory Rate 18 18 14 Blood Pressure 124/70 H 134/76 H 137/81 H Blood Pressure Mean 88 95 99 Pulse Ox 100 98 99 Oxygen Delivery Method Room Air Room Air MDM MDM MDM Narrative Medical decision making narrative: 88-year-old male presents for evaluation of urinary retention. Has had constipation in the past week. Differential diagnosis includes but is not limited to urinary retention from BPH, UTI, constipation, electrolyte abnormality, hematuria, diverticulitis. On presentation patient was bladder scanned over 500 in the bladder. King placed. Workup ordered including CT abdomen and pelvis. CBC without leukocytosis. Patient has baseline anemia of 12.6. BMP without MARILU. UA shows blood and 25 leuk esterase. 5-10 WBCs. +1 bacteria. Patient has findings consistent with urinary tract infection. Urine culture sent. Blood may be secondary to placement of King. CT abdomen pelvis shows bladder wall thickening that may be secondary to cystitis. Enlarged prostate gland pushing into the posterior urinary bladder. Cannot exclude an occult bladder lesion. Patient does not have any significant constipation. He has bilateral renal cysts. He also has a concerning right hepatic lobe cyst versus hemangioma as well as splenic cyst or hemangioma. On reexamination, patient is draining urine in the King. It is mildly blood-tinged. No clots. I suspect this is from traumatic placement with his BPH. Patient was updated on his UTI. Patient states that he was told that he had a UTI yesterday. He was placed on ciprofloxacin by his physician. He just started this. Will continue the ciprofloxacin. Patient is stable to discharge home. He needs to follow-up with his PCP as well as urology as he will need further workup for his BPH and urinary retention. He confirmed understanding. Patient was told to return back to the ED if symptoms worsen or change. He was educated about his multiple cysts versus hemangiomas and told to follow-up with his PCP for this. He confirmed understanding. Impression: 1. Urinary retention status post King placement 2. History of BPH on Flomax 3. UTI 4. Incidental found right hepatic lobe cyst versus hemangioma, splenic cyst versus hemangioma, and bilateral renal cysts Lab Data Labs: Laboratory Results - last 24 hr 12/25/23 11:04 WBC 6.7 RBC 3.84 L Hgb 12.6 L Hct 36.0 L MCV 93.8 MCH 32.8 H MCHC 35.0 RDW Std Deviation 43.7 RDW Coeff of Brianda 12.6 Plt Count 281 MPV 9.4 Immature Gran % (Auto) 0.500 Neut % (Auto) 75.3 H Lymph % (Auto) 12.2 L Blount % (Auto) 8.9 Eos % (Auto) 2.3 Baso % (Auto) 0.8 Absolute Neuts (auto) 5.0 Absolute Lymphs (auto) 0.81 L Nucleated RBC % 0 Sodium 132 L Potassium 3.9 Chloride 99 Carbon Dioxide 25.0 Anion Gap 8 BUN 19 H Creatinine 0.98 Estim Creat Clear Calc 46.11 Est GFR (MDRD) Af Amer 93 Est GFR (MDRD) Non-Af 77 BUN/Creatinine Ratio 19.5 Glucose 112 H Calcium 8.7 Urine Color Yellow Urine Clarity Clear Urine pH 6.5 Ur Specific [place] 1.015 Urine Protein 15 H Urine Glucose (UA) Normal Urine Ketones Negative Urine Occult Blood 25 H Urine Nitrite Negative Urine Bilirubin Negative Urine Urobilinogen Normal Ur Leukocyte Esterase 25 H Urine RBC 0-5 SEEN Urine WBC 5-10 SEEN Ur Squamous Epith Cells 0 SEEN Urine Bacteria 1+ Urine Mucus 0 SEEN Radiography Diagnostic Testing: Clinical Impression(s) from Imaging Studies Abdomen/Pelvis CT 12/25/23 10:56 IMPRESSION: Bladder wall thickening, may be secondary to cystitis. Enlarged prostate gland intruding into the posterior urinary bladder, cannot exclude an occult bladder lesion. Atherosclerosis. Electronically Signed: Madeleine Gross MD at 12:29 EDT , Discharge Plan Triage Chief Complaint: Complaint Other Complaint: Constipation ED Provider: Lex Day Dx/Rx/DC Orders Clinical Impression: Acute urinary retention Instructions: Benign Prostatic Hyperplasia, ED King Catheter, Care Prescriptions: No Action tamsulosin 0.4 MG capsule,extended release 24hr 0.4 mg PO QHS 60 Days Qty: 60 Patient Comments: diphenhydramine-acetaminophen [Tylenol PM Extra Strength] 25-500 mg tablet 1 tab PO QHS PRN glucosamine [id number] 1 EACH tablet 1 ea PO DAILY Patient Comments: [facility] aspirin 81 MG tablet 81 mg PO DAILY@0800 [id number] 1 EACH tablet 1 ea PO BID metoprolol tartrate 25 mg tablet 25 mg PO DAILY Qty: 90 3RF atorvastatin 40 mg tablet 40 mg PO QHS Qty: 90 3RF Primary Care Provider: Cedric Donis Referrals: Cedric Donis MD [Primary Care Provider] - 3-5 Days Neftali Nice MD [Med Staff - Active Staff] - 3-5 Days (Call to make an appointment as soon as possible) Activity Restrictions/Additional Instructions: King catheter remain in. Follow-up with your PCP and the urologist as soon as possible. Return if symptoms change or worsen. Print Language: Citizen Of [place] Disposition Disposition: Home, Self Care Discharge Date/Time: 12/25/23 13:42
[2023-12-25 11:17] LABS: Color, Urine Yellow (Yellow); Glucose, Dipstick Normal (Normal); Ketone-Dipstick Negative (Negative); Leukocyte Esterase-Dipstick 25 /ul (Negative); Mucous, Urine 0 SEEN /hpf (<or=2+); Nitrite-Dipstick Negative (Negative); Occult Blood-Urine 25 /ul (Negative); Protein-Dipstick 15 mg/dl (Negative); Specific Gravity, Urine 1.015 (1.002-1.030); Squamous Epithelial Cells - UA 0 SEEN /hpf (0-5); Urine Bilirubin Dipstick Negative (Negative); Urine Clarity Clear (Clear); Urine Urobilinogen Normal (Normal); Urine pH 6.5 (5.0 - 8.0)
[2023-12-25 11:23] LABS: Absolute Lymphocyte Count 0.81 X10^3/uL (0.83-4.51); Basophil# 0.05 X10^3/uL; Basophil% 0.8 % (0-1); Eosinophil# 0.15 X10^3/uL; Eosinophils% 2.3 % (0-5); Hemoglobin 12.6 g/dL (13.0-16.5); Lymphocyte # 0.81 X10^3/ul (0.83-4.51); Lymphocyte % 12.2 % (19-41); Mean Corpuscular Hgb 32.8 pg (27.0-32.0); Mean Corpuscular Volume 93.8 fL (80-94); Mean Platelet Vol. 9.4 fl (6.2-12.0); Monocyte# 0.59 X10^3/uL; Monocyte% 8.9 % (0-10); NRBC Flagged by Analyzer 0 % (0-5); Neutrophil # 5.02 X10^3/uL (2.7-7.7); Neutrophil % 75.3 % (47-70); Platelet Count 281 K/mm3 (150-450); RBC Distribution Width CV 12.6 % (11.6-14.6); RBC Distribution Width SD 43.7 fl (35.1-43.9); Red Blood Count 3.84 M/mm3 (4.6-6.2); White Blood Count 6.7 K/mm3 (4.4-11.0)
[2023-12-25 11:26] LABS: Bacteria 1+ /hpf (None Seen); Red Blood Cells-Urine 0-5 SEEN /hpf (0-5); White Blood Cells 5-10 SEEN /hpf (0-5)
[2023-12-25 11:48] LABS: Anion Gap 8 (5-15); BUN 19 mg/dL (7-18); BUN/Creat Ratio 19.5 RATIO (10-20); Calcium,Total 8.7 mg/dL (8.5-10.1); Chloride 99 mmol/L (98-107); Creatinine, Serum 0.98 mg/dL (0.70-1.30); EST Glomerular Filtration Rate 77 mL/min (>60); Est Glom Filt Rate - Afr Amer 93 mL/min (>60); Estimated Creatinine Clearance 46.11 ml/min; Glucose 112 mg/dL (74-106); Potassium 3.9 mmol/L (3.5-5.1); Sodium Level 132 mmol/L (136-145)
[2023-12-25 12:19] VITALS: BP 134/76; PULSE 61; RESP 18; O2SAT 98
[2023-12-25 13:41] VITALS: BP 137/81; PULSE 78; RESP 14; TEMP 36.6; O2SAT 99
== END 2023-12-25 13:42 | disposition home or self-care (01) ==
PROVIDERS: Emergency Provider Surgery; PCP Family Medicine; Visit Provider Surgery
DX: N39.0 Urinary tract infection, site not specified (principal); I25.10 Atherosclerotic heart disease of native coronary artery without angina pectoris; N40.1 Benign prostatic hyperplasia with lower urinary tract symptoms; Z86.16 Personal history of COVID-19; Z95.5 Presence of coronary angioplasty implant and graft; Z95.1 Presence of aortocoronary bypass graft
CPT/HCPCS: 51702; 74177; 80048; 81001; 85025; 87086; 99285; Q9967; A4216

== ENCOUNTER 2024-01-09 12:41 | Emergency (ER) | payer MEDICARE, SELFPAY ==
[2024-01-09 12:42] VITALS: BP 137/98; PULSE 88; RESP 16; TEMP 36.1; O2SAT 98; BMI 23.8
--- NOTE | 2024-01-09 13:13 | EX.ED.GUMALE ---
HPI History of Present Illness Chief Complaint: Complaint Detail of Chief Complaint: Unable to urinate. Informant: patient and spouse/S.O. Pain Onset: Today Context: Gradual Onset Timing: Continuous Current Severity: Mild Maximum Severity: Mild Narrative Narrative: 88-year-old male history of BPH on Flomax and has been for some time. Sees Dr. Zechariah Nice. Recently been on antibiotics for UTI by his primary care physician. Recently had a King catheter in which was removed by his urologist. Unable to pee today. Also has had some constipation and has a history of external hemorrhoids. No bleeding. 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 Hx of peripheral neuropathy Cancer High cholesterol Cardiology follow-up encounter Non-smoker History of pain when walking Hx of echocardiogram History of stress test History of heart attack COVID-19 virus detected (01/13/20) Encounter for education Peripheral neuropathic gait Imbalance Tinea corporis Weakness of lower extremity Dizziness Fecal occult blood test positive Encounter for chemotherapy management Essential (primary) hypertension Ischemic cardiomyopathy Old inferior wall myocardial infarction Cataract Peripheral neuropathy due to chemotherapy BIOPSY OF THROAT Chest congestion Supraglottic mass Chemotherapy management, encounter for Atherosclerotic heart disease of [place] coronary artery without angina pectoris Paroxysmal ventricular tachycardia Dizziness and giddiness Atherosclerosis of coronary artery bypass graft without angina pectoris Bradycardia Hernia Arthritis 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 Benign prostatic hypertrophy HLD (hyperlipidemia) GERD (gastroesophageal reflux disease) Home Medications ?Medication ?Instructions ?Recorded ?Last Taken ?Type glucosamine HCl 500 mg-msm 83 1 ea PO DAILY 03/07/15 04/20/15 History mg-chondroitin 400 mg tablet aspirin 81 mg tablet,delayed 81 mg PO DAILY@0800 07/03/15 08/10/20 History release [id number]-jb-buxfu 300 mcg-K 60 1 ea PO BID 07/29/16 Unknown History mcg-lycop 600 mcg-lutein 300 mcg tablet tamsulosin 0.4 mg capsule 0.4 mg PO QHS 60 days ##60 02/27/17 Unknown History diphenhydramine 25 1 tab PO QHS PRN 03/30/23 Unknown History mg-acetaminophen 500 mg tablet (Tylenol PM Extra Strength) metoprolol tartrate 25 mg tablet 25 mg PO DAILY #90 tabs 04/24/23 Unknown Rx atorvastatin 40 mg tablet 40 mg PO QHS #90 tabs 11/13/23 Unknown Rx Allergy/AdvReac Type Severity Reaction Status Date / Time colestipol (From Colestid) AdvReac Mild Constipatio Verified 01/09/24 12:42 n Family History Father Heart disease Myocardial infarction, Onset Age: 43 Mother COPD (chronic obstructive pulmonary disease) Sister Cancer Surgical History Status post left inguinal hernia repair History of vascular access device History of cardiac catheterization History of electrophysiologic study (09/2008) History of coronary artery stent placement (07/2008) H/O coronary artery bypass surgery (06/16/05) Hx of cataract surgery History of biopsy Hx of tonsillectomy Social History Smoking Status: Never smoker alcohol intake: never substance use type: does not use caffeine: Yes Type: coffee Number of servings: 3 what type of physical activity do you participate in: none seatbelt use: always do you feel safe at home: Yes ROS ROS ED ROS Narrative Denies vomiting or fever. No dysuria. Constitutional Constitutional ED: Denies chills or fever(s) Eyes Eyes: Denies blurry vision ENT ENT ED: Denies ear pain Cardiovascular Cardiovascular: Denies chest pain Respiratory/Chest Respiratory/Chest: Denies cough or dyspnea Gastrointestinal Gastrointestinal: Reports constipation; Denies abdominal pain, diarrhea, melena, nausea or vomiting Genitourinary Genitourinary ED: Denies dysuria, hematuria or urinary frequency Musculoskeletal Musculoskeletal: Denies arthralgias Integumentary Denies abscess Neurologic Neurologic: Denies headache(s) Psychiatric Psychiatric: Denies anxiety Endocrine Endocrinology: Denies polydipsia Hematologic/Lymphatic Hematologic/Lymphatic: Denies easy bleeding Allergic/Immunologic Allergic/Immunologic ED: Denies mouth swelling EXAM Physical Exam Narrative Exam Narrative: Well-appearing 88-year-old male vital signs stable afebrile. Nurses already placed a 16 [place] King catheter with clear yellow urine. Currently is comfortable. HEENT exam unremarkable. Neck nontender. Lungs clear to auscultation. Heart regular rhythm rate about 88 no murmur. Chest wall ribs nontender. Abdomen soft nontender. Nondistended. Bladder is not tender currently. He is already been decompressed. General exam unremarkable 18 [place] King catheter and with clear yellow urine. No blood clots or significant blood. Moving all 4 extremities. Nontender no edema. Patient is awake and alert no focal motor deficits. Const Vital Signs: 01/09/24 12:42 Temperature 97 F L Temperature Source Temporal Pulse Rate 88 Respiratory Rate 16 Blood Pressure 137/98 H Blood Pressure Mean 111 Pulse Ox 98 Positive well nourished and well developed; Negative for obese, cachectic, contractures or unkempt General Appearance ED: well developed and NAD; Negative for unkempt, cachectic, contractures or pallor Nutritional Appearance: Negative for cachectic or obese HEENT Reports moist mucous membranes normocephalic and atraumatic; Negative for trauma or tenderness Eyes PERRL and EOMs intact bilaterally General Eye ED: Negative for pale conjunctiva or scleral icterus Neck no lymphadenopathy, supple and no JVD General: Negative for tenderness Resp normal respiratory effort and clear to auscultation bilaterally Effort and Inspection: Negative for retractions or pain with movement Auscultation: Negative for rales, rhonchi or wheezes Cardio regular rate, regular rhythm, S1 normal heart sound and S2 normal heart sound GI non-tender, non-distended and no masses GI Narrative: External hemorrhoids. Auscultation: normoactive bowel sounds Palpation: soft; Negative for tender or guarding no CVA tenderness Back/Spine no CVA tenderness Extremity normal to inspection General Extremety ED: Negative for edema or tenderness General Extremity: Negative for edema Neuro oriented x3, CN's II-XII intact bilaterally, moves all extremities and no focal motor deficits Sensorium / Orientation: alert, oriented to person, oriented to place and oriented to time; Negative for orientation impaired, confused, lethargic or stuporous Motor Exam: strength 5/5 throughout Psych mental status grossly normal Appearance: Negative for unkempt Mood & Affect: Negative for depressed, anxious or tearful Thought Process: normal thought process Thought Content: normal thought content Skin General Skin Exam: Negative for jaundice or pallor Lesions: no lesions Rashes: no rashes MDM MDM MDM Narrative Medical decision making narrative: 88-year-old male urinary retention. Nurses already placed a King catheter. He had a bladder scan of 577. He had about 600 cc of clear yellow urine out. I will obtain a KUB versus constipation. Repeat exam patient is doing well 2:27 PM. To be discharged home with GoLytely for his constipation. King catheter in place till he follows up with urology. Preparation H for his hemorrhoids. History & Record Review Discussion w/independent historian: Patient Additional record(s) reviewed:: Prior inpatient record, Prior outpatient record, Prior ED visit and Prior labs Radiography Diagnostic Testing: Clinical Impression(s) from Imaging Studies KUB X-Ray 01/09/24 13:20 IMPRESSION: Nonspecific bowel gas pattern. Degenerative changes of the lumbar spine and hips. Electronically Signed: Madeleine Gross MD at 14:02 EDT , KUB, single view, interpreted by myself and radiologist. Shows chronic degenerative changes. Increased old consistent with constipation. No obstruction. Discharge Plan Triage Chief Complaint: Complaint ED Provider: Marques Nuno Dx/Rx/DC Orders Clinical Impression: Acute urinary retention, History of BPH, External hemorrhoid, Constipation Instructions: ED Constipation (Adult), ED Urinary Retention, Male Prescriptions: No Action tamsulosin 0.4 MG capsule,extended release 24hr 0.4 mg PO QHS 60 Days Qty: 60 Patient Comments: diphenhydramine-acetaminophen [Tylenol PM Extra Strength] 25-500 mg tablet 1 tab PO QHS PRN glucosamine [id number] 1 EACH tablet 1 ea PO DAILY Patient Comments: [facility] aspirin 81 MG tablet 81 mg PO DAILY@0800 [id number] 1 EACH tablet 1 ea PO BID metoprolol tartrate 25 mg tablet 25 mg PO DAILY Qty: 90 3RF atorvastatin 40 mg tablet 40 mg PO QHS Qty: 90 3RF Primary Care Provider: Cedric Donis Referrals: Cedric Donis MD [Primary Care Provider] - As Needed Neftali Nice MD [Med Staff - Active Staff] - As soon as possible Activity Restrictions/Additional Instructions: Follow-up with Dr. Zechariah Nice to address her King catheter. GoLytely for your constipation. Preparation H for your hemorrhoids. Print Language: [place] Disposition Disposition: Home, Self Care
--- NOTE | 2024-01-09 13:20 | RAD_ITS ---
INDICATION: constipated EXAMINATION/TECHNIQUE: X-RAY - XR Abdomen 1 View COMPARISON: CT dated December 25, 2023 FINDINGS: BOWEL GAS PATTERN: Non-obstructive. No bowel or stomach distention. FREE AIR: Not assessed on a single supine view. ORGANOMEGALY: Not seen. CALCIFICATIONS: No abnormal calcifications observed. LOWER CHEST: No acute pathology. BONES AND SOFT TISSUES: There are degenerative changes of the lumbar spine. There are degenerative changes of the hips. RAD/Abdomen Single View IMPRESSION: Nonspecific bowel gas pattern. Degenerative changes of the lumbar spine and hips. Electronically Signed: Madeleine Gross MD at 14:02 EDT ,
[2024-01-09 14:50] VITALS: BP 120/73; PULSE 60; RESP 16; O2SAT 97
--- NOTE | 2024-01-09 14:50 | ED.RN ---
emigdio switched to leg bag with teaching given to pt and pt's . pt and reported that had before. dc instructions given and waiting on golytlly
[2024-01-09 15:00] VITALS: BP 120/73; PULSE 60; RESP 16; TEMP 36.6; O2SAT 99
== END 2024-01-09 15:02 | disposition home or self-care (01) ==
PROVIDERS: Emergency Provider Emergency Medicine; PCP Family Medicine; Visit Provider Emergency Medicine
DX: R33.9 Retention of urine, unspecified (principal); N40.1 Benign prostatic hyperplasia with lower urinary tract symptoms; I25.10 Atherosclerotic heart disease of native coronary artery without angina pectoris; K64.9 Unspecified hemorrhoids; K59.00 Constipation, unspecified; Z86.16 Personal history of COVID-19
CPT/HCPCS: 51702; 74018; 99283